=== PATIENT | female | born 1950 | race Caucasian/White ===

== ENCOUNTER → 2022-03-07 | Outpatient (CLI) | payer MEDICARE, BC, SELFPAY ==
--- NOTE | 2022-03-07 12:25 | RAD_ITS ---
STUDY: X-RAY - LUMBAR SPINE REASON FOR EXAM: Female, 71 years old. SCIATICA TECHNIQUE: 2 view(s) of the lumbar spine were obtained. COMPARISON: None FINDINGS: Vertebral bodies are normal height. No definite fracture demonstrated. Mild curvature convex right. Minimal anterior subluxation L3 on L4. Disc space narrowing and osteophytes at most levels. Marked facet sclerosis L2-3 through L5-S1. Sacroiliac joints are symmetric bilaterally. No paravertebral soft tissue mass identified. Surgical clips right upper abdomen previous cholecystectomy. RAD/Lumbar Spine 2 or 3 Views IMPRESSION: Degenerative changes and scoliosis. Anterolisthesis at L3-4 likely secondary to degenerative changes. No evidence of acute fracture or traumatic subluxation. Electronically Signed: Delmis Mclean MD at 5:33 EDT ,
== END | disposition home or self-care (01) ==
PROVIDERS: Referring Provider Anesthesiology Pain Medicine; Visit Provider Anesthesiology Pain Medicine
DX: M54.30 Sciatica, unspecified side (principal)
CPT/HCPCS: 72100

== ENCOUNTER → 2022-04-22 | Outpatient (CLI) | payer MEDICARE, BC, SELFPAY | END | disposition home or self-care (01) | LOC: SL 20:25 | PROVIDERS: Referring Provider Internal Medicine Critical Care Medicine; Visit Provider Internal Medicine Critical Care Medicine | DX: G47.33 Obstructive sleep apnea (adult) (pediatric) (principal) | CPT/HCPCS: 95811 ==

== ENCOUNTER → 2022-05-05 | Outpatient (CLI) | payer MEDICARE, BC, SELFPAY | END | disposition home or self-care (01) | LOC: SL 16:49 | PROVIDERS: Visit Provider Nurse Practitioner Acute Care | DX: Z00.00 Encounter for general adult medical examination without abnormal findings (principal) ==

== ENCOUNTER → 2022-05-31 | Outpatient (CLI) | payer MEDICARE, BC, SELFPAY ==
--- NOTE | 2022-05-31 18:12 | MRI_ITS ---
EXAM: MR LUMBAR SPINE WITHOUT INTRAVENOUS CONTRAST CLINICAL INDICATION: LBP TECHNIQUE: Multiplanar and multisequence MR images of the lumbar spine without intravenous contrast. Magnetic field strength 1.5 T. This report was created using [email or web address] report [employer] technology. COMPARISON: None. FINDINGS: VERTEBRAE: Small hemangioma left side of the T12 vertebral body and left side of the upper sacrum. Vertebral body heights are preserved. Normal alignment. No spondylolisthesis. There is preservation of the normal lumbar lordosis. SPINAL CORD: Unremarkable. Normal position and signal intensity of the conus medullaris. SOFT TISSUES: Unremarkable. DISCS/SPINAL CANAL/NEURAL FORAMINA: L1-L2: Unremarkable. Normal disc height and morphology. Normal spinal canal and lateral recesses. Normal neuroforamina. L2-L3: Unremarkable. Normal disc height and morphology. Normal spinal canal and lateral recesses. Normal neuroforamina. L3-L4: Unremarkable. Normal disc height and morphology. Normal spinal canal and lateral recesses. Normal neuroforamina. Moderate bilateral facet arthropathy. L4-L5: Unremarkable. Normal disc height and morphology. Normal spinal canal and lateral recesses. Normal neuroforamina. Moderate bilateral facet arthropathy. L5-S1: Unremarkable. Normal disc height and morphology. Normal spinal canal and lateral recesses. Normal neuroforamina. Moderate bilateral facet arthropathy. MRI/Spine Lumbar (Routine) IMPRESSION: No acute findings in the lumbar spine. Moderate bilateral facet arthropathy in the lower lumbar spine. Hemangiomas in the T12 vertebral body and the sacrum. Electronically Signed: Ari Zamora MD at 7:58 EDT ,
== END | disposition home or self-care (01) ==
LOC: MRI 17:35
PROVIDERS: Referring Provider Anesthesiology Pain Medicine; Visit Provider Anesthesiology Pain Medicine
DX: M54.16 Radiculopathy, lumbar region (principal)
CPT/HCPCS: 72148

== ENCOUNTER → 2022-06-21 | Outpatient (CLI) | payer MEDICARE, BC, SELFPAY | END | disposition home or self-care (01) | LOC: SL 06-23 07:40 | PROVIDERS: Visit Provider Nurse Practitioner Acute Care | DX: G47.33 Obstructive sleep apnea (adult) (pediatric) (principal) | CPT/HCPCS: 98960; G0463 ==

== ENCOUNTER 2022-07-15 12:00 | Outpatient (RCR) | payer MEDICARE, BC, SELFPAY ==
--- NOTE | 2022-06-06 16:07 | HP.PTEVAL_ITS ---
Patient's Visit Information QUIRINO PECK is a 71 year old F referred to Physical Therapy by Dr. Robb Carmona MD with a diagnosis of BACK PAIN. Date of Evaluation: 06/06/22 Physical Therapist: Megan Spence PT, Cert MDT - Visit Plan Frequency: 2-3x /Week Duration: 4-6 Weeks Plan: AQUATIC THERAPY FOR PAIN RELEIF, POSTURE CORRECTION/STRENGTHENING, INSTRUCTION IN APPROPRIATE BODY MECHANICS AND ACTIVITY MODIFICATIONS. DLS STARTING WITH A NEUTRAL SPINE PROGRESSING ROM TOLERATED. ZANA LE ROM, STRETCHING AND STRENGTHENING. HEP INSTRUCTION - Subjective Work/Leisure: RETIRED. Present symptoms: THE BACK IS GONE REPORTS DR. TONE ARROYO GAVE HER A SHOT A COUPLE WKS AGO AND THE PAIN WENT AWAY RIGHT AWAY. ZANA THIGH, KNEE, LEG AND ANKLE PAIN. CURRENTLY LEFT > RIGHT. INTERMITTENT LLE NUMBNESS AND TINLGING. PAIN GETS THE WORST IN THE LEFT KNEE. Present since: YEARS. Pain Scale: WORST 9/10, LEAST 3/10. Currently: 8/10. Commenced as a result of: NO APPARENT REASON. Symptoms at onset: ZANA LE PAIN - THEN I WALKED FUNNY AND IT MADE MY BACK HURT. Worse: THE MORE I USE MY LEFT LEG AND THE MORE I AM ON THEM THE WORSE IT GETS. Better: SITTING SHORT TIMES AND FREQUENT OF CHANGE OF POSITION. TYLONOL. Disturbed sleep: YES. Previous history/Previous treatment: NO BACK SURGERY. NO HIP SURGERY. FIRST LORI WAS A COUPLE MONTHS AGO AND IT HELPED HER BACK AND EVEN HER LEGS TEMPORARILY. THIS MORE RECENT SHOT HELPED HER BACK BUT NOT HER LEGS. FOLLOW UP PENDING WITH DR. CARMONA AGAIN IN ABOUT 2 WKS. NO PRIOR PHYSICAL THERAPY. NO H/O CHIROPRACTIC. Coughing/sneezing/straining: NEGATIVE. Gait: I HAVE TO GO SLOW. PATIENT REPORTS IT HURTS HER L KNEE IF SHE TRIES TO WALK TOO FAST. Bowel or Bladder Dysfunction: NO. Accidents: NO. Unexplained weight loss: NO. Imaging: Moderate bilateral facet arthropathy in the lower lumbar spine. PMH/Recent major surgery: ON BLOOD THINNER FOR BLOOD CLOT IN RIGHT LE AND IT WENT UP INTO HEART 1998. SLEEP APNEA. HIGH CHOLESTEROL. HTN. - Objective Sitting/Standing Posture: POOR. FH. RS'S. SLOUCHED. NO RELEVENT LATERAL LUMBAR SHIFT. Active Correction of posture: NE. UNABLE TO MAINTAIN. Other Observations: THIS PATIENT AMBULATES INDEP;LY INTO PT TODAY WITHOUT ANY ASSITIVE DEVICES OR LOB BUT WITH DECREASED CADANCE. SHE IS LIMPING ON ZANA LE'S WALKS WITH INCREASED TRUNK FLEXION AND HAS SHORT ZANA STRIDE LENGTH. Sensory deficit: ZANA LE LIGHT TOUCH SENSATION GROSSLY INTACT AND SYMMETRICAL. ROM deficit: FULL ZANA KNEE EXT AND FLEX TO 115 DEG IN SUPINE WITH A HEEL SLIDE. ERP ZANA KNEES WITH FLEXION. Motor deficit: ZANA LE STRENGTH GROSSLY 4/5 EXCEPT ANKLES 5/5. Dural Signs: NEGATIVE ZANA LE'S. Lumbar mvmt loss: flex - MOD. ext - MOD. R SG - MOD. L SG - MOD. PATIENT DENIES INCREASED PAIN WITH LUMBAR ROM TESTING ALL PLANES. Core strength: POOR. Palpation: NO ACUTE LUMBAR OR HIP TENDERNESS. TREATMENT: NEUROMUSCULAR REEDUCATION - RETRAINING OF MVMT AND POSTURE FOR SITTING, LYING AND STANDING ACTIVITIES. - Balance/Special Test Scores Oswestry Low Back Score: 25 TUG Test Time Seconds: 15.13 30 Second Chair Rise Test Seconds: 6 - Goals Goal 1:: DECREASE C/O ZANA LE SX'S. Goal Time Frame: 4-6 Weeks Goal 2:: IMPROVE PERSONAL CARE, LIFTING, WALKING, STANDING, SOCIAL LIFE, TRAVEL AND WORK/HOMEMAKING FUNCTION. Goal Time Frame: 4-6 Weeks Goal 3:: INSTRUCT IN PROPHYLAXIS Goal Time Frame: 4-6 Weeks - Anticipated Interventions Patient/Client Instruction: Educate patient on: Condition, Plan of Care, Risk Factors For the Purpose of:: To improve self management Therapeutic Exercise to Include: Strength training, Body mechanics, Postural training, Flexibilty training, Neuromotor development, In an aquatic setting, Dynamic Lumbar Stabilization For the Purpose of:: To decrease pain, To increase ROM, To improve muscle performance and motor function, To increase tolerance to activity/condition/position, To improve ability of physical actions for home/community/work/leisure Thank you for the opportunity to evaluate your patient. For Medicare and Medicare HMO plans, please review the plan of care and approve it. It will need to be FAXED BACK to us at [phone] for Medicare purposes. For Medicare only, by signing this I certify the plan of care. Please let me know if there are questions or concerns regarding this plan of care. Physician Signature: Date:
--- NOTE | 2022-07-15 12:25 | HP.PTDCSUM ---
It has been my pleasure to treat QUIRINO PECK referred by Dr. Robb Mtz MD, with the diagnosis of BACK PAIN for a total of 10 visit(s). Discharge Date: Please see the following information for a summary of their discharge status. Subjective: I'VE HAD BIG IMPROVEMENT. PATIENT REPORTS SHE FEELS IF SHE CONTINUES HER HEP SHE WILL CONTINUE TO GET BETTER. DID GET SORE ATTER LAST AQUATIC THERAPY SESSION THAT SHE RELATES TO USING MUSCLES THAT SHE HASN'T USED ENOUGH. PATIENT REPORTS SHE IS DOING SO MUCH BETTER AND HER GOALS FOR THERAPY HAVE BEEN MET - I CAN DO MY HOUSE TASKS NOW AND I AM GOING TO FREEZE PEACHES TODAY. WANTS TO CONTINUE EX ON HER OWN AT THIS POINT. LLE Pain Intensity (Out of 10): 0 Lumbar Spine Pain Intensity (Out of 10): 0 % Improvement: 85 Objective/Function: PATIENT WAS SEEN TODAY FOR RE-ASSESSMENT OF PROGRESS TOWARD THE SET PT GOALS AND THE NEED FOR FURTHER PHYSICAL THERAPY VS READINESS FOR DISCHARGE. UPON EXAM TODAY: Motor deficit: ZANA LE STRENGTH GROSSLY 4/5 EXCEPT ANKLES 5/5. Dural Signs: NEGATIVE ZANA LE'S. Lumbar mvmt loss: flex - MOD. ext - MOD. R SG - MOD. L SG - MOD. PATIENT DENIES INCREASED PAIN WITH LUMBAR ROM TESTING ALL PLANES. Core strength: POOR. TUG TIME AND 30STS TESTS HAVE BOTH IMPROVED. Goal 1:: DECREASE C/O ZANA LE SX'S. Goal Progress: Goal Met Goal 2:: IMPROVE PERSONAL CARE, LIFTING, WALKING, STANDING, SOCIAL LIFE, TRAVEL AND WORK/HOMEMAKING FUNCTION. Goal Progress: Goal Met Goal 3:: INSTRUCT IN PROPHYLAXIS Goal Progress: Goal Met Plan: D/C TO INDEP HEP. PATIENT IS AGREEABLE. If there are questions or concerns regarding this patient's physical therapy, please feel free to call me at [phone]. Thank you for the referral of this patient. Sincerely, Megan Spence, PT, Cert MDT Balance/Gait/Functional tests - Balance/Special Test Scores Oswestry Low Back Score: 10 TUG Test Time Seconds: 12.42 Tug Test: <20 sec.=mostly independent 30 Second Chair Rise Test Seconds: 8
== END 2022-07-15 19:00 | disposition home or self-care (01) ==
LOC: PT 12:00
PROVIDERS: Referring Provider Anesthesiology Pain Medicine; Visit Provider Anesthesiology Pain Medicine
DX: M54.9 Dorsalgia, unspecified (principal)
CPT/HCPCS: 97112; 97113; 97162; 97164

== ENCOUNTER 2023-12-27 08:37 | Observation (INO) | payer MEDICARE, BC, SELFPAY ==
[2023-11-30 14:21] LABS: Absolute Neutrophil Count 4.9 X10^3/uL (2.0-7.7); Basophil# 0.02 X10^3/uL; Basophil% 0.2 % (0-1); Eosinophil# 0.27 X10^3/uL; Eosinophils% 2.8 % (0-5); Hematocrit 39.8 % (37-47); Hemoglobin 12.7 g/dL (12.0-15.0); Mean Corp Hgb Conc 31.9 g/dL (32-36); Mean Corpuscular Hgb 30.9 pg (27.0-32.0); Mean Corpuscular Volume 96.8 fL (81-99); Monocyte# 0.86 X10^3/uL; Monocyte% 8.8 % (0-10); NRBC Flagged by Analyzer 0 % (0-5); Neutrophil # 4.87 X10^3/uL (2.7-7.7); Neutrophil % 50.1 % (47-70); Platelet Count 249 K/mm3 (150-450); RBC Distribution Width SD 50.1 fl (35.1-43.9); Red Blood Count 4.11 M/mm3 (4.2-5.4); White Blood Count 9.7 K/mm3 (4.4-11.0)
[2023-11-30 14:46] LABS: Magnesium 2.3 mg/dL (1.6-2.6)
[2023-11-30 14:47] LABS: Albumin, Serum 3.6 g/dL (3.2-5.0); Anion Gap 4 (5-15); BUN 19 mg/dL (7-18); BUN/Creat Ratio 25.8 RATIO (10-20); Calcium,Total 9.5 mg/dL (8.5-10.1); Chloride 106 mmol/L (98-107); Creatinine, Serum 0.74 mg/dL (0.55-1.02); EST Glomerular Filtration Rate 82 mL/min (>60); Est Glom Filt Rate - Afr Amer 99 mL/min (>60); Glucose 101 mg/dL (74-106); Sodium Level 136 mmol/L (136-145)
--- NOTE | 2023-12-21 06:49 | HP.PCM_ITS ---
History and Physical History and Physical? Patient Name: Pietro Abraham : 1950 From:? FERNIE FITZPATRICK PA-C? DATE OF PRE-OPERATIVE EXAM: 12/20/2023 DATE OF SURGERY:? 12/27/2023 SCHEDULED PROCEDURE:? Right total hip arthroplasty HISTORY OF PRESENT ILLNESS: Preoperative history and physical exam was performed on December 20, 2023.? This is a 73-year-old female who has had ongoing pain for over 2 years with her right hip.? Patient's pain can reach 9/10 with activities.? Her pain has been intermittent, aching, sharp, stabbing and sore.? Her pain has been progressively been getting worse.? She has start up pain.? Pain is located in the right buttock with pain radiating into the anterior thigh.? She states occasional instability with the left leg.? Pain occasionally awakens her at night.? She has difficulty with activities of daily living including shopping and housework.? Patient denies past history of surgery on the right hip.? She has been through weight loss program prescribed fit.? She uses a walker.? She has tried rest, physical therapy, home exercises with minimal relief.? She has been on oral Tylenol.? Patient has past history of DVT after gallbladder surgery.? She was initially on Coumadin but has been on Rivaroxaban 20 mg daily by her primary care physician.? She has medical history pertinent for previous DVT/pulmonary embolism, hypertension, hypercholesterolemia, chronic obstructive pulmonary disease, atrial tachycardia, depression, vitamin D deficiency, and history of anemia with iron deficiency.? Patient has been instructed by the primary care physician to stop the Rivaroxaban 48 hours prior to surgery.? She has obtain surgical clearance from the primary care physician Dr. Joyce and cardiology Fiorella Núñez.? Patient does have sleep apnea in which she uses a BiPAP.? Patient does state that she has required oxygen in the past after COVID-19.? She has not required any oxygen recently.? After failing conservative measures and discussing all treatment options was Dr. Luis Lundberg, the patient does wish to proceed with a right total hip arthroplasty.? She denies any recent chest pain, shortness of breath, fevers chills.? Preoperatively she did test positive for staph in which she has been doing the nasal decontamination. REVIEW OF SYSTEMS: Review Of Systems: Constitutional: Denies change in appetite, fever and weight change. Cardiovasular: Reports irregular heartbeat, but denies chest pain and heart murmur. Respiratory: Reports shortness of breath, but denies cough, pneumonia, tuberculosis and wheezing. Gastrointestinal: Reports constipation, but denies diarrhea, heartburn, nausea, rectal itching, bloody stools and vomiting. Genitourinary: Denies female genital problems. Denies urinary symptoms. Musculoskeletal: Reports gait disturbance, leg swelling, pain, trouble walking and weakness. Skin: Reports history of shingles, but denies Raynaud's and tattoo. Neurological: Denies ambulatory dysfunction, dizziness, numbness/tingling and tremor. Psychiatric: Reports stress, but denies anxiety and insomnia. Hematologic/Lymphatic: Denies anemia, bleeding/bruising tendency and past transfusion. Reviewed and updated. PAST MEDICAL HISTORY: Advance Care Plan: No Advance Directives Effective Date: 07/10/2023 Past Medical History: Medical Problems: Arthritis, High Blood Pressure, Hypercholesterolemia, History Of Blood Clots/ DVT, Sleep Apnea, Covid- 19, Pulmonary Embolism, atrial tachycardia, Chronic Obstructive Pulmonary Disease (COPD), Depression, Sinus Tachycardia, Mixed Hyperlipidemia, anemia, vitamin d deficiency Accidents: Fracture - RT [employer] RT ANKLE 1970 Surgical Hx: Appendectomy Cataracts - (2018) [facility] [place]? Gallbladder - (2018) [facility] Tonsillectomy - [facility] Anesthesia Complications: Anesthesia Complications - NAUSEA? Assistive Devices: Glasses, Dentures, Walker, Bipap Reviewed and updated. SOCIAL HISTORY: Social History: Marital: .Occupation: Retired.Work Status: Retired.Hand Dominance: Right- handed. Personal Habits:? Cigarette Use: Never Smoked Cigarettes.Smokeless Tobacco: Never Used Smokeless Tobacco.E-Cigarette Use: Never used.Alcohol: Denies use.Drug Use: Denies Use.Enjoy Exercising: Exercises 1-3 X/Week. Reviewed, no changes. VITALS: Ht: 60.9 Wt: 219lb 6oz Wt k.508 BMI: 41.6 BP: 128/80 Pulse: 114 Resp: 18 T: 97.7 T: 36.5C Pain Level: 6 O2SatR: 95 ALLERGIES: No Known Drug Allergy? MEDICATIONS: Mupirocin 2 % use qtip and apply inside each nostril twice a day until the day of surgery, Verapamil HCL ER 240 mg take 1 tablet by mouth every 12 hours, Venlafaxine HCL ER 37.5 mg take 1 capsule by mouth every day, Simvastatin 10 mg take 1 tablet by mouth at bedtime, Benazepril HCL 10 mg take 1 tablet by mouth every day, Valacyclovir HCL 1 gm take 1 tablet by mouth every 8 hours for 10 days, CVS D3 50 mcg (2000 Ut) daily, Instaflex Joint Supplement? 1 po qdaily, Miralax 17 gm as needed, Xarelto 20 mg once daily PRE-OP EXAM:? General appearance:NORMAL? ? ? Other: Eyes: Conjunctivae and lids: NORMAL? Pupils: ERR Ears, Nose, Mouth, and Throat: NORMAL? Other: Inspection of lips, teeth and gums: NORMAL? ?Other: Neck: Examination of neck: no masses noted. Respiratory: Assessment of respiratory effort: NORMAL? ?Other: ?Auscultation of lungs: clear to auscultation no wheezes, rhonchi or rales. Cardiovascular:? Auscultation of heart: regular rate and rhythm, no murmurs, gallops or rubs. PHYSICAL EXAMINATION: Patient does walk with a waddling and antalgic gait with use of walker.? Right hip range of motion 65 flexion, internal rotation 10, external rotation no redness and skin fold.? The right lower extremity is 3 mm shorter than the left.? Sensation intact to light touch. IMAGING STUDIES: Previous x-rays of the right hip reveal joint space narrowing, subchondral sclerosis, osteophyte formation consistent with severe stage IV bone on bone erosive osteoarthritis IMPRESSION: 1.? Severe right hip osteoarthritis 2.? Hypertension 3.? History of DVT and pulmonary embolism: Currently on Rivaroxaban 20 mg 4.? Hypercholesterolemia 5.? Sleep apnea with use of BiPAP 6.? Sinus tachycardia 7.? History of anemia iron deficiency 8.? Vitamin D deficiency 9.? Chronic obstructive pulmonary disease 10.? Depression 11.? Morbid obesity with BMI 41.6 PLAN: Dr. Luis Lundberg did discuss and review with the patient all treatment options including surgical versus nonsurgical options.? Patient does wish to proceed with the above-stated procedure.? Potential risks, benefits, and complications of the procedure were discussed in detail including but not limited to , infection, nerve and blood vessel damage, persistent pain, numbness, tingling, paresthesias, blood clot, pulmonary embolism, and requirement for possible further surgery.? The patient expressed full understanding and has no further questions for the doctor.? Patient does agree to proceed with the above-stated procedure and has signed the surgery consent form. POST-OP MEDICATION PLAN: Pain Medications:? Postoperative pain regimen will be initiated by Dr. Luis Lundberg at the hospital.? Due to patient testing positive for staph and her morbid obesity she will be placed on doxycycline postoperatively for 2 weeks.? We discussed side effects including hypersensitivity to sunlight in which she should take appropriate precautions.? Also recommended probiotic while on the antibiotic.? She was instructed to bring her BiPAP and walker to the hospital DVT Prophylaxis: Patient has been instructed to stop the Rivaroxaban 48 hours prior to surgery.? This will be resumed postoperatively This dictation was created using voice recognition software. Phonetic and/or grammatical errors may exist. ___? I have re-examined the patient.? There are no clinical changes since date of exam. ___? See progress notes for changes. ___? Dictated on admission Date: ? ? ?Time: Signature:
[2023-12-27] VITALS (13 sets, daily range): BP systolic 89–128; BP diastolic 42–65; PULSE 55–115; RESP 16–18; TEMP 36.3–37.1; O2SAT 93–100; BMI 42.2
--- NOTE | 2023-12-27 | HIP_PTH ---
PATHOLOGY RESULTS PATIENT: QUIRINO PECK LOC: MS3 U#:[id number] AGE/SX: 73/F ROOM: [facility] [place] RE12/27/[address]: Dr. Lius Lundberg MD : 1950 BED: 1 DIS: 12/28/2023 SPEC #: [id number] RECD: 12/27/23 09:04 STATUS: ELIUD GARCIAChrist #: [id number] KOKO: 12/27/23 00:[address]: Luis Lundberg DEPT: SURGICAL PATHOLOGY RECD BY: Eric Broderick ENTERED: 12/28/23 09:05 SP TYPE: TOTAL HIP OTHR DR: DO Dr. Roselia Shipley MD Tissues: Hip, NOS Procedures: Decalcification bone/plaque Surgery Specimen Level IV HEADER OPERATION: ERAS, anterior right total hip arthroplasty PRE-OP DIAGNOSIS: Severe right hip osteoarthritis TISSUE SUBMITTED: Right femoral head MICROSCOPIC DIAGNOSIS Right femoral head, total hip replacement/resection: Femoral head with degenerative osteoarthritic changes. LIZ:tatyana 01/03/2024 MICROSCOPIC DESCRIPTION Slides are reviewed. GROSS DESCRIPTION Received is one container labeled with the patient's name and designated right femoral head. The specimen consists of a slightly distorted degroot femoral head measuring 5.0 x 5.0 x 4.0 cm. The articular surface displays prominent osteophyte formation, eburnation and bone erosion. Also present in the specimen container are multiple irregular fragments of bone reamings, blood clot and bone measuring in aggregate 8.5 x 5.0 x 1.5 cm. Epidemiologist sections are submitted in two cassettes after decalcification as follows: 1 - bone reamings, 2 - bone. / AM:tatyana 12/28/2023 TC:5 CPT: 03605, 79201
[2023-12-27] MEDS: Magnesium 1 GM over 15 mins IV (09:15)
[2023-12-27] MEDS: Lactated Ringers 1,000 ML 999 ML IV ×2 (09:15→13:38)
[2023-12-27] MEDS: Celecoxib 200 MG Capsule 400 MG PO (09:34)
[2023-12-27] MEDS: Acetaminophen 500 MG Tablet 1000 MG PO ×2 (09:34→21:16)
[2023-12-27] MEDS: Gabapentin 600 MG Tablet PO (09:35)
[2023-12-27] MEDS: Vancomycin HCl 1,500 MG in 0.9% Normal Saline (500mL Bag) 500 ML 250 MG IV (09:47)
[2023-12-27] MEDS: Cefazolin 2 GM in 0.9% Normal Saline (100mL Bag) 100 ML IV (11:23)
[2023-12-27] MEDS: dexAMETHasone 10 MG/ML Vial IV (11:40)
--- NOTE | 2023-12-27 12:25 | RAD_ITS ---
STUDY: X-RAY - PELVIS AND RIGHT HIP REASON FOR EXAM: Female, 73 years old. Intraoperative digital documentation views of hip replacement. TECHNIQUE: 4 intraoperative digital documentation views of the pelvis and hip. COMPARISON: None. FINDINGS: 4 intraoperative digital documentation views show a right total hip arthroplasty in anatomic alignment. RAD/Hip 1 view with Pelvis IMPRESSION: Intraoperative digital documentation views. Electronically Signed: Ariel Leonardo MD at 13:38 EST ,
[2023-12-27] MEDS: JPS (Morphine 10mg/ml) OPERA.SITE (12:45)
[2023-12-27] MEDS: TRANEXAMIC ACID 2,000 MG, 0.9% Normal Saline (100mL Bag) 100 ML OPERA.SITE (12:47)
--- NOTE | 2023-12-27 12:57 | OP.PCM_ITS ---
Report of Operation Date of Procedure: 12/27/23 Pre-Operative Diagnosis: Right hip primary osteoarthritis Post-Operative Diagnosis: Right hip primary osteoarthritis Surgery/Procedure Performed:: Right minimally invasive direct anterior total hip replacement Description of Surgical Findings:: Stable hip with equal leg length Surgeon: Luis Lundberg turfgrass technician: Alejandro Montanez Type of Anesthesia: General Anesthesiologist: Teo Churchill Special Medications: 2 g Ancef, 1 g TXA at incision, 1 g TXA closure, 10 mg Decadron, joint cocktail (5 mg Duramorph, 30 mL of 0.5% Ropivicaine, 1000 units of epinephrine, 30 mg of Toradol) Specimen's removed: Bony cuts Estimated Blood Loss (mL): 500 Fluids Replaced: 1500 ML Description of Procedure: Components used: 1. Insignia [place] femoral stem size 4 high offset 2. L[place] trident 2 acetabular shell size 52 mm 3. [place] X3 polyethylene E 4. [place] Biolox delta 36mm, -5mm femoral head Brief history operative indications: 73 yo F who failed conservative measures for their hip osteoarthritis. X-rays were consistent with osteoarthritis including joint space narrowing, osteophyte formation and subchondral cysts. Total hip replacement was discussed with the patient with risks and benefits including but not limited to blood loss, DVTs, PEs, neurovascular damage, dislocation, general risks of anesthesia including loss of life. Patient demonstrated an understanding medical clearance is obtained the patient was consented for surgery. Procedure: On the date of procedure the patient's right hip was marked in the preoperative area. Patient was then taken back to the operating room where anesthesia assumed control of the C-spine and airway and administered anesthetic. Patient was transferred to the operating table and placed in the supine position. The hips were placed at the break of the bed and a sacral bump was placed. The right lower extremity was then prepped out in a sterile fashion using chlorhexidine while the surgeon scrubbed. The PA was vital in the positioning of the patient. Upon reentering the room the right lower extremity was draped in the standard orthopedic fashion and the incision was marked. A timeout was called and everyone agreed upon the side, the site, the procedure be performed, antibody given, and patient's identity. At this time incision was made through skin, subcutaneous tissue, and fat down to fascia. The fascia was then incised and the TFL was retracted laterally. A retractor was placed on the lateral border of the femoral neck. Attention was directed to the inferior portion of the serene ulrich and all crossing vessels were identified and appropriately coagulated. A retractor was then placed on the medial portion of the femoral neck. The anterior capsule was then cleared of all soft tissue and then H shaped capsulotomy was made. The retractors were then placed inside the capsule. The femoral neck was identified and a cleanup cut was made. At this time a power corkscrew was used to remove the femoral head. Attention was then turned toward the acetabulum where the soft tissues were appropriately retracted and the acetabulum was sequentially reamed to 52 mm. A 52 mm cup was then selected and impacted into place. Acetabular liner was impacted into place and locking mechanism was verified. The position of the acetabular cup was then verified under live fluoroscopy. Attention was then turned to the femur. Soft tissue releases on the medial and lateral femoral neck were appropriately done, the leg was externally rotated and lateralized. A Lester retractor was placed medially and proximally to the greater trochanter this allowed appropriate visualization and exposure of the femoral canal. Rongeour was then used to remove excess lateral bone. A canal finder and entry broach were used to open the proximal canal. Once we verified we were down the femoral canal we subsequently broached up to a size 4 femur. The appropriate neck was placed in the previously selected head was trialed with a -5 mm neck. Traction was pulled and the hip was reduced with internal rotation. Once it was appropriately reduced and stability was checked. There was minimal shuck, equal leg lengths and appropriate stability with hyperextension and external rotation as well as with 90? flexion and internal rotation. Fluoroscopy was then also used to verify the position of the components and leg lengths using the contralateral side for comparison. The trial components were then dislocated the proximal femur was again exposed and the components were removed from the wound. The final components were verified and opened. The wound was copiously irrigated out with normal saline. The acetabulum was checked for any residual debris. The final components were placed and impacted. Traction and internal rotation were again used to reduce the hip. After adequate reduction the hip remained stable with appropriate leg lengths. The final components were once again checked with live fluoroscopy and were found to be satisfactory. The wound was then copiously irrigated with normal saline once more, and hemostasis was obtained. Closure was then done using #1 Vicryl runner to close the fascia. A 2-0 vicryl interuppted sutures were used to close the subcutaneous skin. A 3-0 Monocryl and Steri-Strips were used for final skin closure. A Silverlon dressing was placed. Patient was awakened by anesthesia and transferred to the [facility]. Patient was then transferred to the PACU for recovery. During the course of the procedure the physician radiology transcriptionist (PE) played a vital role. Their intimate knowledge of my steps in the procedure aided in safe and expedient completion of the procedure. The PE played a vital rolls in positioning particularly in obtaining the appropriate positioning of the sacral bump. The PE was also vital in the retraction of soft tissues during the exposure and especially the femoral work as this is a vital part of the procedure to prevent complications and fractures. The PE was also vital and protecting soft tissues during times of bony cuts and reaming. He also played a vital role in closure with my direct supervision. The PE was also important during reduction and dislocation of the joint and trials intraoperatively. Postoperative plan: Patient will get 24 hours postop antibiotics. Patient will get in-house physical therapy and will be weight-bear as tolerated. Patient will follow up in office in 2 weeks for a wound check and x-rays. Patient will resume her Xarelto tomorrow. This will be sufficient for DVT prophylaxis. Finally, patient replaced on doxycycline 100 mg p.o. twice daily for positive preoperative staph screening and BMI greater than 40. Complications No intraoperative complications Admit VTE Documentation VTE Present on Admission: No VTE Mechan Device Prophylaxis: SCD's and Thigh High GINETTE Hose VTE Pharm Prophylaxis ordered?: Yes
--- NOTE | 2023-12-27 13:35 | RAD_ITS ---
STUDY: X-RAY - PELVIS AND RIGHT HIP REASON FOR EXAM: Female, 73 years old. Post Op -- AP both hips on single arnel/lateral of op hip PACU TECHNIQUE: 2 views of the pelvis and hip. COMPARISON: Comparison is made with prior study done earlier today. FINDINGS: The patient status post right total hip replacement. There is good alignment. Postoperative soft tissue changes. RAD/Hip Min 2 Views (Portable) IMPRESSION: Status post right total hip replacement. There is good alignment. Postoperative soft tissue changes. Electronically Signed: Alejo Marie MD at 14:16 EST ,
[2023-12-27] MEDS: Ondansetron 4 MG/2 ML Vial IV (17:57)
[2023-12-27] MEDS: 0.9% Saline Lock 10 ML Syringe IV (17:57)
--- NOTE | 2023-12-27 18:29 | PCM.PN.HOSP ---
Reason for Visit Reason for Visit: Diagnoses Encounter for other preprocedural examination (12/27/23) Subjective Subjective Patient was seen and examined today at the request of orthopedic surgery, she underwent a minimally invasive direct anterior total hip replacement, at the time my examination she is on low-flow nasal cannula oxygen. She does not relate to any complaints of shortness of breath or chest discomfort at the time of my exam. Medical history includes morbid obesity, obstructive sleep apnea, previous pulmonary embolism, chronic depression, essential hypertension, and hyperlipidemia. Objective Data Objective Data Vital Signs: Vital Signs Temp Pulse Resp BP Pulse Ox O2 Del Method O2 Flow Rate 98.7 F 115 H 18 127/65 H 99 Room Air 2 12/27/23 17:56 12/27/23 17:56 12/27/23 17:56 12/27/23 17:56 12/27/23 17:56 12/27/23 17:56 12/27/23 16:43 Oxygen Flow Rate (L/min) 2 Oxygen Delivery Method Room Air Weight: 98 kg Body Mass Index (BMI) 42.2 Intake & Output: Intake and Output for Last 24 Hours 12/25/23 12/26/23 12/27/23 23:59 23:59 23:59 Intake Total 2742 / 2742 Output Total 275 / 275 Balance 2467 / 2467 Lab / Micro Data 11/30/23 13:27 11/30/23 13:27 Micro: Microbiology 11/30/23 13:27 Interface Orders Nasal Screen MRSA/MSSA - Final Radiography Diagnostic Testing: Radiology Impression Hip/Pelvis X-Ray 12/27/23 12:25 IMPRESSION: Intraoperative digital documentation views. Electronically Signed: Ariel Leonardo MD at 13:38 EST , Hip X-Ray 12/27/23 13:35 IMPRESSION: Status post right total hip replacement. There is good alignment. Postoperative soft tissue changes. Electronically Signed: Alejo Marie MD at 14:16 EST , Physical Exam Const alert, oriented x3, no apparent distress and healthy appearing Constitutional Narrative: Patient is morbidly obese General Appearance: cooperative, well kempt and well developed Orientation / Consciousness: awake, oriented to person, oriented to place and oriented to time HEENT normocephalic, head/scalp atraumatic and moist oral mucous membranes Eyes PERRL, EOMs intact bilaterally and conjunctivae normal Neck supple, no JVD, thyroid normal and no carotid bruits General: trachea midline Resp normal respiratory effort, no retractions, no use of accessory muscles and clear to auscultation bilaterally Auscultation: Negative for rales, rhonchi or wheezes Cardio regular rate, regular rhythm, S1 normal heart sound, S2 normal heart sound, no murmurs, no rub and no gallops GI normal to inspection, nondistended, normoactive bowel sounds, soft to palpation, non-tender and non-distended Extremity no clubbing, cyanosis or edema Skin no rashes or lesions noted General Skin Exam: no breakdown Neuro oriented x3, CN's II-XII intact bilaterally, moves all extremities, no focal motor deficits and no sensory deficits noted Sensorium / Orientation: awake, alert, oriented to person, oriented to place and oriented to time Speech: speech normal Psych affect normal Assessment & Plan Assessment/Plan (1) LEELA (obstructive sleep apnea): PLAN: Plan 1. Obstructive sleep apnea-patient has her own CPAP machine here, she will use it while she is in the hospital #2 osteoarthritis-postop day 0 right total knee replacement, patient is seeing PT and OT, orthopedic surgery is managing her orthopedic issues #3 chronic anticoagulation-patient is on Xarelto as an outpatient due to past history of PE, orthopedic surgery is holding the Xarelto at the present time due to her surgery, it appears that the Xarelto will be resumed tomorrow night at dinner. #4 essential hypertension-patient is on verapamil, blood pressure will be monitored #5 chronic depression-patient is on Effexor #6 hyperlipidemia-patient is on Lipitor at this time #7 morbid obesity-complicates care, medical course, recovery, and prognosis Total clinical time spent by myself addressing the patient's medical issues, reviewing all of her data, and collaborating with patient's care team: 30 minutes Charges/Coding Visit Charges Office Visits / Consults: 79942 OV L4 Est 30min
--- NOTE | 2023-12-27 18:44 | NURSING ---
CPS aware pt has brought in her own CPAP machine for hs use.
[2023-12-27] MEDS: Cefazolin 1 GM/50 ML BAG IV (18:50)
[2023-12-27] MEDS: Atorvastatin Calcium 10 MG Tablet 5 MG PO (21:15)
[2023-12-27] MEDS: Verapamil SR 240 MG Tablet PO (21:15)
[2023-12-27] MEDS: Senna/Docusate Sodium 1 Tablet 2 TABLET PO (21:16)
[2023-12-28] MEDS: Cefazolin 1 GM/50 ML BAG IV (04:08)
[2023-12-28 04:10] VITALS: BP 108/48; PULSE 70; RESP 16; TEMP 36.4; O2SAT 97
[2023-12-28] MEDS: Acetaminophen 500 MG Tablet 1000 MG PO ×2 (06:59→12:12)
[2023-12-28 07:51] LABS: Hematocrit 33.7 % (37-47); Hemoglobin 10.6 g/dL (12.0-15.0); Mean Corp Hgb Conc 31.5 g/dL (32-36); Mean Corpuscular Hgb 30.5 pg (27.0-32.0); Mean Corpuscular Volume 97.1 fL (81-99); Mean Platelet Vol. 9.9 fl (6.2-12.0); Platelet Count 195 K/mm3 (150-450); RBC Distribution Width CV 13.4 % (11.6-14.6); RBC Distribution Width SD 47.8 fl (35.1-43.9); Red Blood Count 3.47 M/mm3 (4.2-5.4); White Blood Count 15.2 K/mm3 (4.4-11.0)
[2023-12-28 08:14] LABS: Anion Gap 4 (5-15); BUN 14 mg/dL (7-18); BUN/Creat Ratio 20.5 RATIO (10-20); Calcium,Total 8.3 mg/dL (8.5-10.1); Chloride 108 mmol/L (98-107); Creatinine, Serum 0.68 mg/dL (0.55-1.02); EST Glomerular Filtration Rate 90 mL/min (>60); Est Glom Filt Rate - Afr Amer 108 mL/min (>60); Estimated Creatinine Clearance 64.77 ml/min; Glucose 132 mg/dL (74-106); Potassium 4.5 mmol/L (3.5-5.1); Sodium Level 138 mmol/L (136-145)
[2023-12-28] MEDS: Cholecalciferol (VIT D3) 25 MCG TABLET (1,000 UNITS) 50 MCG PO (09:32)
[2023-12-28] MEDS: Ascorbic Acid 500 MG Tablet 1000 MG PO (09:32)
[2023-12-28] MEDS: Lisinopril 10 MG Tablet PO (09:33)
[2023-12-28] MEDS: Senna/Docusate Sodium 1 Tablet 2 TABLET PO (09:33)
[2023-12-28] MEDS: Zinc Sulfate 50 mg zinc (220 mg) ORAL capsule PO (09:33)
[2023-12-28] MEDS: Venlafaxine XR 37.5 MG Capsule PO (09:33)
[2023-12-28] MEDS: Famotidine 20 MG Tablet PO (09:33)
[2023-12-28] MEDS: Verapamil SR 240 MG Tablet PO (09:33)
--- NOTE | 2023-12-28 09:44 | CASEMGMT ---
Met with patient and her son to complete KNUTSON form. KNUTSON form explained to both who voiced understanding and signed form. Original form placed in pt?s chart and copy provided to?patient. Shanelle Romo, Discharge Planning Asst
[2023-12-28 10:00] VITALS: BP 116/50; PULSE 75; RESP 16; TEMP 36.7; O2SAT 95
--- NOTE | 2023-12-28 10:01 | PN_ITS ---
Subjective Subjective Patient seen and examined. She was sitting comfortably in bed with her son by bedside. She had no active complaints. She was comfortably eating breakfast. Review of systems otherwise negative. She is postop day 1 for right anterior hip replacement. Pain is well-controlled especially when she is not moving. R eview of systems otherwise negative. Objective Data Objective Data Vital Signs: Vital Signs Temp Pulse Resp BP Pulse Ox O2 Del Method O2 Flow Rate 97.6 F L 70 16 108/48 L 97 CPAP 2 12/28/23 04:10 12/28/23 04:10 12/28/23 04:10 12/28/23 04:10 12/28/23 04:10 12/28/23 04:10 12/27/23 21:28 Oxygen Flow Rate (L/min) 2 Oxygen Delivery Method CPAP Weight: 216 lb 0.848 oz Body Mass Index (BMI) 42.2 Intake & Output: Intake and Output for Last 24 Hours 12/26/23 12/27/23 12/28/23 23:59 23:59 23:59 Intake Total 2992 / 2992 50 / 50 Output Total 525 / 525 350 / 350 Balance 2467 / 2467 -300 / -300 Lab / Micro Data 12/28/23 07:14 12/28/23 07:14 Labs: Laboratory Results - last 24 hr 12/28/23 07:14: WBC 15.2 H, RBC 3.47 L, Hgb 10.6 L, Hct 33.7 L, MCV 97.1, MCH 30.5, MCHC 31.5 L, RDW Std Deviation 47.8 H, RDW Coeff of [place] 13.4, Plt Count 195, MPV 9.9, Sodium 138, Potassium 4.5, Chloride 108 H, Carbon Dioxide 26.0, Anion Gap 4 L, BUN 14, Creatinine 0.68, Estim Creat Clear Calc 64.77, Est GFR (MDRD) Af Amer 108, Est GFR (MDRD) Non-Af 90, BUN/Creatinine Ratio 20.5 H, Glucose 132 H, Calcium 8.3 L Micro: Microbiology 11/30/23 13:27 Interface Orders Nasal Screen MRSA/MSSA - Final Radiography Diagnostic Testing: Radiology Impression Hip/Pelvis X-Ray 12/27/23 12:25 IMPRESSION: Intraoperative digital documentation views. Electronically Signed: Ariel Leonardo MD at 13:38 EST , Hip X-Ray 12/27/23 13:35 IMPRESSION: Status post right total hip replacement. There is good alignment. Postoperative soft tissue changes. Electronically Signed: Alejo Marie MD at 14:16 EST , Physical Exam Const alert, oriented x3, no apparent distress and well nourished General Appearance: cooperative and well developed HEENT normocephalic, head/scalp atraumatic, moist oral mucous membranes and oropharynx normal Eyes PERRL and EOMs intact bilaterally Neck no lymphadenopathy, supple and no JVD Lymph Lymphatic: no lymphadenopathy noted and no lymphedema noted Resp normal respiratory effort, normal air movement and clear to auscultation bilat erally Cardio regular rate, regular rhythm, S1 normal heart sound, S2 normal heart sound and no murmurs GI normal to inspection, nondistended, normoactive bowel sounds, soft to palpation, non-tender and non-distended Extremity normal capillary refill, no clubbing, cyanosis or edema and no calf tenderness General Extremity: no tenderness to palpation of joints or extremities Skin Skin Narrative: intact dressing over right hip General Skin Exam: no breakdown Neuro CN's II-XII intact bilaterally, no focal motor deficits and no sensory deficits noted Psych thought process normal and cooperative Appearance: appropriate Assessment & Plan Assessment/Plan (1) S/P total right hip arthroplasty: PLAN: Plan #osteoarthritis s/p right anterior hip replacement * today is POD 1 * pain is well controlled * on PO oxyodone, PO tylenol and IV morphine prn for pain * PT/OT on board. * fall precautions #Benign essential hypertension: On verapamil #Depression: On Effexor #Hyperlipidemia: On statin #History of PE: On Xarelto on outpatient basis. Xarelto held at time of surgery. To be resumed when orthopedic surgery thinks is appropriate DVT prophylaxis: Xarelto to be resumed when deemed appropriate by primary team. Charges/Coding Visit Charges Inpatient E&M: 76612 Subs Hosp L2
--- NOTE | 2023-12-28 10:11 | PCM.PN.ORT ---
Subjective Subjective The patient was sitting in bed upon examination with family member present. Patient denies any chest pain, shortness of breath, dizziness, lightheadedness, nausea or vomiting, or calf pain. Patient did have some nausea yesterday but this has resolved. Pain is controlled on medications. No adverse overnight events. Patient did tolerate physical therapy well yesterday. She has not had therapy this morning yet. Objective Data Objective Data Vital Signs: Vital Signs Temp Pulse Resp BP Pulse Ox O2 Del Method O2 Flow Rate 97.6 F L 70 16 108/48 L 97 CPAP 2 12/28/23 04:10 12/28/23 04:10 12/28/23 04:10 12/28/23 04:10 12/28/23 04:10 12/28/23 04:10 12/27/23 21:28 Oxygen Flow Rate (L/min) 2 Oxygen Delivery Method CPAP Weight: 98 kg Body Mass Index (BMI) 42.2 Intake & Output: Intake and Output for Last 24 Hours 12/26/23 12/27/23 12/28/23 23:59 23:59 23:59 Intake Total 2992 / 2992 50 / 50 Output Total 525 / 525 350 / 350 Balance 2467 / 2467 -300 / -300 Lab / Micro Data 12/28/23 07:14 12/28/23 07:14 Labs: Laboratory Results - last 24 hr 12/28/23 07:14: WBC 15.2 H, RBC 3.47 L, Hgb 10.6 L, Hct 33.7 L, MCV 97.1, MCH 30.5, MCHC 31.5 L, RDW Std Deviation 47.8 H, RDW Coeff of [place] 13.4, Plt Count 195, MPV 9.9, Sodium 138, Potassium 4.5, Chloride 108 H, Carbon Dioxide 26.0, Anion Gap 4 L, BUN 14, Creatinine 0.68, Estim Creat Clear Calc 64.77, Est GFR (MDRD) Af Amer 108, Est GFR (MDRD) Non-Af 90, BUN/Creatinine Ratio 20.5 H, Glucose 132 H, Calcium 8.3 L Micro: Microbiology 11/30/23 13:27 Interface Orders Nasal Screen MRSA/MSSA - Final Radiography Diagnostic Testing: Radiology Impression Hip/Pelvis X-Ray 12/27/23 12:25 IMPRESSION: Intraoperative digital documentation views. Electronically Signed: Ariel Leonardo MD at 13:38 EST , Hip X-Ray 12/27/23 13:35 IMPRESSION: Status post right total hip replacement. There is good alignment. Postoperative soft tissue changes. Electronically Signed: Alejo Marie MD at 14:16 EST , Physical Exam Narrative Vital signs stable and afebrile. Right hip is soft and supple SCDs and GINETTE hose are in place bilaterally Patient is able to plantarflex and dorsiflex actively. Sensation is intact to light touch to saphenous, sural, superficial and deep peroneal, and tibial distribution. Incisional wound VAC in place with no drainage/output in tubing or canister Negative Homans bilaterally, negative signs and symptoms of DVT. Const alert, oriented x3 and no apparent distress Assessment & Plan Assessment/Plan (1) S/P total right hip arthroplasty: PLAN: 1. S/P direct anterior right total hip arthroplasty POD #1 2. Continue Pain Medications: Tylenol and oxycodone 3. DVT Prophylaxis: Patient has resumed her Xarelto 20 mg daily due to previous history of DVT/pulmonary embolism. 4. PT/OT: Weightbearing as tolerated with walker 5. H & H: 10.6/33.7, asymptomatic. Labs been reviewed and are stable. 6. Reactive leukocytosis: 15.2, Afebrile. Patient did receive Decadron intraoperatively. No clinical signs of infection. 7. Currently on doxycycline for 2 weeks postoperatively due to positive staph screening and BMI greater than 40.0. Discussed with the patient potential side effects of doxycycline including sensitivity to the sunlight and increased risk of skin burn. Recommend patient take appropriate precautions. Also recommend patient to take probiotic while on the antibiotic. Patient voiced understanding agreement. 8. Continue postoperative medical management per medicine 9. Continue incisional wound VAC: Plan will be for removal of incisional wound VAC on January 02, 2024. I had a lengthy discussion with her and family member about removal. If for some reason the device would fail she is to remove the dressing and dispose of the unit. She is not to get the incision/unit wet until removal of the device. On January 02, 2024 she is allowed to shower get the incision wet and only to use gentle soap and water on the incision. She is not to place any ointments, topicals, salves 6 weeks postoperatively. 10. Encouraged Incentive Spirometry 11. Disposition: Plan will be for discharge home this afternoon as long as patient is medically stable, tolerates therapy, and pain is adequately controlled. She does have outpatient physical therapy established. She will follow-up per postoperative instructions. She would like her prescriptions E scribed to [facility] pharmacy. Upon discharge she will contact her office with any concerns or questions. I have reviewed the [place] Automated Rx Reporting System (OARRS) report for this patient for refill pattern and other prescriber involvement as part of the appropriate surveillance for the provision of acute and chronic controlled medications. The report was requested and reviewed on the date of this entry and was considered in the prescribing process. This dictation was created using voice recognition software. Phonetic and/or grammatical errors may exist.
--- NOTE | 2023-12-28 10:18 | DCINST_ITS ---
Discharge Instructions Diet Discharge Diet: No restrictions Activity Discharge Activity: May Not Drive (No driving for 6 weeks postoperatively. Must also be off all narcotics and able to walk 100 feet without the use of cane or walker.) and May Not Shower (May not get the surgical area wet until incisional wound VAC is removed on January 02, 2024) May shower in (days): 1 (only if incision is dry and without drainage. Do NOT soak/submerge in tub/pool/mendoza/stream/hot tub.)) Ice area for (Minutes): 20 (Every 1-2 [address] barrier between ice and skin.) Weight Bearing Status: Weight bearing as tolerated Keep extremity elevated above heart level: Operative Extremity Additional Activity Instructions:: Follow [facility] Post-op Instructions. Once postoperative dressing has been removed only use gentle soap and water over the incision. Do not use any ointments, Neosporin, salves, alcohol pads over the incision for 6 weeks postoperatively. Do not submerge underwater for 6 weeks postoperatively. Wear elastic stockings for 2 weeks. Do NOT use alcohol with narcotic pain medication. Do NOT make important decisions while taking narcotic medication. If you have problems with taking your medication (rash, itching, nausea, etc.) call the office at once. Dressing / Incision Call your doctor if your incision/area has: Continuous Slow Oozing, Sudden Increased Bleeding, Increased Pain/ Swelling, Increased Redness and Foul Smelling Discharge Call your doctor if you observe: Fever of 101 or Higher, Shortness of breath, Chest pain, Calf discomfort and Uncontrolled pain Remove Dressing in: 5 days (Okay to remove incisional wound VAC on January 02, 2024) Additional Dressing/Incision Instructions:: Follow [facility] Post-op Instructions. Once postoperative dressing has been removed, only use gentle soap and water over the incision. Do not use any ointments, Neosporin, salves, alcohol pads over the incision for 6 weeks postoperatively. Do not submerge underwater for 6 weeks postoperatively. Continue with GINETTE hose/elastic stockings for 2 weeks postoperatively. May remove at nighttime but needs to be placed back on the leg during the day. Do NOT use alcohol with narcotic pain medication. Do NOT make important decisions while taking narcotic medication. If you have problems with taking your medication (rash, itching, nausea, etc.) call the office at once. Follow Up Care Test Results: Test results from this visit will be discussed in further detail at your follow- up appointment, if applicable. Discharge Plan Admission Admit Date/Time: 12/27/23 08:37 Attending Provider: Luis Lundberg Primary Care Provider: Kelley Joyce Consulting Providers: Roselia Dailey Discharge Orders/Prescriptions Prescriptions: New acetaminophen 500 mg Tablet 1,000 mg PO TID 14 Days Qty: 84 0RF Rx Instructions: Do not take more than 3000 mg Tylenol in a 24-hour period. famotidine 20 mg Tablet 20 mg PO DAILY 14 Days Qty: 14 0RF doxycycline monohydrate 100 mg Capsule 100 mg PO BID 14 Days Qty: 28 0RF oxycodone 5 mg Tablet 5 - 10 mg PO Q4H PRN PRN (Reason: Pain Score 4-10) 7 Days Qty: 42 0RF sennosides-docusate sodium [Stool Softener-Stimulant Laxat] 8.6-50 mg Tablet 2 tab PO BID 3 Days Qty: 12 0RF Rx Instructions: Take until first bowel movement, then as needed Continued cholecalciferol (vitamin D3) 50 mcg (2,000 unit) capsule 50 mcg PO DAILY denosumab 60 mg/mL syringe 60 mg subcut [id number] venlafaxine 37.5 mg capsule,extended release 24hr 37.5 mg PO DAILY zinc 50 mg tablet 50 mg PO DAILY ascorbic acid (vitamin C) 1,000 mg tablet 1 g PO DAILY Xarelto 20 mg tablet 20 mg PO QPM Patient Comments: TAKE ONE TABLET BY MOUTH EVERY DAY WITH SUPPER verapamil 240 mg tablet extended release 240 mg PO Q12H Patient Comments: TAKE 1 TABLET BY MOUTH EVERY 12 HOURS simvastatin 10 mg tablet 10 mg PO QHS Patient Comments: TAKE ONE TABLET BY MOUTH AT BEDTIME benazepril 10 mg tablet 10 mg PO DAILY Patient Comments: TAKE ONE TABLET BY MOUTH EVERY DAY magnesium 200 mg tablet 200 mg PO DAILY Referrals / Follow Up: Physical,Therapy [Other] - 01/01/24 3:00 pm Kelley Joyce DO [Primary Care Provider] - Ines Ruiz PA [Med Staff - [facility] Practice Prof] - 01/10/24 3:15 pm Disposition Disposition (needs filled in before D/C Order can be placed): Home, Self Care
--- NOTE | 2023-12-28 11:00 | CASEMGMT ---
RN?CM?CHILD CARE ASSOCIATE TEACHER?CM?to room to meet with patient for initial transition planning/care coordination?assessment.?RN?CM?introduced self and role at [facility].? Pt voices understanding and consents to?assessment?at this time.? Pt sitting up in chair in room in no distress at this time.? Pt is A/O at this time and answers all questions appropriately.?? Care providers, pharmacy, and demographics verified/updated at this time. PCP: Dr Kelley Joyce Specialists: Dr Lundberg-ortho, Dr Hudson/Annia Sainz, CHUCK WAGON DRIVER-pulmonology, Dr Mtz-main gallardo, STEVE Núñez--flea market seller in [facility] Pharmacy: [facility] Retail Insurance: Prescription Benefit:? Living Will/HPOA:? Pt does not currently have LW/HCPOA and declines info at this time.? Pt made aware that he can contact SW as an out-pt and make appt in the future if he decides he would like to talk with someone about this or would like to utilize [facility] social work for advanced directive completion.? Given [employer] card with information and contact number. Pt expresses understanding.? States does not have LW or HCPOA .? Interested in more information but states does not want to talk with at this time to complete paperwork.? Provided information on advanced directives and given [employer] card with number to call if chooses in the future to utilize [facility] social work for advanced directive completion. Educated patient that, if patient so chooses, can come back to [facility] and meet with a SW as an outpatient to complete health care advanced directives. Patient expresses understanding. LNOK: Living Arrangements: lives alone but planning on going to her son and DEBORAH's home after discharge as long as needed until she is able to return to her own home. Her son and DEBORAH's home is a one-story home w/4-5 steps to enter. She was independent w/ADL's and IADL's prior to surgery and her family is able to help as needed while she is recovering. Per therapy, they are planning no working w/pt w/stairs today. Transportation:?family DME: ?States has the following DME:?shower chair, walker, rollator, BIPAP from [employer] ?Pt states no need for further DME at this time.? HHC/SNF: No hx of either. Pt plans to go to [facility] for OP therapy. She has an appt scheduled for 12/31 @ 3 PM. Pt wishes to discharge home to her son and DEBORAH's home and states has no concerns with going there at time of discharge.? Pt voices no further concerns/needs at this time.? Advised pt to ask for?CM?if any further questions/concerns/needs arise.? Voices understanding. Pt discharging home and to continue taking Xarelto. Pt states she has this medication at home already, as she was taking it previously. PLAN:??Home w/OP therapy. Aditya BSN?RN?CM
[2023-12-28 11:02] VITALS: O2SAT 95
--- NOTE | 2023-12-28 11:50 | PHA.DC.MC.R ---
Pharmacy [facility] has performed discharge medication reconciliation and counseling for this patient. 1. ACETAMINOPHEN 1000MG PO TID X 14 DAYS 2. DOXYCYCLINE 100MG PO BID X 14 DAYS 3. FAMOTIDINE 20MG PO DAILY X 14 DAYS 4. OXYCODONE 5-10MG PO Q4H PRN PAIN 5. SENNA/DOCUSATE 2T PO BID UNTIL FIRST BM, THEN PRN CONSTIPATION The patient's discharge medication list was reviewed for discrepancies and discrepancies were resolved. The patient was counseled on the following discharge medications and changes in medications for homegoing were reviewed. The Reason for Use, instructions for use, and potential side effects were reviewed for all new medications. The patient's questions regarding all of their medications were answered. The patient was able to verbally demonstrate an understanding of their discharge medications. Patient counseled by pharmacy technician, Levi. Medications at Discharge Home Medications cholecalciferol (vitamin D3) 50 mcg (2,000 unit) capsule 50 mcg PO DAILY 03/24/22 denosumab 60 mg/mL subcutaneous syringe 60 mg subcut [id number] 03/24/22 venlafaxine 37.5 mg capsule,extended release 24 hr 37.5 mg PO DAILY 03/24/22 zinc 50 mg tablet 50 mg PO DAILY 03/24/22 ascorbic acid (vitamin C) 1,000 mg tablet 1 g PO DAILY 06/08/22 benazepril 10 mg tablet 10 mg PO DAILY 11/27/23 magnesium 200 mg tablet 200 mg PO DAILY 11/27/23 rivaroxaban 20 mg tablet (Xarelto) 20 mg PO QPM 11/27/23 simvastatin 10 mg tablet 10 mg PO QHS 11/27/23 verapamil 240 mg tablet,extended release 240 mg PO Q12H 11/27/23 acetaminophen 500 mg tablet 1,000 mg (2 x 500 mg) PO TID 14 days #84 tabs 12/28/23 doxycycline monohydrate 100 mg capsule 100 mg PO BID 14 days #28 caps 12/28/23 famotidine 20 mg tablet 20 mg PO DAILY 14 days #14 tabs 12/28/23 oxycodone 5 mg tablet 5 - 10 mg (1 - 2 x 5 mg) PO Q4H PRN PRN Pain Score 4-10 7 days #42 tabs 12/28/23 sennosides 8.6 mg-docusate sodium 50 mg tablet (Stool Softener-Stimulant Laxative) 2 tab PO BID 3 days #12 tabs 12/28/23
[2023-12-28] MEDS: Doxycycline 100 MG CAPSULE PO (12:11)
[2023-12-28] MEDS: Rivaroxaban 20 MG Tablet PO (12:11)
[2023-12-28 14:00] VITALS: BP 121/58; PULSE 72; RESP 16; TEMP 36.6; O2SAT 96
== END 2023-12-28 14:44 | disposition home or self-care (01) ==
LOC: SDC 08:38 → MS3 15:11
PROVIDERS: Anesthesiology; Admitting Provider Specialist; Referring Provider Specialist; Visit Provider Specialist
PROC: (CPT 27284; principal; 2023-12-27 10:50)
DX: M16.11 Unilateral primary osteoarthritis, right hip (principal); J44.9 Chronic obstructive pulmonary disease, unspecified; E66.01 Morbid (severe) obesity due to excess calories; Z68.41 Body mass index [BMI] 40.0-44.9, adult; Z86.711 Personal history of pulmonary embolism; Z86.718 Personal history of other venous thrombosis and embolism; E78.00 Pure hypercholesterolemia, unspecified; I47.19 Other supraventricular tachycardia; I10 Essential (primary) hypertension; G47.33 Obstructive sleep apnea (adult) (pediatric); E55.9 Vitamin D deficiency, unspecified; F32.A Depression, unspecified; Z79.899 Other long term (current) drug therapy
CPT/HCPCS: 27130; 01214; 36415; 73501; 73502; 76000; 80048; 82040; 83735; 85025; 85027; 87077; 87081; 88305; 88311; 93005; 94668; 96365; 96366; 96375; 97110; 97116; 97162; 97166; 99221; 99252; C1776; J7040; J7120; A4216; G0378; G0463; J2405; J3475

== ENCOUNTER → 2024-09-06 | Outpatient (CLI) | payer MEDICARE, BC, SELFPAY | END | disposition home or self-care (01) | LOC: SL 09:43 | PROVIDERS: Visit Provider Nurse Practitioner Acute Care | DX: G47.33 Obstructive sleep apnea (adult) (pediatric) (principal) | CPT/HCPCS: 98960; G0463 ==

== ENCOUNTER → 2024-09-30 | Outpatient (CLI) | payer MEDICARE, BC, SELFPAY | END | disposition home or self-care (01) | LOC: SL 13:05 | PROVIDERS: Visit Provider Nurse Practitioner Acute Care | DX: G47.33 Obstructive sleep apnea (adult) (pediatric) (principal) ==

== ENCOUNTER → 2025-09-09 | Outpatient (CLI) | payer MEDICARE, BC, SELFPAY ==
--- OUTSIDE RECORDS SUMMARY | 2025-09-09 20:07 | XMS RPT_ITS | CCD ---
Author Organization [facility] Care Team Providers Care Film Inspector Name Role Phone DR LARRY JOYCE DO Primary Care Physician [phone] Larry Joyce DO Primary Care Provider Dr. Larry Joyce Primary Care Provider [phone] Dr. Larry Joyce Referring Provider Dr. Austin Hudson Attending Provider [phone] Alistair FRANCHISE SPECIALIST, FRANCHISE SPECIALIST-C Annia Attending Provider [phone] Larry Joyce DO Primary Care Provider LARRY JOYCE Primary Care Unavailable KAMAR SHEA Attending Unavailable SUSAN NÚÑEZ Referring Unavailable LARRY JOYCE Primary Care Unavailable KAMAR SHEA Referring Unavailable ADOLFO GONSALES DO Attending Unavailable ADOLFO GONSALES DO Referring Unavailable LARRY JOYCE Primary Care Unavailable LARRY JOYCE Primary Care Unavailable ADOLFO GONSALES DO Referring Unavailable SUSAN NÚÑEZ Attending Unavailable LARRY JOYCE Primary Care Unavailable ADOLFO GONSALES DO Attending Unavailable LARRY JOYCE Referring Unavailable LARRY JOYCE Primary Care Unavailable SUSAN NÚÑEZ Referring Unavailable DR LARRY JOYCE DO Primary Care Physician [phone] Larry Joyce DO Primary Care Provider Dr. Larry Joyce Primary Care Provider [phone] Dr. Larry Joyce Referring Provider Alistair FRANCHISE SPECIALIST, FRANCHISE SPECIALIST-C Annia Attending Provider [phone] Dr. Kamar Morales Attending Provider [phone] Dr. Norah Turner Referring Provider Johnny, Dr. Smith Admit Provider Dr. Norah Turner Other Provider Dr. Zachary Andino Attending Provider Sina, Dr. Sharma Other Provider [phone] MARIA DEL CARMEN DO, DR JUAREZ Attending Unavailable MARIA DEL CARMEN DO, DR JUAREZ Primary Care Unavailable MARIA DEL CARMEN DO, DR JUAREZ Attending Unavailable MARIA DEL CARMEN DO, DR JUAREZ Primary Care Unavailable MARIA DEL CARMEN DO, DR JUAREZ Attending Unavailable MARIA DEL CARMEN DO, DR JUAREZ Primary Care Unavailable MARIA DEL CARMEN DO, DR JUAREZ Attending Unavailable MARIA DEL CARMEN DO, DR JUAREZ Primary Care Unavailable MARIA DEL CARMEN DO, DR JUAREZ Attending Unavailable MARIA DEL CARMEN DO, DR JUAREZ Primary Care Unavailable MARIA DEL CARMEN DO, DR JUAREZ Attending Unavailable MARIA DEL CARMEN DO, DR JUAREZ Primary Care Unavailable MARIA DEL CARMEN DO, DR JUAREZ Attending Unavailable MARIA DEL CARMEN DO, DR JUAREZ Primary Care Unavailable JOHNNY ROBLEDO, DR NORAH Haynes Attending Unavailab le MARIA DEL CARMEN DO, DR JUAREZ Primary Care Unavailable Maria Del Carmen DO, Larry Monet Primary Care Provider [phone] SUSAN NÚÑEZ Attending Unavailable MARIA DEL CARMEN, LARRY MONET Primary Care Unavailable MARIA DEL CARMEN DO, DR JUAREZ Attending Unavailable MARIA DEL CARMEN DO, DR JUAREZ Primary Care Unavailable MARIA DEL CARMEN DO, DR JUAREZ Primary Care Unavailable MARIA DEL CARMEN DO, DR JUAREZ Attending Unavailable MARIA DEL CARMEN DO, DR JUAREZ Primary Care Unavailable CAROLYN ROBLEDO, DR WILCOX Attending Unavailabl e MARIA DEL CARMEN DO, DR JUAREZ Attending Unavailable MARIA DEL CARMEN DO, DR JUAREZ Primary Care Unavailable MARIA DEL CARMEN DO, DR JUAREZ Attending Unavailable MARIA DEL CARMEN DO, DR JUAREZ Primary Care Unavailable MARIA DEL CARMEN DO, DR JUAREZ Attending Unavailable MARIA DEL CARMEN DO, DR JUAREZ Primary Care Unavailable Maria Del Carmen DO, Dr. Larry Monet Primary Care Provider Maria Del Carmen DO, Dr. Larry Monet Referring Provider [phone] Alistair FRANCHISE SPECIALIST-C, Annia Attending Provider Alistair FRANCHISE SPECIALIST, Annia Attending Unavailable Maria Del Carmen, Larry Monet Primary Care Unavailable Alistair FRANCHISE SPECIALIST, Annia Attending Unavailable Maria Del Carmen, Larry Monet Primary Care Unavailable Alistair FRANCHISE SPECIALIST, Annia Attending Unavailable Alistair FRANCHISE SPECIALIST, Annia Referring Unavailable Larry Joyce Primary Care Unavailable Larry Joyce Referring Unavailable Alistair FRANCHISE SPECIALIST, Annia Attending Unavailable Larry Joyce Primary Care Unavailable Larry Joyce Referring Unavailable Alistair FRANCHISE SPECIALIST, Annia Attending Unavailable Larry Joyce Primary Care Unavailable Medications Current Medications Medication Drug Class(es) Dates Sig (Normalized) Sig (Original) acetaminophen 500 mg oral tablet (2 sources) Start: 12-28-2023 Acetaminophen 500 mg Tablet Active 1000 mg PO THREE TIMES A DAY 84 14 0 December 28, 2023 1:00am Do not take more than 3000 mg Tylenol in a 24-hour period. Start: 12-28-2023 take 3000 mg by mout h three times daily Acetaminophen Active 1000 MG PO THREE TIMES A DAY 84 14 December 28, 2023 12:00am Do not take more than 3000 mg Tylenol in a 24-hour period. ascorbic acid 1000 mg oral tablet (19 sources) Vitamin C Start: 06-08-2022 take 1 g by mouth once daily Ascorbic Acid (Vitamin C) 1,000 mg tablet Active 1 g PO DAILY June 08, 2022 1:33pm Start: 06-08-2022 take 1 g by mouth once daily A scorbic Acid (Vitamin C) Active 1 GM PO DAILY June 08, 2022 12:33pm Start: 06-08-2022 take 1 g by mouth once daily A scorbic Acid (Vitamin C) Active 1 GM PO DAILY June 08, 2022 1:33pm Start: 03-24-2022 End: 06-08-2022 take 1 g by mouth every six hours Ascorbic Acid (Vitamin C) 1,000 mg tablet Discontinued 1 g PO EVERY 6 HOURS March 24, 2022 12:00am June 08, 2022 1:34pm Start: 03-24-2022 End: 06-08-2022 take 1 g by mouth every six hours Ascorbic Acid (Vitamin C) Discontinued 1 GM PO EVERY 6 HOURS March 23, 2022 11:00pm June 08, 2022 12:34pm Start: 03-24-2022 End: 06-08-2022 take 1 g by mouth every six hours Ascorbic Acid (Vitamin C) Discontinued 1 GM PO EVERY 6 HOURS March 24, 2022 12:00am June 08, 2022 1:34pm Start: 03-24-2022 take 1 g by mouth ev kevin six hours Ascorbic Acid (Vitamin C) Active 1 GM PO EVERY 6 HOURS March 24, 2022 12:00am take 1 tablet by lula th once daily ascorbic acid, vitamin C, (VITAMIN C) 500 mg tablet Take 500 mg by mouth once daily. Active Comment on above: Take 500 mg by mouth once daily. benazepril hydrochloride 10 mg oral tablet (20 sources) Angiotensin Converting Enzyme Inhibitor Start: 04-24-2025 benazepril 10 mg oral tablet Dose : 10 mg = 1 tab(s), Oral, Daily, # 90 tab(s), 1 Refill(s), Pharmacy: [facility], 154, cm, 03/11/25 13:53:00 EDT, Height, kg, 03/11/25 13:53:00 EDT, Dosing Weight Start Date: 04/24/25 Status: Ordered Quantity: 90.0 Unit: tab(s) Repeat number: 2 Start: 11-27-2023 benazepril 10 mg oral tablet Dose : 10 mg = 1 tab(s), Oral, Daily, # 90 tab(s), 1 Refill(s), Pharmacy: [facility], 156, cm, 03/07/24 15:00:00 EDT, Height, kg, 03/07/24 15:00:00 EDT, Dosing Weight Start Date: 07/26/24 Status: Ordered Quantity: 90.0 Unit: tab(s) Repeat number: 2 Start: 10-03-2023 benazepril 10 mg oral tablet Dose : 10 mg = 1 tab(s), Oral, Daily, # 90 tab(s), 1 Refill(s), Pharmacy: [facility], 156, cm, 09/07/23 15:00:00 EST, Height, kg, 09/07/23 15:00:00 EST, Dosing Weight Start Date: 10/03/23 Status: Ordered Start: 09-01-2022 benazepril 10 mg oral tablet Dose : 10 mg = 1 tab(s), Oral, Daily, # 90 tab(s), 1 Refill(s), Pharmacy: [facility]/pharmacy #[id number], 156, cm, 09/01/22 14:10:00 EDT, Height, kg, 09/01/22 14:10:00 EDT, Dosing Weight Start Date: 09/01/22 Status: Ordered Start: 07-08-2021 End: 03-31-2022 take 1 tablet by mouth once daily Benazepril 10 mg tablet Discontinued 10 mg PO DAILY March 24, 2022 12:00am March 31, 2022 11:10am Comment on above: Take 10 mg by mouth once daily. cholecalciferol 0.05 mg oral capsule (15 sources) Vitamin D Start: 03-24-20 take 1 capsule by mouth once daily Cholecalciferol (Vitamin D3) 50 mcg (2,000 unit) capsule Active 50 ug PO DAILY March 24, 2022 12:00am take 1 tablet by mouth once jameel y cholecalciferol (VITAMIN D3) 50 mcg (2,000 unit) tablet Take 2,000 Units by mouth once daily. Active Comment on above: Take 2,000 Units by mouth once daily. Collagen (4 sources) Start: 09-01-2022 collagen topic al powder 0 Refill(s), 101.9 Start Date: 09/01/22 Status: Ordered DME (11 sources) Start: 09-01-2022 DME See Marya bergeron, # 1 EA, 0 Refill(s), 101.9 Start Date: 09/01/22 Status: Ordered Quantity: 1.0 Unit: EA Repeat number: 1 Start: 09-01-2022 DME See Marya bergeron, # 1 EA, 0 Refill(s), 101.9 Start Date: 09/01/22 Status: Ordered docusate sodium 50 mg / sennosides, chcf 8.6 mg oral tablet (2 sources) Start: 12-28-2023 Sennosides-Docusate Sodium (Stool Softener-Stimulant Laxat) 8.6-50 mg Tablet Active 2 {tbl} PO TWICE A DAY 12 3 December 28, 2023 1:00am Take until first bowel movement, then as needed famotidine 20 mg oral tablet (2 sources) Histamine-2 Receptor Antagonist Start: 12-28-2023 take 1 tablet by mouth once daily Famotidine 20 mg Tablet Active 20 mg PO DAILY 14 14 0 December 28, 2023 1:00am fluticasone propionate 0.05 mg/actuat metered dose nasal spray (20 sources) Corticosteroid Start: 01-30-2025 Fluticasone Propionate 50 mcg/actuation spray,suspension Active NMA INTRANASAL January 30, 2025 12:00am Start: 11-08-2024 fluticasone pr oprionate NASAL 50 mcg/ spray Dose = 2 spray(s), Nasal, BID, in each nostril, # 48 gram(s), 3 Refill(s), Pharmacy: [facility], 154, cm, 09/10/24 13:29:00 EST, Height, kg, 09/10/24 13:29:00 EST, Dosing Weight Start Date: 11/08/24 Status: Ordered Quantity: 48.0 Unit: g Repeat number: 4 Start: 05-07-2024 fluticasone pr oprionate NASAL 50 mcg/ spray Dose = 2 spray(s), Nasal, BID, in each nostril, # 48 gram(s), 1 Refill(s), Pharmacy: [facility], 156, cm, 03/07/24 15:00:00 EDT, Height, kg, 03/07/24 15:00:00 EDT, Dosing Weight Start Date: 05/07/24 Status: Ordered Quantity: 48.0 Unit: g Repeat number: 2 Start: 10-03-2023 fluticasone pr oprionate NASAL 50 mcg/ spray Dose = 2 spray(s), Nasal, BID, in each nostril, # 48 gram(s), 1 Refill(s), Pharmacy: [facility], 156, cm, 09/07/23 15:00:00 EST, Height, kg, 09/07/23 15:00:00 EST, Dosing Weight Start Date: 10/03/23 Status: Ordered Start: 02-28-2023 fluticasone pr oprionate NASAL 50 mcg/ spray Dose = 2 spray(s), Nasal, BID, in each nostril, # 1 EA, 5 Refill(s), Pharmacy: [facility]/pharmacy #[id number], 156, cm, 09/01/22 14:10:00 EDT, Height, kg, 02/28/23 13:30:00 EDT, Dosing Weight Start Date: 02/28/23 Status: Ordered Start: 03-24-2022 End: 03-31-2022 Fluticasone Propionate 50 mcg/actuation spray,suspension Discontinued 2 NMA INTRANASAL TWICE A DAY March 24, 2022 12:00am March 31, 2022 11:10am administer into each nostril Start: 03-24-2022 End: 03-31-2022 take 1 spray(s) nasal route twice daily Fluticasone Propionate Discontinued 2 SPRAY INTRANASAL TWICE A DAY March 23, 2022 11:00pm March 31, 2022 10:10am administer into each nostril Start: 04-07-2020 fluticasone pr oprionate NASAL 50 mcg/ spray Dose = 2 spray(s), Nasal, BID, in each nostril, # 1 EA, 5 Refill(s), Pharmacy: [facility]/pharmacy #[id number], 160, cm, 12/26/19 13:19:00 EST, Height, kg, 12/26/19 13:19:00 EST, Dosing Weight Start Date: 04/07/20 Status: Ordered fluticasone proprionate NASAL 50 mcg/ spray (6 sources) Start: 04-07-2020 fluticasone pr oprionate NASAL 50 mcg/ spray Dose = 2 spray(s), Nasal, BID, in each nostril, # 1 EA, 5 Refill(s), Pharmacy: [facility]/pharmacy #[id number], 160, cm, 12/26/19 13:19:00 EST, Height, kg, 12/26/19 13:19:00 EST, Dosing Weight Start Date: 04/07/20 Status: Ordered Magnesium (2 sources) Start: 11-27-2023 take 1 tablet by mouth once daily Magnesium 200 mg tablet Active 200 mg PO DAILY November 27, 2023 1:00am Start: 11-27-2023 take 200 mg by mouth once jameel y Magnesium Active 200 MG PO DAILY November 27, 2023 12:00am magnesium oxide 250 mg oral tablet (2 sources) Start: 03-11-2025 Magnesium 250 mg tablet Dose : 250 mg = 1 tab(s), Oral, qDay, 0 Refill(s) Start Date: 03/11/25 Status: Ordered Repeat number: 1 oxyCODONE hydrochloride 5 mg oral tablet (2 sources) Opioid Agonist Start: 12-28-2023 take 5-10 mg by mouth every four hours as needed for pain Oxycodone 5 mg Tablet Active 5 - 10 mg PO EVERY 4 HOURS NEEDED as needed for Pain Score 4-10 42 7 0 December 28, 2023 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 Multivitamins (2 sources) Start: 03-11-2025 take 1 tablet by mouth once daily Multivitamins Dose = 1 tab(s), Oral, qDay, 0 Refill(s) Start Date: 03/11/25 Status: Ordered Repeat number: 1 rivaroxaban 20 mg oral tablet (15 sources) Factor Xa Inhibitor Start: 09-08-2023 Xarelto 20 mg oral tablet Dose : 20 mg = 1 tab(s), Oral, with supper, # 90 tab(s), 1 Refill(s), Pharmacy: [facility], 154, cm, 03/11/25 13:53:00 EDT, Height, 90.7, kg, 03/11/25 13:53:00 EDT, Dosing Weight Start Date: 04/24/25 Status: Ordered Quantity: 90.0 Unit: tab(s) Repeat number: 2 Comment on above: Take 20 mg by mouth daily with dinner. simvastatin 10 mg oral tablet (20 sources) HMG-CoA Reductase Inhibitor Start: 04-13-2025 simvastatin 10 mg oral tablet Dose : 10 mg = 1 tab(s), Oral, qHS, # 30 tab(s), 0 Refill(s), Pharmacy: [facility], 154, cm, 03/11/25 13:53:00 EDT, Height, kg, 03/11/25 13:53:00 EDT, Dosing Weight Start Date: 04/13/25 Status: Ordered Quantity: 30.0 Unit: tab(s) Repeat number: 1 Start: 11-27-2023 simvastatin 10 mg oral tablet Dose : 10 mg = 1 tab(s), Oral, qHS, # 90 tab(s), 1 Refill(s), Pharmacy: [facility], 156, cm, 03/07/24 15:00:00 EDT, Height, kg, 03/07/24 15:00:00 EDT, Dosing Weight Start Date: 07/26/24 Status: Ordered Quantity: 90.0 Unit: tab(s) Repeat number: 2 Start: 10-03-2023 simvastatin 10 mg oral tablet Dose : 10 mg = 1 tab(s), Oral, qHS, # 90 tab(s), 1 Refill(s), Pharmacy: [facility], 156, cm, 09/07/23 15:00:00 EST, Height, kg, 09/07/23 15:00:00 EST, Dosing Weight Start Date: 10/03/23 Status: Ordered Start: 09-01-2022 simvastatin 10 mg oral tablet Dose : 10 mg = 1 tab(s), Oral, qHS, # 90 tab(s), 1 Refill(s), Pharmacy: [facility]/pharmacy #[id number], 156, cm, 09/01/22 14:10:00 EDT, Height, kg, 09/01/22 14:10:00 EDT, Dosing Weight Start Date: 09/01/22 Status: Ordered Start: 07-08-2021 End: 03-31-2022 take 1 tablet by mouth at bedtime Simvastatin 10 mg tablet Discontinued 10 mg PO AT BEDTIME March 24, 2022 12:00am March 31, 2022 11:10am Comment on above: Take 10 mg by mouth daily at bedtime. triamcinolone acetonide 0.001 mg/mg topical ointment (1 source) Corticosteroid Start: 03-11-2025 End: 03-25-2025 triamcinolone 0.1% topical ointment Apply 1 serene, Topical, BID, X 14 day(s), # 15 gram(s), 0 Refill(s), Pharmacy: [facility], Ointment, 154, cm, 03/11/25 13:53:00 EDT, Height, 90.7, kg, 03/11/25 13:53:00 EDT, Dosing Weight Start Date: 03/11/25 Stop Date: 03/25/25 Status: Ordered Quantity: 15.0 Unit: g Repeat number: 1 24 hr venlafaxine 37.5 mg extended release oral capsule (20 sources) Serotonin and Norepinephrine Reuptake Inhibitor Start: 12-30-2024 venlafaxine 37.5 mg oral capsule, extended release Dose : 37.5 mg = 1 cap(s), Oral, qDay, # 90 cap(s), 1 Refill(s), Pharmacy: [facility], 154, cm, 12/02/24 10:33:00 EST, Height, kg, 12/02/24 10:33:00 EST, Dosing Weight Start Date: 12/30/24 Status: Ordered Quantity: 90.0 Unit: cap(s) Repeat number: 2 Start: 03-24-2022 venlafaxine 37 .5 mg oral capsule, extended release Dose : 37.5 mg = 1 cap(s), Oral, qDay, # 90 cap(s), 1 Refill(s), Pharmacy: [facility], 156, cm, 03/07/24 15:00:00 EDT, Height, kg, 03/07/24 15:00:00 EDT, Dosing Weight Start Date: 03/07/24 Status: Ordered Quantity: 90.0 Unit: cap(s) Repeat number: 2 Start: 12-24-2021 take 37.5 mg by mout h every other day Venlafaxine Active 37.5 MG PO .QOD March 24, 2022 12:00am Start: 01-12-2021 take 1 capsule by mo uth every other day venlafaxine 37.5 mg oral capsule, extended release See Instructions, TAKE 1 CAPSULE BY MOUTH EVERY OTHER DAY, # 45 cap(s), 1 Refill(s), Pharmacy: [facility]/pharmacy #[id number], 160, cm, 09/29/20 11:24:00 EST, Height, kg, 09/29/20 11:24:00 EST, Dosing Weight Start Date: 01/12/21 Status: Ordered take 1 tablet by lula th once daily venlafaxine (EFFEXOR) 37.5 mg tablet Take 37.5 mg by mouth once daily. Active take 1 tablet by lula th every other day venlafaxine (EFFEXOR) 37.5 mg tablet Take 37.5 mg by mouth every other day. 0 Active Comment on above: Take 37.5 mg by mout h every other day. Take 37.5 mg by mout h once daily. verapamil hydrochloride 240 mg extended release oral tablet (20 sources) Calcium Channel Jarad Start: 02-06-2025 take 1 tablet by mouth every hour, then take 1 tablet by mouth every twelve hours verapamil 240 mg/12 hours oral tablet, extended release Dose : 240 mg = 1 tab(s), Oral, q12h, # 180 tab(s), 1 Refill(s), Pharmacy: [facility], 154, cm, 12/02/24 10:33:00 EST, Height, kg, 12/02/24 10:33:00 EST, Dosing Weight Start Date: 02/06/25 Status: Ordered Quantity: 180.0 Unit: tab(s) Repeat number: 2 Start: 07-26-2024 take 1 tablet by lula th every hour, then take 1 tablet by mouth every twelve hours verapamil 240 mg/12 hours oral tablet, extended release Dose : 240 mg = 1 tab(s), Oral, q12h, # 180 tab(s), 1 Refill(s), Pharmacy: [facility], 156, cm, 03/07/24 15:00:00 EDT, Height, kg, 03/07/24 15:00:00 EDT, Dosing Weight Start Date: 07/26/24 Status: Ordered Quantity: 180.0 Unit: tab(s) Repeat number: 2 Start: 01-16-2024 take 1 tablet by lula th every hour, then take 1 tablet by mouth every twelve hours verapamil 240 mg/12 hours oral tablet, extended release Dose : 240 mg = 1 tab(s), Oral, q12h, # 180 tab(s), 1 Refill(s), Pharmacy: [facility], 156, cm, 12/05/23 14:48:00 EST, Height, kg, 12/05/23 14:48:00 EST, Dosing Weight Start Date: 01/16/24 Status: Ordered Start: 11-27-2023 take 1 tablet by lula th every twelve hours Verapamil 240 mg tablet extended release Active 240 mg PO Q12H November 27, 2023 1:00am Start: 08-10-2023 take 1 tablet by lula th every hour, then take 1 tablet by mouth every twelve hours verapamil 240 mg/12 hours oral tablet, extended release Dose : 240 mg = 1 tab(s), Oral, q12h, # 180 tab(s), 1 Refill(s), Pharmacy: [facility]/pharmacy #[id number], 156, cm, 11/03/22 14:10:00 EDT, Height, kg, 05/20/23 9:20:00 EDT, Dosing Weight Start Date: 08/10/23 Status: Ordered Start: 02-28-2023 take 1 tablet by lula th every hour, then take 1 tablet by mouth every twelve hours verapamil 240 mg/12 hours oral tablet, extended release Dose : 240 mg = 1 tab(s), Oral, q12h, # 180 tab(s), 1 Refill(s), Pharmacy: [facility]/pharmacy #[id number], 156, cm, 09/01/22 14:10:00 EDT, Height Start Date: 02/28/23 Status: Ordered Start: 12-01-2022 take 1 tablet by lula twice daily verapamil SR (CALAN SR, ISOPTIN SR) 240 mg CR tablet Indications: Essential hypertension , Atrial tachycardia (HCC) TAKE 1 TABLET BY MOUTH TWICE A DAY 180 tablet 2 12/01/2022 Active Start: 02-04-2022 take 1 tablet by lula every hour, then take 1 tablet by mouth every twelve hours verapamil 240 mg/12 hours oral tablet, extended release Dose : 240 mg = 1 tab(s), Oral, q12h, # 180 tab(s), 0 Refill(s) Start Date: 02/04/22 Status: Ordered Start: 12-16-2021 take 1 tablet by lula twice daily verapamil SR (CALAN SR, ISOPTIN SR) 240 mg CR tablet Indications: Essential hypertension , Atrial tachycardia (HCC) Take 1 tablet by mouth twice daily. 180 tablet 3 12/16/2021 Active Comment on above: Take 1 tablet by lula twice daily. TAKE 1 TABLET BY LULA TWICE A DAY Vitamin C 1000 mg oral tablet (19 sources) Start: 09-30-2021 Vitamin C 1000 mg oral tablet Dose : 1,000 mg = 1 tab(s), Oral, qDay, # 30 tab(s), 0 Refill(s) Start Date: 09/30/21 Status: Ordered Quantity: 30.0 Unit: tab(s) Repeat number: 1 Start: 09-30-2021 Vitamin C 1000 mg oral tablet Dose : 1,000 mg = 1 tab(s), Oral, qDay, # 30 tab(s), 0 Refill(s) Start Date: 09/30/21 Status: Ordered Vitamin D3 (20 sources) Start: 04-09-2018 Vitamin D3 200 0, Oral, qDay, 0 Refill(s) Start Date: 04/09/18 Status: Ordered Repeat number: 1 Start: 04-09-2018 Vitamin D3 200 0, Oral, qDay, 0 Refill(s) Start Date: 04/09/18 Status: Ordered warfarin sodium 6 mg oral tablet (20 sources) Vitamin K Antagonist Start: 02-28-2023 warfarin 6 mg oral tablet Dose : 6 mg = 1 tab(s), Oral, qDay, # 90 tab(s), 1 Refill(s), Pharmacy: [facility]/pharmacy #[id number], 156, cm, 09/01/22 14:10:00 EDT, Height, kg, 02/28/23 13:30:00 EDT, Dosing Weight Start Date: 02/28/23 Status: Ordered Start: 02-21-2023 take 1 tablet by lula once daily warfarin 1 mg oral tablet See Instructions, Take one daily as directed., # 90 tab(s), 1 Refill(s), Pharmacy: [facility]/pharmacy #[id number], 156, cm, 09/01/22 14:10:00 EDT, Height, kg, 09/01/22 14:10:00 EDT, Dosing Weight Start Date: 02/21/23 Status: Ordered Start: 07-26-2022 warfarin 6 mg oral tablet Dose : 6 mg = 1 tab(s), Oral, qDay, # 90 tab(s), 1 Refill(s), Pharmacy: [facility]/pharmacy #[id number], 156, cm, 06/01/22 16:19:00 EDT, Height, kg, 06/01/22 16:19:00 EDT, Dosing Weight Start Date: 07/26/22 Status: Ordered Start: 02-04-2022 take 6 mg by mouth o nce daily in the evening Warfarin Active 6 MG PO EVERY EVENING March 31, 2022 12:00am Start: 10-12-2021 warfarin 6 mg oral tablet Dose : 6 mg = 1 tab(s), Oral, qDay, # 90 tab(s), 1 Refill(s), Pharmacy: [facility]/pharmacy #[id number], 157.5, cm, 10/12/21 8:22:00 EST, Height, kg, 10/12/21 8:22:00 EST, Dosing Weight Start Date: 10/12/21 Status: Ordered Start: 08-04-2021 End: 10-09-2023 take 1 tablet by mouth once daily warfarin 1 mg oral tablet See Instructions, Take one daily as directed., # 90 tab(s), 1 Refill(s), Pharmacy: [facility]/pharmacy #[id number], 156, cm, 06/01/22 16:19:00 EDT, Height, kg, 06/01/22 16:19:00 EDT, Dosing Weight Start Date: 07/26/22 Status: Ordered Start: 08-04-2021 warfarin 6 mg oral tablet Dose : 6 mg = 1 tab(s), Oral, qDay, In absence of PCP, # 30 tab(s), 0 Refill(s), Pharmacy: [facility]/pharmacy #[id number], 156, cm, 07/20/21 13:56:00 EDT, Height, kg, 07/20/21 13:56:00 EDT, Dosing Weight Start Date: 08/04/21 Status: Ordered Comment on above: Take 1 mg by mouth d aily as directed. Zinc (7 sources) Start: 03-24-2022 take 1 tablet by mouth once daily Zinc 50 mg tablet Active 50 mg PO DAILY March 24, 2022 12:00am Start: 03-24-2022 take 50 mg by mouth once daily Zinc Active 50 MG PO DAILY March 23, 2022 11:00pm Start: 03-24-2022 take 50 mg by mouth once daily Zinc Active 50 MG PO DAILY March 24, 2022 12:00am Zinc Acetate (1 source) ZINC ACETATE ORA L Take by mouth. Active zinc gluconate 50 mg oral tablet (19 sources) Start: 09-30-2021 zinc (as gluco brian) 50 mg oral tablet Dose : 50 mg = 1 tab(s), Oral, Daily, # 30 tab(s), 0 Refill(s) Start Date: 09/30/21 Status: Ordered Quantity: 30.0 Unit: tab(s) Repeat number: 1 {20 (nirmatrelvir 150 MG Ora l Tablet) / 10 (ritonavir 100 MG Oral Tablet) } Pack [Paxlovid 5-Day] (2 sources) Start: 06-03-2022 End: 06-08-2022 Paxlovid 150 mg-100 mg (300 mg-100 mg Dose) oral tablet Dose = 1 packet(s), Oral, BID, Take 1 Packet = two 150mg nirmatrelvir tabs and one 100mg ritonavir tab. 3 tablets to be taken together by mouth twice a day for 5 days, X 5 day(s), # 5 EA, 0 Refill(s), Pharmacy: [facility]/pharmacy #[id number], COVID, 156, cm, 080... Start Date: 06/03/22 Stop Date: 06/08/22 Status: Ordered Completed/Discontinued Medications Medication Drug Class(es) Dates Sig (Normalized) Sig (Original) amLODIPine 5 mg oral tablet (14 sources) Dihydropyridine Calcium Channel Jarad Start: 03-24-2022 End: 03-31-2022 take 1 tablet by mouth once daily Amlodipine 5 mg tablet Discontinued 5 mg PO DAILY March 24, 2022 12:00am March 31, 2022 11:10am Start: 07-08-2021 amLODIPine 5 m g oral tablet Dose : 5 mg = 1 tab(s), Oral, qDay, # 90 tab(s), 1 Refill(s), Pharmacy: [facility]/pharmacy #[id number], 157.5, cm, 10/12/21 8:22:00 EST, Height, kg, 10/12/21 8:22:00 EST, Dosing Weight Start Date: 10/21/21 Status: Ordered benzonatate 100 mg oral capsule (8 sources) Non-narcotic Antitussive Start: 03-24-2022 End: 03-31-2022 Benzonatate 100 mg capsule Discontinued 100 mg PO 2 to 3 times per day as needed March 24, 2022 12:00am March 31, 2022 11:10am Start: 10-19-2021 End: 10-29-2021 Tessalon Perles 100 mg oral capsule Dose : 100 mg = 1 cap(s), Oral, TID, PRN as needed for cough, X 10 day(s), # 30 cap(s), 0 Refill(s), 10/29/21 14:31:00 EST, Pharmacy: [facility]/pharmacy #[id number], 157.5, cm, 10/12/21 8:22:00 EST, Height, kg, 10/12/21 8:22:00 EST, Dosing Weight Start Date: 10/19/21 Stop Date: 10/29/21 Status: Ordered 1 ml denosumab 60 mg/ml prefilled syringe (20 sources) RANK Ligand Inhibitor Start: 03-24-2022 Denosuma b Active 60 MG SC every 6 months March 23, 2022 11:00pm Start: 05-26-2020 Prolia 60 mg/m L subcutaneous solution Dose : 60 mg = 1 mL, Subcutaneous, q6mo, # 1 mL, 0 Refill(s) Start Date: 04/17/25 Status: Ordered Quantity: 1.0 Unit: mL Repeat number: 1 Comment on above: Inject 60 mg subcuta neously once every 6 months. dexamethasone 6 mg oral tablet (9 sources) Corticosteroid Start: 03-24-20 End: 03-31-20 take 1 tablet by mouth once daily Dexamethasone 6 mg tablet Discontinued 6 mg PO DAILY March 24, 2022 12:00am March 31, 2022 11:10am Start: 10-02-2021 End: 10-09-2021 dexamethasone 6 mg oral tabl et Dose : 6 mg = 1 tab(s), Oral, qDay, # 7 tab(s), 0 Refill(s), [id number], 160, cm, 09/30/21 20:57:00 EST, Height, kg, 09/30/21 20:57:00 EST, Dosing Weight Start Date: 10/02/21 Stop Date: 10/09/21 Status: Ordered doxycycline monohydrate 100 mg oral capsule (2 sources) Tetracycline-class Drug Start: 12-28-2023 End: 07-10-2025 take 1 capsule by mouth twice daily Doxycycline Monohydrate 100 mg Capsule Discontinued 100 mg PO TWICE A DAY 14 0 December 28, 2023 1:00am July 10, 2025 1:30pm [facility] [place] (20 sources) Start: 05-08-2020 [facility] [place] Medication Insta Flex - for joints takes one daily, 0 Refill(s), 107.7 Start Date: 05/08/20 Status: Ordered Repeat number: 1 Start: 05-08-2020 Misc Medicatio n Insta Flex - for joints takes one daily, 0 Refill(s), 107.7 Start Date: 05/08/20 Status: Ordered Start: 05-08-2020 Misc Medicatio n [place] Chaim Bafic - bone supplement takes one TID w/ meals, 0 Refill(s), 107.7 Start Date: 05/08/20 Status: Ordered Prolia 60 mg/mL subcutaneous solution (6 sources) Start: 05-26-2020 Prolia 60 mg/m L subcutaneous solution Dose : 60 mg = 1 mL, Subcutaneous, q6mo, # 1 mL, 0 Refill(s) Start Date: 05/26/20 Status: Ordered Problems Active Problems Problem Classification Problem Date Documented Da te Episodic/Chronic Anxiety disorders (1 source) Anxiety disorder; Translations: [Anxiety disorder, unspecified] Onset: 09-30-2021 Chronic Cardiac dysrhythmias (20 sources) Atrial tachycardia; Translations: [Supraventricular tachycardia] Onset: 11-30-2021 11-30-2021 Chronic Disorders of lipid metabolism (20 sources) Hyperlipidemia; Translations: [Hyperlipidemia, unspecified] Onset: 09-30-2021 04-09-2018 Chronic Essential hypertension (20 sources) Hypertensive disorder; Translations: [Essential hypertension] Onset: 09-30-2021 04-09-2018 Chronic Immunizations and screening for infectious disease (1 source) Encounter for immunization; Translations: [Encounter for immunization] Onset: 07-10-2025 Episodic Mood disorders (20 sources) Recurrent major depressive episodes, moderate ; Translations: [Major depressive disorder, recurrent, moderate] Onset: 11-30-2021 07-20-2021 Chronic Nutritional deficiencies (20 sources) Vitamin D deficiency; Translations: [Vitamin D deficiency, unspecified] Onset: 11-30-2021 06-11-2019 Chronic Nutritional deficiencies (20 sources) Iron deficiency; Translations: [Iron deficiency] Onset: 11-30-2021 11-02-2021 Episodic Osteoarthritis (20 sources) Osteoarthritis of knee; Translations: [Unilateral primary osteoarthritis, unspecified knee] Onset: 11-30-2021 12-26-2019 Chronic Osteoporosis (20 sources) Osteoporosis; Translations: [Age-related osteoporosis without current pathological fracture] Onset: 11-30-2021 06-11-2019 Chronic Other aftercare (8 sources) Long-term current use of anticoagulant; Translations: [half-way (current) use of anticoagulants] Onset: 08-30-2022 Episodic Other aftercare (3 sources) 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; Translations: [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] Onset: 11-25-2021 Episodic Other complications of (20 sources) Antepartum deep vein thrombosis 04-04-2018 Episodic Other connective tissue disease (2 sources) History of total hip arthroplasty; Translations: [Presence of right artificial hip joint] 12-28-2023 Chronic Other connective tissue disease (1 source) Presence of right artificial hip joint; Translations: [Hip joint replacement] 12-28-2023 Chronic Other lower respiratory disease (20 sources) Imaging of lung abnormal ; Translations: [Other nonspecific abnormal finding of lung field] Onset: 11-30-2021 2021 Episodic Other lower respiratory disease (12 sources) Dyspnea on exertion; Translations: [Dyspnea, unspecified] Onset: 11-25-2021 11-25-2021 Episodic Other lower respiratory disease (2 sources) Dyspnea, unspecified; Translations: [Other respiratory abnormalities] Onset: 11-25-2021 09-04-2023 Episodic Other lower respiratory disease (2 sources) Dyspnea; Translations: [Dyspnea, unspecified] 09-04-2023 Episodic Other nutritional; endocrine; and metabolic disorders (20 sources) Body mass index 40+ - severely obese; Translations: [Body mass index (BMI) 40.0-44.9, adult] Onset: 10-07-2024 05-05-2020 Chronic Other nutritional; endocrine; and metabolic disorders (20 sources) Morbid obesity; Translations: [Morbid (severe) obesity due to excess calories] Onset: 09-30-2021 05-05-2020 Chronic Other nutritional; endocrine; and metabolic disorders (8 sources) Obesity; Translations: [Obesity, unspecified] 09-04-2023 Chronic Other nutritional; endocrine; and metabolic disorders (8 sources) Obesity, unspecified; Translations: [Obesity, unspecified] Chronic Other nutritional; endocrine; and metabolic disorders (1 source) Morbid (severe) obesity due to excess calories; Translations: [Morbid obesity (HCC)] Onset: 11-30-2021 Chronic Other nutritional; endocrine; and metabolic disorders (1 source) Body mass index (BMI) 40.0-44.9, adult; Translations: [BMI 40.0-44.9, adult ([facility])] Onset: 10-07-2024 Chronic Phlebitis; thrombophlebitis and thromboembolism (20 sources) Deep venous thrombosis; Translations: [Acute embolism and thrombosis of unspecified deep veins of unspecified lower extremity] Onset: 09-30-2021 Resolved: 10-07-2024 06-11-2019 Episodic Comment on above: both femoral veins Pneumonia (except that caused by tuberculosis or sexually transmitted disease) (6 sources) Pneumonia (except that caused by tuberculosis or sexually transmitted disease) 2021 Pulmonary heart disease (1 source) H/O: pulmonary embolus; Translations: [Personal history of pulmonary embolism] Onset: 09-30-2021 Episodic Residual codes; unclassified (19 sources) Obstructive sleep apnea syndrome; Translations: [Obstructive sleep apnea (adult) (pediatric)] 09-01-2022 Chronic Residual codes; unclassified (11 sources) Obstructive sleep apnea (adult) (pediatric); Translations: [Obstructive sleep apnea (adult)(pediatric)] Onset: 07-10-2025 Chronic Residual codes; unclassified (4 sources) Hypoxia; Translations: [Idiopathic sleep related nonobstructive alveolar hypoventilation] Onset: 10-09-2023 10-09-2023 Chronic Unclassified (13 sources) Anticoagulant effect 08-13-2020 Viral infection (17 sources) Disease caused by 2019-nCoV; Translations: [COVID-19] Onset: 09-30-2021 11-30-2021 Episodic Past or Other Problems Problem Classification Problem Date Documented Date Episodic/Chronic Cardiac dysrhythmias (12 sources) Sinus tachycardia; Translations: [Tachycardia, unspecified] Onset: 11-25-2021 11-30-2021 Episodic Other aftercare (8 sources) Anticoagulant effect; Translations: [Encounter for therapeutic drug level monitoring] Onset: 11-25-2021 Resolved: 10-07-2024 11-25-2021 Episodic Other aftercare (1 source) Encounter for therapeutic drug level monitoring; Translations: [Anticoagulation goal of INR 3.0 to 4.0] Onset: 11-25-2021 Episodic Other lower respiratory disease (13 sources) Hypoxia; Translations: [Hypoxemia] Onset: 11-30-2021 2021 Episodic Other lower respiratory disease (1 source) Other forms of dyspnea; Translations: [OLIVER (dyspnea on exertion)] Onset: 11-25-2021 Episodic Other screening for suspected conditions (not mental disorders or infectious disease) (6 sources) Coag./bleeding tests abnormal; Translations: [Abnormal coagulation profile] Onset: 09-30-2021 Episodic Residual codes; unclassified (9 sources) Non-smoker; Translations: [Other specified health status] Onset: 11-25-2021 11-25-2021 Episodic Residual codes; unclassified (20 sources) Past history of procedure; Translations: [Personal history of other medical treatment] Onset: 11-16-2021 11-30-2021 Episodic Residual codes; unclassified (10 sources) History of cardiac catheterization; Translations: [Other specified postprocedural states] Onset: 12-28-2021 12-29-2021 Episodic Residual codes; unclassified (2 sources) Personal history of other medical treatment; Translations: [H/O echocardiogram] Onset: 12-15-2021 Episodic Residual codes; unclassified (1 source) Other specified health status; Translations: [Non-smoker] Onset: 11-25-2021 Episodic Residual codes; unclassified (1 source) Other specified postprocedural states; Translations: [Hx of cardiac catheterization] Onset: 12-29-2021 Episodic Viral infection (2 sources) Disease caused by 2019-nCoV; Translations: [COVID-19] Onset: 09-30-2021 Results Test Name Value Interpretation Reference Range Facility Pulmonary Visit Reporton Pulmonary Visit Report [facility] Pulmonary Medicine [address] [place] [address] OFFICE VISIT Date of Service: 07/10/25 MR#: [id number] Acct: [id number] Name: QUIRINO PECK Rep #: [id number] 4 : 1950 Provider: GENARO Sainz Age/Sex: 74/F [place] [facility] [place] Status: Signed Assessment and Plan Assessment and Plan (1) LEELA (obstructive sleep apnea): Status: Chronic Plan: Deteriorated. She is using Pap therapy. However, I am not sure how beneficial it is, as she is having 30+ events per hour on therapy. Unfortunately, she is now experiencing significant elevation of AHI. She is now down almost 40 pounds through dietary changes. I would like to evaluate for the ongoing presence of sleep apnea or determine if a lower pressure would actually control her AHI. She is leaving the state mid July. I would like to have the test done and discuss results before she leaves. I will likely need to discuss results by phone and see her back in August when she returns. She has been encouraged to contact the office for any new or worsening symptoms in the meantime. (2) Obesity: Status: Chronic Qualifiers: Obesity type: due to excess calories Obesity classification: adult class 3 (BMI gt;= 40) Serious obesity comorbidity presence: with serious comorbidity Body mass index: BMI 40.0-44.9 Qualified Code(s): E66.01 - Morbid (severe) obesity due to excess calories; Z68.41 - Body mass index [BMI] 40.0-44.9, adult Plan: Improving, continue to encourage weight loss. She is down approximately 40 pounds. She was provided with an annual influenza vaccination today. Orders: Orders Split Night Sleep Study Today G47.33 - Obstructive sleep apnea (adult) (pediatric) Influenza Immunization Today Z23 - Encounter for immunization Medications: New Fluad [id number] (65 yr up)(PF) 45 mcg (15 mcg x 3)/0.5 mL (flu vac 2024 [id number](PF)) 45 mcg IM ONCE 0.5 mL 0RF NS Z23 - Encounter for immunization Discontinued doxycycline monohydrate Discontinued Reason: Order Completed 100 mg PO BID 14 days 28 caps 0RF Plan Details Additional Comments: This note was generated with [employer] dictation software. It may contain incorrect words, spelling, and punctuation that were not noted in checking the note before signing. Follow Up: 8 Weeks HPI 3 M FU Chief Complaint: sleep apnea HPI Comments Details: This patient presents to the office today for follow-up of her obstructive sleep apnea. She is ambulatory and on room air. She is on room air. She has not recently been seen in the ED or urgent care for respiratory illness. She has not required any antibiotics or prednisone for any breathing problems. She has shortness of breath on exertion only. She denies any cough, sputum production or hemoptysis. She denies any wheezing, chest tightness, chest pain or palpitations. She has not had any fever, chills or body aches. She continues with weight loss. She was referred to a dietary clinic by her orthopedic surgeon. She has had excellent success with them. She states I am still working with them now. She utilizes PAP therapy but is not noticing feeling more rested. She is napping 15 to 20 minutes at least once weekly. She is experiencing dry mouth and mask leaks, despite the fact that she does not move when sleeping. She is not having morning headaches. She is not experiencing excessive nocturia. Compliance report for the past 30 days shows 70 % compliance with an average use of 5 hours and 13 minutes per night. Current setting is BiPAP 17/12 cm of water with a residual AHI of 32.9 events per hour. Leaks do appear to be problematic. 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 Required: No DME Vendor: Mary Ellen Accompanied by: Self Is patient in pain?: No Allergies No Known Allergies Allergy (Verified 07/10/25 13:21) Medications ???Medication ???Instructions ???Recorded ???Confirmed ???Type cholecalciferol (vitamin D3) 50 50 mcg PO DAILY 03/24/22 07/10/25 History mcg (2,000 unit) capsule denosumab 60 mg/mL subcutaneous 60 mg subcut [id number] 03/24/2209/23 History syringe venlafaxine 37.5 mg 37.5 mg PO DAILY 03/24/22 07/10/25 History capsule,extended release 24 hr zinc 50 mg tablet 50 mg PO DAILY 03/24/22 07/10/25 H istory ascorbic acid (vitamin C) 1,000 mg 1 g PO DAILY 06/08/22 07/10/25 H istory tablet benazepril 10 mg tablet 10 mg PO DA (more content not included)... Normal [facility] .Auto Diffon 03-18-2025 Basophil, Absolute 0.0 10 3/mcL Normal 0.0-0.3 [facility] Comment on above: Performed By: #### T SH, CBC, FERR, ADIFF, FE, LIPID, GFR, ANEU, CMP, VIDH #### [address] [address] Basophils/100 WBC (Bld) 0.3 % Normal 0.0-2.5 [facility] Comment on above: Performed By: #### T SH, CBC, FERR, ADIFF, FE, LIPID, GFR, ANEU, CMP, VIDH #### [address] [address] Eosinophil, Absolute 0.2 10 3/mcL Normal 0.0-0.7 [facility] Comment on above: Performed By: #### T SH, CBC, FERR, ADIFF, FE, LIPID, GFR, ANEU, CMP, VIDH #### [address] [address] Eosinophils/100 WBC (Bld) 2.9 % Normal 0.0-6.0 [facility] Comment on above: Performed By: #### T SH, CBC, FERR, ADIFF, FE, LIPID, GFR, ANEU, CMP, VIDH #### [address] [address] Lymphocyte, Absolute 3.0 10 3/mcL Normal 0.9-4.3 [facility] Comment on above: Performed By: #### T SH, CBC, FERR, ADIFF, FE, LIPID, GFR, ANEU, CMP, VIDH #### [address] [address] Lymphocytes/100 WBC (Bld) 34.9 % Normal 20.0-40.0 [facility] Comment on above: Performed By: #### T SH, CBC, FERR, ADIFF, FE, LIPID, GFR, ANEU, CMP, VIDH #### [address] [address] Monocyte, Absolute 0.7 10 3/mcL Normal 0.1-1.4 [facility] Comment on above: Performed By: #### T SH, CBC, FERR, ADIFF, FE, LIPID, GFR, ANEU, CMP, VIDH #### [address] [address] Monocytes/100 WBC (Bld) 8.8 % Normal 2.0-13.0 [facility] Comment on above: Performed By: #### T SH, CBC, FERR, ADIFF, FE, LIPID, GFR, ANEU, CMP, VIDH #### [address] [address] Neutrophils/100 WBC (Bld) 53.1 % Normal 50.0-75.0 [facility] Comment on above: Performed By: #### T SH, CBC, FERR, ADIFF, FE, LIPID, GFR, ANEU, CMP, VIDH #### [address] [address] .GFRon 03-18-2025 Estimated Glomerular Filtration Rate 76 ml/min/1.73sqm Normal [facility] Comment on above: Result Comment: Stages of Chronic Kidney Disease (CKD) Stage Description eGFR(ml/min/1.73 sq.m.) CKD 1 Normal kidney function or >=90 normal kindney function with possible kidney damage (ex. Proteinuria) CKD 2 Kidney damage with mild loss 60-89 of kidney function CKD 3a Mild to moderate loss of kidney 45-59 function CKD 3b Moderate to severe loss of 30-44 of kindey function CKD 4 Severe loss of kidney function 15-29 CKD 5 Kidney failure <15 Note: (go live 2024) the eGFR calculation was updated to the 2020 CKD-EPI creatinine equation without a race factor to calculate the eGFR results. Performed By: #### T SH, CBC, FERR, ADIFF, FE, LIPID, GFR, ANEU, CMP, VIDH #### [address] [address] .NEUABSon 03-18-2025 Neutrophil, Absolute 4.5 10 3/mcL Normal 2.3-8.1 [facility] Comment on above: Performed By: #### T SH, CBC, FERR, ADIFF, FE, LIPID, GFR, ANEU, CMP, VIDH #### [address] [address] CBCon 03-18-2025 Erythrocyte distribution width (RBC) [Ratio] 14.3 % Normal 11.5-15.5 [facility] Comment on above: Performed By: #### T SH, CBC, FERR, ADIFF, FE, LIPID, GFR, ANEU, CMP, VIDH #### [place] [address] Hematocrit (Bld) [Volume fraction] 41.7 % Normal 34.0-46.0 [facility] Comment on above: Performed By: #### T SH, CBC, FERR, ADIFF, FE, LIPID, GFR, ANEU, CMP, VIDH #### [address] [address] Hgb 14.1 G/dL Normal 12.0-16.0 [facility] Comment on above: Performed By: #### T SH, CBC, FERR, ADIFF, FE, LIPID, GFR, ANEU, CMP, VIDH #### [address] [address] MCH (RBC) [Entitic mass] 31.0 pg Normal 27.0-33.0 [facility] Comment on above: Performed By: #### T SH, CBC, FERR, ADIFF, FE, LIPID, GFR, ANEU, CMP, VIDH #### [address] [address] MCHC 33.9 G/dL Normal 32.0-36.0 [facility] Comment on above: Performed By: #### T SH, CBC, FERR, ADIFF, FE, LIPID, GFR, ANEU, CMP, VIDH #### [place] [address] MCV (RBC) [Entitic vol] 91.4 fL Normal 80.0-99.0 [facility] Comment on above: Performed By: #### T SH, CBC, FERR, ADIFF, FE, LIPID, GFR, ANEU, CMP, VIDH #### [address] [address] Platelet 226 10 3/mcL Normal 150-450 [facility] Comment on above: Performed By: #### T SH, CBC, FERR, ADIFF, FE, LIPID, GFR, ANEU, CMP, VIDH #### [address] [address] Platelet mean volume (Bld) [Entitic vol] 7.9 fL Normal 6.6-10.5 [facility] Comment on above: Performed By: #### T SH, CBC, FERR, ADIFF, FE, LIPID, GFR, ANEU, CMP, VIDH #### [address] [address] RBC 4.56 10 6/mcL Normal 4.10-5.30 [facility] Comment on above: Performed By: #### T SH, CBC, FERR, ADIFF, FE, LIPID, GFR, ANEU, CMP, VIDH #### [address] [address] WBC 8.5 10 3/mcL Normal 4.5-10.8 [facility] Comment on above: Performed By: #### T SH, CBC, FERR, ADIFF, FE, LIPID, GFR, ANEU, CMP, VIDH #### [address] [address] CMPon 03-18-2025 Albumin Level 3.5 G/dL Normal 3.4-4.8 [facility] Comment on above: Performed By: #### T SH, CBC, FERR, ADIFF, FE, LIPID, GFR, ANEU, CMP, VIDH #### [address] [address] Albumin/Globulin [Mass ratio] 1.0 {ratio} Low 1.1-2.5 [facility] Comment on above: Performed By: #### T SH, CBC, FERR, ADIFF, FE, LIPID, GFR, ANEU, CMP, VIDH #### [address] [address] ALP [Catalytic activity/Vol] 68 U/L Normal 40-135 [facility] Comment on above: Performed By: #### T SH, CBC, FERR, ADIFF, FE, LIPID, GFR, ANEU, CMP, VIDH #### [address] [address] ALT [Catalytic activity/Vol] 22 U/L Normal 14-59 [facility] Comment on above: Performed By: #### T SH, CBC, FERR, ADIFF, FE, LIPID, GFR, ANEU, CMP, VIDH #### [address] [address] AST [Catalytic activity/Vol] 19 U/L Normal 10-40 [facility] Comment on above: Performed By: #### T SH, CBC, FERR, ADIFF, FE, LIPID, GFR, ANEU, CMP, VIDH #### [address] [address] Bili Total 0.6 mg/dL Normal 0.2-1.0 [facility] Comment on above: Result Comment: Use of this assay is not recommended for patients undergoing treatment with eltrombopag due to the potential for falsely elevated results. Performed By: #### T SH, CBC, FERR, ADIFF, FE, LIPID, GFR, ANEU, CMP, VIDH #### [address] [address] BUN/Creatinine Ratio 17 ratio Normal 7-27 [facility] Comment on above: Performed By: #### T SH, CBC, FERR, ADIFF, FE, LIPID, GFR, ANEU, CMP, VIDH #### [address] [address] Calcium [Mass/Vol] 9.6 mg/dL Normal 8.4-10.2 [facility] Comment on above: Performed By: #### T SH, CBC, FERR, ADIFF, FE, LIPID, GFR, ANEU, CMP, VIDH #### [address] [address] Chloride [Moles/Vol] 105 mmol/L Normal 98-107 [facility] Comment on above: Performed By: #### T SH, CBC, FERR, ADIFF, FE, LIPID, GFR, ANEU, CMP, VIDH #### [place] [address] CO2 [Moles/Vol] 26 mmol/L Normal 23-31 [facility] Comment on above: Performed By: #### T SH, CBC, FERR, ADIFF, FE, LIPID, GFR, ANEU, CMP, VIDH #### [place] [address] Creatinine [Mass/Vol] 0.81 mg/dL Normal 0.51-0.95 [facility] Comment on above: Performed By: #### T SH, CBC, FERR, ADIFF, FE, LIPID, GFR, ANEU, CMP, VIDH #### [place] [address] Electrolyte Balance 9.0 mEq/L Normal 4.0-15.0 [facility] Comment on above: Performed By: #### T SH, CBC, FERR, ADIFF, FE, LIPID, GFR, ANEU, CMP, VIDH #### [place] [address] Globulin 3.5 G/dL Normal 2.7-4.4 [facility] Comment on above: Performed By: #### T SH, CBC, FERR, ADIFF, FE, LIPID, GFR, ANEU, CMP, VIDH #### [place] [address] Glucose [Mass/Vol] 110 mg/dL Normal 83-110 [facility] Comment on above: Performed By: #### T SH, CBC, FERR, ADIFF, FE, LIPID, GFR, ANEU, CMP, VIDH #### [place] [address] Potassium [Moles/Vol] 4.8 mmol/L Normal 3.5-5.1 [facility] Comment on above: Performed By: #### T SH, CBC, FERR, ADIFF, FE, LIPID, GFR, ANEU, CMP, VIDH #### [place] [address] Sodium [Moles/Vol] 140 mmol/L Normal 136-145 [facility] Comment on above: Performed By: #### T SH, CBC, FERR, ADIFF, FE, LIPID, GFR, ANEU, CMP, VIDH #### [place] [id number] [place], [place] [address] Total Protein 7.0 G/dL Normal 6.4-8.2 [facility] Comment on above: Performed By: #### T SH, CBC, FERR, ADIFF, FE, LIPID, GFR, ANEU, CMP, VIDH #### [place] [address] [place], [place] [address] Urea nitrogen [Mass/Vol] 14 mg/dL Normal 7-18 [facility] Comment on above: Performed By: #### T SH, CBC, FERR, ADIFF, FE, LIPID, GFR, ANEU, CMP, VIDH #### [place] [id number] [place], [place] [address] LABORATORYOrdered By: SYSTEM SYSTEM on 03-18-2025 25-hydroxyvitamin D3 [Mass/Vol] 48.9 ng/mL Invalid Interpretation Code AO ADM SS Comment on above: Interpretive Data: I nterpretive Values Based on Total 25(OH) Vitamin D: Deficient <20 ng/mL Insufficient 20 - <30 ng/mL Sufficient 30-100 ng/mL Albumin BCP dye [Mass/Vol] 3.5 G/dL Normal 3.4 - 4.8 G/dL AO ADM SS Albumin/Globulin [Mass ratio] 1.0 {ratio} Low 1.1 - 2.5 ratio AO ADM SS ALP [Catalytic activity/Vol] 68 U/L Normal 40 - 135 U/L AO ADM SS ALT With P-5'-P [Catalytic activity/Vol] 22 U/L Normal 14 - 59 U/L AO ADM SS AST With P-5'-P [Catalytic activity/Vol] 19 U/L Normal 10 - 40 U/L AO ADM SS Basophils (Bld) [#/Vol] 0.0 103/mcL Normal 0.0 - 0.3 10^3/mcL AO Workflow SS Basophils/100 WBC (Bld) 0.3 % Normal 0.0 - 2.5 % AO Workflow SS Bilirubin [Mass/Vol] 0.6 mg/dL Normal 0.2 - 1.0 mg/dL AO ADM SS Comment on above: Interpretive Data: U se of this assay is not recommended for patients undergoing treatment with eltrombopag due to the potential for falsely elevated results. Calcium [Mass/Vol] 9.6 mg/dL Normal 8.4 - 10. 2 mg/dL AO ADM SS Chloride [Moles/Vol] 105 mmol/L Normal 98 - 107 mmol/L AO ADM SS CO2 [Moles/Vol] 26 mmol/L Normal 23 - 31 mmol/L AO ADM SS Creatinine [Mass/Vol] 0.81 mg/dL Normal 0.51 - 0.95 mg/dL AO ADM SS Electrolyte Balance 9.0 mEq/L Normal 4.0 - 15 .0 mEq/L AO ADM SS Eosinophil, Absolute 0.2 103/mcL Normal 0.0 - 0.7 10^3/mcL AO Workflow SS Eosinophils/100 WBC (Bld) 2.9 % Normal 0.0 - 6.0 % AO Workflow SS Erythrocyte distribution width (RBC) [Ratio] 14.3 % Normal 11.5 - 15.5 % AO Workflow SS Estimated Glomerular Filtration Rate 76 ml/min/1.73sqm Invalid Interpretation Code AO Chemistry S Comment on above: Interpretive Data: Stages of Chronic Kidney Disease (CKD) Stage Description eGFR(ml/min/1.73 sq.m.) CKD 1 Normal kidney function or >=90 normal kindney function with possible kidney damage (ex. Proteinuria) CKD 2 Kidney damage with mild loss 60-89 of kidney function CKD 3a Mild to moderate loss of kidney 45-59 function CKD 3b Moderate to severe loss of 30-44 of kindey function CKD 4 Severe loss of kidney function 15-29 CKD 5 Kidney failure <15 Note: (go live 2024) the eGFR calculation was updated to the 2020 CKD-EPI creatinine equation without a race factor to calculate the eGFR results. Globulin 3.5 G/dL Normal 2.7 - 4.4 G/dL AO ADM SS Glucose [Mass/Vol] 110 mg/dL Normal 83 - 110 mg/dL AO ADM SS Hematocrit (Bld) [Volume fraction] 41.7 % Normal 34.0 - 46.0 % AO Workflow SS Hemoglobin (Bld) [Mass/Vol] 14.1 G/dL Normal 12.0 - 16.0 G/dL AO Workflow SS Lymphocytes (Bld) [#/Vol] 3.0 103/mcL Normal 0.9 - 4.3 10^3/mcL AO Workflow SS Lymphocytes/100 WBC (Bld) 34.9 % Normal 20.0 - 40.0 % AO Workflow SS MCH (RBC) [Entitic mass] 31.0 pg Normal 27.0 - 33.0 pg AO Workflow SS MCHC 33.9 G/dL Normal 32.0 - 36.0 G/dL AO Workflow SS MCV (RBC) [Entitic vol] 91.4 fL Normal 80.0 - 99.0 fL AO Workflow SS Monocytes (Bld) [#/Vol] 0.7 103/mcL Normal 0.1 - 1.4 10^3/mcL AO Workflow SS Monocytes/100 WBC (Bld) 8.8 % Normal 2.0 - 13.0 % AO Workflow SS Neutrophils (Bld) [#/Vol] 4.5 103/mcL Normal 2.3 - 8.1 10^3/mcL AO Workflow SS Neutrophils/100 WBC (Bld) 53.1 % Normal 50.0 - 75.0 % AO Workflow SS Platelet mean volume (Bld) [Entitic vol] 7.9 fL Normal 6.6 - 10.5 fL AO Workflow SS Platelets (Bld) [#/Vol] 226 103/mcL Normal 150 - 450 10^3/mcL AO Workflow SS Potassium [Moles/Vol] 4.8 mmol/L Normal 3.5 - 5.1 mmol/L AO ADM SS Protein [Mass/Vol] 7.0 G/dL Normal 6.4 - 8.2 G/dL AO ADM SS RBC (Bld) [#/Vol] 4.56 106/mcL Normal 4.10 - 5.30 10^6/mcL AO Workflow SS Sodium [Moles/Vol] 140 mmol/L Normal 136 - 145 mmol/L AO ADM SS TSH Qn 2.76 m[IU]/L Normal 0.36 - 3.74 mcIU/mL AO ADM SS Urea nitrogen [Mass/Vol] 14 mg/dL Normal 7 - 18 mg/dL AO ADM SS Urea nitrogen/Creatinine [Mass ratio] 17 ratio Normal 7 - 27 ratio AO ADM SS WBC (Bld) [#/Vol] 8.5 103/mcL Normal 4.5 - 10.8 10^3/mcL AO Workflow SS LABORATORYOrdered By: Jesus West on 03-18-2025 Cholesterol [Mass/Vol] 177 mg/dL Normal 0 - 200 mg/dL AO ADM SS Comment on above: Interpretive Data: C holesterol Reference Interval: Less than 200 Desirable 200-239 Borderline high risk 240 and above High risk Cholesterol in HDL [Mass/Vol] 93 mg/dL High 40 - 60 mg/dL AO ADM SS Cholesterol in LDL [Mass/Vol] 62 mg/dL Normal 0 - 130 mg/dL AO ADM SS Triglyceride [Mass/Vol] 110 mg/dL Normal 0 - 150 mg/dL AO ADM SS Comment on above: Interpretive Data: T riglyceride Reference Interval: Less than 150 Normal 150-199 Borderline high risk 200-499 High risk 500 or higher Very high risk LIPIDon 03-18-2025 Cholesterol [Mass/Vol] 177 mg/dL Normal 0-200 [facility] Comment on above: Result Comment: Chol esterol Reference Interval: Less than 200 Desirable 200-239 Borderline high risk 240 and above High risk Performed By: #### T SH, CBC, FERR, ADIFF, FE, LIPID, GFR, ANEU, CMP, VIDH #### [address] [address] Cholesterol in HDL [Mass/Vol] 93 mg/dL High 40-60 [facility] Comment on above: Performed By: #### T SH, CBC, FERR, ADIFF, FE, LIPID, GFR, ANEU, CMP, VIDH #### [address] [address] Cholesterol in LDL [Mass/Vol] 62 mg/dL Normal 0-130 [facility] Comment on above: Performed By: #### T SH, CBC, FERR, ADIFF, FE, LIPID, GFR, ANEU, CMP, VIDH #### [address] [address] Triglyceride [Mass/Vol] 110 mg/dL Normal 0-150 [facility] Comment on above: Result Comment: Trig lyceride Reference Interval: Less than 150 Normal 150-199 Borderline high risk 200-499 High risk 500 or higher Very high risk Performed By: #### T SH, CBC, FERR, ADIFF, FE, LIPID, GFR, ANEU, CMP, VIDH #### [id number] [place], [place] [address] TSHon 03-18-2025 TSH Qn 2.76 m[IU]/L Normal 0.36-3.74 [facility] Comment on above: Performed By: #### T SH, CBC, FERR, ADIFF, FE, LIPID, GFR, ANEU, CMP, VIDH #### [address] [place], [place] [address] VIDHon 03-18-2025 Vit. D 25-Hydroxy 48.9 ng/mL Normal [facility] Comment on above: Result Comment: Inte rpretive Values Based on Total 25(OH) Vitamin D: Deficient <20 ng/mL Insufficient 20 - <30 ng/mL Sufficient 30-100 ng/mL Performed By: #### T SH, CBC, FERR, ADIFF, FE, LIPID, GFR, ANEU, CMP, VIDH #### [address] [address] Pulmonary Visit Reporton Pulmonary Visit Report [facility] Pulmonary Medicine of [address] [place] [address] OFFICE VISIT Date of Service: 01/30/25 MR#: [id number] Acct: [id number] Name: QUIRINO PECK Rep #: [id number] : 1950 Provider: GENARO Sainz Age/Sex: 74/F [facility] Status: Signed Assessment and Plan Assessment and Plan (1) LEELA (obstructive sleep apnea): Status: Chronic Plan: Deteriorated. She is using and benefiting from Pap therapy. However, after the last office visit and visit to PAP education, the patient's pressure support was empirically decreased. Unfortunately, she is now experiencing significant elevation of AHI. We are going to return to previous BiPAP settings of 17/12 cm of water. However, if she is not able to tolerate the higher pressure after a couple weeks, she has been instructed to contact our office. At that time, I would proceed with a retitration study given the fact that the patient has lost 28 pounds. Contact the office for any new or worsening symptoms in the meantime. Follow-up in 3 months to evaluate for improvement of AHI. (2) Obesity: Status: Chronic Qualifiers: Obesity type: due to excess calories Obesity classification: adult class 3 (BMI gt;= 40) Serious obesity comorbidity presence: with serious comorbidity Body mass index: BMI 40.0-44.9 Qualified Code(s): E66.01 - Morbid (severe) obesity due to excess calories; Z68.41 - Body mass index [BMI] 40.0-44.9, adult Plan: Improving, continue to encourage weight loss. Plan Details Follow Up: 3 Months HPI 3 M FU Chief Complaint: Mask leak HPI Comments Details: This patient presents to the office today for follow-up of her obstructive sleep apnea. She is ambulatory with the use of a wheeled walker. She is on room air. She has not recently been seen in the ED or urgent care for respiratory illness. She has not required any antibiotics or prednisone for any breathing problems. She has shortness of breath on exertion only. She denies any cough, sputum production or hemoptysis. She denies any wheezing, chest tightness, chest pain or palpitations. She has not had any fever, chills or body aches. She continues with weight loss. She has been participating in dietary counseling and has had success. Her weight is noted to be down 28 pounds since last office visit. Unfortunately, she has recently been struggling with high mask leak. She did participate in Pap education after the last office visit, and was switched from a fullface mask to a nasal mask. Unfortunately, she believes that the poor mask fit is related to her weight loss. She is now experiencing difficulty with dry mouth. She notices a red face in the morning indicating that she has a poor mask fit. She is not having morning headaches. She is not experiencing excessive nocturia. Compliance report for the past 30 days shows 100 % compliance with an average use of 6 hours and 14 minutes per night. Current setting is BiPAP 15/10 cm of water with a residual AHI of 30.3 events per hour. Leaks do appear to be problematic. 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: [employer] Accompanied by: Self Allergies No Known Allergies Allergy (Verified 01/30/25 14:25) Medications ???Medication ???Instructions ???Recorded ???Confirmed ???Type cholecalciferol (vitamin D3) 50 50 mcg PO DAILY 03/24/22 01/30/25 History mcg (2,000 unit) capsule denosumab 60 mg/mL subcutaneous 60 mg subcut [id number] 03/24/2201/21 History syringe venlafaxine 37.5 mg 37.5 mg PO DAILY 03/24/22 01/30/25 History capsule,extended release 24 hr zinc 50 mg tablet 50 mg PO DAILY 03/24/22 01/30/25 H istory ascorbic acid (vitamin C) 1,000 mg 1 g PO DAILY 06/08/22 01/30/25 H istory tablet benazepril 10 mg tablet 10 mg PO DAILY 11/27/23 01/30/25 H istory magnesium 200 mg tablet 200 mg PO DAILY 11/27/23 01/30/25 History rivaroxaban 20 mg tablet (Xarelto) 20 mg PO QPM 11/27/23 01/30/25 H istory simvastatin 10 mg tablet 10 mg PO QHS 11/27/23 01/30/25 His tory verapamil 240 mg tablet,extended 240 mg PO Q12H 11/27/23 01/30/25 H istory release acetaminophen 500 mg tablet 1,000 mg (2 x 500 mg) PO TID 14 01/30/25 Rx days #84 tabs doxycycline monohydrate 100 mg 100 mg PO BID 14 days #28 caps 01/30/25 Rx (more content not included)... [facility] Final Surgical Pathology Rep [facility] 12-04-2024 Final Surgical Pathology Report . Pathology Reports Accession: Collected Date/Time: Received Date/Time: Pathologist: [id number] 12/02/2024 11:07 EST 12/03/2024 10:36 EST MED SUGGS MD Final Surgical Pathology Report DIAGNOSIS: RIGHT COLON, POLYPECTOMY: - HYPERPLASTIC POLYP CLINICAL INFORMATION: Procedure: COLONOSCOPY WITH POLYPECTOMY Preoperative diagnosis: HISTORY OF COLON POLYPS Postoperative diagnosis: HISTORY OF COLON POLYPS SPECIMEN: A RIGHT COLON POLYP GROSS DESCRIPTION: All parts labelled with patient name and [id number] Received in formalin labeled right colon polyp are 4 degroot-brown tissue fragments measuring 0.1 to 0.7 x 0.1 cm. Fecal debris also identified. TS-1 Mari Brian, Grossing Fund Manager/ Dr. Med Suggs, Pathologist Performed by Mari Brian MICROSCOPIC DESCRIPTION: The microscopic examination is performed, except in the case of Gross Only. Verified by Pathology Report verified by [facility] MED SUGGS Sign out Date: 12/04/2024 16:36 Performing Lab: [facility], [address] [place] [address] Pathology Dept Disclaimer If ancillary studies were utilized, the following Laboratory Developed Test (LDT) disclaimer will apply: Under CLIA requirements, [facility] Pathology Laboratory is qualified to perform high complexity testing. For all ancillary stains, positive and negative controls stain appropriately. Performance characteristics of immunohistochemical and chromogenic in-situ hybridization tests have been determined by [facility] Pathology Laboratory. These tests are used for clinical purposes, They should not be regarded as investigational or for research. Normal [facility] CNOVon 10-14-2024 CNOV Office Visit ([facility] ) MI PECK ([id number]) 1950 F Date Time Provider Department 10/14/24 1:00 PM SUSAN NÚÑEZ [facility] During your visit today, we recorded the following information about you: Pulse Blood pressure Weight Height 71/minute 120/72 93 kg 1.524 m NúñezSusan, SUPERVISOR RECLAMATION.RETAIL ANALYTICS MANAGER 10/14/2024 1:06 PM Signed [facility] Larry Joyce DO, SUBJECTIVE: Mi Peck is a 73 year old female who is here today for a follow-up visit. The patient is doing well from the cardiovascular standpoint. The patient has infrequent lower extremity edema, worse in the summer. She does not have any problems with edema today. She has not had any problems with chest pain, shortness of breath, palpitations, PND orthopnea, syncope, or near syncope. PAST MEDICAL HISTORY Diagnosis Date Abnormal CT scan, lung Atrial tachycardia (HCC) By Holter worn 11/16/2021 Benign hypertension COVID-19 09/30/2021 H/O echocardiogram 12/08/2021 EF 55-60%, trivial MR, trivial MA, trivial History of cardiac monitoring 11/16/2021 83 runs of SVT History of DVT (deep vein thrombosis) History of stress test 12/20/2021 EF 61%, reversible defect in the anterior and inferior on distal inferolateral wall extending to the apex suggesting ischemia in this area. Hx of cardiac catheterization 12/28/2021 EF 55% normal left cardiac catheterization done by Dr. Hernandez at [facility]. 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 Mixed hyperlipidemia Moderate recurrent major depression (HCC) Morbid obesity (HCC) Nocturnal hypoxia oxygen study 01/2022 Osteoarthritis, knee Osteoporosis Sinus tachycardia Vitamin D deficiency PAST SURGICAL HISTORY Procedure Laterality Date APPENDECTOMY BARIUM ENEMA 10/30/2004 CATARACT EXTRACTION HX Bilateral 11/30/2017 CATARACT EXTRACTION HX COLONOSCOPY 04/09/2018 LIGATE FALLOPIAN TUBE REMOVAL GALLBLADDER 10/30/1989 FAMILY HISTORY Problem Relation Age of Onset Heart Attack Mother Glaucoma Mother other (osteoarthritis) Mother Hyperlipidemia Father Hyperthyroidism Father other (osteoarthritis) Father Diabetes Sister Hyperlipidemia Brother SOCIAL HISTORY: Social History Tobacco Use Smoking status: Never Passive exposure: Never Smokeless tobacco: Never Substance Use Topics Alcohol use: Never Drug use: Never ALLERGIES: Patient has no known allergies. CURRENT MEDICATIONS: Current Outpatient Medications Medication Sig ZINC ACETATE ORAL Take by mouth. rivaroxaban (XARELTO) 20 mg tablet Take 20 mg by mouth daily with dinner. verapamil SR (CALAN SR, ISOPTIN SR) 240 mg CR tablet TAKE 1 TABLET BY MOUTH TWICE A DAY venlafaxine (EFFEXOR) 37.5 mg tablet Take 37.5 mg by mouth once daily. ascorbic acid, vitamin C, (VITAMIN C) 500 mg tablet Take 500 mg by mouth once daily. benazepril (LOTENSIN) 10 mg tablet Take 10 mg by mouth once daily. cholecalciferol (VITAMIN D3) 50 mcg (2,000 unit) tablet Take 2,000 Units by mouth once daily. denosumab (PROLIA) 60 mg/mL Inject 60 mg subcutaneously once every 6 months. simvastatin (ZOCOR) 10 mg tablet Take 10 mg by mouth daily at bedtime. No current facility-administered medications for this visit. Review of Systems Constitutional: Negative for activity change and fever. Respiratory: Negative for apnea, cough, chest tightness, shortness of breath, wheezing and stridor. Cardiovascular: Negative for chest pain, palpitations and leg swelling. Gastrointestinal: Negative for abdominal distention, diarrhea and vomiting. Musculoskeletal: Negative for joint swelling, neck pain and neck stiffness. Skin: Negative for color change, pallor and rash. Neurological: Negative for dizziness, syncope, weakness, light-headedness and numbness. Hematological: Does not bruise/bleed easily. Psychiatric/Behavioral: Negative for agitation, behavioral problems and confusion. The patient is not nervous/anxious. All other systems reviewed and are negative. PHYSICAL EXAMINATION: 10/14/24 1256 BP: 120/72 BP Position: Sitting Pulse: 71 Weight: 93 kg (205 lb) Height: 152.4 cm (5') Last 3 Encounter BP Readings: Date: BP: 10/09/2023 136/70 09/05/2022 138/70 12/07/2021 120/90 Last 3 Encounter Pulse Readings: Date: Pulse: 10/09/2023 76 09/05/2022 86 12/07/2021 78 Last 3 Encounter Wt Readings: Date: Wt: 10/09/2023 102.1 kg (225 lb) 09/05/2022 104.3 kg (230 lb) 02/22/2022 102.5 kg (226 lb) Potassium (MMOL/L) Date Value 12/28/2021 4.8 Sodium (MMOL/L) Date Value 12/28/2021 142 Creatinine (MG/DL) Date Value 12/28/2021 0.87 BUN (MG/DL) Date Value 12/28/2021 13 Glucose (MG/DL) Date Value 12/28/2021 109 INR (no units) Date Value 12/28/2021 1.19 Physical Exam Vitals and nursing note reviewed. Constitutional: General: She (more content not included)... Normal [facility] ECG COMPLETEon 10-14-2024 ECG COMPLETE Ventricular Rate : 7 1 BPM Atrial Rate : 71 BPM P-R Interval : 164 ms QRS Duration : 82 ms Q-T Interval : 374 ms QTC Calculation(Bazett) : 406 ms Calculated P [place] : 46 degrees Calculated R [place] : -6 degrees Calculated T [place] : 38 degrees Normal sinus rhythm Intra -atrial conduction delay Leftward axis RSR' or QR pattern in V1 suggests right ventricular conduction delay Septal infarct (cited on or before 09-Oct-2023) Abnormal ECG When compared with ECG of 09-Oct-2023 14:37, RSR v-1 is now present Confirmed by KAMAR SHEA MD ([id number]) on 10/17/2024 7:45:35 PM NAME : MI PECK PID : [id number] : 1950 Gender : Female Race : ORD : [id number] Procedure Date : Oct 14 2024 13:51:02 Edit Date : Oct 17 2024 19:45:38 Diagnosis: Normal sinus rhythm Intra -atrial conduction delay Leftward axis RSR' or QR pattern in V1 suggests right ventricular conduction delay Septal infarct (cited on or before 09-Oct-2023) Abnormal ECG When compared with ECG of 09-Oct-2023 14:37, RSR v-1 is now present Confirmed by KAMAR SHEA MD ([id number]) on 10/17/2024 7:45:35 PM Test Reason : Location : 201 : [facility] Overread By : KAMAR SHEA MD Edited By : KAMAR SHEA MD Referred By : , Acquired by : Alysia coats [facility] MA MAMMOGRAM SCREENING BILAT ERAL W/TOMOon 10-11-2024 MA MAMMOGRAM SCREENING BILATERAL W/CASANDRA ORIGINAL FROM: [facility] [address], [place] [address] PROCEDURE FOR: MI ShayneEvy PECK [address] [place] [address] Home: PID#: [id number] Exam#: [id number] : 1950 Age: 73 TO: LARRY JOYCE [address] [place], [place] [address] Fax: NO FAX EXAMINATION: SCREENING DIGITAL BILATERAL MAMMOGRAM WITH TOMOSYNTHESIS, 10/04/2024 2:35 pm TECHNIQUE: Screening mammography of the bilateral breasts was performed with tomosynthesis. 2D standard and 3D tomosynthesis combination imaging performed through both breasts in the MLO and CC projection. Computer aided detection was utilized in the interpretation of this exam. COMPARISON: 10/03/2023, 09/29/2022 HISTORY: Breast cancer screening. FINDINGS: BREAST DENSITY: There are scattered areas of fibroglandular density. There are benign appearing calcifications in both breasts. There are no significant masses or calcifications. IMPRESSION: No mammographic evidence of malignancy. Continued screening with annual mammograms is recommended. [facility] calculations, generated with the history provided, report this patient's 10 year risk and lifetime risk for developing breast cancer at 3.6% and 4.0%, respectively. Based on this assessment tool, if the patient's calculated lifetime risk is below 20%, then the patient is considered at average risk for developing breast cancer. If the patient's calculated lifetime risk is at or above 20%, then the patient is considered high risk for developing breast cancer and may be a candidate for supplemental breast MRI screening in addition to annual mammographic screening per the [employer]. BIRADS: BI-RADS: 2: Benign RECALL: 1 year screening RECALL TYPE: mammo LETTER SENT: Normal BI-RADS 1 and 2 Interpreted by: Brandt Payne MD Preliminary Report By: Brandt Payne MD Electronically signed By Brandt Payne MD Dictated Date: 10/11/2024 6:40:35 PM Prelim Date: 10/11/2024 6:43:04 PM Sign Date: 10/11/2024 6:43:04 PM Ordering Provider: LARRY JOYCE Television Maintenance Man: CHARO SIEGEL RT (R)(M) letter sent: Normal BI-RADS 1 and 2 Mammogram BI-RADS: 2 Benign Normal [facility] .Auto Diffon 10-08-2024 Basophil, Absolute 0.0 10 3/mcL Normal 0.0-0.2 [facility] Comment on above: Performed By: #### T SH, CBC, FERR, ADIFF, FE, LIPID, GFR, ANEU, CMP, VIDH #### [address] [address] Basophils/100 WBC (Bld) 0.4 % Normal 0.0-2.5 [facility] Comment on above: Performed By: #### T SH, CBC, FERR, ADIFF, FE, LIPID, GFR, ANEU, CMP, VIDH #### [address] [address] Eosinophil, Absolute 0.2 10 3/mcL Normal 0.0-0.7 [facility] Comment on above: Performed By: #### T SH, CBC, FERR, ADIFF, FE, LIPID, GFR, ANEU, CMP, VIDH #### [address] [address] Eosinophils/100 WBC (Bld) 2.3 % Normal 0.0-7.0 [facility] Comment on above: Performed By: #### T SH, CBC, FERR, ADIFF, FE, LIPID, GFR, ANEU, CMP, VIDH #### [address] [address] Lymphocyte, Absolute 2.7 10 3/mcL Normal 0.9-4.3 [facility] Comment on above: Performed By: #### T SH, CBC, FERR, ADIFF, FE, LIPID, GFR, ANEU, CMP, VIDH #### [address] [address] Lymphocytes/100 WBC (Bld) 34.2 % Normal 20.0-40.0 [facility] Comment on above: Performed By: #### T SH, CBC, FERR, ADIFF, FE, LIPID, GFR, ANEU, CMP, VIDH #### [address] [address] Monocyte, Absolute 0.7 10 3/mcL Normal 0.1-1.4 [facility] Comment on above: Performed By: #### T SH, CBC, FERR, ADIFF, FE, LIPID, GFR, ANEU, CMP, VIDH #### [address] [address] Monocytes/100 WBC (Bld) 8.6 % Normal 2.0-13.0 [facility] Comment on above: Performed By: #### T SH, CBC, FERR, ADIFF, FE, LIPID, GFR, ANEU, CMP, VIDH #### [address] [address] Neutrophils/100 WBC (Bld) 54.5 % Normal 50.0-75.0 [facility] Comment on above: Performed By: #### T SH, CBC, FERR, ADIFF, FE, LIPID, GFR, ANEU, CMP, VIDH #### [address] [address] .GFRon 10-08-2024 GFR 86 ml/min/1.73sqm [facility] Comment on above: Result Comment: GFR Population mean for , Non- Americans Ages 20-29 = 116 mL/min/1.73 sq.m. Ages 30-39 = 107 mL/min/1.73 sq.m. Ages 40-49 = 99 mL/min/1.73 sq.m. Ages 50-59 = 93 mL/min/1.73 sq.m. Ages 60-69 = 85 mL/min/1.73 sq.m. Ages 70+ = 75 mL/min/1.73 sq.m. Chronic Kidney Disease: Less than 60 mL/min/1.73 square meters End Stage Renal Disease: Less than 15 mL/min/1.73 square meters Performed By: #### T SH, CBC, FERR, ADIFF, FE, LIPID, GFR, ANEU, CMP, VIDH #### [address] [address] GFR Non- 71 ml/min/1.73sqm Normal [facility] Comment on above: Result Comment: GFR Population mean for , Non- Americans Ages 20-29 = 116 mL/min/1.73 sq.m. Ages 30-39 = 107 mL/min/1.73 sq.m. Ages 40-49 = 99 mL/min/1.73 sq.m. Ages 50-59 = 93 mL/min/1.73 sq.m. Ages 60-69 = 85 mL/min/1.73 sq.m. Ages 70+ = 75 mL/min/1.73 sq.m. Chronic Kidney Disease: Less than 60 mL/min/1.73 square meters End Stage Renal Disease: Less than 15 mL/min/1.73 square meters Performed By: #### T SH, CBC, FERR, ADIFF, FE, LIPID, GFR, ANEU, CMP, VIDH #### [place] [id number] .NEUABSon 10-08-2024 Neutrophil, Absolute 4.3 10 3/mcL Normal 2.3-8.1 [facility] Comment on above: Performed By: #### T SH, CBC, FERR, ADIFF, FE, LIPID, GFR, ANEU, CMP, VIDH #### [address] [address] CBCon 10-08-2024 Erythrocyte distribution width (RBC) [Ratio] 14.2 % Normal 11.5-15.5 [facility] Comment on above: Performed By: #### T SH, CBC, FERR, ADIFF, FE, LIPID, GFR, ANEU, CMP, VIDH #### [place] [address] Hematocrit (Bld) [Volume fraction] 37.3 % Normal 34.0-46.0 [facility] Comment on above: Performed By: #### T SH, CBC, FERR, ADIFF, FE, LIPID, GFR, ANEU, CMP, VIDH #### [place] [address] Hgb 12.7 G/dL Normal 12.0-16.0 [facility] Comment on above: Performed By: #### T SH, CBC, FERR, ADIFF, FE, LIPID, GFR, ANEU, CMP, VIDH #### [address] [address] MCH (RBC) [Entitic mass] 31.0 pg Normal 27.0-33.0 [facility] Comment on above: Performed By: #### T SH, CBC, FERR, ADIFF, FE, LIPID, GFR, ANEU, CMP, VIDH #### [address] [address] MCHC 34.0 G/dL Normal 32.0-36.0 [facility] Comment on above: Performed By: #### T SH, CBC, FERR, ADIFF, FE, LIPID, GFR, ANEU, CMP, VIDH #### [address] [address] MCV (RBC) [Entitic vol] 91.0 fL Normal 80.0-99.0 [facility] Comment on above: Performed By: #### T SH, CBC, FERR, ADIFF, FE, LIPID, GFR, ANEU, CMP, VIDH #### [address] [address] Platelet 218 10 3/mcL Normal 150-450 [facility] Comment on above: Performed By: #### T SH, CBC, FERR, ADIFF, FE, LIPID, GFR, ANEU, CMP, VIDH #### [address] [address] Platelet mean volume (Bld) [Entitic vol] 8.0 fL Normal 6.6-10.5 [facility] Comment on above: Performed By: #### T SH, CBC, FERR, ADIFF, FE, LIPID, GFR, ANEU, CMP, VIDH #### [address] [address] RBC 4.09 10 6/mcL Low 4.10-5.30 [facility] Comment on above: Performed By: #### T SH, CBC, FERR, ADIFF, FE, LIPID, GFR, ANEU, CMP, VIDH #### [address] [address] WBC 7.8 10 3/mcL Normal 4.5-10.8 [facility] Comment on above: Performed By: #### T SH, CBC, FERR, ADIFF, FE, LIPID, GFR, ANEU, CMP, VIDH #### [address] [address] CMPon 10-08-2024 Albumin Level 3.3 G/dL Low 3.4-4.8 [facility] Comment on above: Performed By: #### T SH, CBC, FERR, ADIFF, FE, LIPID, GFR, ANEU, CMP, VIDH #### [address] [address] Albumin/Globulin [Mass ratio] 1.2 {ratio} Normal 1.1-2.5 [facility] Comment on above: Performed By: #### T SH, CBC, FERR, ADIFF, FE, LIPID, GFR, ANEU, CMP, VIDH #### [place] [id number] ALP [Catalytic activity/Vol] 65 U/L Normal 40-135 [facility] Comment on above: Performed By: #### T SH, CBC, FERR, ADIFF, FE, LIPID, GFR, ANEU, CMP, VIDH #### [address] [address] ALT [Catalytic activity/Vol] 24 U/L Normal 14-59 [facility] Comment on above: Performed By: #### T SH, CBC, FERR, ADIFF, FE, LIPID, GFR, ANEU, CMP, VIDH #### [address] [address] AST [Catalytic activity/Vol] 21 U/L Normal 10-40 [facility] Comment on above: Performed By: #### T SH, CBC, FERR, ADIFF, FE, LIPID, GFR, ANEU, CMP, VIDH #### [address] [address] Bili Total 0.4 mg/dL Normal 0.2-1.0 [facility] Comment on above: Result Comment: Use of this assay is not recommended for patients undergoing treatment with eltrombopag due to the potential for falsely elevated results. Performed By: #### T SH, CBC, FERR, ADIFF, FE, LIPID, GFR, ANEU, CMP, VIDH #### [place] [address] BUN/Creatinine Ratio 22 ratio Normal 7-27 [facility] Comment on above: Performed By: #### T SH, CBC, FERR, ADIFF, FE, LIPID, GFR, ANEU, CMP, VIDH #### [place] [address] Calcium [Mass/Vol] 9.3 mg/dL Normal 8.4-10.2 [facility] Comment on above: Performed By: #### T SH, CBC, FERR, ADIFF, FE, LIPID, GFR, ANEU, CMP, VIDH #### [place] [address] Chloride [Moles/Vol] 102 mmol/L Normal 98-107 [facility] Comment on above: Performed By: #### T SH, CBC, FERR, ADIFF, FE, LIPID, GFR, ANEU, CMP, VIDH #### [place] [address] CO2 [Moles/Vol] 29 mmol/L Normal 23-31 [facility] Comment on above: Performed By: #### T SH, CBC, FERR, ADIFF, FE, LIPID, GFR, ANEU, CMP, VIDH #### [place] [address] Creatinine [Mass/Vol] 0.79 mg/dL Normal 0.55-1.02 [facility] Comment on above: Result Comment: Test ing performed on Siemens Dimension EXL analyzer using a modified kinetic Rojelio technique. Performed By: #### T SH, CBC, FERR, ADIFF, FE, LIPID, GFR, ANEU, CMP, VIDH #### [place] [address] Electrolyte Balance 9.0 mEq/L Normal 4.0-15.0 [facility] Comment on above: Performed By: #### T SH, CBC, FERR, ADIFF, FE, LIPID, GFR, ANEU, CMP, VIDH #### [address] [address] Globulin 2.8 G/dL Normal [facility] Comment on above: Performed By: #### T SH, CBC, FERR, ADIFF, FE, LIPID, GFR, ANEU, CMP, VIDH #### [address] [address] Glucose [Mass/Vol] 93 mg/dL Normal 83-110 [facility] Comment on above: Performed By: #### T SH, CBC, FERR, ADIFF, FE, LIPID, GFR, ANEU, CMP, VIDH #### [address] [address] Potassium [Moles/Vol] 4.2 mmol/L Normal 3.5-5.1 [facility] Comment on above: Performed By: #### T SH, CBC, FERR, ADIFF, FE, LIPID, GFR, ANEU, CMP, VIDH #### [address] [address] Sodium [Moles/Vol] 140 mmol/L Normal 136-145 [facility] Comment on above: Performed By: #### T SH, CBC, FERR, ADIFF, FE, LIPID, GFR, ANEU, CMP, VIDH #### [address] [address] Total Protein 6.1 G/dL Low 6.4-8.2 [facility] Comment on above: Performed By: #### T SH, CBC, FERR, ADIFF, FE, LIPID, GFR, ANEU, CMP, VIDH #### [address] [address] Urea nitrogen [Mass/Vol] 17 mg/dL Normal 7-18 [facility] Comment on above: Performed By: #### T SH, CBC, FERR, ADIFF, FE, LIPID, GFR, ANEU, CMP, VIDH #### [address] [address] FEon 10-08-2024 Iron [Mass/Vol] 54 ug/dL Normal 50-170 [facility] Comment on above: Performed By: #### T SH, CBC, FERR, ADIFF, FE, LIPID, GFR, ANEU, CMP, VIDH #### [place] [id number] [place], [place] [address] Jennifer 10-08-2024 Ferritin [Mass/Vol] 73.0 ng/mL Normal 8.0-252.0 [facility] Comment on above: Performed By: #### T SH, CBC, FERR, ADIFF, FE, LIPID, GFR, ANEU, CMP, VIDH #### [place] [id number] [place], [place] [address] LABORATORYOrdered By: SYSTEM SYSTEM on 10-08-2024 25-hydroxyvitamin D3 [Mass/Vol] 44.5 ng/mL Invalid Interpretation Code AO ADM SS Comment on above: Interpretive Data: I nterpretive Values Based on Total 25(OH) Vitamin D: Deficient <20 ng/mL Insufficient 20 - <30 ng/mL Sufficient 30-100 ng/mL Albumin BCP dye [Mass/Vol] 3.3 G/dL Low 3.4 - 4.8 G/dL AO ADM SS Albumin/Globulin [Mass ratio] 1.2 {ratio} Normal 1.1 - 2.5 ratio AO ADM SS ALP [Catalytic activity/Vol] 65 U/L Normal 40 - 135 U/L AO ADM SS ALT With P-5'-P [Catalytic activity/Vol] 24 U/L Normal 14 - 59 U/L AO ADM SS AST With P-5'-P [Catalytic activity/Vol] 21 U/L Normal 10 - 40 U/L AO ADM SS Basophils (Bld) [#/Vol] 0.0 103/mcL Normal 0.0 - 0.2 10^3/mcL AO Workflow SS Basophils/100 WBC (Bld) 0.4 % Normal 0.0 - 2.5 % AO Workflow SS Bilirubin [Mass/Vol] 0.4 mg/dL Normal 0.2 - 1.0 mg/dL AO ADM SS Comment on above: Interpretive Data: U se of this assay is not recommended for patients undergoing treatment with eltrombopag due to the potential for falsely elevated results. Calcium [Mass/Vol] 9.3 mg/dL Normal 8.4 - 10. 2 mg/dL AO ADM SS Chloride [Moles/Vol] 102 mmol/L Normal 98 - 107 mmol/L AO ADM SS CO2 [Moles/Vol] 29 mmol/L Normal 23 - 31 mmol/L AO ADM SS Creatinine [Mass/Vol] 0.79 mg/dL Normal 0.55 - 1.02 mg/dL AO ADM SS Comment on above: Interpretive Data: T esting performed on Siemens Dimension EXL analyzer using a modified kinetic Rojelio technique. Electrolyte Balance 9.0 mEq/L Normal 4.0 - 15 .0 mEq/L AO ADM SS Eosinophil, Absolute 0.2 103/mcL Normal 0.0 - 0.7 10^3/mcL AO Workflow SS Eosinophils/100 WBC (Bld) 2.3 % Normal 0.0 - 7.0 % AO Workflow SS Erythrocyte distribution width (RBC) [Ratio] 14.2 % Normal 11.5 - 15.5 % AO Workflow SS Ferritin [Mass/Vol] 73.0 ng/mL Normal 8.0 - 252.0 ng/mL AO ADM SS GFR/1.73 sq M.predicted among blacks MDRD (S/P/Bld) [Vol rate/Area] 86 ml/min/1.73sqm Invalid Interpretation Code AO Chemistry S Comment on above: Interpretive Data: GFR Population mean for , Non- Americans Ages 20-29 = 116 mL/min/1.73 sq.m. Ages 30-39 = 107 mL/min/1.73 sq.m. Ages 40-49 = 99 mL/min/1.73 sq.m. Ages 50-59 = 93 mL/min/1.73 sq.m. Ages 60-69 = 85 mL/min/1.73 sq.m. Ages 70+ = 75 mL/min/1.73 sq.m. Chronic Kidney Disease: Less than 60 mL/min/1.73 square meters End Stage Renal Disease: Less than 15 mL/min/1.73 square meters GFR/1.73 sq M.predicted among non-blacks MDRD (S/P/Bld) [Vol rate/Area] 71 ml/min/1.73sqm Invalid Interpretation Code AO Chemistry S Comment on above: Interpretive Data: GFR Population mean for , Non- Americans Ages 20-29 = 116 mL/min/1.73 sq.m. Ages 30-39 = 107 mL/min/1.73 sq.m. Ages 40-49 = 99 mL/min/1.73 sq.m. Ages 50-59 = 93 mL/min/1.73 sq.m. Ages 60-69 = 85 mL/min/1.73 sq.m. Ages 70+ = 75 mL/min/1.73 sq.m. Chronic Kidney Disease: Less than 60 mL/min/1.73 square meters End Stage Renal Disease: Less than 15 mL/min/1.73 square meters Globulin 2.8 G/dL Invalid Interpretation Code AO ADM SS Glucose [Mass/Vol] 93 mg/dL Normal 83 - 110 mg/dL AO ADM SS Hematocrit (Bld) [Volume fraction] 37.3 % Normal 34.0 - 46.0 % AO Workflow SS Hemoglobin (Bld) [Mass/Vol] 12.7 G/dL Normal 12.0 - 16.0 G/dL AO Workflow SS Iron [Mass/Vol] 54 ug/dL Normal 50 - 170 mcg/dL AO ADM SS Lymphocytes (Bld) [#/Vol] 2.7 103/mcL Normal 0.9 - 4.3 10^3/mcL AO Workflow SS Lymphocytes/100 WBC (Bld) 34.2 % Normal 20.0 - 40.0 % AO Workflow SS MCH (RBC) [Entitic mass] 31.0 pg Normal 27.0 - 33.0 pg AO Workflow SS MCHC 34.0 G/dL Normal 32.0 - 36.0 G/dL AO Workflow SS MCV (RBC) [Entitic vol] 91.0 fL Normal 80.0 - 99.0 fL AO Workflow SS Monocytes (Bld) [#/Vol] 0.7 103/mcL Normal 0.1 - 1.4 10^3/mcL AO Workflow SS Monocytes/100 WBC (Bld) 8.6 % Normal 2.0 - 13.0 % AO Workflow SS Neutrophils (Bld) [#/Vol] 4.3 103/mcL Normal 2.3 - 8.1 10^3/mcL AO Workflow SS Neutrophils/100 WBC (Bld) 54.5 % Normal 50.0 - 75.0 % AO Workflow SS Platelet mean volume (Bld) [Entitic vol] 8.0 fL Normal 6.6 - 10.5 fL AO Workflow SS Platelets (Bld) [#/Vol] 218 103/mcL Normal 150 - 450 10^3/mcL AO Workflow SS Potassium [Moles/Vol] 4.2 mmol/L Normal 3.5 - 5.1 mmol/L AO ADM SS Protein [Mass/Vol] 6.1 G/dL Low 6.4 - 8.2 G/dL AO ADM SS RBC (Bld) [#/Vol] 4.09 106/mcL Low 4.10 - 5.30 10^6/mcL AO Workflow SS Sodium [Moles/Vol] 140 mmol/L Normal 136 - 145 mmol/L AO ADM SS TSH Qn 3.01 m[IU]/L Normal 0.36 - 3.74 mcIU/mL AO ADM SS Urea nitrogen [Mass/Vol] 17 mg/dL Normal 7 - 18 mg/dL AO ADM SS Urea nitrogen/Creatinine [Mass ratio] 22 ratio Normal 7 - 27 ratio AO ADM SS WBC (Bld) [#/Vol] 7.8 103/mcL Normal 4.5 - 10.8 10^3/mcL AO Workflow SS LABORATORYOrdered By: Wanda Dubois on 10-08-2024 Cholesterol [Mass/Vol] 186 mg/dL Normal 0 - 200 mg/dL AO ADM SS Comment on above: Interpretive Data: C holesterol Reference Interval: Less than 200 Desirable 200-239 Borderline high risk 240 and above High risk Cholesterol in HDL [Mass/Vol] 96 mg/dL High 40 - 60 mg/dL AO ADM SS Cholesterol in LDL [Mass/Vol] 73 mg/dL Normal 0 - 130 mg/dL AO ADM SS Triglyceride [Mass/Vol] 83 mg/dL Normal 0 - 150 mg/dL AO ADM SS Comment on above: Interpretive Data: T riglyceride Reference Interval: Less than 150 Normal 150-199 Borderline high risk 200-499 High risk 500 or higher Very high risk LIPIDon 10-08-2024 Cholesterol [Mass/Vol] 186 mg/dL Normal 0-200 [facility] Comment on above: Result Comment: Chol esterol Reference Interval: Less than 200 Desirable 200-239 Borderline high risk 240 and above High risk Performed By: #### T SH, CBC, FERR, ADIFF, FE, LIPID, GFR, ANEU, CMP, VIDH #### [place] [id number] [place], [place] [address] Cholesterol in HDL [Mass/Vol] 96 mg/dL High 40-60 [facility] Comment on above: Performed By: #### T SH, CBC, FERR, ADIFF, FE, LIPID, GFR, ANEU, CMP, VIDH #### [address] [address] Cholesterol in LDL [Mass/Vol] 73 mg/dL Normal 0-130 [facility] Comment on above: Performed By: #### T SH, CBC, FERR, ADIFF, FE, LIPID, GFR, ANEU, CMP, VIDH #### [address] [address] Triglyceride [Mass/Vol] 83 mg/dL Normal 0-150 [facility] Comment on above: Result Comment: Trig lyceride Reference Interval: Less than 150 Normal 150-199 Borderline high risk 200-499 High risk 500 or higher Very high risk Performed By: #### T SH, CBC, FERR, ADIFF, FE, LIPID, GFR, ANEU, CMP, VIDH #### [address] [address] TSHon 10-08-2024 TSH Qn 3.01 m[IU]/L Normal 0.36-3.74 [facility] Comment on above: Performed By: #### T SH, CBC, FERR, ADIFF, FE, LIPID, GFR, ANEU, CMP, VIDH #### [address] [address] VIDHon 10-08-2024 Vit. D 25-Hydroxy 44.5 ng/mL Normal [facility] Comment on above: Result Comment: Inte rpretive Values Based on Total 25(OH) Vitamin D: Deficient <20 ng/mL Insufficient 20 - <30 ng/mL Sufficient 30-100 ng/mL Performed By: #### T SH, CBC, FERR, ADIFF, FE, LIPID, GFR, ANEU, CMP, VIDH #### [address] [address] BD BONE DENSITY DEXA AXIAL S KELETONon 10-04-2024 BD BONE DENSITY DEXA AXIAL SKELETON ORIGINAL EXAMINATION: BONE DENSITOMETRY 10/04/2024 3:53 pm TECHNIQUE: A bone density dual x-ray absorptiometry (DEXA) scan was performed of the axial (e.g. hips, spine) and/or appendicular (e.g. radius) skeleton as appropriate. COMPARISON: 06/07/2022. HISTORY: ORDERING SYSTEM PROVIDED HISTORY: Reason for Exam: screening FINDINGS: T Score Left Femoral Neck: -2.3 Left Femoral Neck: 0.588 (g/cm2) T Score Left Hip: -1.6 Left Hip: 0.749 (g/cm2) T Score Lumbar Spine: -0.9 Lumbar Spine: 0.951 (g/cmd2) BMD Change from previous Hip: No significant change BMD Change from previous Lumbar Spine: 7.9% FRAX score is unable to be documented as the patient has been on medication for prevention/treatment of osteoporosis. IMPRESSION: Osteopenia by WHO criteria. World Health Organization criteria: (Comparing with young normal sex matched population) - Normal: T-score at or above -1 SD (standard deviation) - Osteopenia: T-score between -1 and -2.5 SD - Osteoporosis: T-score at or below -2.5 SD The NOF recommends that FDA-approved medical therapies be considered in post-menopausal women and men age >/= 50 years with a: * Hip or vertebral fracture, or * T-score of /= 20% for major osteoporotic fractures or * >/= 3% for hip fractures All treatment decisions require clinical judgement and consideration of individual patient factors, including patient preferences, comorbidities, previous drug use, risk factors not captured in the FRAX registered model (e.g., frailty, falls, vitamin D deficiency, increased bone turnover, interval significant decline in bone density) and possible under- or over-estimation of fracture risk by FRAX. Interpreted by: Brandt Soto DO Preliminary Report By: Brandt Soto DO Electronically signed By Brandt Soto DO Dictated Date: 10/04/2024 3:54:59 PM Prelim Date: 10/04/2024 3:55:43 PM Sign Date: 10/04/2024 3:55:43 PM Ordering Provider: LARRY Hatfield [facility] .Auto Diffon 03-15-2024 Basophil, Absolute 0.0 10 3/mcL Normal 0.0-0.2 [facility] ([place]) Comment on above: Performed By: #### U ERNESTO, FERR, TSH, CBC, CMP, GFR, LIPID, ADIFF, VIDH, FE, ANEU #### [address] [address] Basophils/100 WBC (Bld) 0.2 % Normal 0.0-2.5 [facility] ([place]) Comment on above: Performed By: #### U ERNESTO, FERR, TSH, CBC, CMP, GFR, LIPID, ADIFF, VIDH, FE, ANEU #### [address] [address] Eosinophil, Absolute 0.2 10 3/mcL Normal 0.0-0.4 [facility] ([place]) Comment on above: Performed By: #### U ERNESTO, FERR, TSH, CBC, CMP, GFR, LIPID, ADIFF, VIDH, FE, ANEU #### [address] [address] Eosinophils/100 WBC (Bld) 2.1 % Normal 0.0-7.0 [facility] ([place]) Comment on above: Performed By: #### U ERNESTO, FERR, TSH, CBC, CMP, GFR, LIPID, ADIFF, VIDH, FE, ANEU #### [address] [address] Lymphocyte, Absolute 2.8 10 3/mcL Normal 0.8-3.9 [facility] ([place]) Comment on above: Performed By: #### U ERNESTO, FERR, TSH, CBC, CMP, GFR, LIPID, ADIFF, VIDH, FE, ANEU #### [address] [address] Lymphocytes/100 WBC (Bld) 34.9 % Normal 10.0-50.0 [facility] ([place]) Comment on above: Performed By: #### U ERNESTO, FERR, TSH, CBC, CMP, GFR, LIPID, ADIFF, VIDH, FE, ANEU #### [address] [address] Monocyte, Absolute 0.7 10 3/mcL Normal 0.2-1.0 [facility] ([place]) Comment on above: Performed By: #### U ERNESTO, FERR, TSH, CBC, CMP, GFR, LIPID, ADIFF, VIDH, FE, ANEU #### [address] [address] Monocytes/100 WBC (Bld) 9.2 % Normal 1.7-13.0 [facility] ([place]) Comment on above: Performed By: #### U ERNESTO, FERR, TSH, CBC, CMP, GFR, LIPID, ADIFF, VIDH, FE, ANEU #### [address] [address] Neutrophils/100 WBC (Bld) 53.6 % Normal 37.0-80.0 [facility] ([place]) Comment on above: Performed By: #### U ERNESTO, FERR, TSH, CBC, CMP, GFR, LIPID, ADIFF, VIDH, FE, ANEU #### [address] [address] .GFRon 03-15-2024 GFR 94 ml/min/1.73sqm Normal [facility] ([place]) Comment on above: Result Comment: GFR Population mean for , Non- Americans Ages 20-29 = 116 mL/min/1.73 sq.m. Ages 30-39 = 107 mL/min/1.73 sq.m. Ages 40-49 = 99 mL/min/1.73 sq.m. Ages 50-59 = 93 mL/min/1.73 sq.m. Ages 60-69 = 85 mL/min/1.73 sq.m. Ages 70+ = 75 mL/min/1.73 sq.m. Chronic Kidney Disease: Less than 60 mL/min/1.73 square meters End Stage Renal Disease: Less than 15 mL/min/1.73 square meters Performed By: #### U ERNESTO, FERR, TSH, CBC, CMP, GFR, LIPID, ADIFF, VIDH, FE, ANEU #### [address] [address] GFR Non- 78 ml/min/1.73sqm Normal [facility] ([place]) Comment on above: Result Comment: GFR Population mean for , Non- Americans Ages 20-29 = 116 mL/min/1.73 sq.m. Ages 30-39 = 107 mL/min/1.73 sq.m. Ages 40-49 = 99 mL/min/1.73 sq.m. Ages 50-59 = 93 mL/min/1.73 sq.m. Ages 60-69 = 85 mL/min/1.73 sq.m. Ages 70+ = 75 mL/min/1.73 sq.m. Chronic Kidney Disease: Less than 60 mL/min/1.73 square meters End Stage Renal Disease: Less than 15 mL/min/1.73 square meters Performed By: #### U ERNESTO, FERR, TSH, CBC, CMP, GFR, LIPID, ADIFF, VIDH, FE, ANEU #### [place] [id number] .NEUABSon 03-15-2024 Neutrophil, Absolute 4.3 10 3/mcL Normal 2.9-6.2 [facility] ([place]) Comment on above: Performed By: #### U ERNESTO, FERR, TSH, CBC, CMP, GFR, LIPID, ADIFF, VIDH, FE, ANEU #### [address] [address] CBCon 03-15-2024 Erythrocyte distribution width (RBC) [Ratio] 13.8 % Normal 11.5-14.5 [facility] ([place]) Comment on above: Performed By: #### U ERNESTO, FERR, TSH, CBC, CMP, GFR, LIPID, ADIFF, VIDH, FE, ANEU #### [place] [id number] Hematocrit (Bld) [Volume fraction] 37.7 % Normal 37.0-47.0 [facility] ([place]) Comment on above: Performed By: #### U ERNESTO, FERR, TSH, CBC, CMP, GFR, LIPID, ADIFF, VIDH, FE, ANEU #### [address] [address] Hgb 12.9 G/dL Normal 12.0-16.0 [facility] ([place]) Comment on above: Performed By: #### U ERNESTO, FERR, TSH, CBC, CMP, GFR, LIPID, ADIFF, VIDH, FE, ANEU #### [place] [address] MCH (RBC) [Entitic mass] 30.6 pg Normal 27.0-31.2 [facility] ([place]) Comment on above: Performed By: #### U ERNESTO, FERR, TSH, CBC, CMP, GFR, LIPID, ADIFF, VIDH, FE, ANEU #### [place] [address] MCHC 34.3 G/dL Normal 33.0-37.0 [facility] ([place]) Comment on above: Performed By: #### U ERNESTO, FERR, TSH, CBC, CMP, GFR, LIPID, ADIFF, VIDH, FE, ANEU #### [place] [address] MCV (RBC) [Entitic vol] 89.5 fL Normal 80.0-94.0 [facility] ([place]) Comment on above: Performed By: #### U ERNESTO, FERR, TSH, CBC, CMP, GFR, LIPID, ADIFF, VIDH, FE, ANEU #### [place] [address] Platelet 247 10 3/mcL Normal 130-400 [facility] ([place]) Comment on above: Performed By: #### U ERNESTO, FERR, TSH, CBC, CMP, GFR, LIPID, ADIFF, VIDH, FE, ANEU #### [place] [address] Platelet mean volume (Bld) [Entitic vol] 8.4 fL Normal 7.4-10.4 [facility] ([place]) Comment on above: Performed By: #### U ERNESTO, FERR, TSH, CBC, CMP, GFR, LIPID, ADIFF, VIDH, FE, ANEU #### [place] [address] RBC 4.21 10 6/mcL Normal 4.20-5.40 [facility] ([place]) Comment on above: Performed By: #### U ERNESTO, FERR, TSH, CBC, CMP, GFR, LIPID, ADIFF, VIDH, FE, ANEU #### [address] [address] WBC 8.0 10 3/mcL Normal 4.6-10.8 [facility] ([place]) Comment on above: Performed By: #### U ERNESTO, FERR, TSH, CBC, CMP, GFR, LIPID, ADIFF, VIDH, FE, ANEU #### [address] [address] CMPon 03-15-2024 Albumin Level 3.6 G/dL Normal 3.4-4.8 [facility] ([place]) Comment on above: Performed By: #### U ERNESTO, FERR, TSH, CBC, CMP, GFR, LIPID, ADIFF, VIDH, FE, ANEU #### [address] [address] Albumin/Globulin [Mass ratio] 1.1 {ratio} Normal 1.1-2.5 [facility] ([place]) Comment on above: Performed By: #### U ERNESTO, FERR, TSH, CBC, CMP, GFR, LIPID, ADIFF, VIDH, FE, ANEU #### [address] [address] ALP [Catalytic activity/Vol] 76 U/L Normal 40-135 [facility] ([place]) Comment on above: Performed By: #### U ERNESTO, FERR, TSH, CBC, CMP, GFR, LIPID, ADIFF, VIDH, FE, ANEU #### [address] [address] ALT [Catalytic activity/Vol] 19 U/L Normal 14-59 [facility] ([place]) Comment on above: Performed By: #### U ERNESTO, FERR, TSH, CBC, CMP, GFR, LIPID, ADIFF, VIDH, FE, ANEU #### [address] [address] AST [Catalytic activity/Vol] 17 U/L Normal 10-40 [facility] ([place]) Comment on above: Performed By: #### U ERNESTO, FERR, TSH, CBC, CMP, GFR, LIPID, ADIFF, VIDH, FE, ANEU #### [address] [address] Bili Total 0.4 mg/dL Normal 0.2-1.0 [facility] ([place]) Comment on above: Result Comment: Use of this assay is not recommended for patients undergoing treatment with eltrombopag due to the potential for falsely elevated results. Performed By: #### U ERNESTO, FERR, TSH, CBC, CMP, GFR, LIPID, ADIFF, VIDH, FE, ANEU #### [address] [address] BUN/Creatinine Ratio 19 ratio Normal 7-27 [facility] ([place]) Comment on above: Performed By: #### U ERNESTO, FERR, TSH, CBC, CMP, GFR, LIPID, ADIFF, VIDH, FE, ANEU #### [address] [address] Calcium [Mass/Vol] 9.2 mg/dL Normal 8.4-10.2 [facility] ([place]) Comment on above: Performed By: #### U ERNESTO, FERR, TSH, CBC, CMP, GFR, LIPID, ADIFF, VIDH, FE, ANEU #### [address] [address] Chloride [Moles/Vol] 102 mmol/L Normal 98-107 [facility] ([place]) Comment on above: Performed By: #### U ERNESTO, FERR, TSH, CBC, CMP, GFR, LIPID, ADIFF, VIDH, FE, ANEU #### [address] [address] CO2 [Moles/Vol] 26 mmol/L Normal 23-31 [facility] ([place]) Comment on above: Performed By: #### U ERNESTO, FERR, TSH, CBC, CMP, GFR, LIPID, ADIFF, VIDH, FE, ANEU #### [address] [address] Creatinine [Mass/Vol] 0.73 mg/dL Normal 0.55-1.02 [facility] ([place]) Comment on above: Performed By: #### U ERNESTO, FERR, TSH, CBC, CMP, GFR, LIPID, ADIFF, VIDH, FE, ANEU #### [address] [address] Electrolyte Balance 10.0 mEq/L Normal 4.0-15.0 [facility] ([place]) Comment on above: Performed By: #### U ERNESTO, FERR, TSH, CBC, CMP, GFR, LIPID, ADIFF, VIDH, FE, ANEU #### [address] [address] Globulin 3.3 G/dL Normal [facility] ([place]) Comment on above: Performed By: #### U ERNESTO, FERR, TSH, CBC, CMP, GFR, LIPID, ADIFF, VIDH, FE, ANEU #### [address] [address] Glucose [Mass/Vol] 101 mg/dL Normal 83-110 [facility] ([place]) Comment on above: Performed By: #### U ERNESTO, FERR, TSH, CBC, CMP, GFR, LIPID, ADIFF, VIDH, FE, ANEU #### [address] [address] Potassium [Moles/Vol] 5.1 mmol/L Normal 3.5-5.1 [facility] ([place]) Comment on above: Performed By: #### U ERNESTO, FERR, TSH, CBC, CMP, GFR, LIPID, ADIFF, VIDH, FE, ANEU #### [address] [address] Sodium [Moles/Vol] 138 mmol/L Normal 136-145 [facility] ([place]) Comment on above: Performed By: #### U ERNESTO, FERR, TSH, CBC, CMP, GFR, LIPID, ADIFF, VIDH, FE, ANEU #### [address] [address] Total Protein 6.9 G/dL Normal 6.4-8.2 [facility] ([place]) Comment on above: Performed By: #### U ERNESTO, FERR, TSH, CBC, CMP, GFR, LIPID, ADIFF, VIDH, FE, ANEU #### [address] [address] Urea nitrogen [Mass/Vol] 14 mg/dL Normal 7-18 [facility] ([place]) Comment on above: Performed By: #### U ERNESTO, FERR, TSH, CBC, CMP, GFR, LIPID, ADIFF, VIDH, FE, ANEU #### [address] [address] FEon 03-15-2024 Iron [Mass/Vol] 54 ug/dL Normal 50-170 [facility] ([place]) Comment on above: Performed By: #### U ERNESTO, FERR, TSH, CBC, CMP, GFR, LIPID, ADIFF, VIDH, FE, ANEU #### [address] [address] Jennifer 03-15-2024 Ferritin [Mass/Vol] 80.0 ng/mL Normal 8.0-252.0 [facility] ([place]) Comment on above: Performed By: #### U ERNESTO, FERR, TSH, CBC, CMP, GFR, LIPID, ADIFF, VIDH, FE, ANEU #### [address] [address] LIPIDon 03-15-2024 Cholesterol [Mass/Vol] 197 mg/dL Normal 0-200 [facility] ([place]) Comment on above: Result Comment: Chol esterol Reference Interval: Less than 200 Desirable 200-239 Borderline high risk 240 and above High risk Performed By: #### U ERNESTO, FERR, TSH, CBC, CMP, GFR, LIPID, ADIFF, VIDH, FE, ANEU #### [address] [address] Cholesterol in HDL [Mass/Vol] 88 mg/dL High 40-60 [facility] ([place]) Comment on above: Performed By: #### U ERNESTO, FERR, TSH, CBC, CMP, GFR, LIPID, ADIFF, VIDH, FE, ANEU #### [address] [address] Cholesterol in LDL [Mass/Vol] 89 mg/dL Normal 0-130 [facility] ([place]) Comment on above: Performed By: #### U ERNESTO, FERR, TSH, CBC, CMP, GFR, LIPID, ADIFF, VIDH, FE, ANEU #### [place] [address] Triglyceride [Mass/Vol] 101 mg/dL Normal 0-150 [facility] ([place]) Comment on above: Result Comment: Trig lyceride Reference Interval: Less than 150 Normal 150-199 Borderline high risk 200-499 High risk 500 or higher Very high risk Performed By: #### U ERNESTO, FERR, TSH, CBC, CMP, GFR, LIPID, ADIFF, VIDH, FE, ANEU #### [place] [address] TSHon 03-15-2024 TSH Qn 2.13 m[IU]/L Normal 0.36-3.74 [facility] ([place]) Comment on above: Performed By: #### U ERNESTO, FERR, TSH, CBC, CMP, GFR, LIPID, ADIFF, VIDH, FE, ANEU #### [place] [address] URICon 03-15-2024 Uric Acid Lvl 3.5 mg/dL Normal 2.6-6.2 [facility] ([place]) Comment on above: Performed By: #### U ERNESTO, FERR, TSH, CBC, CMP, GFR, LIPID, ADIFF, VIDH, FE, ANEU #### [place] [address] VIDHon 03-15-2024 Vit. D 25-Hydroxy 49.2 ng/mL Normal [facility] ([place]) Comment on above: Result Comment: Inte rpretive Values Based on Total 25(OH) Vitamin D: Deficient <20 ng/mL Insufficient 20 - <30 ng/mL Sufficient 30-100 ng/mL Performed By: #### U ERNESTO, FERR, TSH, CBC, CMP, GFR, LIPID, ADIFF, VIDH, FE, ANEU #### [place] [address] Basophil percentageOrdered B y: Norah Turner on 12-28-2023 Chloride [Moles/Vol] 108 mmol/L 98-107 [facility] Glucose [Mass/Vol] 132 mg/dL 74-106 [facility] Comment on above: Fasting Glucose resu lt greater than or equal to 126 mg/dL suggests DIABETES MELLITUS per A.D.A. criteria. Hemoglobin (Bld) [Mass/Vol] 10.6 g/dL 12.0-15.0 [facility] Potassium [Moles/Vol] 4.5 mmol/L 3.5-5.1 [facility] Sodium [Moles/Vol] 138 mmol/L 136-145 [facility] WBC (Bld) [#/Vol] 15.2 10*3/uL 4.4-11.0 [facility] Determination of erythrocyte mean corpuscular volume (MCV)Ordered By: Norah Turner on 12-28-2023 MCV (RBC) [Entitic vol] 97.1 fL 81-99 [facility] Erythrocyte distribution wid th ratioOrdered By: Norah Turner on 12-28-2023 Erythrocyte distribution width (RBC) [Ratio] 13.4 % 11.6-14.6 [facility] Erythrocyte distribution wid th standard deviationOrdered By: Norah Turner on 12-28-2023 Erythrocyte distribution width (RBC) [Entitic vol] 47.8 fL 35.1-43.9 [facility] Hematocrit Auto (Bld) [Volum e fraction]Ordered By: Norah Turner on 12-28-2023 Hematocrit (Bld) [Volume fraction] 33.7 % 37-47 [facility] Laboratory - Chemistry and C hemistry - challengeOrdered By: Norah Turner on 12-28-2023 CO2 [Moles/Vol] 26.0 mmol/L 21.0-32.0 [facility] Urea nitrogen/Creatinine [Mass ratio] 20.5 mg/mg 10-20 [facility] Laboratory - Hematology and Cell countsOrdered By: Norah Turner on 12-28-2023 MCH (RBC) [Entitic mass] 30.5 pg 27.0-32.0 [facility] MCHC (RBC) [Mass/Vol] 31.5 g/dL 32-36 [facility] Platelet mean volume (Bld) [Entitic vol] 9.9 fL 6.2-12.0 [facility] Platelets (Bld) [#/Vol] 195 10*3/uL 150-450 [facility] No Panel InformationOrdered By: Norah Turner on 12-28-2023 Estimated Creatinine Clearance Calc 64.77 ml/min [facility] Estimated GFR (MDRD) Amer 108 mL/min >60 [facility] Comment on above: GFR Calc Estimated GFR (MDRD) Non-Af Amer 90 mL/min >60 [facility] Comment on above: Non- GFR Calc RBC Auto (Bld) [#/Vol]Ordere d By: Norah Turner on 12-28-2023 RBC (Bld) [#/Vol] 3.47 10*6/uL 4.2-5.4 [facility] Serum or plasma calcium abby urement (mass/volume)Ordered By: Norah Turner on 12-28-2023 Calcium [Mass/Vol] 8.3 mg/dL 8.5-10.1 [facility] Serum or plasma creatinine m easurement (mass/volume)Ordered By: Norah Turner on 12-28-2023 Creatinine [Mass/Vol] 0.68 mg/dL 0.55-1.02 [facility] Comment on above: The validity of the calculated GFR & GFRAA in patients over 70 years has not been determined. Clinical correlation is essential. Serum or plasma urea nitroge n measurement (mass/volume)Ordered By: Norah Turner on 12-28-2023 Urea nitrogen [Mass/Vol] 14 mg/dL 7-18 [facility] Thin prep Papanicolaou smear with manual screeningOrdered By: Norah Turner on 12-28-2023 Thin prep Papanicolaou smear with manual screening 4 5-15 [facility] Absolute lymphocyte countOrd ered By: Norah Turner on 11-30-2023 Lymphocytes Auto (Unsp spec) [#/Vol] 3.70 10*3/uL 0.83-4.51 [facility] Automated lymphocyte count a s percentage of total leukocytesOrdered By: Norah Turner on 11-30-2023 Lymphocytes/100 WBC Auto (Unsp spec) 38.0 % 19-41 [facility] Basophil percentageOrdered B y: Norah Turner on 11-30-2023 Basophils/100 WBC (Bld) 0.2 % 0-1 [facility] Eosinophils/100 WBC (Bld) 2.8 % 0-5 [facility] Monocytes/100 WBC (Bld) 8.8 % 0-10 [facility] Neutrophils (Bld) [#/Vol] 4.9 10*3/uL 2.0-7.7 [facility] Neutrophils/100 WBC (Bld) 50.1 % 47-70 [facility] Immature granulocytes/100 WB C Auto (Bld)Ordered By: Norah Turner on 11-30-2023 Immature granulocytes/100 WBC (Bld) 0.100 % 0.0-0.9 [facility] Comment on above: IG% - Immature Granu locytes (promyelocytes, myelocytes and metamyelocytes) > 1% indicates that a LEFT SHIFT is Present. Laboratory - Chemistry and C hemistry - challengeOrdered By: Teo Churchill on 11-30-2023 Magnesium [Mass/Vol] 2.3 mg/dL 1.6-2.6 [facility] Laboratory - Hematology and Cell countsOrdered By: Norah Turner on 11-30-2023 Nucleated RBC/100 WBC (Bld) [Ratio] 0 % 0-5 [facility] No Panel InformationOrdered By: Norah Turner on 11-30-2023 Nasal Screen MRSA/MSSA [facility] Thin prep Papanicolaou smear with manual screeningOrdered By: Norah Turner on 11-30-2023 Thin prep Papanicolaou smear with manual screening 3.6 g/dL 3.2-5.0 [facility] MA MAMMOGRAM SCREENING BILAT ERAL W/TOMOon 10-03-2023 MA MAMMOGRAM SCREENING BILATERAL W/CASANDRA ORIGINAL FROM: [address] [address] PROCEDURE FOR: [place] [facility] [address] [place] [address] Home: PID#: [id number] Exam#: [id number] : 1950 Age: 72 TO: LARRY JOYCE [address] [address] Fax: NO FAX EXAMINATION: SCREENING DIGITAL BILATERAL MAMMOGRAM WITH TOMOSYNTHESIS, 10/03/2023 2:25 pm TECHNIQUE: Screening mammography of the bilateral breasts was performed with tomosynthesis. 2D standard and 3D tomosynthesis combination imaging performed through both breasts in the MLO and CC projection. Computer aided detection was utilized in the interpretation of this exam. COMPARISON: 09/29/2022, 09/14/2021 HISTORY: Breast cancer screening. FINDINGS: BREAST DENSITY: Scattered fibroglandular tissue There are benign appearing calcifications in both breasts. There are no significant masses or calcifications. IMPRESSION: No mammographic evidence of malignancy. Continued screening with annual mammograms is recommended. Vicente zi risk calculations, generated with the history provided, report this patient's 10 year risk and lifetime risk for developing breast cancer at 3.5% and 4.3%, respectively. Based on this assessment tool, if the patient's calculated lifetime risk is below 20%, then the patient is considered at average risk for developing breast cancer. If the patient's calculated lifetime risk is at or above 20%, then the patient is considered high risk for developing breast cancer and may be a candidate for supplemental breast MRI screening in addition to annual mammographic screening per the [employer] [employer]. BIRADS: MAMMOGRAM BI-RADS: 2: Benign finding RECALL: 1 year screening RECALL TYPE: mammo LETTER SENT: Normal BI-RADS 1 and 2 Interpreted by: Brandt Payne MD Preliminary Report By: Brandt Payne MD Electronically signed By Brandt Payne MD Dictated Date: 10/03/2023 7:59:23 PM Prelim Date: 10/03/2023 8:01:27 PM Sign Date: 10/03/2023 8:01:27 PM Ordering Provider: LARRY JOYCE Television Maintenance Man: CHARO SIEGEL RT (R)(M) letter sent: Normal BI-RADS 1 and 2 Mammogram BI-RADS: 2 Benign Normal [facility] ([place]) .Auto Diffon 09-15-2023 Basophil, Absolute 0.0 10 3/mcL Normal 0.0-0.2 [facility] ([place]) Comment on above: Performed By: #### U ERNESTO, FERR, TSH, CBC, CMP, GFR, LIPID, ADIFF, VIDH, FE, ANEU #### [address] [address] Basophils/100 WBC (Bld) 0.2 % Normal 0.0-2.5 [facility] ([place]) Comment on above: Performed By: #### U ERNESTO, FERR, TSH, CBC, CMP, GFR, LIPID, ADIFF, VIDH, FE, ANEU #### [address] [address] Eosinophil, Absolute 0.1 10 3/mcL Normal 0.0-0.4 [facility] ([place]) Comment on above: Performed By: #### U ERNESTO, FERR, TSH, CBC, CMP, GFR, LIPID, ADIFF, VIDH, FE, ANEU #### [address] [address] Eosinophils/100 WBC (Bld) 0.6 % Normal 0.0-7.0 [facility] ([place]) Comment on above: Performed By: #### U ERNESTO, FERR, TSH, CBC, CMP, GFR, LIPID, ADIFF, VIDH, FE, ANEU #### [address] [address] Lymphocyte, Absolute 3.1 10 3/mcL Normal 0.8-3.9 [facility] ([place]) Comment on above: Performed By: #### U ERNESTO, FERR, TSH, CBC, CMP, GFR, LIPID, ADIFF, VIDH, FE, ANEU #### [address] [address] Lymphocytes/100 WBC (Bld) 28.3 % Normal 10.0-50.0 [facility] ([place]) Comment on above: Performed By: #### U ERNESTO, FERR, TSH, CBC, CMP, GFR, LIPID, ADIFF, VIDH, FE, ANEU #### [address] [address] Monocyte, Absolute 0.9 10 3/mcL Normal 0.2-1.0 [facility] ([place]) Comment on above: Performed By: #### U ERNESTO, FERR, TSH, CBC, CMP, GFR, LIPID, ADIFF, VIDH, FE, ANEU #### [address] [address] Monocytes/100 WBC (Bld) 8.0 % Normal 1.7-13.0 [facility] ([place] Comment on above: Performed By: #### U ERNESTO, FERR, TSH, CBC, CMP, GFR, LIPID, ADIFF, VIDH, FE, ANEU #### [address] [address] Neutrophils/100 WBC (Bld) 62.9 % Normal 37.0-80.0 [facility] ([place]) Comment on above: Performed By: #### U ERNESTO, FERR, TSH, CBC, CMP, GFR, LIPID, ADIFF, VIDH, FE, ANEU #### [address] [address] .GFRon 09-15-2023 GFR Non- 64 ml/min/1.73sqm Normal [facility] ([place]) Comment on above: Result Comment: GFR Population mean for , Non- Americans Ages 20-29 = 116 mL/min/1.73 sq.m. Ages 30-39 = 107 mL/min/1.73 sq.m. Ages 40-49 = 99 mL/min/1.73 sq.m. Ages 50-59 = 93 mL/min/1.73 sq.m. Ages 60-69 = 85 mL/min/1.73 sq.m. Ages 70+ = 75 mL/min/1.73 sq.m. Chronic Kidney Disease: Less than 60 mL/min/1.73 square meters End Stage Renal Disease: Less than 15 mL/min/1.73 square meters Performed By: #### U ERNESTO, FERR, TSH, CBC, CMP, GFR, LIPID, ADIFF, VIDH, FE, ANEU #### [address] [address] GFR 77 ml/min/1.73sqm Normal [facility] ([place]) Comment on above: Result Comment: GFR Population mean for , Non- Americans Ages 20-29 = 116 mL/min/1.73 sq.m. Ages 30-39 = 107 mL/min/1.73 sq.m. Ages 40-49 = 99 mL/min/1.73 sq.m. Ages 50-59 = 93 mL/min/1.73 sq.m. Ages 60-69 = 85 mL/min/1.73 sq.m. Ages 70+ = 75 mL/min/1.73 sq.m. Chronic Kidney Disease: Less than 60 mL/min/1.73 square meters End Stage Renal Disease: Less than 15 mL/min/1.73 square meters Performed By: #### U ERNESTO, FERR, TSH, CBC, CMP, GFR, LIPID, ADIFF, VIDH, FE, ANEU #### [address] [address] .NEUABSon 09-15-2023 Neutrophil, Absolute 7.0 10 3/mcL High 2.9-6.2 [facility] ([place] Comment on above: Performed By: #### U ERNESTO, FERR, TSH, CBC, CMP, GFR, LIPID, ADIFF, VIDH, FE, ANEU #### [place] [address] CBCon 09-15-2023 Erythrocyte distribution width (RBC) [Ratio] 13.9 % Normal 11.5-14.5 [facility] ([place]) Comment on above: Performed By: #### U ERNESTO, FERR, TSH, CBC, CMP, GFR, LIPID, ADIFF, VIDH, FE, ANEU #### [place] [address] Hematocrit (Bld) [Volume fraction] 39.4 % Normal 37.0-47.0 [facility] ([place] Comment on above: Performed By: #### U ERNESTO, FERR, TSH, CBC, CMP, GFR, LIPID, ADIFF, VIDH, FE, ANEU #### [place] [address] Hgb 12.8 G/dL Normal 12.0-16.0 [facility] ([place] Comment on above: Performed By: #### U ERNESTO, FERR, TSH, CBC, CMP, GFR, LIPID, ADIFF, VIDH, FE, ANEU #### [address] [address] MCH (RBC) [Entitic mass] 30.6 pg Normal 27.0-31.2 [facility] ([place] Comment on above: Performed By: #### U ERNESTO, FERR, TSH, CBC, CMP, GFR, LIPID, ADIFF, VIDH, FE, ANEU #### [address] [address] MCHC 32.6 G/dL Low 33.0-37.0 [facility] ([place] Comment on above: Performed By: #### U ERNESTO, FERR, TSH, CBC, CMP, GFR, LIPID, ADIFF, VIDH, FE, ANEU #### [address] [address] MCV (RBC) [Entitic vol] 93.8 fL Normal 80.0-94.0 [facility] ([place] Comment on above: Performed By: #### U ERNESTO, FERR, TSH, CBC, CMP, GFR, LIPID, ADIFF, VIDH, FE, ANEU #### [address] [address] Platelet 253 10 3/mcL Normal 130-400 [facility] ([place]) Comment on above: Performed By: #### U ERNESTO, FERR, TSH, CBC, CMP, GFR, LIPID, ADIFF, VIDH, FE, ANEU #### [address] [address] Platelet mean volume (Bld) [Entitic vol] 7.8 fL Normal 7.4-10.4 [facility] ([place] Comment on above: Performed By: #### U ERNESTO, FERR, TSH, CBC, CMP, GFR, LIPID, ADIFF, VIDH, FE, ANEU #### [address] [address] RBC 4.20 10 6/mcL Normal 4.20-5.40 [facility] ([place] Comment on above: Performed By: #### U ERNESTO, FERR, TSH, CBC, CMP, GFR, LIPID, ADIFF, VIDH, FE, ANEU #### [address] [address] WBC 11.1 10 3/mcL High 4.6-10.8 [facility] ([place] Comment on above: Performed By: #### U ERNESTO, FERR, TSH, CBC, CMP, GFR, LIPID, ADIFF, VIDH, FE, ANEU #### [address] [address] CMPon 09-15-2023 Albumin Level 2.0 G/dL Low 3.4-4.8 [facility] ([place] Comment on above: Performed By: #### U ERNESTO, FERR, TSH, CBC, CMP, GFR, LIPID, ADIFF, VIDH, FE, ANEU #### [address] [address] Albumin/Globulin [Mass ratio] 0.4 {ratio} Low 1.1-2.5 [facility] ([place]) Comment on above: Performed By: #### U ERNESTO, FERR, TSH, CBC, CMP, GFR, LIPID, ADIFF, VIDH, FE, ANEU #### [address] [address] ALP [Catalytic activity/Vol] 65 U/L Normal 40-135 [facility] ([place]) Comment on above: Performed By: #### U ERNESTO, FERR, TSH, CBC, CMP, GFR, LIPID, ADIFF, VIDH, FE, ANEU #### [address] [address] ALT [Catalytic activity/Vol] 23 U/L Normal 14-59 [facility] ([place] Comment on above: Performed By: #### U ERNESTO, FERR, TSH, CBC, CMP, GFR, LIPID, ADIFF, VIDH, FE, ANEU #### [address] [address] AST [Catalytic activity/Vol] 16 U/L Normal 10-40 [facility] ([place] Comment on above: Performed By: #### U ERNESTO, FERR, TSH, CBC, CMP, GFR, LIPID, ADIFF, VIDH, FE, ANEU #### [address] [address] Bili Total 0.6 mg/dL Normal 0.2-1.0 [facility] ([place]) Comment on above: Result Comment: Use of this assay is not recommended for patients undergoing treatment with eltrombopag due to the potential for falsely elevated results. Performed By: #### U ERNESTO, FERR, TSH, CBC, CMP, GFR, LIPID, ADIFF, VIDH, FE, ANEU #### [address] [address] BUN/Creatinine Ratio 23 ratio Normal 7-27 [facility] ([place]) Comment on above: Performed By: #### U ERNESTO, FERR, TSH, CBC, CMP, GFR, LIPID, ADIFF, VIDH, FE, ANEU #### [place] [address] Calcium [Mass/Vol] 8.8 mg/dL Normal 8.4-10.2 [facility] ([place]) Comment on above: Performed By: #### U ERNESTO, FERR, TSH, CBC, CMP, GFR, LIPID, ADIFF, VIDH, FE, ANEU #### [address] [address] Chloride [Moles/Vol] 104 mmol/L Normal 98-107 [facility]) Comment on above: Performed By: #### U ERNESTO, FERR, TSH, CBC, CMP, GFR, LIPID, ADIFF, VIDH, FE, ANEU #### [address] [address] CO2 [Moles/Vol] 25 mmol/L Normal 23-31 [facility] ([place] Comment on above: Performed By: #### U ERNESTO, FERR, TSH, CBC, CMP, GFR, LIPID, ADIFF, VIDH, FE, ANEU #### [address] [address] Creatinine [Mass/Vol] 0.87 mg/dL Normal 0.55-1.02 [facility] ([place]) Comment on above: Performed By: #### U ERNESTO, FERR, TSH, CBC, CMP, GFR, LIPID, ADIFF, VIDH, FE, ANEU #### [address] [address] Electrolyte Balance 7.0 mEq/L Normal 4.0-15.0 [facility] ([place]) Comment on above: Performed By: #### U ERNESTO, FERR, TSH, CBC, CMP, GFR, LIPID, ADIFF, VIDH, FE, ANEU #### [address] [address] Globulin 4.7 G/dL Normal [facility] ([place] Comment on above: Performed By: #### U ERNESTO, FERR, TSH, CBC, CMP, GFR, LIPID, ADIFF, VIDH, FE, ANEU #### [address] [address] Glucose [Mass/Vol] 98 mg/dL Normal 83-110 [facility] ([place] Comment on above: Performed By: #### U ERNESTO, FERR, TSH, CBC, CMP, GFR, LIPID, ADIFF, VIDH, FE, ANEU #### [address] [address] Potassium [Moles/Vol] 4.2 mmol/L Normal 3.5-5.1 [facility] ([place]) Comment on above: Performed By: #### U ERNESTO, FERR, TSH, CBC, CMP, GFR, LIPID, ADIFF, VIDH, FE, ANEU #### [address] [address] Sodium [Moles/Vol] 136 mmol/L Normal 136-145 [facility] ([place] Comment on above: Performed By: #### U ERNESTO, FERR, TSH, CBC, CMP, GFR, LIPID, ADIFF, VIDH, FE, ANEU #### [address] [address] Total Protein 6.7 G/dL Normal 6.4-8.2 [facility] ([place]) Comment on above: Performed By: #### U ERNESTO, FERR, TSH, CBC, CMP, GFR, LIPID, ADIFF, VIDH, FE, ANEU #### [address] [address] Urea nitrogen [Mass/Vol] 20 mg/dL High 7-18 [facility] ([place] Comment on above: Performed By: #### U ERNESTO, FERR, TSH, CBC, CMP, GFR, LIPID, ADIFF, VIDH, FE, ANEU #### [address] [address] LIPIDon 09-15-2023 Cholesterol [Mass/Vol] 207 mg/dL High 0-200 [facility] ([place]) Comment on above: Result Comment: Chol esterol Reference Interval: Less than 200 Desirable 200-239 Borderline high risk 240 and above High risk Performed By: #### U ERNESTO, FERR, TSH, CBC, CMP, GFR, LIPID, ADIFF, VIDH, FE, ANEU #### [address] [address] Cholesterol in HDL [Mass/Vol] 97 mg/dL High 40-60 [facility] ([place] Comment on above: Performed By: #### U ERNESTO, FERR, TSH, CBC, CMP, GFR, LIPID, ADIFF, VIDH, FE, ANEU #### [address] [address] Cholesterol in LDL [Mass/Vol] 96 mg/dL Normal 0-130 [facility] ([place]) Comment on above: Performed By: #### U ERNESTO, FERR, TSH, CBC, CMP, GFR, LIPID, ADIFF, VIDH, FE, ANEU #### [address] [address] Triglyceride [Mass/Vol] 72 mg/dL Normal 0-150 [facility] ([place]) Comment on above: Result Comment: Trig lyceride Reference Interval: Less than 150 Normal 150-199 Borderline high risk 200-499 High risk 500 or higher Very high risk Performed By: #### U ERNESTO, FERR, TSH, CBC, CMP, GFR, LIPID, ADIFF, VIDH, FE, ANEU #### [address] [address] TSHon 09-15-2023 TSH Qn 2.34 m[IU]/L Normal 0.36-3.74 [facility] ([place]) Comment on above: Performed By: #### U ERNESTO, FERR, TSH, CBC, CMP, GFR, LIPID, ADIFF, VIDH, FE, ANEU #### [facility] [address] [place], [place] [address] VIDHon 09-15-2023 Vit. D 25-Hydroxy 47.7 ng/mL Normal [facility] ([place]) Comment on above: Result Comment: Inte rpretive Values Based on Total 25(OH) Vitamin D: Deficient <20 ng/mL Insufficient 20 - <30 ng/mL Sufficient 30-100 ng/mL Performed By: #### U ERNESTO, FERR, TSH, CBC, CMP, GFR, LIPID, ADIFF, VIDH, FE, ANEU #### [place] [address] [place], [place] [address] LABORATORYOrdered By: SYSTEM SYSTEM on 03-03-2023 25-hydroxyvitamin D3 [Mass/Vol] 41.9 ng/mL Invalid Interpretation Code AO ADM SS Albumin BCP dye [Mass/Vol] 3.5 G/dL Invalid Interpretation Code 3.4 - 4.8 G/dL AO ADM SS Albumin/Globulin [Mass ratio] 1.2 {ratio} Invalid Interpretation Code 1.1 - 2.5 ratio AO ADM SS ALP [Catalytic activity/Vol] 75 U/L Invalid Interpretation Code 40 - 135 U/L AO ADM SS ALT With P-5'-P [Catalytic activity/Vol] 25 U/L Invalid Interpretation Code 14 - 59 U/L AO ADM SS AST With P-5'-P [Catalytic activity/Vol] 24 U/L Invalid Interpretation Code 10 - 40 U/L AO ADM SS Bilirubin [Mass/Vol] 0.3 mg/dL Invalid Interpretation Code 0.2 - 1.0 mg/dL AO ADM SS Calcium [Mass/Vol] 8.9 mg/dL Invalid Interpretation Code 8.4 - 10.2 mg/dL AO ADM SS Chloride [Moles/Vol] 103 mmol/L Invalid Interpretation Code 98 - 107 mmol/L AO ADM SS CO2 [Moles/Vol] 26 mmol/L Invalid Interpretation Code 23 - 31 mmol/L AO ADM SS Creatinine [Mass/Vol] 0.73 mg/dL Invalid Interpretation Code 0.55 - 1.02 mg/dL AO ADM SS Electrolyte Balance 10.0 mEq/L Invalid Interpretation Code 4.0 - 15.0 mEq/L AO ADM SS GFR/1.73 sq M.predicted among blacks MDRD (S/P/Bld) [Vol rate/Area] 95 ml/min/1.73sqm Invalid Interpretation Code AO Chemistry S GFR/1.73 sq M.predicted among non-blacks MDRD (S/P/Bld) [Vol rate/Area] 78 ml/min/1.73sqm Invalid Interpretation Code AO Chemistry S Globulin 2.8 G/dL Invalid Interpretation Code AO ADM SS Glucose [Mass/Vol] 95 mg/dL Invalid Interpretation Code 83 - 110 mg/dL AO ADM SS Potassium [Moles/Vol] 5.2 mmol/L Invalid Interpretation Code 3.5 - 5.1 mmol/L AO ADM SS Protein [Mass/Vol] 6.3 G/dL Invalid Interpretation Code 6.4 - 8.2 G/dL AO ADM SS Sodium [Moles/Vol] 139 mmol/L Invalid Interpretation Code 136 - 145 mmol/L AO ADM SS TSH Qn 1.85 m[IU]/L Invalid Interpretation Code 0.36 - 3.74 mcIU/mL AO ADM SS Urea nitrogen [Mass/Vol] 14 mg/dL Invalid Interpretation Code 7 - 18 mg/dL AO ADM SS Urea nitrogen/Creatinine [Mass ratio] 19 ratio Invalid Interpretation Code 7 - 27 ratio AO ADM SS LABORATORYOrdered By: Mahi Vega on 03-03-2023 Basophil, Absolute 0.0 103/mcL Invalid Interpretation Code 0.0 - 0.2 10^3/mcL AO Workflow SS Basophils/100 WBC (Bld) 0.2 % Invalid Interpretation Code 0.0 - 2.5 % AO Workflow SS Eosinophil, Absolute 0.1 103/mcL Invalid Interpretation Code 0.0 - 0.4 10^3/mcL AO Workflow SS Eosinophils/100 WBC (Bld) 1.5 % Invalid Interpretation Code 0.0 - 7.0 % AO Workflow SS Erythrocyte distribution width (RBC) [Ratio] 14.3 % Invalid Interpretation Code 11.5 - 14.5 % AO Workflow SS Hematocrit (Bld) [Volume fraction] 40.8 % Invalid Interpretation Code 37.0 - 47.0 % AO Workflow SS Hemoglobin (Bld) [Mass/Vol] 13.3 G/dL Invalid Interpretation Code 12.0 - 16.0 G/dL AO Workflow SS Lymphocyte, Absolute 3.0 103/mcL Invalid Interpretation Code 0.8 - 3.9 10^3/mcL AO Workflow SS Lymphocytes/100 WBC (Bld) 35.9 % Invalid Interpretation Code 10.0 - 50.0 % AO Workflow SS MCH (RBC) [Entitic mass] 29.9 pg Invalid Interpretation Code 27.0 - 31.2 pg AO Workflow SS MCHC 32.7 G/dL Invalid Interpretation Code 33.0 - 37.0 G/dL AO Workflow SS MCV (RBC) [Entitic vol] 91.4 fL Invalid Interpretation Code 80.0 - 94.0 fL AO Workflow SS Monocyte, Absolute 0.7 103/mcL Invalid Interpretation Code 0.2 - 1.0 10^3/mcL AO Workflow SS Monocytes/100 WBC (Bld) 7.9 % Invalid Interpretation Code 1.7 - 13.0 % AO Workflow SS Neutrophil, Absolute 4.5 103/mcL Invalid Interpretation Code 2.9 - 6.2 10^3/mcL AO Workflow SS Neutrophils/100 WBC (Bld) 54.5 % Invalid Interpretation Code 37.0 - 80.0 % AO Workflow SS Platelet mean volume (Bld) [Entitic vol] 8.2 fL Invalid Interpretation Code 7.4 - 10.4 fL AO Workflow SS Platelets (Bld) [#/Vol] 211 103/mcL Invalid Interpretation Code 130 - 400 10^3/mcL AO Workflow SS RBC (Bld) [#/Vol] 4.46 106/mcL Invalid Interpretation Code 4.20 - 5.40 10^6/mcL AO Workflow SS WBC (Bld) [#/Vol] 8.3 103/mcL Invalid Interpretation Code 4.6 - 10.8 10^3/mcL AO Workflow SS LABORATORYOrdered By: Jade Padron on 03-03-2023 Cholesterol [Mass/Vol] 188 mg/dL Invalid Interpretation Code 0 - 200 mg/dL AO ADM SS Cholesterol in HDL [Mass/Vol] 91 mg/dL Invalid Interpretation Code 40 - 60 mg/dL AO ADM SS Cholesterol in LDL [Mass/Vol] 76 mg/dL Invalid Interpretation Code 0 - 130 mg/dL AO ADM SS Triglyceride [Mass/Vol] 107 mg/dL Invalid Interpretation Code 0 - 150 mg/dL AO ADM SS CNOVon 09-05-2022 CNOV Office Visit (CARDUM ) MI PECK ([id number]) 1950 F Date Time Provider Department 09/05/22 2:00 PM ADOLFO GONSALES During your visit today, we recorded the following information about you: Pulse Blood pressure Weight Height 86/minute 138/70 104.3 kg 1.575 m Adolfo Gonsales DO 09/06/2022 4:48 AM Signed Referring Provider: Kamar Shea MD Date: September 05, 2022 Chief Complaint: Established Patient Follow-Up (6 month follow up for HTN) HISTORY OF PRESENT ILLNESS: Mi Peck is a 71 year old female who presents for Established Patient Follow-Up (6 month follow up for HTN). ALLERGIES No Known Allergies PAST MEDICAL HISTORY: PAST MEDICAL HISTORY Diagnosis Date Abnormal CT scan, lung Anticoagulation goal of INR 3.0 to 4.0 Atrial tachycardia (HCC) By Holter worn 11/16/2021 Benign hypertension COVID-19 09/30/2021 OLIVER (dyspnea on exertion) Dvt femoral (deep venous thrombosis) (HCC) H/O echocardiogram 12/08/2021 EF 55-60%, trivial MR, trivial MA, trivial History of cardiac monitoring 11/16/2021 83 runs of SVT History of stress test 12/20/2021 EF 61%, reversible defect in the anterior and inferior on distal inferolateral wall extending to the apex suggesting ischemia in this area. Hx of cardiac catheterization 12/28/2021 EF 55% normal left cardiac catheterization done by Dr. Hernandez at [facility]. Hypoxia Iron deficiency Mixed hyperlipidemia Moderate recurrent major depression (HCC) Morbid obesity (HCC) Osteoarthritis, knee Osteoporosis Sinus tachycardia Vitamin D deficiency PAST SURGICAL HISTORY Procedure Laterality Date APPENDECTOMY BARIUM ENEMA 10/30/2004 CATARACT EXTRACTION HX Bilateral 11/30/2017 CATARACT EXTRACTION HX COLONOSCOPY 04/09/2018 LIGATE FALLOPIAN TUBE REMOVAL GALLBLADDER 10/30/1989 FAMILY HISTORY Problem Relation Age of Onset Heart Attack Mother Glaucoma Mother other (osteoarthritis) Mother Hyperlipidemia Father Hyperthyroidism Father other (osteoarthritis) Father Diabetes Sister Hyperlipidemia Brother SOCIAL HISTORY: Tobacco Use: Never Alcohol Use: Never Drug Use: Never Employer And Job Title: None on file Years Of Education Completed: Not specified Marital Status: MEDICATIONS: Current Outpatient Medications Medication Sig verapamil SR (CALAN SR, ISOPTIN SR) 240 mg CR tablet Take 1 tablet by mouth twice daily. venlafaxine (EFFEXOR) 37.5 mg tablet Take 37.5 mg by mouth once daily. ascorbic acid, vitamin C, (VITAMIN C) 500 mg tablet Take 500 mg by mouth once daily. benazepril (LOTENSIN) 10 mg tablet Take 10 mg by mouth once daily. cholecalciferol (VITAMIN D3) 50 mcg (2,000 unit) tablet Take 2,000 Units by mouth once daily. denosumab (PROLIA) 60 mg/mL Inject 60 mg subcutaneously once every 6 months. simvastatin (ZOCOR) 10 mg tablet Take 10 mg by mouth daily at bedtime. warfarin (COUMADIN) 1 mg tablet Take 1 mg by mouth daily as directed. No current facility-administered medications for this visit. I have personally reviewed the patients past medical history including social, family, surgical, diagnostics, and medications. REVIEW OF SYSTEMS: Review of Systems Constitutional: Negative for chills and fatigue. Respiratory: Negative for chest tightness and shortness of breath. Cardiovascular: Negative for chest pain, palpitations and leg swelling. Neurological: Negative for dizziness, syncope, weakness and light-headedness. Hematological: Does not bruise/bleed easily. Psychiatric/Behavioral: Negative for confusion and hallucinations. Vitals: BP 138/70 Pulse 86 Ht 157.5 cm (5' 2) Wt 104.3 kg (230 lb) BMI 42.07 kg/m? PHYSICAL EXAMINATION: BP 138/70 Pulse 86 Ht 157.5 cm (5' 2) Wt 104.3 kg (230 lb) BMI 42.07 kg/m? Last 3 Encounter BP Readings: Date: BP: 12/07/2021 120/90 11/29/2021 128/88 Last 3 Encounter Pulse Readings: Date: Pulse: 12/07/2021 78 11/29/2021 122 Last 3 Encounter Wt Readings: Date: Wt: 02/22/2022 102.5 kg (226 lb) 12/07/2021 101.6 kg (224 lb) 11/29/2021 100.7 kg (222 lb) Physical Exam Vitals reviewed. Constitutional: General: She is not in acute distress. Appearance: Normal appearance. HENT: Head: Normocephalic. Right Ear: External ear normal. Left Ear: External ear normal. Nose: Nose normal. Mouth/Throat: Mouth: Mucous membranes are moist. Eyes: Extraocular Movements: Extraocular movements intact. Cardiovascular: Rate and Rhythm: Normal rate and regular rhythm. Pulses: Normal pulses. Carotid pulses are 2+ on the right side and 2+ on the left side. Radial pulses are 2+ on the right side and 2+ on the left side. Posterior tibial pulses are 2+ on the right side and 2+ on the left side. Heart sounds: Normal heart sounds. No murmur heard. Pulmonary: Effort: Pulmonary effort is normal. (more content not included)... Normal [facility] ECG COMPLETEon 09-05-2022 ECG COMPLETE Ventricular Rate : 8 6 BPM Atrial Rate : 86 BPM P-R Interval : 150 ms QRS Duration : 80 ms Q-T Interval : 368 ms QTC Calculation(Bazett) : 440 ms Calculated P [place] : 57 degrees Calculated R [place] : 5 degrees Calculated T [place] : 42 degrees SINUS RHYTHM WITH PREMATURE SUPRAVENTRICULAR COMPLEXES Confirmed by ADOLFO GONSALES DO ([id number]) on 09/11/2022 6:25:33 AM NAME : MI PECK PID : [id number] : 1950 Gender : Female Race : ORD : [id number] Procedure Date : Sep 05 2022 15:15:05 Edit Date : Sep 11 2022 06:25:35 Diagnosis: SINUS RHYTHM WITH PREMATURE SUPRAVENTRICULAR COMPLEXES Confirmed by ADOLFO GONSALES DO ([id number]) on 09/11/2022 6:25:33 AM Test Reason : Location : [facility] : [facility] [place] Overread By : ADOLFO GONSALES DO Edited By : ADOLFO GONSALES DO Referred By : ADOLFO GONSALES Acquired by : , Normal [facility] LABORATORYOrdered By: Yani Schuler on 06-02-2022 Adenovirus DNA RENAY+non-probe Ql (Nph) Not Detected *NA* (06/02/22 10:14 AM) Invalid Interpretation Code Not Detected AH Auto Viro/Sero SS ADMITTED TO INTENSIVE CARE UNIT FOR CONDITION OF INTEREST:FIND:PT:^P ATIENT:ORD: No (06/02/22 10:14 AM) Invalid Interpretation Code AH Auto Viro/Sero SS B. pertussis toxin promoter region RENAY+non-probe Ql (Nph) Not Detected *NA* (06/02/22 10:14 AM) Invalid Interpretation Code Not Detected AH Auto Viro/Sero SS Bordetella Parapertussis Not Detected *NA* (06/02/22 10:14 AM) Invalid Interpretation Code Not Detected AH Auto Viro/Sero SS C. pneumoniae DNA RENAY+non-probe Ql (Nph) Not Detected *NA* (06/02/22 10:14 AM) Invalid Interpretation Code Not Detected AH Auto Viro/Sero SS EMPLOYED IN A HEALTHCARE SETTING:FIND:PT:^PA TIENT:ORD: No (06/02/22 10:14 AM) Invalid Interpretation Code AH Auto Viro/Sero SS FIRST TEST FOR CONDITION OF INTEREST:FIND:PT:^P ATIENT:ORD: Yes (06/02/22 10:14 AM) Invalid Interpretation Code AH Auto Viro/Sero SS FLUAV RNA RENAY+non-probe Ql (Nph) Not Detected *NA* (06/02/22 10:14 AM) Invalid Interpretation Code Not Detected AH Auto Viro/Sero SS FLUBV RNA RENAY+non-probe Ql (Nph) Not Detected *NA* (06/02/22 10:14 AM) Invalid Interpretation Code Not Detected AH Auto Viro/Sero SS HAS SYMPTOMS RELATED TO CONDITION OF INTEREST:FIND:PT:^P ATIENT:ORD: Yes (06/02/22 10:14 AM) Invalid Interpretation Code AH Auto Viro/Sero SS hMPV RNA RENAY+non-probe Ql (Nph) Not Detected *NA* (06/02/22 10:14 AM) Invalid Interpretation Code Not Detected AH Auto Viro/Sero SS Illness or injury onset date and time [id number] Invalid Interpretation Code AH Auto Viro/Sero SS M. pneumoniae DNA RENAY+non-probe Ql (Nph) Not Detected *NA* (06/02/22 10:14 AM) Invalid Interpretation Code Not Detected AH Auto Viro/Sero SS Parainfluenza virus 1 RNA RENAY+non-probe Ql (Nph) Not Detected *NA* (06/02/22 10:14 AM) Invalid Interpretation Code Not Detected AH Auto Viro/Sero SS Parainfluenza virus 2 RNA RENAY+non-probe Ql (Nph) Not Detected *NA* (06/02/22 10:14 AM) Invalid Interpretation Code Not Detected AH Auto Viro/Sero SS Parainfluenza virus 3 RNA RENAY+non-probe Ql (Nph) Not Detected *NA* (06/02/22 10:14 AM) Invalid Interpretation Code Not Detected AH Auto Viro/Sero SS Parainfluenza virus 4 RNA RENAY+non-probe Ql (Nph) Not Detected *NA* (06/02/22 10:14 AM) Invalid Interpretation Code Not Detected AH Auto Viro/Sero SS Patient was hospitalized because of this condition No (06/02/22 10:14 AM) Invalid Interpretation Code AH Auto Viro/Sero SS status Not (06/02/22 10:14 AM) Invalid Interpretation Code AH Auto Viro/Sero SS RESIDES IN A CONGREGATE CARE SETTING:FIND:PT:^JAGDISH TIENT:ORD: No (06/02/22 10:14 AM) Invalid Interpretation Code AH Auto Viro/Sero SS Rhinovirus+Enterovi tomi RNA RENAY+non-probe Ql (Nph) Not Detected *NA* (06/02/22 10:14 AM) Invalid Interpretation Code Not Detected AH Auto Viro/Sero SS RSV RNA RENAY+non-probe Ql (Nph) Not Detected *NA* (06/02/22 10:14 AM) Invalid Interpretation Code Not Detected AH Auto Viro/Sero SS SARS-CoV-2 (COVID-19) RNA RENAY+probe Ql (Unsp spec) Detected 1 *ABN* (06/02/22 10:14 AM) Invalid Interpretation Code Not Detected AH Auto Viro/Sero SS Comment on above: Result Comment: This organism causes a reportable disease. Infection Control has been notified. Results have been reported to the [facility]. Rohit 03-01-2022 CNPN Telephone (CARDUM) MI PECK ([id number]) 1950 F Date Time Provider Department 03/01/22 SUSAN NÚÑEZ During your visit today, we recorded the following information about you: Susan Núñez APRN.RETAIL ANALYTICS MANAGER 03/01/2022 8:36 AM Signed Let the patient know, a chest pulse ox was abnormal. She desaturated 461 times wearing a chest pulse ox. She desaturated 62 times an hour. If agreeable, order oxygen at 2 L nasal cannula through [facility]. Refer patient Dr. Vo for further evaluation and treatment abnormal a chest pulse ox. Nigel Peña MA 03/01/2022 12:48 PM Signed Left message for pt to return the call Nigel Peña MA 03/02/2022 1:36 PM Signed Left message on machine for pt to return the call Kimberley Rodriguez 03/02/2022 3:04 PM Signed Patient called you back. Can you please call her back tomorrow Nigel Peña MA 03/03/2022 8:53 AM Addendum Pt called and notified per susan pulse ox was abnormal. She desaturated 461 times wearing overnight pulse ox. She desaturated 62 times an hour. If agreeable, order oxygen at 2 L nasal cannula through [facility]. Refer patient Dr. Vo for further evaluation and treatment abnormal pulse ox. Pt agreeable order faxed to [facility] pt states ct is too far for her she needs a doctor in [place] or telephone. Pt lives in [facility] 03/04/2022 3:20 PM Signed Patient called stating that she see Dr Bj Morgan a manager cardiac cath at [place] next month. He is rechecking her x-rays due to Covid. She is asking if she needs to stay with this doctor or can she go to the doctor in [place], who is closer. She wanted Susan's opinion. Please advise Chiquis Herbert March 04, 2022 3:19 PM Susan Núñez APRN.RETAIL ANALYTICS MANAGER 03/07/2022 8:03 AM Signed I think it is fine to go closer to home Nigel Peña MA 03/07/2022 11:45 AM Signed Left message for pt to return the call Chiquis Herbert 03/08/2022 1:34 PM Signed Spoke with patient and relayed Susan's message: I think it is fine to go closer to home. Patient voiced understanding. Chiquis Herbert March 08, 2022 1:34 PM Allergies As of Date: 03/01/2022 (No Known Allergies) Date Reviewed: 02/22/2022 Reviewed by: Nigel Peña MA - Fully Assessed Reason for Visit: Results [95] Primary Visit Diagnosis:Abnormal pulse oximetry [R79.81] Order(s):CONSULT TO PULM/CRITICAL CARE [[id number]] Order #: [id number]: 1 FUTURE Prescriptions as of 03/08/2022 - verapamil SR (CALAN SR, ISOPTIN SR) 240 mg CR tablet Take 1 tablet by mouth twice daily. - venlafaxine (EFFEXOR) 37.5 mg tablet Take 37.5 mg by mouth every other day. - ascorbic acid, vitamin C, (VITAMIN C) 500 mg tablet Take 500 mg by mouth once daily. - benazepril (LOTENSIN) 10 mg tablet Take 10 mg by mouth once daily. - cholecalciferol (VITAMIN D-3) 50 mcg (2,000 unit) tablet Take 2,000 Units by mouth once daily. - denosumab (PROLIA) 60 mg/mL Inject 60 mg subcutaneously once every 6 months. - simvastatin (ZOCOR) 10 mg tablet Take 10 mg by mouth daily at bedtime. - warfarin (COUMADIN) 1 mg tablet Take 1 mg by mouth daily as directed. Problem List As Of Date 03/01/2022 Noted Resolved Mixed hyperlipidemia [E78.2] 11/25/2021 OLIVER (dyspnea on exertion) [R06.00] 11/25/2021 Anticoagulation goal of INR 3.0 to 4.0 [Z51.81,*11/25/2021 Non-smoker [Z78.9] 11/25/[address] scan, lung [R91.8] 11/30/2021 COVID-19 [U07.1] 09/30/2021 Benign hypertension [I10] 11/30/2021 History of cardiac monitoring [Z92.89] 11/16/2021 Hypoxia [R09.02] 11/30/2021 Iron deficiency [E61.1] 11/30/2021 Moderate recurrent major depression (HCC) [F33.*11/30/2021 Morbid obesity (HCC) [E66.01] 11/30/2021 Osteoarthritis, knee [M17.10] 11/30/2021 Osteoporosis [M81.0] 11/30/2021 Vitamin D deficiency [E55.9] 11/30/2021 Dvt femoral (deep venous thrombosis) (HCC) [I82*11/30/2021 Atrial tachycardia (HCC) [I47.1] 11/30/2021 Sinus tachycardia [R00.0] 11/30/2021 H/O echocardiogram [Z92.89] 12/08/2021 History of stress test [Z92.89] 12/20/2021 Hx of cardiac catheterization [Z98.890] 12/28/2021 Encounter Status:Closed by SUSAN NÚÑEZ on 03/03/22 [facility] CNOVon 02-22-2022 CNOV Office Visit (CARDUM ) MI PECK ([id number]) 1950 F Date Time Provider Department 02/22/22 8:00 AM KAMAR SHEA During your visit today, we recorded the following information about you: Weight Height 102.5 kg 1.575 m Kamar Shea MD 02/22/2022 8:37 AM Signed [facility] PCP: Larry Joyce DO, DO HPI: Mi Peck is a 71 year old female who is here today for a follow-up visit. Presently with the patient denies any problems with chest pain, pressure, or discomfort. The patient denies any orthopnea PND, or lower extremity edema. The patient does get some dyspnea on exertion. However she is more limited by leg weakness than she is by shortness of breath. She does not have any sensation of palpitations. She denies any lightheadedness, presyncope, or syncope. Prior history: Overview Notes of Problems Addressed This Visit Cardiovascular Mixed hyperlipidemia Benign hypertension - Primary Atrial tachycardia (HCC) By Holter worn 11/16/2021 Sinus tachycardia Relevant Orders ECG B/O W INTERP (MED OFFICE) (Completed) Other Morbid obesity (HCC) Hx of cardiac catheterization EF 55% normal left cardiac catheterization done by Dr. Hernandez at [facility]. CURRENT MEDICATIONS: Current Outpatient Medications Medication Sig - verapamil SR (CALAN SR, ISOPTIN SR) 240 mg CR tablet Take 1 tablet by mouth twice daily. - venlafaxine (EFFEXOR) 37.5 mg tablet Take 37.5 mg by mouth every other day. - ascorbic acid, vitamin C, (VITAMIN C) 500 mg tablet Take 500 mg by mouth once daily. - benazepril (LOTENSIN) 10 mg tablet Take 10 mg by mouth once daily. - cholecalciferol (VITAMIN D-3) 50 mcg (2,000 unit) tablet Take 2,000 Units by mouth once daily. - denosumab (PROLIA) 60 mg/mL Inject 60 mg subcutaneously once every 6 months. - simvastatin (ZOCOR) 10 mg tablet Take 10 mg by mouth daily at bedtime. - warfarin (COUMADIN) 1 mg tablet Take 1 mg by mouth daily as directed. No current facility-administered medications for this visit. PAST MEDICAL HISTORY Diagnosis Date - Abnormal CT scan, lung - Anticoagulation goal of INR 3.0 to 4.0 - Atrial tachycardia (HCC) By Holter worn 11/16/2021 - Benign hypertension - COVID-19 09/30/2021 - OLIVER (dyspnea on exertion) - Dvt femoral (deep venous thrombosis) ([facility]) - H/O echocardiogram 12/08/2021 EF 55-60%, trivial MR, trivial MA, trivial - History of cardiac monitoring 11/16/2021 83 runs of SVT - History of stress test 12/20/2021 EF 61%, reversible defect in the anterior and inferior on distal inferolateral wall extending to the apex suggesting ischemia in this area. - Hx of cardiac catheterization 12/28/2021 EF 55% normal left cardiac catheterization done by Dr. Hernandez at [facility]. - Hypoxia - Iron deficiency - Mixed hyperlipidemia - Moderate recurrent major depression (HCC) - Morbid obesity (HCC) - Osteoarthritis, knee - Osteoporosis - Sinus tachycardia - Vitamin D deficiency PAST SURGICAL HISTORY Procedure Laterality Date - APPENDECTOMY - BARIUM ENEMA 10/30/2004 - CATARACT EXTRACTION HX Bilateral 11/30/2017 - CATARACT EXTRACTION HX - COLONOSCOPY 04/09/2018 - LIGATE FALLOPIAN TUBE - REMOVAL GALLBLADDER 10/30/1989 FAMILY HISTORY Problem Relation Age of Onset - Heart Attack Mother - Glaucoma Mother - other (osteoarthritis) Mother - Hyperlipidemia Father - Hyperthyroidism Father - other (osteoarthritis) Father - Diabetes Sister - Hyperlipidemia Brother SOCIAL HISTORY: Social History Tobacco Use - Smoking status: Never Smoker - Smokeless tobacco: Never Used Substance Use Topics - Alcohol use: Never - Drug use: Never ALLERGIES: Patient has no known allergies. Review of Systems Constitutional: Negative for fatigue and fever. Respiratory: Negative for cough, chest tightness, shortness of breath and wheezing. Cardiovascular: Negative for chest pain, palpitations and leg swelling. Gastrointestinal: Negative for abdominal pain, constipation, diarrhea, nausea and vomiting. Endocrine: Negative for cold intolerance and heat intolerance. Musculoskeletal: Negative for arthralgias and myalgias. Skin: Negative for rash. Neurological: Negative for dizziness, seizures, syncope and light-headedness. Hematological: Does not bruise/bleed easily. PHYSICAL EXAMINATION: 02/22/22 0800 02/22/22 0806 02/22/22 0807 Orthostatic BP: 110/80 108/72 102/70 BP Position: Supine Sitting Standing Orthostatic Pulse: 64 82 88 Weight: 102.5 kg (226 lb) Height: 157.5 cm (5' 2) Last 3 Encounter BP Readings: Date: BP: 12/07/2021 120/90 11/29/2021 128/88 Last 3 Encounter Pulse Readings: Date: Pulse: 12/07/2021 78 11/29/2021 122 Last 3 Encounter Wt Readings: Date: Wt: 02/22/2022 102.5 kg (226 lb) 12/07/2021 101.6 kg (224 lb) 11/29/2021 10 (more content not included)... Normal [facility] LABORATORYOrdered By: Catarino Apple on 02-22-2022 Albumin BCP dye [Mass/Vol] 3.5 G/dL Invalid Interpretation Code 3.4 - 4.8 G/dL AO ADM SS Albumin/Globulin [Mass ratio] 1.1 {ratio} Invalid Interpretation Code 1.1 - 2.5 ratio AO ADM SS ALP [Catalytic activity/Vol] 70 U/L Invalid Interpretation Code 40 - 135 U/L AO ADM SS ALT With P-5'-P [Catalytic activity/Vol] 21 U/L Invalid Interpretation Code 14 - 59 U/L AO ADM SS AST With P-5'-P [Catalytic activity/Vol] 20 U/L Invalid Interpretation Code 10 - 40 U/L AO ADM SS Basophil, Absolute 0.00 103/mcL Invalid Interpretation Code 0.00 - 0.19 10^3/mcL AO Auto Heme SS Basophils/100 WBC (Bld) 0.3 % Invalid Interpretation Code 0.0 - 2.5 % AO Auto Heme SS Bilirubin [Mass/Vol] 0.3 mg/dL Invalid Interpretation Code 0.2 - 1.0 mg/dL AO ADM SS Calcium [Mass/Vol] 9.4 mg/dL Invalid Interpretation Code 8.4 - 10.2 mg/dL AO ADM SS Chloride [Moles/Vol] 103 mmol/L Invalid Interpretation Code 98 - 107 mmol/L AO ADM SS Cholesterol [Mass/Vol] 197 mg/dL Invalid Interpretation Code 0 - 200 mg/dL AO ADM SS Cholesterol in HDL [Mass/Vol] 75 mg/dL Invalid Interpretation Code 40 - 60 mg/dL AO ADM SS Cholesterol in LDL [Mass/Vol] 91 mg/dL Invalid Interpretation Code 0 - 130 mg/dL AO ADM SS CO2 [Moles/Vol] 30 mmol/L Invalid Interpretation Code 23 - 31 mmol/L AO ADM SS Creatinine [Mass/Vol] 0.84 mg/dL Invalid Interpretation Code 0.55 - 1.02 mg/dL AO ADM SS Electrolyte Balance 9.0 mEq/L Invalid Interpretation Code 4.0 - 15.0 mEq/L AO ADM SS Eosinophil, Absolute 0.00 103/mcL Invalid Interpretation Code 0.00 - 0.40 10^3/mcL AO Auto Heme SS Eosinophils/100 WBC (Bld) 0.4 % Invalid Interpretation Code 0.0 - 7.0 % AO Auto Heme SS Erythrocyte distribution width (RBC) [Ratio] 14.8 % Invalid Interpretation Code 11.5 - 14.5 % AO Auto Heme SS Globulin 3.2 G/dL Invalid Interpretation Code AO ADM SS Glucose [Mass/Vol] 93 mg/dL Invalid Interpretation Code 83 - 110 mg/dL AO ADM SS Hematocrit (Bld) [Volume fraction] 38.9 % Invalid Interpretation Code 37.0 - 47.0 % AO Auto Heme SS Hemoglobin (Bld) [Mass/Vol] 13.2 G/dL Invalid Interpretation Code 12.0 - 16.0 G/dL AO Auto Heme SS Iron [Mass/Vol] 66 ug/dL Invalid Interpretation Code 50 - 170 mcg/dL AO ADM SS Lymphocyte, Absolute 2.40 103/mcL Invalid Interpretation Code 0.77 - 3.85 10^3/mcL AO Auto Heme SS Lymphocytes/100 WBC (Bld) 33.0 % Invalid Interpretation Code 10.0 - 50.0 % AO Auto Heme SS MCH (RBC) [Entitic mass] 30.6 pg Invalid Interpretation Code 27.0 - 31.2 pg AO Auto Heme SS MCHC (RBC) [Mass/Vol] 33.8 G/dL Invalid Interpretation Code 33.0 - 37.0 G/dL AO Auto Heme SS MCV (RBC) [Entitic vol] 90.5 fL Invalid Interpretation Code 80.0 - 94.0 fL AO Auto Heme SS Monocyte, Absolute 0.60 103/mcL Invalid Interpretation Code 0.15 - 1.00 10^3/mcL AO Auto Heme SS Monocytes/100 WBC (Bld) 8.3 % Invalid Interpretation Code 1.7 - 13.0 % AO Auto Heme SS Neutrophil, Absolute 4.30 103/mcL Invalid Interpretation Code 2.85 - 6.16 10^3/mcL AO Auto Heme SS Neutrophils/100 WBC (Bld) 58.0 % Invalid Interpretation Code 37.0 - 80.0 % AO Auto Heme SS Platelet mean volume (Bld) [Entitic vol] 8.7 fL Invalid Interpretation Code 7.4 - 10.4 fL AO Auto Heme SS Platelets (Bld) [#/Vol] 272 103/mcL Invalid Interpretation Code 130 - 400 10^3/mcL AO Auto Heme SS Potassium [Moles/Vol] 4.3 mmol/L Invalid Interpretation Code 3.5 - 5.1 mmol/L AO ADM SS Protein [Mass/Vol] 6.7 G/dL Invalid Interpretation Code 6.4 - 8.2 G/dL AO ADM SS RBC (Bld) [#/Vol] 4.30 106/mcL Invalid Interpretation Code 4.20 - 5.40 10^6/mcL AO Auto Heme SS Sodium [Moles/Vol] 142 mmol/L Invalid Interpretation Code 136 - 145 mmol/L AO ADM SS Triglyceride [Mass/Vol] 155 mg/dL Invalid Interpretation Code 0 - 150 mg/dL AO ADM SS TSH Qn 1.92 m[IU]/L Invalid Interpretation Code 0.36 - 3.74 mcIU/mL AO ADM SS Urea nitrogen [Mass/Vol] 15 mg/dL Invalid Interpretation Code 7 - 18 mg/dL AO ADM SS Urea nitrogen/Creatinine [Mass ratio] 18 ratio Invalid Interpretation Code 7 - 27 ratio AO ADM SS Vit. D 25-Hydroxy 45.5 ng/mL Invalid Interpretation Code AO ADM SS WBC (Bld) [#/Vol] 7.40 103/mcL Invalid Interpretation Code 4.60 - 10.80 10^3/mcL AO Auto Heme SS LABORATORYOrdered By: SYSTEM SYSTEM on 02-22-2022 Ferritin [Mass/Vol] 278.6 ng/mL Invalid Interpretation Code 8.0 - 252.0 ng/mL AH ADM SS GFR 81 ml/min/1.73sqm Invalid Interpretation Code AO Chemistry S GFR Non- 67 ml/min/1.73sqm Invalid Interpretation Code AO Chemistry S CNPNneka 01-24-2022 VELVET Telephone (CARDUM) MI PECK ([id number]) 1950 F Date Time Provider Department 01/24/22 SUSAN NÚÑEZ During your visit today, we recorded the following information about you: Susan Núñez APRN.CNP 01/24/2022 8:10 AM Signed Let the patient know, event monitor looks okay. She had insignificant atrial ectopy. No ventricular ectopy. Nigel Peña MA 01/24/2022 10:31 AM Signed Pt called and notified per susan event monitor looks okay. She had insignificant atrial ectopy. No ventricular ectopy. Pt agreeable Allergies As of Date: 01/24/2022 (No Known Allergies) Date Reviewed: 12/16/2021 Reviewed by: Susan Núñez APRN.RETAIL ANALYTICS MANAGER - Fully Assessed Reason for Visit: Results [95] Prescriptions as of 01/24/2022 - verapamil SR (CALAN SR, ISOPTIN SR) 240 mg CR tablet Take 1 tablet by mouth twice daily. - venlafaxine (EFFEXOR) 37.5 mg tablet Take 37.5 mg by mouth every other day. - ascorbic acid, vitamin C, (VITAMIN C) 500 mg tablet Take 500 mg by mouth once daily. - benazepril (LOTENSIN) 10 mg tablet Take 10 mg by mouth once daily. - cholecalciferol (VITAMIN D-3) 50 mcg (2,000 unit) tablet Take 2,000 Units by mouth once daily. - denosumab (PROLIA) 60 mg/mL Inject 60 mg subcutaneously once every 6 months. - simvastatin (ZOCOR) 10 mg tablet Take 10 mg by mouth daily at bedtime. - warfarin (COUMADIN) 1 mg tablet Take 1 mg by mouth daily as directed. Problem List As Of Date 01/24/2022 Noted Resolved Mixed hyperlipidemia [E78.2] 11/25/2021 OLIVER (dyspnea on exertion) [R06.00] 11/25/2021 Anticoagulation goal of INR 3.0 to 4.0 [Z51.81,*11/25/2021 Non-smoker [Z78.9] 11/25/[address] scan, lung [R91.8] 11/30/2021 COVID-19 [U07.1] 09/30/2021 Benign hypertension [I10] 11/30/2021 History of cardiac monitoring [Z92.89] 11/16/2021 Hypoxia [R09.02] 11/30/2021 Iron deficiency [E61.1] 11/30/2021 Moderate recurrent major depression (HCC) [F33.*11/30/2021 Morbid obesity (HCC) [E66.01] 11/30/2021 Osteoarthritis, knee [M17.10] 11/30/2021 Osteoporosis [M81.0] 11/30/2021 Vitamin D deficiency [E55.9] 11/30/2021 Dvt femoral (deep venous thrombosis) (HCC) [I82*11/30/2021 Atrial tachycardia (HCC) [I47.1] 11/30/2021 Sinus tachycardia [R00.0] 11/30/2021 H/O echocardiogram [Z92.89] 12/08/2021 History of stress test [Z92.89] 12/20/2021 Hx of cardiac catheterization [Z98.890] 12/28/2021 Encounter Status:Closed by NIGEL PE[facility]22 [facility] VELVET [facility] (CARDUM) MI PECK ([id number]) 1950 F Date Time Provider Department 12/30/21 SUSAN NÚÑEZ During your visit today, we recorded the following information about you: Kimberley Rodriguez 12/30/2021 8:14 AM Signed Patient calls today. Reason for Call: Patient was tpold by Dr Hernandez to call us and see if she needs a follow up after her heart cath. Can you please let her know [phone] (home) [phone] (cell) Patient last appointment: 12/07/2021 Kimberley Núñez APRN.THEODORE 12/30/2021 8:17 AM Signed Because the cath was normal, she can keep her January appointment with Dr. Shea unless she has problems. Kimberley Rodriguez 12/30/2021 8:28 AM Signed Called patient and notified her per Susan Because the cath was normal, she can keep her January appointment with Dr. Shea unless she has problems. Patient understood Allergies As of Date: 12/30/2021 (No Known Allergies) Date Reviewed: 12/16/2021 Reviewed by: Susan Núñez APRN.RETAIL ANALYTICS MANAGER - Fully Assessed Reason for Visit: Question [3772] Prescriptions as of 12/30/2021 - verapamil SR (CALAN SR, ISOPTIN SR) 240 mg CR tablet Take 1 tablet by mouth twice daily. - venlafaxine (EFFEXOR) 37.5 mg tablet Take 37.5 mg by mouth every other day. - ascorbic acid, vitamin C, (VITAMIN C) 500 mg tablet Take 500 mg by mouth once daily. - benazepril (LOTENSIN) 10 mg tablet Take 10 mg by mouth once daily. - cholecalciferol (VITAMIN D-3) 50 mcg (2,000 unit) tablet Take 2,000 Units by mouth once daily. - denosumab (PROLIA) 60 mg/mL Inject 60 mg subcutaneously once every 6 months. - simvastatin (ZOCOR) 10 mg tablet Take 10 mg by mouth daily at bedtime. - warfarin (COUMADIN) 1 mg tablet Take 1 mg by mouth daily as directed. Problem List As Of Date 12/30/2021 Noted Resolved Mixed hyperlipidemia [E78.2] 11/25/2021 OLIVER (dyspnea on exertion) [R06.00] 11/25/2021 Anticoagulation goal of INR 3.0 to 4.0 [Z51.81,*11/25/2021 Non-smoker [Z78.9] 11/25/[address] scan, lung [R91.8] 11/30/2021 COVID-19 [U07.1] 09/30/2021 Benign hypertension [I10] 11/30/2021 History of cardiac monitoring [Z92.89] 11/16/2021 Hypoxia [R09.02] 11/30/2021 Iron deficiency [E61.1] 11/30/2021 Moderate recurrent major depression (HCC) [F33.*11/30/2021 Morbid obesity (HCC) [E66.01] 11/30/2021 Osteoarthritis, knee [M17.10] 11/30/2021 Osteoporosis [M81.0] 11/30/2021 Vitamin D deficiency [E55.9] 11/30/2021 Dvt femoral (deep venous thrombosis) (HCC) [I82*11/30/2021 Atrial tachycardia (HCC) [I47.1] 11/30/2021 Sinus tachycardia [R00.0] 11/30/2021 H/O echocardiogram [Z92.89] 12/08/2021 History of stress test [Z92.89] 12/20/2021 Hx of cardiac catheterization [Z98.890] 12/28/2021 Encounter Status:Closed by KIMBERLEY RODRIGUEZ on 12/30/21 [facility] Anion gap [Moles/Vol] 13 mmol/L Normal 5-16 [facility] Comment on above: Order Comment: Campu s: M Performed By: #### L 500.94570, L500.23691 #### [facility] [place] [address] Calcium [Mass/Vol] 9.2 mg/dL Normal 8.5-10.5 [facility] Comment on above: Order Comment: Campu s: M Result Comment: NOTE NEW NORMAL RANGE DUE TO REAGENT CHANGE Performed By: #### L 500.00355, L500.05237 #### [facility] [address] [place] [address] Chloride [Moles/Vol] 106 mmol/L Normal 98-107 [facility] Comment on above: Order Comment: Campu s: M Performed By: #### L 500.76476, L500.96032 #### [facility] [address] [place] [address] CO2 [Moles/Vol] 23.0 mmol/L Normal 21-32 [facility] Comment on above: Order Comment: Campu s: M Performed By: #### L 500.15636, L500.89832 #### [facility] [address] [place] [address] Creatinine [Mass/Vol] 0.87 mg/dL Normal 0.510-0.95 0 [facility] Comment on above: Order Comment: Campu s: M Result Comment: Clarice ents receiving either N-Acetylcysteine (NAC) or Metamizole prior to venipuncture, may have falsely depressed results. Performed By: #### L 500.42270, L500.38333 #### [facility] [address] [place], [place] [id number] Glucose [Mass/Vol] 109 mg/dL High 70-100 [facility] Comment on above: Order Comment: Campu s: M Result Comment: 70-1 00- Normal Fasting; 100-125 Impaired Fasting; greater than 126 on more than one result- Diabetes. ADA guidelines. Results may be falsely elevated after the administration of Sulfapyridine. Results may be falsely depressed after the administration of Sulfasalazine. Performed By: #### L 500.75956, L500.72718 #### [facility] [address] [place] [address] Potassium [Moles/Vol] 4.8 mmol/L Normal 3.5-5.1 [facility] Comment on above: Order Comment: Campu s: M Result Comment: Slig ht Hemolysis, Result may be affected. Performed By: #### L 500.70216, L500.08483 #### [facility] [address] [place] [address] Sodium [Moles/Vol] 142 mmol/L Normal 136-145 [facility] Comment on above: Order Comment: Campu s: M Performed By: #### L 500.68512, L500.08448 #### [facility] [address] [place] [address] Urea nitrogen [Mass/Vol] 13 mg/dL Normal 7-26 [facility] Comment on above: Order Comment: Campu s: M Result Comment: Slig ht Hemolysis, Result may be affected. Performed By: #### L 500.72751, L500.28908 #### [facility] [address] [place] [address] Urea nitrogen/Creatinine [Mass ratio] 15 mg/mg Normal 15-24 [facility] Comment on above: Order Comment: Campu s: M Performed By: #### L 500.68683, L500.98340 #### [facility] [address] [place] [address] CBCon 12-28-2021 Erythrocyte distribution width (RBC) [Ratio] 17.4 % High 11-14.5 [facility] Comment on above: Order Comment: Campu s: M Performed By: #### L 200.20846 #### [facility] [address] [place] [address] Hematocrit (Bld) [Volume fraction] 37.7 % Normal 35.0-47.0 [facility] Comment on above: Order Comment: Campu s: M Performed By: #### L 200.63870 #### [facility] [address] [place] [address] Hemoglobin (Bld) [Mass/Vol] 12.4 g/dL Normal 11.5-15.5 [facility] Comment on above: Order Comment: Campu s: M Performed By: #### L 200.56146 #### [facility] [address] [place] [address] MCHC (RBC) [Mass/Vol] 32.9 g/dL Normal 32.0-36.0 [facility] Comment on above: Order Comment: Campu s: M Performed By: #### L 200.11601 #### [facility] [address] [place] [address] MCV (RBC) [Entitic vol] 89.8 fL Normal 80.0-99.0 [facility] Comment on above: Order Comment: Campu s: M Performed By: #### L 200.71260 #### [facility] [address] [place] [address] Nucleated RBC/100 WBC (Bld) [Ratio] 0.0 % Normal Less than 1 [facility] Comment on above: Order Comment: Campu s: M Performed By: #### L 200.29273 #### [facility] [address] [place] [address] Platelet mean volume (Bld) [Entitic vol] 9.8 fL Normal 9.4-12.4 [facility] Comment on above: Order Comment: Campu s: M Performed By: #### L 200.38040 #### [facility] [address] [place] [address] PLT 291 K/CU MM Normal 150-450 [facility] Comment on above: Order Comment: Campu s: M Performed By: #### L 200.02583 #### [facility] [address] [place] [address] RBC 4.20 M/CU MM Normal 3.90-5.30 [facility] Comment on above: Order Comment: Campu s: M Performed By: #### L 200.41731 #### [facility] [place] [address] WBC 8.3 K/CUMM Normal 4.5-11.0 [facility] Comment on above: Order Comment: Campu s: M Performed By: #### L 200.33142 #### [facility] [place] [address] CCon 12-28-2021 CARDIAC CATH Normal [facility] CC DATE OF SERVICE: 10/2021 PRIMARY CARE: Larry Joyce DO TEXTILE BAG SEWER: Kamar Shea MD PROCEDURE: Left heart catheterization. BRIEF HISTORY: A 71-year-old white female who had COVID 19 in September of last year. She has been treated for hypertension, dyslipidemia, DVT. She has been on Coumadin, last dose was . She is morbidly obese. She never was a smoker. smokes, but not in house. She denies any family history for coronary artery disease recently. Had echo evidence of normal ejection fraction and stress test abnormal for anterior-inferior ischemia with ejection fraction of 61%. Patient was referred for left heart catheterization. Risks and benefits were discussed with the patient and she was consented. PROCEDURE IN DETAIL: The patient was brought to the cardiac catheterization lab, draped, and positioned in the usual fashion, right radial artery approach. Under complete aseptic and sterile condition, 2% xylocaine without epinephrine was used for [facility] PATIENT NAME: MI PECK Dr. Layne MEDICAL REC #: [id number] [place] [id number] ADMIT DATE: DISCHARGE DATE: CARDIAC CATH ATTENDING PHY: Sarai Hernandez MD local anesthesia. Using modified Seldinger technique, a 4-Chinese arterial sheath was placed. Right radial artery angiography was performed utilizing a 4-Chinese multipurpose and 4-Chinese JL4 catheter. At the conclusion of the procedure, arterial sheath was removed. Hemostasis secured by QuikClot. Patient transferred back to the same-day unit in stable condition. COMPLICATIONS: None. RESULTS: 1. Hemodynamics: There was no gradient across the aortic valve, LVEDP 18. 2. Angiographic: A. Left ventriculography performed with an ARRIOLA projection revealing a normal left ventricular ejection fraction estimated 55% without mall motion abnormality. B. Coronary angiography: C. Left main large caliber vessel with no angiographic evidence of disease. Normally bifurcates into LAD and nondominant circumflex. D. Left anterior descending coronary artery is a large caliber vessel, reaches the apex, type 3 LAD with only minor plaque disease noted. Large diagonal emerging from the proximal LAD with only minor plaque disease. [facility] PATIENT NAME: MI PECK Staci Layne MEDICAL REC #: [id number] [place] [id number] ADMIT DATE: DISCHARGE DATE: CARDIAC CATH ATTENDING PHY: Sarai Hernandez MD E. Circumflex coronary artery: Nondominant large caliber vessel gave origin to few obtuse marginal branches. The largest is the third, it has only minor plaque disease. F. Right coronary artery: Large caliber dominant vessel with moderate tortuosity and minor plaque disease. CONCLUSION: A normal left heart catheterization as above. Sarai Hernandez MD /[id number] [facility] File#: [id number] CC: Kamar Shea MD, FACP, FACC, FASALIMA CC: Sarai Hernandez MD END OF DOCUMENT / CHANGE LOG FOLLOWS Last Edited By Elec. Signed By Sarai Hernandez MD #GUME Sarai Hernandez MD #ALFREDO on 12/29/2021 14:19 ET on 12/29/2021 14:19 ET Revision Number - 2 [facility] PATIENT NAME: IM PECK [address] [facility] [address] Layne MEDICAL REC #: [id number] [place] [address] ADMIT DATE: DISCHARGE DATE: CARDIAC CATH ATTENDING PHY: Sarai Hernandez MD Verified/Reviewed by 12/29/21 1419 ALFREDO [facility] PATIENT NAME: MI PECK [address] [facility] [address] Layne MEDICAL REC #: [id number] [place] [address] ADMIT DATE: DISCHARGE DATE: CARDIAC CATH ATTENDING PHY: Sarai Hernandez MD Normal [facility] GFR ESTon 12-28-2021 IF AMER Greater than 60 Normal [facility] Comment on above: Order Comment: Campu s: M Performed By: #### L 500.50652, L500.78468 #### [facility] [address] [place] [address] IF non-AFR AMER Greater than 60 [facility] Comment on above: Order Comment: Jamilu s: M Performed By: #### L 500.32424, L500.61062 #### [facility] [address] [place] [address] PTon 12-28-2021 INR Coag (PPP) [Relative time] 1.19 {INR} High 0.9-1.1 [facility] Comment on above: Order Comment: Jamilu s: M Result Comment: Phi mmended PT INR therapeutic range for fpc and prophylactic therapy is 2.0 - 3.0. For heart valve and shunt patients the range is 2.5 - 3.5. Performed By: #### L 300.16281 #### [facility] [address] [place] [address] PTS 12.9 SECONDS High 9.5-12.0 [facility] Comment on above: Order Comment: Rani s: M Performed By: #### L 300.81950 #### [facility] [address] [place] [address] CNPNon 12-21-2021 CNPN Telephone (CARDUM) LIVKAYLYNJoanna Bella ([id number]) 1950 F Date Time Provider Department 12/21/21 SUSAN NÚÑEZ During your visit today, we recorded the following information about you: Susan Núñez APRN.RETAIL ANALYTICS MANAGER 12/21/2021 12:43 PM Signed Let the patient know, stress test is abnormal. She has reversible defects in the anterior, inferior, and distal inferolateral dos santos suggesting she could have some blocked arteries. She would benefit from left cardiac catheterization. Let me know if she is agreeable for me to go ahead and schedule her at [facility]. Ngiel Peña MA 12/21/2021 2:04 PM Signed Pt called and notified per susan stress test is abnormal. She has reversible defects in the anterior, inferior, and distal inferolateral dos santos suggesting she could have some blocked arteries. She would benefit from left cardiac catheterization. Let me know if she is agreeable for me to go ahead and schedule her at [facility]. Pt agreeable to proceeding with heart cath Susan Núñez APRN.RETAIL ANALYTICS MANAGER 12/21/2021 2:15 PM Signed Let the patient know, I have her scheduled for left cardiac catheterization at [facility] 12/28/2021 at 10 AM. She will need to be at same-day surgery at 8 AM. N.p.o. after midnight the night before. Hold Coumadin 4 days prior to procedure. She should be able to restart Coumadin the day of the procedure. She can take any other medications with a small sip of water the morning of the procedure. Nigel Peña MA 12/21/2021 3:52 PM Signed Pt called and notified per susan , I have her scheduled for left cardiac catheterization at [facility] 12/28/2021 at 10 AM. She will need to be at same-day surgery at 8 AM. N.p.o. after midnight the night before. Hold Coumadin 4 days prior to procedure. She should be able to restart Coumadin the day of the procedure. She can take any other medications with a small sip of water the morning of the procedure. Pt agreeable Allergies As of Date: 12/21/2021 (No Known Allergies) Date Reviewed: 12/16/2021 Reviewed by: Susan Núñez APRN.RETAIL ANALYTICS MANAGER - Fully Assessed Reason for Visit: Results [95] Prescriptions as of 12/21/2021 - verapamil SR (CALAN SR, ISOPTIN SR) 240 mg CR tablet Take 1 tablet by mouth twice daily. - venlafaxine (EFFEXOR) 37.5 mg tablet Take 37.5 mg by mouth every other day. - ascorbic acid, vitamin C, (VITAMIN C) 500 mg tablet Take 500 mg by mouth once daily. - benazepril (LOTENSIN) 10 mg tablet Take 10 mg by mouth once daily. - cholecalciferol (VITAMIN D-3) 50 mcg (2,000 unit) tablet Take 2,000 Units by mouth once daily. - denosumab (PROLIA) 60 mg/mL Inject 60 mg subcutaneously once every 6 months. - simvastatin (ZOCOR) 10 mg tablet Take 10 mg by mouth daily at bedtime. - warfarin (COUMADIN) 1 mg tablet Take 1 mg by mouth daily as directed. Problem List As Of Date 12/21/2021 Noted Resolved Mixed hyperlipidemia [E78.2] 11/25/2021 OLIVER (dyspnea on exertion) [R06.00] 11/25/2021 Anticoagulation goal of INR 3.0 to 4.0 [Z51.81,*11/25/2021 Non-smoker [Z78.9] 11/25/[address] scan, lung [R91.8] 11/30/2021 COVID-19 [U07.1] 09/30/2021 Benign hypertension [I10] 11/30/2021 History of cardiac monitoring [Z92.89] 11/16/2021 Hypoxia [R09.02] 11/30/2021 Iron deficiency [E61.1] 11/30/2021 Moderate recurrent major depression (HCC) [F33.*11/30/2021 Morbid obesity (HCC) [E66.01] 11/30/2021 Osteoarthritis, knee [M17.10] 11/30/2021 Osteoporosis [M81.0] 11/30/2021 Vitamin D deficiency [E55.9] 11/30/2021 Dvt femoral (deep venous thrombosis) (HCC) [I82*11/30/2021 Atrial tachycardia (HCC) [I47.1] 11/30/2021 Sinus tachycardia [R00.0] 11/30/2021 H/O echocardiogram [Z92.89] 12/08/2021 History of stress test [Z92.89] 12/20/2021 Encounter Status:Closed by NIGEL PEÑA on 12/21/21 [facility] CNOVon 12-16-2021 CNOV Office Visit (CARDUM ) MI PECK ([id number]) 1950 F Date Time Provider Department 12/16/21 11:00 AM NURSE CARD UP PATRICK DRAPER During your visit today, we recorded the following information about you: Swapna Kraus MA 12/16/2021 12:05 PM Addendum EKG Check EKG performed per protocol on Mi Peck Patient came in for a 30 day Event Monitor, Ortho's and EKG for Atrial Tachycardia per Susan Núñez. Monitor was placed on patient while in office and understood instructions. Patients Verapamil was increased to 240 mg BID Name and reviewed and verified with patient. Allergies reviewed and verified with patient. Current Outpatient Medications Medication Sig - verapamil (CALAN, ISOPTIN) 120 mg tablet Take 2 tablets by mouth twice daily. - venlafaxine (EFFEXOR) 37.5 mg tablet Take 37.5 mg by mouth every other day. - ascorbic acid, vitamin C, (VITAMIN C) 500 mg tablet Take 500 mg by mouth once daily. - benazepril (LOTENSIN) 10 mg tablet Take 10 mg by mouth once daily. - cholecalciferol (VITAMIN D-3) 50 mcg (2,000 unit) tablet Take 2,000 Units by mouth once daily. - denosumab (PROLIA) 60 mg/mL Inject 60 mg subcutaneously once every 6 months. - simvastatin (ZOCOR) 10 mg tablet Take 10 mg by mouth daily at bedtime. - warfarin (COUMADIN) 1 mg tablet Take 1 mg by mouth daily as directed. No current facility-administered medications for this visit. Patient is taking medication as prescribed Yes Took medication today Yes Experiencing side effects No Physician notified of EKG readings Yes EKG: Normal sinus rhythm. Left cheung axis. Nonspecific T wave changes anterior leads. Abnormal EKG. Heart rate 83 BPM Swapna Kraus MA Referring Provider: SUSAN NÚÑEZ [[id number]] Allergies As of Date: 12/16/2021 (No Known Allergies) Date Reviewed: 12/16/2021 Reviewed by: Susan Núñez APRN.RETAIL ANALYTICS MANAGER - Fully Assessed Reason for Visit: EKG [793] Cmt: EKG, Ortho's and 30 day event monitor Primary Visit Diagnosis:Atrial tachycardia (HCC) [I47.1] Other Visit Diagnoses:Essential hypertension [I10] Benign hypertension [I10] Order(s):OUTSIDE VENDOR CARDIAC OUTPATIENT EVENT RECORDER [[id number]] Order #: [id number]: 1 ECG B/O W INTERP (MED OFFICE) [ECG06] Order #: [id number] Prescriptions as of 12/20/2021 - verapamil SR (CALAN SR, ISOPTIN SR) 240 mg CR tablet Take 1 tablet by mouth twice daily. - venlafaxine (EFFEXOR) 37.5 mg tablet Take 37.5 mg by mouth every other day. - ascorbic acid, vitamin C, (VITAMIN C) 500 mg tablet Take 500 mg by mouth once daily. - benazepril (LOTENSIN) 10 mg tablet Take 10 mg by mouth once daily. - cholecalciferol (VITAMIN D-3) 50 mcg (2,000 unit) tablet Take 2,000 Units by mouth once daily. - denosumab (PROLIA) 60 mg/mL Inject 60 mg subcutaneously once every 6 months. - simvastatin (ZOCOR) 10 mg tablet Take 10 mg by mouth daily at bedtime. - warfarin (COUMADIN) 1 mg tablet Take 1 mg by mouth daily as directed. Problem List As Of Date 12/16/2021 Noted Resolved Mixed hyperlipidemia [E78.2] 11/25/2021 OLIVER (dyspnea on exertion) [R06.00] 11/25/2021 Anticoagulation goal of INR 3.0 to 4.0 [Z51.81,*11/25/2021 Non-smoker [Z78.9] 11/25/[address] scan, lung [R91.8] 11/30/2021 COVID-19 [U07.1] 09/30/2021 Benign hypertension [I10] 11/30/2021 History of cardiac monitoring [Z92.89] 11/16/2021 Hypoxia [R09.02] 11/30/2021 Iron deficiency [E61.1] 11/30/2021 Moderate recurrent major depression (HCC) [F33.*11/30/2021 Morbid obesity (HCC) [E66.01] 11/30/2021 Osteoarthritis, knee [M17.10] 11/30/2021 Osteoporosis [M81.0] 11/30/2021 Vitamin D deficiency [E55.9] 11/30/2021 Dvt femoral (deep venous thrombosis) (HCC) [I82*11/30/2021 Atrial tachycardia (HCC) [I47.1] 11/30/2021 Sinus tachycardia [R00.0] 11/30/2021 H/O echocardiogram [Z92.89] 12/08/2021 Medications Discontinued During This Encounter Prescriptions - verapamil (CALAN, ISOPTIN) 120 mg tablet (Discontinued) Reported on 12/16/2021 Encounter Status:Closed by SUSAN NÚÑEZ on 12/16/[address] [facility] 12-15-2021 THEODOREN Telephone (CARDUM) MI PECK ([id number]) 1950 F Date Time Provider Department 12/15/21 SUSAN NÚÑEZ During your visit today, we recorded the following information about you: Kimberley Michael 12/15/2021 9:34 AM Signed Echo results on your desk for review. Please let the patient know the results Susan Núñez APRN.RETAIL ANALYTICS MANAGER 12/15/2021 11:06 AM Signed Let the patient know, echo looks okay. Ejection fraction normal at 55-60%, trivial MR, TR, MA Nigel Peña MA 12/15/2021 11:21 AM Signed Pt called and notified and notified per susan echo looks okay. Ejection fraction normal at 55-60%, trivial MR, TR, MA. Pt agreeable Allergies As of Date: 12/15/2021 (No Known Allergies) Date Reviewed: 12/07/2021 Reviewed by: Nigel Peña MA - Fully Assessed Reason for Visit: Results [95] Prescriptions as of 12/15/2021 - verapamil (CALAN, ISOPTIN) 120 mg tablet Take 2 tablets by mouth twice daily. - venlafaxine (EFFEXOR) 37.5 mg tablet Take 37.5 mg by mouth every other day. - ascorbic acid, vitamin C, (VITAMIN C) 500 mg tablet Take 500 mg by mouth once daily. - benazepril (LOTENSIN) 10 mg tablet Take 10 mg by mouth once daily. - cholecalciferol (VITAMIN D-3) 50 mcg (2,000 unit) tablet Take 2,000 Units by mouth once daily. - denosumab (PROLIA) 60 mg/mL Inject 60 mg subcutaneously once every 6 months. - simvastatin (ZOCOR) 10 mg tablet Take 10 mg by mouth daily at bedtime. - warfarin (COUMADIN) 1 mg tablet Take 1 mg by mouth daily as directed. Problem List As Of Date 12/15/2021 Noted Resolved Mixed hyperlipidemia [E78.2] 11/25/2021 OLIVER (dyspnea on exertion) [R06.00] 11/25/2021 Anticoagulation goal of INR 3.0 to 4.0 [Z51.81,*11/25/2021 Non-smoker [Z78.9] 11/25/[address] scan, lung [R91.8] 11/30/2021 COVID-19 [U07.1] 09/30/2021 Benign hypertension [I10] 11/30/2021 History of cardiac monitoring [Z92.89] 11/16/2021 Hypoxia [R09.02] 11/30/2021 Iron deficiency [E61.1] 11/30/2021 Moderate recurrent major depression (HCC) [F33.*11/30/2021 Morbid obesity (HCC) [E66.01] 11/30/2021 Osteoarthritis, knee [M17.10] 11/30/2021 Osteoporosis [M81.0] 11/30/2021 Vitamin D deficiency [E55.9] 11/30/2021 Dvt femoral (deep venous thrombosis) (HCC) [I82*11/30/2021 Atrial tachycardia (HCC) [I47.1] 11/30/2021 Sinus tachycardia [R00.0] 11/30/2021 H/O echocardiogram [Z92.89] 12/08/2021 Encounter Status:Closed by NIGEL PEÑA on 12/15/21 [facility] CNOVon 12-07-2021 CNOV Office Visit (CARDUM ) LIVMI ONOFRE ([id number]) 1950 F Date Time Provider Department 12/07/21 1:00 PM SUSAN NÚÑEZ During your visit today, we recorded the following information about you: Pulse Blood pressure Weight Height 78/minute 120/90 101.6 kg 1.575 m Susan Núñez APRN.RETAIL ANALYTICS MANAGER 12/07/2021 1:38 PM Addendum [facility] Larry Joyce DO, DO SUBJECTIVE: Mi Peck is a 71 year old female who is here today for follow-up visit. The patient saw Dr. Gonsales last week. She was complaining of fast heart rates. We had documentation of sinus tachycardia as well as atrial tachycardia by 48-hour Holter monitor. Patient was started on verapamil 120 mg twice daily. She states her tachycardia seems to be better but she still still continues to have fast heart rates. The fast heart rates seem to be related to physical activity. She has had problems with shortness of breath with minimal activity. She denies chest pain, PND, orthopnea, syncope, near-syncope, or edema. PAST MEDICAL HISTORY Diagnosis Date - Abnormal CT scan, lung - Anticoagulation goal of INR 3.0 to 4.0 - Atrial tachycardia (HCC) By Holter worn 11/16/2021 - Benign hypertension - COVID-19 09/30/2021 - OLIVER (dyspnea on exertion) - Dvt femoral (deep venous thrombosis) (HCC) - History of cardiac monitoring 11/16/2021 83 runs of SVT - Hypoxia - Iron deficiency - Mixed hyperlipidemia - Moderate recurrent major depression (HCC) - Morbid obesity (HCC) - Osteoarthritis, knee - Osteoporosis - Sinus tachycardia - Vitamin D deficiency PAST SURGICAL HISTORY Procedure Laterality Date - APPENDECTOMY - BARIUM ENEMA 10/30/2004 - CATARACT EXTRACTION HX Bilateral 11/30/2017 - CATARACT EXTRACTION HX - COLONOSCOPY 04/09/2018 - LIGATE FALLOPIAN TUBE - REMOVAL GALLBLADDER 10/30/1989 FAMILY HISTORY Problem Relation Age of Onset - Heart Attack Mother - Glaucoma Mother - other (osteoarthritis) Mother - Hyperlipidemia Father - Hyperthyroidism Father - other (osteoarthritis) Father - Diabetes Sister - Hyperlipidemia Brother SOCIAL HISTORY: Social History Tobacco Use - Smoking status: Never Smoker - Smokeless tobacco: Never Used Substance Use Topics - Alcohol use: Never - Drug use: Never ALLERGIES: Patient has no known allergies. CURRENT MEDICATIONS: Current Outpatient Medications Medication Sig - verapamil (CALAN, ISOPTIN) 120 mg tablet Take 2 tablets by mouth twice daily. - venlafaxine (EFFEXOR) 37.5 mg tablet Take 37.5 mg by mouth every other day. - ascorbic acid, vitamin C, (VITAMIN C) 500 mg tablet Take 500 mg by mouth once daily. - benazepril (LOTENSIN) 10 mg tablet Take 10 mg by mouth once daily. - cholecalciferol (VITAMIN D-3) 50 mcg (2,000 unit) tablet Take 2,000 Units by mouth once daily. - denosumab (PROLIA) 60 mg/mL Inject 60 mg subcutaneously once every 6 months. - simvastatin (ZOCOR) 10 mg tablet Take 10 mg by mouth daily at bedtime. - warfarin (COUMADIN) 1 mg tablet Take 1 mg by mouth daily as directed. No current facility-administered medications for this visit. Review of Systems Constitutional: Negative for activity change and fever. Respiratory: Positive for shortness of breath. Negative for apnea, cough, chest tightness, wheezing and stridor. Cardiovascular: Positive for palpitations. Negative for chest pain and leg swelling. Gastrointestinal: Negative for abdominal distention, diarrhea and vomiting. Musculoskeletal: Negative for joint swelling, neck pain and neck stiffness. Skin: Negative for color change, pallor and rash. Neurological: Negative for dizziness, syncope, weakness, light-headedness and numbness. Hematological: Does not bruise/bleed easily. Psychiatric/Behavioral: Negative for agitation, behavioral problems and confusion. The patient is not nervous/anxious. All other systems reviewed and are negative. PHYSICAL EXAMINATION: 12/07/21 1253 BP: 120/90 BP Position: Sitting Pulse: 78 Weight: 101.6 kg (224 lb) Height: 157.5 cm (5' 2) Last 3 Encounter BP Readings: Date: BP: 11/29/2021 128/88 Last 3 Encounter Pulse Readings: Date: Pulse: 11/29/2021 122 Last 3 Encounter Wt Readings: Date: Wt: 11/29/2021 100.7 kg (222 lb) Physical Exam Vitals and nursing note reviewed. Constitutional: General: She is not in acute distress. Appearance: Normal appearance. She is not toxic-appearing. HENT: Head: Normocephalic and atraumatic. Nose: Nose normal. Mouth/Throat: Mouth: Mucous membranes are moist. Neck: Vascular: No carotid bruit. Cardiovascular: Rate and Rhythm: Normal rate and regular rhythm. Pulses: Normal pulses. Heart sounds: Normal heart sounds. No murmur heard. No friction rub. No gallop. Pulmonary: Effort: Pulmonary effort is normal. No respiratory distress. Breath sounds: Normal breath sounds. (more content not included)... Normal [facility] 12-07-2021 VELVET Telephone (CARDPAUL) MI PECK ([id number]) 1950 F Date Time Provider Department 12/07/21 SUSAN NÚÑEZ During your visit today, we recorded the following information about you: Nigel Peña MA 12/07/2021 1:28 PM Signed Pt needs an auth for a stress test to be done at [facility] [place] Theodore Goffette 12/07/2021 1:43 PM Signed No auth required for Medicare and Medicare supplement Theodore Leonlin 12/08/2021 9:14 AM Signed Stress test scheduled at [facility] on 12/20 @ 6:30 am. Order faxed and patient notified Allergies As of Date: 12/07/2021 (No Known Allergies) Date Reviewed: 12/07/2021 Reviewed by: Nigel Peña MA - Fully Assessed Reason for Visit: Stress test prior auth [Other] Prescriptions as of 12/08/2021 - verapamil (CALAN, ISOPTIN) 120 mg tablet Take 2 tablets by mouth twice daily. - venlafaxine (EFFEXOR) 37.5 mg tablet Take 37.5 mg by mouth every other day. - ascorbic acid, vitamin C, (VITAMIN C) 500 mg tablet Take 500 mg by mouth once daily. - benazepril (LOTENSIN) 10 mg tablet Take 10 mg by mouth once daily. - cholecalciferol (VITAMIN D-3) 50 mcg (2,000 unit) tablet Take 2,000 Units by mouth once daily. - denosumab (PROLIA) 60 mg/mL Inject 60 mg subcutaneously once every 6 months. - simvastatin (ZOCOR) 10 mg tablet Take 10 mg by mouth daily at bedtime. - warfarin (COUMADIN) 1 mg tablet Take 1 mg by mouth daily as directed. Problem List As Of Date 12/07/2021 Noted Resolved Mixed hyperlipidemia [E78.2] 11/25/2021 OLIVER (dyspnea on exertion) [R06.00] 11/25/2021 Anticoagulation goal of INR 3.0 to 4.0 [Z51.81,*11/25/2021 Non-smoker [Z78.9] 11/25/[address] scan, lung [R91.8] 11/30/2021 COVID-19 [U07.1] 09/30/2021 Benign hypertension [I10] 11/30/2021 History of cardiac monitoring [Z92.89] 11/16/2021 Hypoxia [R09.02] 11/30/2021 Iron deficiency [E61.1] 11/30/2021 Moderate recurrent major depression (HCC) [F33.*11/30/2021 Morbid obesity (HCC) [E66.01] 11/30/2021 Osteoarthritis, knee [M17.10] 11/30/2021 Osteoporosis [M81.0] 11/30/2021 Vitamin D deficiency [E55.9] 11/30/2021 Dvt femoral (deep venous thrombosis) (HCC) [I82*11/30/2021 Atrial tachycardia (HCC) [I47.1] 11/30/2021 Sinus tachycardia [R00.0] 11/30/2021 Encounter Status:Closed by KIMBERLEY RODRIGUEZ on 12/08/21 [facility] CNOVon 11-29-2021 CNOV Office Visit (CARDUM ) MI PECK ([id number]) 1950 F Date Time Provider Department 11/29/21 2:15 PM ADOLFO GONSALES During your visit today, we recorded the following information about you: Pulse Blood pressure Weight Height 122/minute 128/88 100.7 kg 1.575 m Adolfo Gonsales DO 12/01/2021 5:19 AM Signed Referring Provider: Larry Joyce DO Date: November 29, 2021 Chief Complaint: CARD New Patient Consult (Tachycardia, HTN) HISTORY OF PRESENT ILLNESS: Mi Peck is a 71 year old female who presents for CARD New Patient Consult (Tachycardia, HTN). Recently had Covid infection in September. Complaining of palpitations since having Covid. ALLERGIES No Known Allergies PAST MEDICAL HISTORY: PAST MEDICAL HISTORY Diagnosis Date - Abnormal CT scan, lung - Anticoagulation goal of INR 3.0 to 4.0 - COVID-19 09/30/2021 - OLIVER (dyspnea on exertion) - Dvt femoral (deep venous thrombosis) (HCC) - Essential hypertension - Hypoxia - Iron deficiency - Mixed hyperlipidemia - Moderate recurrent major depression (HCC) - Morbid obesity (HCC) - Osteoarthritis, knee - Osteoporosis - Tachycardia - Vitamin D deficiency PAST SURGICAL HISTORY Procedure Laterality Date - APPENDECTOMY - BARIUM ENEMA 10/30/2004 - CATARACT EXTRACTION HX Bilateral 11/30/2017 - CATARACT EXTRACTION HX - COLONOSCOPY 04/09/2018 - LIGATE FALLOPIAN TUBE - REMOVAL GALLBLADDER 10/30/1989 FAMILY HISTORY Problem Relation Age of Onset - Heart Attack Mother - Glaucoma Mother - other (osteoarthritis) Mother - Hyperlipidemia Father - Hyperthyroidism Father - other (osteoarthritis) Father - Diabetes Sister - Hyperlipidemia Brother SOCIAL HISTORY: Tobacco Use: Never Alcohol Use: Never Drug Use: Never Employer And Job Title: None on file Years Of Education Completed: Not specified Marital Status: MEDICATIONS: Current Outpatient Medications Medication Sig - venlafaxine (EFFEXOR) 37.5 mg tablet Take 37.5 mg by mouth every other day. - amLODIPine (NORVASC) 5 mg tablet Take by mouth once daily. - ascorbic acid, vitamin C, (VITAMIN C) 500 mg tablet Take 500 mg by mouth once daily. - benazepril (LOTENSIN) 10 mg tablet Take 10 mg by mouth once daily. - cholecalciferol (VITAMIN D-3) 50 mcg (2,000 unit) tablet Take 2,000 Units by mouth once daily. - denosumab (PROLIA) 60 mg/mL Inject 60 mg subcutaneously once every 6 months. - simvastatin (ZOCOR) 10 mg tablet Take 10 mg by mouth daily at bedtime. - warfarin (COUMADIN) 1 mg tablet Take 1 mg by mouth daily as directed. - benzonatate (TESSALON PERLE) 100 mg capsule Take 100 mg by mouth as needed. (Patient not taking: Reported on 11/29/2021 ) No current facility-administered medications for this visit. I have personally reviewed the patients past medical history including social, family, surgical, diagnostics, and medications./AB REVIEW OF SYSTEMS: Review of Systems Constitutional: Positive for fatigue. Negative for chills. Respiratory: Positive for shortness of breath. Negative for chest tightness. Cardiovascular: Negative for chest pain, palpitations and leg swelling. Neurological: Positive for weakness. Negative for dizziness, syncope and light-headedness. Hematological: Does not bruise/bleed easily. Psychiatric/Behavioral: Negative for confusion and hallucinations. Vitals: BP 128/88 (BP Site: Left Arm, BP Position: Sitting) Pulse (!) 122 Ht 157.5 cm (5' 2) Wt 100.7 kg (222 lb) BMI 40.60 kg/m? PHYSICAL EXAMINATION: BP 128/88 (BP Site: Left Arm, BP Position: Sitting) Pulse (!) 122 Ht 157.5 cm (5' 2) Wt 100.7 kg (222 lb) BMI 40.60 kg/m? No data found for this vital: BP No data found for this vital: Pulse No data found for this vital: Wt Physical Exam Vitals reviewed. Constitutional: General: She is not in acute distress. Cardiovascular: Rate and Rhythm: Normal rate and regular rhythm. Pulses: Carotid pulses are 2+ on the right side and 2+ on the left side. Radial pulses are 2+ on the right side and 2+ on the left side. Femoral pulses are 2+ on the right side and 2+ on the left side. Popliteal pulses are 2+ on the right side and 2+ on the left side. Dorsalis pedis pulses are 2+ on the right side and 2+ on the left side. Posterior tibial pulses are 2+ on the right side and 2+ on the left side. Heart sounds: Murmur heard. Systolic murmur is present with a grade of 2/6. Comments: PMI not displaced. 2nd heart sound loud. Pulmonary: Effort: Pulmonary effort is normal. Breath sounds: Normal breath sounds. Abdominal: General: Abdomen is flat. Bowel sounds are normal. Palpations: Abdomen is soft. Tenderness: There is no abdominal tenderness. Musculoskeletal: Right lower leg: No edema. Left lower leg: No edema. Skin: General: Skin is warm. Findings: No rash or wound (more content not included)... Normal [facility] Rohit 11-29-2021 CNPN Telephone (CARDUM) MI PECK ([id number]) 1950 F Date Time Provider Department 11/29/21 ADOLFO GONSALES During your visit today, we recorded the following information about you: June Elias 11/29/2021 3:10 PM Signed Prior authorization request for echo to be done at [facility] [place] is being submitted for review. Please notify clerical staff when ready. June Elias Theodore Gabriella 11/30/2021 6:06 AM Signed No auth required for Medicare and Medicare supplement Theodore Gabriellamarti Son Michael 12/01/2021 9:15 AM Addendum Echo scheduled at [facility] on 12/08 @ 8:45 am. Order faxed and patient notified Allergies As of Date: 11/29/2021 (No Known Allergies) Date Reviewed: 11/29/2021 Reviewed by: June Elias - Fully Assessed Reason for Visit: echo prior auth [Other] Prescriptions as of 12/01/2021 - venlafaxine (EFFEXOR) 37.5 mg tablet Take 37.5 mg by mouth every other day. - verapamil (CALAN, ISOPTIN) 120 mg tablet Take 1 tablet by mouth twice daily. - ascorbic acid, vitamin C, (VITAMIN C) 500 mg tablet Take 500 mg by mouth once daily. - benazepril (LOTENSIN) 10 mg tablet Take 10 mg by mouth once daily. - benzonatate (TESSALON PERLE) 100 mg capsule Take 100 mg by mouth as needed. - cholecalciferol (VITAMIN D-3) 50 mcg (2,000 unit) tablet Take 2,000 Units by mouth once daily. - denosumab (PROLIA) 60 mg/mL Inject 60 mg subcutaneously once every 6 months. - simvastatin (ZOCOR) 10 mg tablet Take 10 mg by mouth daily at bedtime. - warfarin (COUMADIN) 1 mg tablet Take 1 mg by mouth daily as directed. Problem List As Of Date 11/29/2021 Noted Resolved Tachycardia [R00.0] 11/25/2021 Mixed hyperlipidemia [E78.2] 11/25/2021 Essential hypertension [I10] 11/25/2021 OLIVER (dyspnea on exertion) [R06.00] 11/25/2021 Anticoagulation goal of INR 3.0 to 4.0 [Z51.81,*11/25/2021 Non-smoker [Z78.9] 11/25/2021 Encounter Status:Closed by KIMBERLEY RODRIGUEZ on 12/01/21 [facility] LABORATORYOrdered By: Heaven Martin on 10-02-2021 Albumin BCP dye [Mass/Vol] 2.9 G/dL Invalid Interpretation Code 3.4 - 4.8 G/dL AO ADM SS Albumin/Globulin [Mass ratio] 0.9 {ratio} Invalid Interpretation Code 1.1 - 2.5 ratio AO ADM SS ALP [Catalytic activity/Vol] 56 U/L Invalid Interpretation Code 40 - 135 U/L AO ADM SS ALT With P-5'-P [Catalytic activity/Vol] 42 U/L Invalid Interpretation Code 14 - 59 U/L AO ADM SS aPTT Coag (Bld) [Time] 46.5 s Invalid Interpretation Code 24.8 - 33.3 seconds AO Coag SS AST With P-5'-P [Catalytic activity/Vol] 27 U/L Invalid Interpretation Code 10 - 40 U/L AO ADM SS Basophil, Absolute 0.00 103/mcL Invalid Interpretation Code 0.00 - 0.19 10^3/mcL AO Auto Heme SS Basophils/100 WBC (Bld) 0.1 % Invalid Interpretation Code 0.0 - 2.5 % AO Auto Heme SS Bilirubin [Mass/Vol] 0.3 mg/dL Invalid Interpretation Code 0.2 - 1.0 mg/dL AO ADM SS Calcium [Mass/Vol] 8.3 mg/dL Invalid Interpretation Code 8.4 - 10.2 mg/dL AO ADM SS Chloride [Moles/Vol] 105 mmol/L Invalid Interpretation Code 98 - 107 mmol/L AO ADM SS CO2 [Moles/Vol] 30 mmol/L Invalid Interpretation Code 23 - 31 mmol/L AO ADM SS Creatinine [Mass/Vol] 0.65 mg/dL Invalid Interpretation Code 0.55 - 1.02 mg/dL AO ADM SS CRP [Mass/Vol] 2.7 mg/dL Invalid Interpretation Code 0.0 - 0.9 mg/dL AO ADM SS Electrolyte Balance 8.0 mEq/L Invalid Interpretation Code AO ADM SS Eosinophil, Absolute 0.00 103/mcL Invalid Interpretation Code 0.00 - 0.40 10^3/mcL AO Auto Heme SS Eosinophils/100 WBC (Bld) 0.0 % Invalid Interpretation Code 0.0 - 7.0 % AO Auto Heme SS Erythrocyte distribution width (RBC) [Ratio] 13.5 % Invalid Interpretation Code 11.5 - 14.5 % AO Auto Heme SS Fibrin D-dimer DDU (PPP) [Mass/Vol] ng/mL D-DU Invalid Interpretation Code 0 - 230 ng/mL D-DU AO Coag SS Fibrinogen Coag (PPP) [Mass/Vol] 1153 mg/dL Invalid Interpretation Code 334 - 713 mg/dL AO Coag SS Globulin 3.2 G/dL Invalid Interpretation Code AO ADM SS Glucose [Mass/Vol] 150 mg/dL Invalid Interpretation Code 83 - 110 mg/dL AO ADM SS Hematocrit (Bld) [Volume fraction] 41.1 % Invalid Interpretation Code 37.0 - 47.0 % AO Auto Heme SS Hemoglobin (Bld) [Mass/Vol] 13.8 G/dL Invalid Interpretation Code 12.0 - 16.0 G/dL AO Auto Heme SS Heparin dose (APTT) Unknown (10/02/21 4:26 AM) Invalid Interpretation Code AO Coag SS INR Coag (PPP) [Relative time] 4.9 {INR} Invalid Interpretation Code 0.9 - 1.2 ratio AO Coag SS Lymphocyte, Absolute 1.10 103/mcL Invalid Interpretation Code 0.77 - 3.85 10^3/mcL AO Auto Heme SS Lymphocytes/100 WBC (Bld) 18.1 % Invalid Interpretation Code 10.0 - 50.0 % AO Auto Heme SS Magnesium [Mass/Vol] 2.3 mg/dL Invalid Interpretation Code 1.8 - 2.4 mg/dL AO ADM SS MCH (RBC) [Entitic mass] 29.7 pg Invalid Interpretation Code 27.0 - 31.2 pg AO Auto Heme SS MCHC (RBC) [Mass/Vol] 33.6 G/dL Invalid Interpretation Code 33.0 - 37.0 G/dL AO Auto Heme SS MCV (RBC) [Entitic vol] 88.3 fL Invalid Interpretation Code 80.0 - 94.0 fL AO Auto Heme SS Monocyte, Absolute 0.50 103/mcL Invalid Interpretation Code 0.15 - 1.00 10^3/mcL AO Auto Heme SS Monocytes/100 WBC (Bld) 8.6 % Invalid Interpretation Code 1.7 - 13.0 % AO Auto Heme SS Neutrophil, Absolute 4.20 103/mcL Invalid Interpretation Code 2.85 - 6.16 10^3/mcL AO Auto Heme SS Neutrophils/100 WBC (Bld) 73.2 % Invalid Interpretation Code 37.0 - 80.0 % AO Auto Heme SS Platelet mean volume (Bld) [Entitic vol] 8.4 fL Invalid Interpretation Code 7.4 - 10.4 fL AO Auto Heme SS Platelets (Bld) [#/Vol] 279 103/mcL Invalid Interpretation Code 130 - 400 10^3/mcL AO Auto Heme SS Potassium [Moles/Vol] 5.3 mmol/L Invalid Interpretation Code 3.5 - 5.1 mmol/L AO ADM SS Protein [Mass/Vol] 6.1 G/dL Invalid Interpretation Code 6.4 - 8.2 G/dL AO ADM SS PT Coag (PPP) [Time] 55.8 s Invalid Interpretation Code 9.7 - 14.3 seconds AO Coag SS RBC (Bld) [#/Vol] 4.65 106/mcL Invalid Interpretation Code 4.20 - 5.40 10^6/mcL AO Auto Heme SS Sodium [Moles/Vol] 143 mmol/L Invalid Interpretation Code 136 - 145 mmol/L AO ADM SS Urea nitrogen [Mass/Vol] 12 mg/dL Invalid Interpretation Code 7 - 18 mg/dL AO ADM SS Urea nitrogen/Creatinine [Mass ratio] 18 ratio Invalid Interpretation Code 7 - 27 ratio AO ADM SS WBC (Bld) [#/Vol] 5.80 103/mcL Invalid Interpretation Code 4.60 - 10.80 10^3/mcL AO Auto Heme SS LABORATORYOrdered By: SYSTEM SYSTEM on 10-02-2021 Ferritin [Mass/Vol] 610.1 ng/mL Invalid Interpretation Code 8.0 - 252.0 ng/mL AH ADM SS GFR 109 ml/min/1.73sqm Invalid Interpretation Code AO Chemistry S GFR Non- 90 ml/min/1.73sqm Invalid Interpretation Code AO Chemistry S LABORATORYOrdered By: Arianne Velásquez on 10-01-2021 Albumin BCP dye [Mass/Vol] 2.8 G/dL Invalid Interpretation Code 3.4 - 4.8 G/dL AO ADM SS Albumin/Globulin [Mass ratio] 0.8 {ratio} Invalid Interpretation Code 1.1 - 2.5 ratio AO ADM SS ALP [Catalytic activity/Vol] 60 U/L Invalid Interpretation Code 40 - 135 U/L AO ADM SS ALT With P-5'-P [Catalytic activity/Vol] 42 U/L Invalid Interpretation Code 14 - 59 U/L AO ADM SS aPTT Coag (Bld) [Time] 53.2 s Invalid Interpretation Code 24.8 - 33.3 seconds AO Coag SS AST With P-5'-P [Catalytic activity/Vol] 42 U/L Invalid Interpretation Code 10 - 40 U/L AO ADM SS Atypical Lymphs 21.0 1 Invalid Interpretation Code 0.0 - 5.0 % AO Auto Heme SS Basophil %, Manual 0.0 1 Invalid Interpretation Code 0.0 - 2.5 % AO Auto Heme SS Basophil, Abs Manual 0.00 103/mcL Invalid Interpretation Code 0.00 - 0.19 10^3/mcL AO Auto Heme SS Bilirubin [Mass/Vol] 0.4 mg/dL Invalid Interpretation Code 0.2 - 1.0 mg/dL AO ADM SS Calcium [Mass/Vol] 7.8 mg/dL Invalid Interpretation Code 8.4 - 10.2 mg/dL AO ADM SS Chloride [Moles/Vol] 104 mmol/L Invalid Interpretation Code 98 - 107 mmol/L AO ADM SS CO2 [Moles/Vol] 31 mmol/L Invalid Interpretation Code 23 - 31 mmol/L AO ADM SS Creatinine [Mass/Vol] 0.45 mg/dL Invalid Interpretation Code 0.55 - 1.02 mg/dL AO ADM SS CRP [Mass/Vol] 4.6 mg/dL Invalid Interpretation Code 0.0 - 0.9 mg/dL AO ADM SS Electrolyte Balance 6.0 mEq/L Invalid Interpretation Code AO ADM SS Eosinophil %, Manual 0.0 1 Invalid Interpretation Code 0.0 - 7.0 % AO Auto Heme SS Eosinophil, Abs Manual 0.00 103/mcL Invalid Interpretation Code 0.00 - 0.40 10^3/mcL AO Auto Heme SS Erythrocyte distribution width (RBC) [Ratio] 13.6 % Invalid Interpretation Code 11.5 - 14.5 % AO Auto Heme SS Fibrin D-dimer DDU (PPP) [Mass/Vol] 241 ng/mL D-DU Invalid Interpretation Code 0 - 230 ng/mL D-DU AO Coag SS Fibrinogen Coag (PPP) [Mass/Vol] 1410 mg/dL Invalid Interpretation Code 334 - 713 mg/dL AO Coag SS Globulin 3.7 G/dL Invalid Interpretation Code AO ADM SS Glucose [Mass/Vol] 140 mg/dL Invalid Interpretation Code 83 - 110 mg/dL AO ADM SS HbA1c (Bld) [Mass fraction] 5.9 % Invalid Interpretation Code 4.3 - 6.4 % AO ADM SS Hematocrit (Bld) [Volume fraction] 42.2 % Invalid Interpretation Code 37.0 - 47.0 % AO Auto Heme SS Hemoglobin (Bld) [Mass/Vol] 14.4 G/dL Invalid Interpretation Code 12.0 - 16.0 G/dL AO Auto Heme SS Heparin dose (APTT) Unknown (10/01/21 5:01 AM) Invalid Interpretation Code AO Coag SS INR Coag (PPP) [Relative time] 6.3 {INR} Invalid Interpretation Code 0.9 - 1.2 ratio AO Coag SS Lymphocyte %, Manual 11.0 1 Invalid Interpretation Code 10.0 - 50.0 % AO Auto Heme SS Lymphocyte, Abs Manual 0.64 103/mcL Invalid Interpretation Code 0.77 - 3.85 10^3/mcL AO Auto Heme SS Magnesium [Mass/Vol] 2.1 mg/dL Invalid Interpretation Code 1.8 - 2.4 mg/dL AO ADM SS MCH (RBC) [Entitic mass] 30.0 pg Invalid Interpretation Code 27.0 - 31.2 pg AO Auto Heme SS MCHC (RBC) [Mass/Vol] 34.0 G/dL Invalid Interpretation Code 33.0 - 37.0 G/dL AO Auto Heme SS MCV (RBC) [Entitic vol] 88.1 fL Invalid Interpretation Code 80.0 - 94.0 fL AO Auto Heme SS Monocyte %, Manual 6.0 1 Invalid Interpretation Code 1.7 - 13.0 % AO Auto Heme SS Monocyte, Abs Manual 0.12 103/mcL Invalid Interpretation Code 0.15 - 1.00 10^3/mcL AO Auto Heme SS Neutrophil %, Manual 62.0 1 Invalid Interpretation Code 37.0 - 80.0 % AO Auto Heme SS Neutrophil, Abs Manual 1.24 103/mcL Invalid Interpretation Code 2.85 - 6.16 10^3/mcL AO Auto Heme SS Platelet Estimate Normal (10/01/21 5:01 AM) Invalid Interpretation Code AO Auto Heme SS Platelet mean volume (Bld) [Entitic vol] 8.5 fL Invalid Interpretation Code 7.4 - 10.4 fL AO Auto Heme SS Platelets (Bld) [#/Vol] 232 103/mcL Invalid Interpretation Code 130 - 400 10^3/mcL AO Auto Heme SS Potassium [Moles/Vol] 4.8 mmol/L Invalid Interpretation Code 3.5 - 5.1 mmol/L AO ADM SS Protein [Mass/Vol] 6.5 G/dL Invalid Interpretation Code 6.4 - 8.2 G/dL AO ADM SS PT Coag (PPP) [Time] 72.2 s Invalid Interpretation Code 9.7 - 14.3 seconds AO Coag SS RBC (Bld) [#/Vol] 4.79 106/mcL Invalid Interpretation Code 4.20 - 5.40 10^6/mcL AO Auto Heme SS Sodium [Moles/Vol] 141 mmol/L Invalid Interpretation Code 136 - 145 mmol/L AO ADM SS Urea nitrogen [Mass/Vol] 8 mg/dL Invalid Interpretation Code 7 - 18 mg/dL AO ADM SS Urea nitrogen/Creatinine [Mass ratio] 18 ratio Invalid Interpretation Code 7 - 27 ratio AO ADM SS WBC (Bld) [#/Vol] 2.00 103/mcL Invalid Interpretation Code 4.60 - 10.80 10^3/mcL AO Auto Heme SS LABORATORYOrdered By: [email or web address] on 10-01-2021 Ferritin [Mass/Vol] 790.6 ng/mL Invalid Interpretation Code 8.0 - 252.0 ng/mL AH ADM SS GFR 166 ml/min/1.73sqm Invalid Interpretation Code AO Chemistry S GFR Non- 137 ml/min/1.73sqm Invalid Interpretation Code AO Chemistry S LABORATORYOrdered By: Heaven Martin on 09-30-2021 CPK 105 1 Invalid Interpretation Code 26 - 192 U/L AO ADM SS CRP [Mass/Vol] 4.6 mg/dL Invalid Interpretation Code 0.0 - 0.9 mg/dL AO ADM SS Fibrin D-dimer DDU (PPP) [Mass/Vol] ng/mL D-DU Invalid Interpretation Code 0 - 230 ng/mL D-DU AO Coag SS LDH [Catalytic activity/Vol] 302 U/L Invalid Interpretation Code 81 - 234 U/L AO ADM SS LABORATORYOrdered By: Yaa Hope on 09-30-2021 ADMITTED TO INTENSIVE CARE UNIT FOR CONDITION OF INTEREST:FIND:PT:^P ATIENT:ORD: No (09/30/21 2:26 PM) Invalid Interpretation Code AO Auto Urine SS Basophil, Absolute 0.00 103/mcL Invalid Interpretation Code 0.00 - 0.19 10^3/mcL AO Auto Heme SS Basophils/100 WBC (Bld) 0.2 % Invalid Interpretation Code 0.0 - 2.5 % AO Auto Heme SS EMPLOYED IN A HEALTHCARE SETTING:FIND:PT:^PA TIENT:ORD: No (09/30/21 2:26 PM) Invalid Interpretation Code AO Auto Urine SS Eosinophil, Absolute 0.00 103/mcL Invalid Interpretation Code 0.00 - 0.40 10^3/mcL AO Auto Heme SS Eosinophils/100 WBC (Bld) 0.1 % Invalid Interpretation Code 0.0 - 7.0 % AO Auto Heme SS Erythrocyte distribution width (RBC) [Ratio] 13.7 % Invalid Interpretation Code 11.5 - 14.5 % AO Auto Heme SS FIRST TEST FOR CONDITION OF INTEREST:FIND:PT:^P ATIENT:ORD: No (09/30/21 2:26 PM) Invalid Interpretation Code AO Auto Urine SS HAS SYMPTOMS RELATED TO CONDITION OF INTEREST:FIND:PT:^P ATIENT:ORD: Yes (09/30/21 2:26 PM) Invalid Interpretation Code AO Auto Urine SS Hematocrit (Bld) [Volume fraction] 44.3 % Invalid Interpretation Code 37.0 - 47.0 % AO Auto Heme SS Hemoglobin (Bld) [Mass/Vol] 14.9 G/dL Invalid Interpretation Code 12.0 - 16.0 G/dL AO Auto Heme SS Illness or injury onset date and time [id number] Invalid Interpretation Code AO Auto Urine SS Lymphocyte, Absolute 1.30 103/mcL Invalid Interpretation Code 0.77 - 3.85 10^3/mcL AO Auto Heme SS Lymphocytes/100 WBC (Bld) 20.7 % Invalid Interpretation Code 10.0 - 50.0 % AO Auto Heme SS MCH (RBC) [Entitic mass] 29.6 pg Invalid Interpretation Code 27.0 - 31.2 pg AO Auto Heme SS MCHC (RBC) [Mass/Vol] 33.6 G/dL Invalid Interpretation Code 33.0 - 37.0 G/dL AO Auto Heme SS MCV (RBC) [Entitic vol] 88.2 fL Invalid Interpretation Code 80.0 - 94.0 fL AO Auto Heme SS Monocyte, Absolute 0.60 103/mcL Invalid Interpretation Code 0.15 - 1.00 10^3/mcL AO Auto Heme SS Monocytes/100 WBC (Bld) 9.6 % Invalid Interpretation Code 1.7 - 13.0 % AO Auto Heme SS Neutrophil, Absolute 4.40 103/mcL Invalid Interpretation Code 2.85 - 6.16 10^3/mcL AO Auto Heme SS Neutrophils/100 WBC (Bld) 69.4 % Invalid Interpretation Code 37.0 - 80.0 % AO Auto Heme SS Patient was hospitalized because of this condition No (09/30/21 2:26 PM) Invalid Interpretation Code AO Auto Urine SS Platelet mean volume (Bld) [Entitic vol] 8.4 fL Invalid Interpretation Code 7.4 - 10.4 fL AO Auto Heme SS Platelets (Bld) [#/Vol] 216 103/mcL Invalid Interpretation Code 130 - 400 10^3/mcL AO Auto Heme SS status Not (09/30/21 2:26 PM) Invalid Interpretation Code AO Auto Urine SS RBC (Bld) [#/Vol] 5.02 106/mcL Invalid Interpretation Code 4.20 - 5.40 10^6/mcL AO Auto Heme SS RESIDES IN A CONGREGATE CARE SETTING:FIND:PT:^PA TIENT:ORD: No (09/30/21 2:26 PM) Invalid Interpretation Code AO Auto Urine SS SARS-CoV-2 (COVID-19) RNA RENAY+probe Ql (Resp) Positive *ABN* (09/30/21 2:26 PM) Invalid Interpretation Code Negative AO Auto Urine SS SARS-CoV-2 (COVID-19) RNA RENAY+probe Ql (Unsp spec) Positive results are indicative of the presence of SARS-CoV-2 RNA; clinical correlation with patient history and other diagnostic information is necessary to determine patient infection status. Positive results do not rule out bacterial infection or co-infection with other viruses. The agent detected may not be the definite cause of disease. Laboratories within the [place] and its territories are required to report all positive results to the appropriate public health authorities.Detection of analyte target(s) does not imply that the corresponding virus(es) are infectious or are the causative agents for clinical symptoms.There is a risk of false positive values resulting from cross-contamination by target organisms, their nucleic acids or amplified product, or from non-specific signals in the assay.EMILIA SARS-CoV-2 Assay is a Real-Time reverse-transcriptase polymerase chain reaction (RT-PCR) based qualitative in vitro diagnostic test intended for the qualitative detection of nucleic acid from the SARS-CoV-2 in nasopharyngeal swab specimens collected from individuals suspected of COVID-19 by their healthcare provider. Testing is limited to laboratories certified under the Clinical Laboratory Improvement Amendments of 1988 (CLIA), 42 U.S.C. 263a, to perform moderate and high complexity tests. Invalid Interpretation Code AO Auto Urine SS WBC (Bld) [#/Vol] 6.40 103/mcL Invalid Interpretation Code 4.60 - 10.80 10^3/mcL AO Auto Heme SS LABORATORYOrdered By: Jade Padron on 09-30-2021 Albumin BCP dye [Mass/Vol] 3.2 G/dL Invalid Interpretation Code 3.4 - 4.8 G/dL AO ADM SS Albumin/Globulin [Mass ratio] 0.9 {ratio} Invalid Interpretation Code 1.1 - 2.5 ratio AO ADM SS ALP [Catalytic activity/Vol] 68 U/L Invalid Interpretation Code 40 - 135 U/L AO ADM SS ALT With P-5'-P [Catalytic activity/Vol] 43 U/L Invalid Interpretation Code 14 - 59 U/L AO ADM SS AST With P-5'-P [Catalytic activity/Vol] 41 U/L Invalid Interpretation Code 10 - 40 U/L AO ADM SS Bilirubin [Mass/Vol] 0.4 mg/dL Invalid Interpretation Code 0.2 - 1.0 mg/dL AO ADM SS Calcium [Mass/Vol] 8.5 mg/dL Invalid Interpretation Code 8.4 - 10.2 mg/dL AO ADM SS Chloride [Moles/Vol] 101 mmol/L Invalid Interpretation Code 98 - 107 mmol/L AO ADM SS CO2 [Moles/Vol] 33 mmol/L Invalid Interpretation Code 23 - 31 mmol/L AO ADM SS Creatinine [Mass/Vol] 0.73 mg/dL Invalid Interpretation Code 0.55 - 1.02 mg/dL AO ADM SS Electrolyte Balance 7.0 mEq/L Invalid Interpretation Code AO ADM SS Globulin 3.5 G/dL Invalid Interpretation Code AO ADM SS Glucose [Mass/Vol] 122 mg/dL Invalid Interpretation Code 83 - 110 mg/dL AO ADM SS Potassium [Moles/Vol] 4.0 mmol/L Invalid Interpretation Code 3.5 - 5.1 mmol/L AO ADM SS Protein [Mass/Vol] 6.7 G/dL Invalid Interpretation Code 6.4 - 8.2 G/dL AO ADM SS Sodium [Moles/Vol] 141 mmol/L Invalid Interpretation Code 136 - 145 mmol/L AO ADM SS Troponin I.cardiac DL <= 0.01 ng/mL [Mass/Vol] 8.0 ng/L Invalid Interpretation Code 0.0 - 51.4 ng/L AO ADM SS Urea nitrogen [Mass/Vol] 9 mg/dL Invalid Interpretation Code 7 - 18 mg/dL AO ADM SS Urea nitrogen/Creatinine [Mass ratio] 12 ratio Invalid Interpretation Code 7 - 27 ratio AO ADM SS LABORATORYOrdered By: SYSTEM SYSTEM on 09-30-2021 GFR 95 ml/min/1.73sqm Invalid Interpretation Code AO Chemistry S GFR Non- 79 ml/min/1.73sqm Invalid Interpretation Code AO Chemistry S LABORATORYOrdered By: Meeta Godinez on 09-30-2021 INR Coag (PPP) [Relative time] 6.6 {INR} Invalid Interpretation Code 0.9 - 1.2 ratio AO Coag SS PT Coag (PPP) [Time] 76.0 s Invalid Interpretation Code 9.7 - 14.3 seconds AO Coag SS ECG B/O W INTERP (MED OFFICE ) [facility] Vital Signs Date Time Vital Sign Value Performing Clinician Facility 07-10-2025 07:57-0400 Body height 152.[address] Larry Joyce DO Work Phone: [facility] 07-10-2025 07:57-0400 Body mass index (BMI) [Ratio] 37.5 kg/m2 Dr. Larry Joyce DO Work Phone: [facility] 07-10-2025 07:57-0400 Body temperature 97.3 [degF] Dr. Larry Joyce DO Work Phone: [facility] 07-10-2025 07:57-0400 Body weight 87.[address] Larry Joyce DO Work Phone: [facility] 07-10-2025 07:57-0400 Diastolic blood pressure 66 mm[Hg] Dr. Larry Joyce DO Work Phone: [facility] 07-10-2025 07:57-0400 Heart rate 85 /min Dr. Larry Joyce DO Work Phone: [facility] 07-10-2025 07:57-0400 Respiratory rate 18 /min Dr. Larry Joyce DO Work Phone: [facility] 07-10-2025 07:57-0400 SaO2% (BldA) [Mass fraction] 96 % Dr. Larry Joyce DO Work Phone: [facility] 07-10-2025 07:57-0400 Systolic blood pressure 116 mm[Hg] Dr. Larry Joyce DO Work Phone: [facility] 12-02-2024 11:28-0500 Diastolic Blood Pressure Non-Invasive 61 mm[Hg] DR BRENDEN LEON MD [facility] 12-02-2024 11:28-0500 Heart rate 69 /min DR BRENDEN LEON MD [facility] 12-02-2024 11:28-0500 Respiratory rate 16 /min DR BRENDEN LEON MD [facility] 12-02-2024 11:28-0500 Systolic Blood Pressure Non-Invasive 119 mm[Hg] DR BRENDEN LEON MD [facility] 12-02-2024 11:21-0500 Diastolic Blood Pressure Non-Invasive 58 mm[Hg] DR BRENDEN LEON MD [facility] 12-02-2024 11:21-0500 Heart rate 70 /min DR BRENDEN LEON MD [facility] 12-02-2024 11:21-0500 Respiratory rate 19 /min DR BRENDEN LEON MD [facility] 12-02-2024 11:21-0500 Systolic Blood Pressure Non-Invasive 112 mm[Hg] DR BRENDEN LEON MD [facility] 12-02-2024 11:15-0500 Body temperature 97.52 [degF] DR BRENDEN LEON MD [facility] 12-02-2024 11:15-0500 Diastolic Blood Pressure Non-Invasive 57 mm[Hg] DR BRENDEN LEON MD [facility] 12-02-2024 11:15-0500 Heart rate 66 /min DR BRENDEN LEON MD [facility] 12-02-2024 11:15-0500 Respiratory rate 19 /min DR BRENDEN LEON MD [facility] 12-02-2024 11:15-0500 Systolic Blood Pressure Non-Invasive 105 mm[Hg] DR BRENDEN LEON MD [facility] 12-02-2024 11:10-0500 Respiratory Rate - Anes 17 br/min DR BRENDEN LEON MD [facility] 12-02-2024 11:05-0500 Respiratory Rate - Anes 17 br/min DR BRENDEN LEON MD [facility] 12-02-2024 10:33-0500 Body height [address] BRENDEN LEON MD [facility] 12-02-2024 10:33-0500 Body temperature 96.8 [degF] DR BRENDEN LEON MD [facility] 12-02-2024 10:33-0500 Body weight 89.[address] BRENDEN LEON MD [facility] 12-02-2024 10:33-0500 Body weight 37.78 kg/m2 DR BRENDEN LEON MD [facility] 12-02-2024 10:33-0500 Heart rate 86 /min DR BRENDEN LEON MD [facility] 11-01-2024 09:59-0500 Body temperature 97.52 [degF] DR LARRY JOYCE DO [facility] 11-01-2024 09:59-0500 Diastolic Blood Pressure Non-Invasive 57 mm[Hg] DR LARRY JOYCE DO [facility] 11-01-2024 09:59-0500 Heart rate 77 /min DR LARRY JOYCE DO [facility] 11-01-2024 09:59-0500 Reason For Taking VItal Signs DR LARRY JOYCE DO [facility] 11-01-2024 09:59-0500 Respiratory rate 16 /min DR LARRY JOYCE DO [facility] 11-01-2024 09:59-0500 Systolic Blood Pressure Non-Invasive 116 mm[Hg] DR LARRY JOYCE DO [facility] 10-14-2024 12:56-0500 Body height 152.4 cm Susan Núñez APRN.RETAIL ANALYTICS MANAGER Work Phone: [facility] 10-14-2024 12:56-0500 Body mass index (BMI) [Ratio] 40.04 kg/m2 Susan Núñez APRN.RETAIL ANALYTICS MANAGER Work Phone: [facility] 10-14-2024 12:56-0500 Body weight 92.99 kg Susan Núñez APRN.RETAIL ANALYTICS MANAGER Work Phone: [facility] 10-14-2024 12:56-0500 Diastolic blood pressure 72 mm[Hg] Susan Núñez APRN.RETAIL ANALYTICS MANAGER Work Phone: [facility] 10-14-2024 12:56-0500 Heart rate 71 /min Susan Núñez SUPERVISOR RECLAMATION.RETAIL ANALYTICS MANAGER Work Phone: [facility] 10-14-2024 12:56-0500 Systolic blood pressure 120 mm[Hg] Susan Núñez SUPERVISOR RECLAMATION.RETAIL ANALYTICS MANAGER Work Phone: [facility] 04-15-2024 12:00-0400 Body temperature 97.88 [degF] DR LARRY JOYCE DO [facility] 04-15-2024 12:00-0400 Diastolic Blood Pressure Non-Invasive 59 mm[Hg] DR LARRY JOYCE DO [facility] 04-15-2024 12:00-0400 Heart rate 89 /min DR LARRY JOYCE DO [facility] 04-15-2024 12:00-0400 Reason For Taking VItal Signs DR LARRY JOYCE DO [facility] 04-15-2024 12:00-0400 Respiratory rate 16 /min DR LARRY JOYCE DO [facility] 04-15-2024 12:00-0400 Systolic Blood Pressure Non-Invasive 108 mm[Hg] DR LARRY JOYCE DO [facility] 12-28-2023 11:02-0500 SaO2% (BldA) [Mass fraction] 95 % Dr. Larry Joyce Work Phone: [facility] 12-28-2023 10:00-0500 Body temperature 98 [degF] Dr. Larry Joyce Work Phone: [facility] 12-28-2023 10:00-0500 Diastolic blood pressure 50 mm[Hg] Dr. Larry Joyce Work Phone: [facility] 12-28-2023 10:00-0500 Heart rate 75 /min Dr. Larry Joyce Work Phone: [facility] 12-28-2023 10:00-0500 Respiratory rate 16 /min Dr. Larry Joyce Work Phone: [facility] 12-28-2023 10:00-0500 Systolic blood pressure 116 mm[Hg] Dr. Larry Joyce Work Phone: [facility] 12-27-2023 21:28-0500 Inhaled oxygen flow rate 2 L/min Dr. Larry Joyce Work Phone: [facility] 12-27-2023 15:44-0500 Body height 152.[address] Larry Joyce Work Phone: [facility] 12-27-2023 15:44-0500 Body mass index (BMI) [Ratio] 42.2 kg/m2 Dr. Larry Joyce Work Phone: [facility] 12-27-2023 15:44-0500 Body weight [address] Larry Joyce Work Phone: [facility] 10-12-2023 11:50-0500 Body temperature 97.7 [degF] DR LARRY JOYCE DO [facility] 10-12-2023 11:50-0500 Diastolic Blood Pressure Non-Invasive 71 mm[Hg] DR LARRY JOYCE DO [facility] 10-12-2023 11:50-0500 Heart rate 66 /min DR LARRY JOYCE DO [facility] 10-12-2023 11:50-0500 Respiratory rate 16 /min DR LARRY JOYCE DO [facility] 10-12-2023 11:50-0500 Systolic Blood Pressure Non-Invasive 137 mm[Hg] DR LARRY JOYCE DO [facility] 10-09-2023 13:38-0500 Body height 152.4 cm Mary Cooper SUPERVISOR RECLAMATION.RETAIL ANALYTICS MANAGER Work Phone: [facility] 10-09-2023 13:38-0500 Body weight 102.06 kg Mary Cooper SUPERVISOR RECLAMATION.RETAIL ANALYTICS MANAGER Work Phone: [facility] 10-09-2023 13:38-0500 Diastolic blood pressure 70 mm[Hg] Mary Cooper SUPERVISOR RECLAMATION.RETAIL ANALYTICS MANAGER Work Phone: [facility] 10-09-2023 13:38-0500 Heart rate 76 /min Mary Cooper SUPERVISOR RECLAMATION.RETAIL ANALYTICS MANAGER Work Phone: [facility] 10-09-2023 13:38-0500 Systolic blood pressure 136 mm[Hg] Mary Cooper SUPERVISOR RECLAMATION.RETAIL ANALYTICS MANAGER Work Phone: [facility] 09-04-2023 14:00-0500 Heart rate 108 /min Dr. Larry Joyce Work Phone: [facility] 09-04-2023 14:00-0500 SaO2% (BldA) [Mass fraction] 91 % Dr. Larry Joyce Work Phone: [facility] 09-04-2023 07:54-0500 Body mass index (BMI) [Ratio] 40.9 kg/m2 Dr. Larry Joyce Work Phone: [facility] 09-04-2023 07:54-0500 Body temperature 96.9 [degF] Dr. Larry Joyce Work Phone: [facility] 09-04-2023 07:54-0500 Body weight 101.[address] Larry Joyce Work Phone: [facility] 09-04-2023 07:54-0500 Diastolic blood pressure 74 mm[Hg] Dr. Larry Joyce Work Phone: [facility] 09-04-2023 07:54-0500 Respiratory rate 20 /min Dr. Larry Joyce Work Phone: [facility] 09-04-2023 07:54-0500 Systolic blood pressure 117 mm[Hg] Dr. Larry Joyce Work Phone: [facility] 09-05-2022 14:11-0500 Body height 157.5 cm [employer] Work Phone: [facility] 09-05-2022 14:11-0500 Body weight 104.33 kg [employer] Work Phone: [facility] 09-05-2022 14:11-0500 Diastolic blood pressure 70 mm[Hg] [employer] Work Phone: [facility] 09-05-2022 14:11-0500 Heart rate 86 /min [employer] Work Phone: [facility] 09-05-2022 14:11-0500 Systolic blood pressure 138 mm[Hg] [employer] Work Phone: [facility] 06-08-2022 07:58-0400 Body height 157.[address] Larry Joyce Work Phone: [facility] Work Phone: 06-08-2022 07:58-0400 Body mass index (BMI) [Ratio] 41.1 kg/m2 Dr. Larry Joyce Work Phone: [facility] Work Phone: 06-08-2022 07:58-0400 Body temperature 96.4 [degF] Dr. Larry Joyce Work Phone: [facility] Work Phone: 06-08-2022 07:58-0400 Body weight 102.[address] Larry Joyce Work Phone: [facility] Work Phone: 06-08-2022 07:58-0400 Diastolic blood pressure 73 mm[Hg] Dr. Larry Joyce Work Phone: [facility] Work Phone: 06-08-2022 07:58-0400 Heart rate 83 /min Dr. Larry Joyce Work Phone: [facility] Work Phone: 06-08-2022 07:58-0400 Respiratory rate 16 /min Dr. Larry Joyce Work Phone: [facility] Work Phone: 06-08-2022 07:58-0400 SaO2% (BldA) [Mass fraction] 98 % Dr. Larry Joyce Work Phone: [facility] Work Phone: 06-08-2022 07:58-0400 Systolic blood pressure 116 mm[Hg] Dr. Larry Joyce Work Phone: [facility] Work Phone: 03-31-2022 11:16-0400 Body height 157.[address] Larry Joyce Work Phone: [facility] Work Phone: 03-31-2022 11:16-0400 Body mass index (BMI) [Ratio] 41.1 kg/m2 Dr. Larry Joyce Work Phone: [facility] Work Phone: 03-31-2022 11:16-0400 Body temperature 98 [degF] Dr. Larry Joyce Work Phone: [facility] Work Phone: 03-31-2022 11:16-0400 Body weight 102.[address] Larry Joyce Work Phone: [facility] Work Phone: 03-31-2022 11:16-0400 Diastolic blood pressure 65 mm[Hg] Dr. Larry Joyce Work Phone: [facility] Work Phone: 03-31-2022 11:16-0400 Heart rate 68 /min Dr. Larry Joyce Work Phone: [facility] Work Phone: 03-31-2022 11:16-0400 Respiratory rate 16 /min Dr. Larry Joyce Work Phone: [facility] Work Phone: 03-31-2022 11:16-0400 SaO2% (BldA) [Mass fraction] 97 % Dr. Larry Joyce Work Phone: [facility] Work Phone: 03-31-2022 11:16-0400 Systolic blood pressure 123 mm[Hg] Dr. Larry Joyce Work Phone: [facility] Work Phone: 02-22-2022 08:00-0400 Body height 157.5 cm Kamar Shea MD Work Phone: [facility] 02-22-2022 08:00-0400 Body weight 102.51 kg Kamar Shea MD Work Phone: [facility] 10-02-2021 13:08-0500 Heart rate 77 /min KENYA RIHARSHALARDI SUPERVISOR RECLAMATION-RETAIL ANALYTICS MANAGER [facility] 10-02-2021 13:08-0500 Respiratory rate 20 /min KENYA RIZZARDI SUPERVISOR RECLAMATION-RETAIL ANALYTICS MANAGER [facility] 10-02-2021 13:01-0500 Body temperature 97.88 [degF] KENYA RIZZARDI SUPERVISOR RECLAMATION-RETAIL ANALYTICS MANAGER [facility] 10-02-2021 13:01-0500 Diastolic blood pressure 67 mm[Hg] KENYA RIZZARDI SUPERVISOR RECLAMATION-RETAIL ANALYTICS MANAGER [facility] 10-02-2021 13:01-0500 Reason For Taking VItal Signs KENYA RIZZARDI SUPERVISOR RECLAMATION-RETAIL ANALYTICS MANAGER [facility] 10-02-2021 13:01-0500 Systolic blood pressure 131 mm[Hg] KENYA RIZZARDI SUPERVISOR RECLAMATION-RETAIL ANALYTICS MANAGER [facility] 10-02-2021 08:59-0500 Diastolic blood pressure 63 mm[Hg] KENYA RIZZARDI SUPERVISOR RECLAMATION-RETAIL ANALYTICS MANAGER [facility] 10-02-2021 08:59-0500 Heart rate 63 /min KENYA RIZZARDI SUPERVISOR RECLAMATION-RETAIL ANALYTICS MANAGER [facility] 10-02-2021 08:59-0500 Reason For Taking VItal Signs KENYA RIZZARDI SUPERVISOR RECLAMATION-RETAIL ANALYTICS MANAGER [facility] 10-02-2021 08:59-0500 Respiratory rate 18 /min KENYA RIZZARDI SUPERVISOR RECLAMATION-RETAIL ANALYTICS MANAGER [facility] 10-02-2021 08:59-0500 Systolic blood pressure 132 mm[Hg] KENYA RIZZARDI SUPERVISOR RECLAMATION-RETAIL ANALYTICS MANAGER [facility] 10-02-2021 04:25-0500 Body temperature 97.88 [degF] KENYA RIZZARDI SUPERVISOR RECLAMATION-RETAIL ANALYTICS MANAGER [facility] 10-02-2021 04:25-0500 Diastolic blood pressure 52 mm[Hg] KENYA RIZZARDI SUPERVISOR RECLAMATION-RETAIL ANALYTICS MANAGER [facility] 10-02-2021 04:25-0500 Heart rate 78 /min KENYA RIZZARDI SUPERVISOR RECLAMATION-RETAIL ANALYTICS MANAGER [facility] 10-02-2021 04:25-0500 Respiratory rate 20 /min KENYA RIZZARDI SUPERVISOR RECLAMATION-RETAIL ANALYTICS MANAGER [facility] 10-02-2021 04:25-0500 Systolic blood pressure 151 mm[Hg] KENYA RIZZARDI SUPERVISOR RECLAMATION-RETAIL ANALYTICS MANAGER [facility] 10-01-2021 23:35-0500 Body temperature 97.52 [degF] KENYA RIZZARDI SUPERVISOR RECLAMATION-RETAIL ANALYTICS MANAGER [facility] 10-01-2021 23:35-0500 Heart rate 68 /min KENYA RIZZARDI SUPERVISOR RECLAMATION-RETAIL ANALYTICS MANAGER [facility] 10-01-2021 21:04-0500 Heart rate 76 /min KENYA RIZZARDI SUPERVISOR RECLAMATION-RETAIL ANALYTICS MANAGER [facility] 10-01-2021 19:59-0500 Heart rate 84 /min KENYA RIZZARDI SUPERVISOR RECLAMATION-RETAIL ANALYTICS MANAGER [facility] 10-01-2021 16:41-0500 Heart rate 84 /min KENYA RIZZARDI SUPERVISOR RECLAMATION-RETAIL ANALYTICS MANAGER [facility] 10-01-2021 16:41-0500 Mean blood pressure 91 mm[Hg] KENYA RIZZARDI SUPERVISOR RECLAMATION-RETAIL ANALYTICS MANAGER [facility] 10-01-2021 16:41-0500 Reason For Taking VItal Signs KENYAPARISH SIMONARDI SUPERVISOR RECLAMATION-RETAIL ANALYTICS MANAGER [facility] 10-01-2021 11:18-0500 Heart rate 76 /min KENYAPARISH SIMONARDI SUPERVISOR RECLAMATION-RETAIL ANALYTICS MANAGER [facility] 10-01-2021 03:10-0500 Mean blood pressure 88 mm[Hg] KENYA RIHARSHALARDI SUPERVISOR RECLAMATION-RETAIL ANALYTICS MANAGER [facility] 10-01-2021 00:10-0500 Mean blood pressure 93 mm[Hg] KENYAPARISH SIMONARDI SUPERVISOR RECLAMATION-RETAIL ANALYTICS MANAGER [facility] 09-30-2021 20:57-0500 Body height 160 cm KENYAPARISH SIMONARDI SUPERVISOR RECLAMATION-RETAIL ANALYTICS MANAGER [facility] 09-30-2021 20:57-0500 Body weight 106.2 kg KENYAPARISH SIMONARDI SUPERVISOR RECLAMATION-RETAIL ANALYTICS MANAGER [facility] 09-30-2021 20:57-0500 Body weight 41.48 kg/m2 KENYA RIZZARDI SUPERVISOR RECLAMATION-RETAIL ANALYTICS MANAGER [facility] 09-30-2021 20:50-0500 Body weight 106.2 kg KENYA RIZZARDI SUPERVISOR RECLAMATION-RETAIL ANALYTICS MANAGER [facility] 09-30-2021 20:29-0500 Heart rate 84 /min KENYA SIMONTITA SUPERVISOR RECLAMATION-RETAIL ANALYTICS MANAGER [facility] 09-30-2021 14:13-0500 Body weight 105.1 kg KENYA THOMAS SUPERVISOR RECLAMATION-RETAIL ANALYTICS MANAGER [facility] Encounters Encounter Date Encounter Type Care Provider Facility Start: 09-09-2025 ambulatory Annia Sainz NP Fac ility:[facility] Start: 07-10-2025 End: 07-10-2025 Patient encounter procedure Annia Sainz NP-C -[facility] Work Phone: Start: 07-10-2025 End: 07-10-[address] Larry Joyce DO Work Phone: -[facility] Start: 05-05-2025 End: 05-05-[address] LARRY JOYCE DO Facility:[facility] Start: 05-05-2025 End: 05-05-[address] LARRY JOYCE DO [facility] Start: 03-18-2025 End: 03-18-[address] LARRY JOYCE DO Facility:[facility] Start: 03-18-2025 End: 03-18-[address] LARRY JOYCE DO [facility] Start: 01-30-2025 End: 01-30-2025 ambulatory Larry Joyce Facility:[facility] Start: 12-02-2024 End: 12-02-[address] LARRY JOYCE DO Facility:[facility] Start: 12-02-2024 End: 12-02-[address] BRENDEN LEON MD [facility] Start: 11-01-2024 End: 11-01-[address] LARRY JOYCE DO Facility:[facility] Start: 11-01-2024 End: 11-01-[address] LARRY JOYCE DO [facility] Start: 10-14-2024 End: 10-14-2024 Patient encounter procedure Susan Núñez SUPERVISOR RECLAMATION.RETAIL ANALYTICS MANAGER Work Phone: [facility] Comment on above: Benign hypertension (Primary Dx); Mixed hyperlipidemia; Atrial tachycardia (HCC); 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; BMI 40.0-44.9, adult (HCC); OLIVER (dyspnea on exertion) Start: 10-14-2024 End: 10-14-2024 ambulatory SUSAN NÚÑEZ Facility:[id number] Start: 10-08-2024 End: 10-08-[address] LARRY JOYCE DO Facility:[facility] Start: 10-08-2024 End: 10-08-[address] LARRY JOYCE DO [facility] Start: 10-04-2024 End: 10-04-[address] LARRY JOYCE DO Facility:[facility] Start: 10-04-2024 End: 10-04-[address] LARRY JOYCE DO [facility] Start: 09-30-2024 End: 09-30-2024 ambulatory Annia Sainz NP Facility:[facility] Start: 09-06-2024 End: 09-06-2024 ambulatory Annia Sainz NP Facility:[facility] Start: 04-15-2024 End: 04-15-[address] LARRY JOYCE DO Facility:[facility] Start: 04-15-2024 End: 04-15-[address] LARRY JOYCE DO [facility] Start: 03-15-2024 End: 03-15-[address] LARRY JOYCE DO Facility:[facility] Start: 12-27-2023 Non-patient / Non-visit Dr. Janel Joyce Work Phone: [facility] Work Phone: Start: 12-27-2023 End: 12-28-2023 Evaluation and management of inpatient Dr. Larry Joyce Work Phone: [facility] Work Phone: Start: 12-27-2023 End: 12-28-[address] Larry Joyce Work Phone: [facility] Work Phone: Start: 12-12-2023 Patient encounter procedure [facility] Provider [facility] Start: 12-08-2023 Patient encounter procedure [facility] Provider [facility] Start: 11-30-2023 End: 11-30-2023 Non-patient / Non-visit Dr. Larry Joyce Work Phone: [facility] Work Phone: Start: 10-12-2023 End: 10-12-[address] LARRY JOYCE DO Facility:[facility] Start: 10-12-2023 End: 10-12-[address] LARRY JOYCE DO [facility] Start: 10-09-2023 End: 10-09-2023 Patient encounter procedure Mary Cooper APRN.RETAIL ANALYTICS MANAGER Work Phone: [facility] Comment on above: Atrial tachycardia ( Primary Dx); Benign hypertension; Mixed hyperlipidemia; half-way (current) use of anticoagulants; Personal history of DVT (deep vein thrombosis) Start: 10-03-2023 End: 10-03-[address] LARRY JOYCE DO Facility:B Start: 10-03-2023 End: 10-03-[address] LARRY JOYCE DO [facility] Start: 09-15-2023 End: 09-19-[address] LARRY JOYCE DO Facility:B Start: 09-14-[address] LARRY JOYCE DO Fac ility:B Start: 09-11-[address] LARRY JOYCE DO Fac ility:B Start: 09-04-2023 End: 09-04-[address] Larry Joyce Work Phone: [facility]-Pulmonary Medicine [facility] Work Phone: Start: 07-19-2023 End: 10-30-[address] NORAH TURNER MD Facility:B Start: 03-03-2023 End: 03-03-[address] LARRY JOYCE DO [facility] Start: 09-29-2022 End: 09-29-[address] LARRY JOYCE DO [facility] Start: 09-05-2022 End: 09-05-2022 ambulatory ADOLFO GONSALES DO Facility:[facility] Start: 09-05-2022 End: 09-05-2022 Patient encounter procedure Adolfo Gonsales DO Work Phone: [facility] Comment on above: Benign hypertension (Primary Dx); Mixed hyperlipidemia; half-way (current) use of anticoagulants; Sinus tachycardia; H/O echocardiogram; History of stress test; Hx of cardiac catheterization; Non-smoker Start: 07-15-2022 End: 07-15-[address] Larry Joyce Work Phone: [facility] Work Phone: Start: 07-15-2022 End: 07-15-[address] Larry Joyce Work Phone: [facility]-Physical Therapy Start: 06-27-[address] Larry Joyce Work Phone: [facility]-Physical Therapy Start: 06-21-2022 End: 06-21-[address] Larry Joyce Work Phone: [facility] Work Phone: Start: 06-21-2022 End: 06-21-[address] Larry Joyce Work Phone: [facility]-Sleep Lab Start: 06-08-2022 End: 06-08-[address] [facility] Start: 06-07-2022 End: 06-07-[address] LARRY JOYCE DO [facility] Start: 06-02-2022 End: 06-06-2022 Outreach Lab TA [place] SUPERVISOR RECLAMATION-RETAIL ANALYTICS MANAGER [facility] Start: 05-31-2022 End: 05-31-[address] Larry Joyce Work Phone: [facility]-MRI - [facility] Start: 05-05-2022 End: 05-05-[address] Larry Joyce Work Phone: [facility]-Sleep Lab Start: 04-22-2022 End: 04-22-[address] Larry Joyce Work Phone: [facility]-Sleep Lab Start: 03-31-2022 End: 03-31-[address] Larry [facility] Start: 03-07-2022 End: 03-07-2022 Patient encounter procedure [facility]-Radiology, [facility] Start: 03-01-2022 Telephone encounter Susan guan SUPERVISOR RECLAMATION.RETAIL ANALYTICS MANAGER Work Phone: [facility] Comment on above: Results Start: 02-22-2022 End: 02-22-2022 ambulatory LARRY JOYCE Facility:[facility] Start: 02-22-2022 End: 02-22-2022 Patient encounter procedure Kamar Shea MD Work Phone: [facility] Comment on above: Benign hypertension (Primary Dx); Mixed hyperlipidemia; Sinus tachycardia; Atrial tachycardia (HCC); Morbid obesity (HCC); Hx of cardiac catheterization Start: 01-24-2022 Telephone encounter Susan guan SUPERVISOR RECLAMATION.RETAIL ANALYTICS MANAGER Work Phone: [facility] Comment on above: Results Start: 12-20-2021 End: 12-20-2021 Patient encounter procedure SUSAN NÚÑEZ SUPERVISOR RECLAMATION-RETAIL ANALYTICS MANAGER [facility] Start: 12-16-2021 End: 12-16-2021 ambulatory LARRY JOYCE Facility:[facility] Start: 12-08-2021 End: 12-08-2021 Patient encounter procedure ADOLFO GONSALES DO [facility] Start: 12-07-2021 End: 12-07-2021 ambulatory LARRY JOYCE Facility:[facility] Start: 11-29-2021 End: 11-29-2021 ambulatory LRARY JOYCE Facility:[facility] Start: 11-16-2021 End: 11-16-[address] LARRY JOYCE DO [facility] Start: 10-20-2021 End: 10-20-[address] LARRY JOYCE DO [facility] Start: 09-30-2021 End: 10-02-2021 Evaluation and management of inpatient KENYA THOMAS SUPERVISOR RECLAMATION-RETAIL ANALYTICS MANAGER [facility] Start: 09-14-2021 End: 09-14-[address] LARRY JOYCE DO [facility] Procedures Date Procedure Procedure Detail Performing Clinician Start: 10-14-2024 Ecg routine ecg w/le ast 12 lds i&r only Susan Núñez SUPERVISOR RECLAMATION.RETAIL ANALYTICS MANAGER Work Phone: Start: 12-27-2023 Plain X-ray of hip Dr. Larry Joyce Work Phone: Start: 12-27-2023 Fluoroscopic guidance Sg Joyce Work Phone: Start: 12-27-2023 Plain x-ray of pelvi s and lower extremity Dr. Larry Joyce Work Phone: Start: 12-27-2023 Total replacement of hip Dr. Larry Joyce Work Phone: Start: 12-27-2023 Right hip region str ucture (body structure) DR LARRY JOYCE DO Comment on above: Total replacement Start: 11-30-2023 Nasal Screen MRSA/MSSA Dr. Larry Joyce Work Phone: Start: 10-09-2023 Ecg routine ecg w/le ast 12 lds i&r only Susan Núñez SUPERVISOR RECLAMATION.RETAIL ANALYTICS MANAGER Work Phone: Start: 05-31-2022 MRI of lumbar spine Dr. Larry Joyce Work Phone: Start: 03-07-2022 X-ray of lumbar spin e, two or three views Start: 02-22-2022 Ecg routine ecg w/le ast 12 lds w/i&r Kamar Shea MD Work Phone: Start: 04-09-[address] LARRY RANDOLPH DO Start: 11-30-2017 Bilateral cataracts (disorder) DR LARRY JOYCE DO Comment on above: SECOND SURGERY JANUARY 2018 Start: 10-30-[address] LARRY RANDOLPH DO Start: 10-30-[address] WILL JOYCE DO Appendectomy DR LARRY Nixon DO Cataract (morphologi c abnormality) DR LARRY JOYCE DO Comment on above: bilateral Ligation of fallopian tube D Tiffani JOYCE DO Plan of Treatment Date Care Activity Detail Author Start: 06-22-2028 Urine microalbumin profile DTaP,Tdap,Td Vaccine (3 - Td or Tdap) [facility] Start: 10-15-2025 End: 10-15-2025 Patient encounter procedure 10/15/2025 1:00 PM EST Office Visit [facility] [address] [place] [address] Susan Núñez, SUPERVISOR RECLAMATION.RETAIL ANALYTICS MANAGER [address] [facility] [address] [place] [address] 1 year follow up [facility] Comment on above: 1 year follow up Start: 10-14-2025 BP Controlled (<130/80) BP Controlle d (<130/80) [facility] Start: 12-28-2024 DIABETES SCREEN DIABETES SCREEN [facility] Start: 12-28-2024 Diabetes Screening Diabetes Screenin g [facility] Start: 06-30-2024 Covid-19 Vaccine ( season) Covid-19 Vaccine () [facility] Start: 12-28-2023 Patient discharge [facility] Start: 12-27-2023 Application of intermittent pneumatic compression device [facility] Start: 12-27-2023 Following clinical pathway protocol [facility] Start: 12-27-2023 Provision of overbed trapeze [facility] Start: 12-27-2023 Admission procedure [facility] Start: 12-27-2023 Ambulation therapy management [facility] Start: 12-27-2023 Application of device W [facility] Start: 12-27-2023 Assessment of risk o f venous thromboembolism [facility] Start: 12-27-2023 Catheterization of vein [facility] Start: 12-27-2023 Exercises [facility] Start: 12-27-2023 Following clinical pathway protocol [facility] Start: 12-27-2023 Incentive spirometry [facility] Start: 12-27-2023 Introduction of urin piedad catheter [facility] Start: 12-27-2023 Measuring intake and output [facility] Start: 12-27-2023 Neurovascular assessment [facility] Start: 12-27-2023 Patient education [facility] Start: 12-27-2023 Procedure discontinued [facility] Start: 12-27-2023 Provision of activit y privileges [facility] Start: 12-27-2023 Recommendation to continue with treatment [facility] Start: 12-27-2023 Referral to occupati onal therapist [facility] Start: 12-27-2023 Referral to service [facility] Start: 12-27-2023 Vital signs measurements [facility] Start: 12-27-2023 Wound care [facility] Start: 12-27-2023 [facility] Start: 12-27-2023 Consultation [facility] Start: 10-30-2023 Advance Directive Discussion Advance Directive Discussion [facility] Start: 10-30-2022 Advance Directive Discussion Advance Directive Discussion [facility] Start: 06-30-2022 Influenza vaccination INFLUENZ A (Season Ended) [facility] Start: 10-30-2021 ADVANCE DIRECTIVE DISCUSSION ADVANCE DIRECTIVE DISCUSSION [facility] Start: 06-30-2021 Influenza vaccination INFLUENZA (#1) [facility] Start: 03-01-2021 Screening for malign ant neoplasm of colon [facility] Start: 2014 BONE DENSITY BONE DENSITY [facility] Start: 2014 Bone Density Screening Bone Density Screening [facility] Start: 2014 PNEUMOCOCCAL: 65+ (1 - PCV) PNEUMOCOCCAL: 65+ (1 - PCV) [facility] Start: 2014 PNEUMOVAX AGE 65 AND OVER WITH 5YR LOOKBACK (#1) PNEUMOVAX AGE 65 AND OVER WITH 5YR LOOKBACK (#1) [facility] Start: 2014 Screening for osteoporosis Bone Density Screening [facility] Start: 2009 RSV Vaccine (1 - 1-d ose 60+ series) RSV Vaccine (1 - 1-dose 60+ series) [facility] Start: 2009 RSV Vaccine (1 - Ris k 60-74 years 1-dose series) RSV Vaccine (1 - Risk 60-74 years 1-dose series) [facility] Start: 1999 SHINGRIX VACCINE (1 of 2) JIMÉNEZ GRIX VACCINE (1 of 2) [facility] Start: 1994 COLOGUARD (FIT-DNA) COLOGUARD (FIT-D NA) [facility] Start: 1994 Colonoscopy COLONOSCOPY [facility] Start: 1994 COLORECTAL CANCER SCREENING COLORECTAL CANCER SCREENING [facility] Start: [address] COLONOGRAPHY [facility] Start: 1994 DIABETES SCREEN DIABETES SCREEN [facility] Start: 1994 FECAL OCCULT BLOOD FECAL OCCULT BLOO D [facility] Start: 1994 Lipid 1996 panel - S helio or Plasma Lipid Screening [facility] Start: 1994 Lipid panel Lipid Screening [facility] Start: 1994 LIPID SCREEN LIPID SCREEN [facility] Start: 1994 Screening for malign ant neoplasm of colon [facility] Start: 1994 SIGMOIDOSCOPY SIGMOIDOSCOPY [facility] Start: 1989 Mammography [facility] Start: 1989 Screening for malign ant neoplasm of breast Mammogram Screening [facility] Start: 1968 Urine microalbumin profile DTAP,TDAP,TD (1 - Tdap) [facility] Start: 1967 ANNUAL PCP TEAM 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 ENGINEER SAGAR DISEASE VISIT ANNUAL PCP TEAM CHRONIC DISEASE VISIT [facility] Start: 1967 Anxiety Screening Anxiety Screening [facility] Start: 1967 BP CONTROLLED (<130/80) BP CONTROLLE D (<130/80) [facility] Start: 1967 HEPATITIS C SCREENING HEPATITIS C SC ASAD [facility] Start: 1967 Hepatitis C screening Hepatitis [facility] Start: 1954 COVID-19 VACCINE (1) COVID-19 VACCIN E (1) [facility] Start: 04-28-1950 COVID-19 VACCINE (#1) COVID-19 VACCI NE (#1) [facility] ECG COMPLETE ECG COMPLETE ECG Routine Benign hypertension 09/05/2022 3:15 PM EST [facility] Work Phone: ECG COMPLETE ECG COMPLETE ECG Routine Atrial tachycardia 10/09/2023 2:37 PM EST [facility] Work Phone: ECG COMPLETE ECG COMPLETE ECG Routine Atrial tachycardia (HCC) 10/14/2024 1:51 PM EST [facility] Work Phone: Exercise tolerance test [facility] Patient referral [facility] Work Phone: Polysomnography [facility] Immunizations Immunization Date Immunization Notes Care Provider [facility] 09-10-2024 influenza, high dose seasonal, preservative-free; Translations: [Fluad PF Prefilled Syringe ] DR LARRY JOYCE DO [facility] 09-07-2023 Pneumococcal conjuga te PCV20, polysaccharide [id number] conjugate, adjuvant, PF; Translations: [Prevnar 20] DR LARRY JOYCE DO [facility] 09-07-2023 influenza, high dose seasonal, preservative-free; Translations: [Fluad Quadrivalent PF ] DR LARRY JOYCE DO [facility] 09-01-2022 influenza, high dose seasonal, preservative-free DR LARRY JOYCE DO [facility] 09-07-2020 influenza virus vacc ine, unspecified formulation DR LARRY JOYCE DO [facility] Comment on above: Location History: [facility] [place] 06-22-2018 tetanus toxoid, redu jono diphtheria toxoid, and acellular pertussis vaccine, adsorbed DR LARRY JOYCE DO [facility] 01-26-2015 pneumococcal conjuga te vaccine, [address] LARRY JOYCE DO [facility] 03-19-2007 tetanus toxoid, redu jono diphtheria toxoid, and acellular pertussis vaccine, adsorbed DR LARRY JOYCE DO [facility] 03-04-2002 pneumococcal polysaccharide vaccine, [address] LARRY JOYCE DO [facility] Payers Date Payer Category Payer Self-pay [id number] 2023 Medicare [id number] 2016 Unknown [place] [id number] 2016-Present [phone] [address] [place] [address] Indemnity [id number] 2016 Private Health Insurance [facility] [id number] 2016 Unknown [id number] 2016 Unknown [id number]. [id number]. [id number] 2014 Medicare MEDICARE MEDICAR E A AND B [id number] 2014-Present [phone] [address] [address] [place] [address] Medicare [id number]. [id number] 2014 Medicare [id number]. 1.13.159. 2.7.3.996049.315 2014 Medicare [id number] 1949 Unknown [id number] 2.16.840.1.262201.3.579. 2. 1949 Unknown [id number] 2.16.840.1.313154.3.579. 2.62 1949 Unknown [id number] 2.16840.1.885758.3.579. 2.62 1949 Unknown [id number] 2.16840.1.402414.3.579. 2.62 1949 Unknown [id number] 2.16.840.1.814581.3.579. 2.62 1949 Unknown [id number] 2.16.840.1.683872.3.579. 2.62 1949 Unknown [id number] 2.16.840.1.884180.3.579. 2.62 1949 Unknown [id number] 2.16.840.1.538327.3.579. 2.62 1949 Unknown [id number] 2.16.840.1.207191.3.579. 2.62 1949 Unknown [id number] 2.16.840.1.824834.3.579. 2.62 1949 Unknown [id number] 2.16.840.1.012177.3.579. 2.627 1949 Unknown [id number] 2.16.840.1.806815.3.579. 2.627 1949 Unknown [id number] 2.16.840.1.239286.3.579. 2.627 1949 Unknown [id number] 2.16.840.1.878818.3.579. 2.627 Unknown [id number] Unknown [id number] 2.16.840.1.431956.3.579. 2.462 Unknown [id number] 2.16.840.1.834628.3.579. 2.462 Unknown [id number] 2.16.840.1.019815.3.579. 2.462 Unknown [id number] 2.16.840.1.074326.3.579. 2.462 Unknown [id number] 2.16.840.1.742760.3.579. 2.462 Social History Date Type Detail Facility Start: 06-21-2019 End: 11-27-2023 Never smoked tobacco (finding) [facility] Comment on above: no smoke exposure Start: 1950 Sex Assigned At Female A [facility] Start: 11-23-2021 End: 10-09-2023 Tobacco use and exposure Smokeless tobacco non-user [facility] Start: 12-29-2021 End: 10-14-2024 Alcohol intake Lifetime non-drinker (finding) [facility] Start: 11-23-2021 History SDOH Alcohol Frequency 1 [facility] Start: 1950 Sex Assigned At Not on file C [facility] Start: 02-12-2022 End: 09-05-2022 Exposure to SARS-CoV-2 (event) Not sure [facility] Start: 03-31-2022 End: 11-27-2023 Tobacco smoking status NHIS Unknown if ever smoked [facility] Start: 10-09-2023 End: 10-14-2024 History of Social function [facility] Start: 10-09-2023 End: 10-14-2024 Tobacco use panel [facility] National Score (1-100), lower number is lower risk 67 [facility] Sexual Orientation [place] [facility] Start: 04-24-2019 Sex Female (finding) [facility] NEGATED: Highlighted rowStart: NINF History of tobacco use Passive smoker [facility] Medical Equipment Procedure Code Equipment Code Equipment Origin al Text Equipment Identifier Dates 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 approach ([id number]) Ceramic femoral head prosthesis ()[id number] FDA Start: 12-27-2023 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 approach ([id number]) Non-constrained polyethylene acetabular liner ()[id number] FDA Start: 12-27-2023 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 approach ([id number]) Acetabular shell ()[id number] FDA Start: 12-27-2023 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 approach ([id number]) Coated hip femur prosthesis, modular ()[id number] FDA Start: 12-27-2023 Goals Date Patient Goal Desired Activity /State Personal health goal Functional Status Date Assessment Result Facility 12-02-2024 [facility]28[facility] Functional status Chair [facility] Work Phone: 12-27-2023 Functional status With Assist of 1 [facility] Work Phone: Mental Status Date Assessment Result Facility 12-02-2024 Mental Status Oriented x 4 [place] [facility] 12-28-2023 Cognitive function Level Of Cons ciousness Awake;Alert;Appropriate;Follow s Commands [facility] Work Phone: 12-27-2023 Cognitive function Voice/Name [facility] Work Phone: Clinical Notes 09-30-2021 to 05-05-2025 Note Date & Type Note Facility 05-05-2025 Nurse Progress note patient tolerated prolia injection without signs or symptoms of a reaction Digitally Signed by Annia Hudson RN on 05/05/2025 02:20 PM [facility] 12-02-2024 Evaluation + Plan note Extrac noman from: Title:Clinical Document Author:BRENDEN LEON Date:12/02/24 [place] ADMISSION HISTORY AN D PHYSICIAL CHIEF COMPLAINT: HISTORY OF PRESENT ILLNESS: REVIEW OF SYSTEMS: ACTIVE PROBLEMS: (16) Abnormal CT scan, lung (0920029199) Atrial tachycardia (631007456) BMI 40.0-44.9, adult (9259388526) DVT (deep vein thrombosis) in (28692971) DVT - Deep vein thrombosis (7240155796) History of DVT in adulthood (8184458917) Hyperlipidemia (42319766) Hypertension (0370811077) Iron deficiency (87087239) Moderate recurrent major depression (789388070) Morbid obesity (329495877) LEELA (obstructive sleep apnea) (070856268) Osteoarthritis, knee (486260839) Osteoporosis (328914770) Shingles (0857126) Vitamin D deficiency (02013590) MEDICATIONS: Active Inpt Meds: None Active PRN Meds: None One Time Meds: None Active IV Meds: Lactated Ringers Infusion 1,000 mL (LR 1,000 mL) Start: 12/02/24 10:25:00 EST, Rate: 50 mL/hr, 12/02/24 10:25:00 EST ALLERGIES: (1) NKA FAMILY HISTORY: SOCIAL HISTORY: PHYSICAL EXAM: VITALS: DixcmjCikzYSNrepjLWIcG6GRS9HjapCm(kg) 12/02 10:3336--151006SW59/03 89.6 24 Hr Tmax: 36 at 12/02 10:33 36 Hr Tmax: 36 at 12/02 10:33 Vital Signs are the last 5 in the past 48 hours. Weights display the last 5 within 7 days. Initial Wt: 12/02 89.6 kg 197 lb Current Wt: 12/02 89.6 kg 197 lb GENERAL: HEENT: CARDIOVASCULAR: RESPIRATORY: ABDOMEN: EXREMETIES: NEUROLOGICAL: PSYCHIATRIC: LABS: No 36hr Lab Data DIAGNOSTICS: IMPRESSION: PLAN: History and Physical Update I have examined the patient; reviewed the H&P and there are no changes to the H&P unless noted below. Future Appointments Appointment Date:03/11/2025 02:00:00 PM Scheduled Provider:LARRY JOYCE DO Location:[facility] Appointment Type:[facility] 02-03-2025 Hospital Discharge instructions Patient Education 12/02/2024 11:17:45 Colon Polyps Colon Polyps Polyps are tissue growths inside the body. Polyps can grow in many places, including the large intestine (colon). A polyp may be a round bump or a mushroom-shaped growth. You could have one polyp or several. Most colon polyps are noncancerous (benign). However, some colon polyps can become cancerous over time. Finding and removing the polyps early can help prevent this. What are the causes? The exact cause of colon polyps is not known. What increases the risk? You are more likely to develop this condition if you: Have a family history of colon cancer or colon polyps. Are older than 50 or older than 45 if you are . Have inflammatory bowel disease, such as ulcerative colitis or Crohn's disease. Have certain hereditary conditions, such as: ?Familial adenomatous polyposis. ?Shafer syndrome. ?Turcot syndrome. ?Peutz Jeghers syndrome. Are overweight. Smoke cigarettes. Do not get enough exercise. Drink too much alcohol. Eat a diet that is high in fat and red meat and low in fiber. Had childhood cancer that was treated with abdominal radiation. What are the signs or symptoms? Most polyps do not cause symptoms. If you have symptoms, they may include: Blood coming from your rectum when having a bowel movement. Blood in your stool. The stool may look dark red or black. Abdominal pain. A change in bowel habits, such as constipation or diarrhea. How is this diagnosed? This condition is diagnosed with a colonoscopy. This is a procedure in which a lighted, flexible scope is inserted into the anus and then passed into the colon to examine the area. Polyps are sometimes found when a colonoscopy is done as part of routine cancer screening tests. How is this treated? Treatment for this condition involves removing any polyps that are found. Most polyps can be removed during a colonoscopy. Those polyps will then be tested for cancer. Additional treatment may be needed depending on the results of testing. Follow these instructions at home: Lifestyle Maintain a healthy weight, or lose weight if recommended by your health care provider. Exercise every day or as told by your health care provider. Do not use any products that contain nicotine or tobacco, such as cigarettes and e-cigarettes. If you need help quitting, ask your health care provider. If you drink alcohol, limit how much you have: ?0 1 drink a day for women. ? 0 2 drinks a day for men. Be aware of how much alcohol is in your drink. In the [place] one drink equals one 12 oz bottle of beer (355 mL), one 5 oz glass of wine (148 mL), or one 1 oz shot of hard liquor (44 mL). Eating and drinking Eat foods that are high in fiber, such as fruits, vegetables, and whole grains. Eat foods that are high in calcium and vitamin D, such as milk, cheese, yogurt, eggs, liver, fish, and broccoli. Limit foods that are high in fat, such as fried foods and desserts. Limit the amount of red meat and processed meat you eat, such as hot dogs, sausage, molina, and lunch meats. General instructions Keep all follow-up visits as told by your health care provider. This is important. ?This includes having regularly scheduled colonoscopies. ?Talk to your health care provider about when you need a colonoscopy. Contact a health care provider if: You have new or worsening bleeding during a bowel movement. You have new or increased blood in your stool. You have a change in bowel habits. You lose weight for no known reason. Summary Polyps are tissue growths inside the body. Polyps can grow in many places, including the colon. Most colon polyps are noncancerous (benign), but some can become cancerous over time. This condition is diagnosed with a colonoscopy. Treatment for this condition involves removing any polyps that are found. Most polyps can be removed during a colonoscopy. This information is not intended to replace advice given to you by your health care provider. Make sure you discuss any questions you have with your health care provider. Document Released: 07/12/2005 Document Revised: 01/31/2019 Document Reviewed: 01/31/2019 [employer] Patient Education [employer] 12/02/2024 11:17:39 Moderate Conscious Sedation, Adult, Care After Moderate Conscious Sedation, Adult, Care After These instructions provide you with information about caring for yourself after your procedure. Your health care provider may also give you more specific instructions. Your treatment has been plannedaccording to current medical practices, but problems sometimes occur. Call your health care provider if you have any problems or questions after your procedure. What can I expect after the procedure? After your procedure, it is common: To feel sleepy for several hours. To feel clumsy and have poor balance for several hours. To have poor judgment for several hours. To vomit if you eat too soon. Follow these instructions at home: For at least 24 hours after the procedure: Do not: ?Participate in activities where you could fall or become injured. ?Drive. ?Use heavy machinery. ?Drink alcohol. ?Take sleeping pills or medicines that cause drowsiness. ?Make important decisions or sign legal documents. ?Take care of children on your own. Rest. Eating and drinking Follow the diet recommended by your health care provider. If you vomit: ?Drink water, juice, or soup when you can drink without vomiting. ?Make sure you have little or no nausea before eating solid foods. General instructions Have a responsible adult stay with you until you are awake and alert. Take kcfv-nky-ohganny and prescription medicines only as told by your health care provider. If you smoke, do not smoke without supervision. Keep all follow-up visits as told by your health care provider. This is important. Contact a health care provider if: You keep feeling nauseous or you keep vomiting. You feel light-headed. You develop a rash. You have a fever. Get help right away if: You have trouble breathing. This information is not intended to replace advice given to you by your health care provider. Make sure you discuss any questions you have with your health care provider. Document Released: 08/06/2014 Document Revised: 09/28/2018 Document Reviewed: 02/04/2017 [employer] Patient Education 2020 [employer] 12/02/2024 11:17:34 Colonoscopy, Adult, Care After, Fsoo-qa-Qphx Colonoscopy, Adult, Care After This sheet gives you information about how to care for yourself after your procedure. Your doctor may also give you more specific instructions. If you have problems or questions, call your doctor. What can I expect after the procedure? After the procedure, it is common to have: A small amount of blood in your poop for 24 hours. Some gas. Mild cramping or bloating in your belly. Follow these instructions at home: General instructions For the first 24 hours after the procedure: ?Do not drive or use machinery. ?Do not sign important documents. ?Do not drink alcohol. ?Do your daily activities more slowly than normal. ?Eat foods that are soft and easy to digest. Take kvgt-qby-yskeicw or prescription medicines only as told by your doctor. To help cramping and bloating: Try walking around. Put heat on your belly (abdomen) as told by your doctor. Use a heat source that your doctor recommends, such as a moist heat pack or a heating pad. ?Put a towel between your skin and the heat source. ?Leave the heat on for 20 30 minutes. ?Remove the heat if your skin turns bright red. This is especially important if you cannot feel pain, heat, or cold. You can get burned. Eating and drinking Drink enough fluid to keep your pee (urine) clear or pale yellow. Return to your normal diet as told by your doctor. Avoid heavy or fried foods that are hard to digest. Avoid drinking alcohol for as long as told by your doctor. Contact a doctor if: You have blood in your poop (stool) 2 3 days after the procedure. Get help right away if: You have more than a small amount of blood in your poop. You see large clumps of tissue (blood clots) in your poop. Your belly is swollen. You feel sick to your stomach (nauseous). You throw up (vomit). You have a fever. You have belly pain that gets worse, and medicine does not help your pain. Summary After the procedure, it is common to have a small amount of blood in your poop. You may also have mild cramping and bloating in your belly. For the first 24 hours after the procedure, do not drive or use machinery, do not sign important documents, and do not drink alcohol. Get help right away if you have a lot of blood in your poop, feel sick to your stomach, have a fever, or have more belly pain. This information is not intended to replace advice given to you by your health care provider. Make sure you discuss any questions you have with your health care provider. Document Released: 11/18/2011 Document Revised: 08/16/2018 Document Reviewed: 07/10/2017 [employer] Patient Education 2020 [employer]. Follow Up Care 11/22/2024 10:08:25 With:BRENDEN LEON MD Address: [address] [facility] [address] [place] [address] [phone] When: Unknown [facility] 02-03-2025 Note Discharge Instructions Thank you for allowing [facility] to assist you with your healthcare needs. The following is importantdischarge information regarding your hospital visit. Your Care Team LARRY JOYCE DO DR. LEON What to do next Scheduled Follow-Up Appointments Appointment Type When With Where Contact Information StatusPC OV 03/11/2025 02:00 PM EDT LARRY JOYCE DO [address] [id number] Confirmed Follow Up Appointments Follow Up with BRENDEN LEON MD Where:[address] [facility] [address] [place] [address] [phone] The Following Activity and Diet Have Been Ordered for You Discharge Activity - Ordered -- NO activity restrictions, 12/02/24 11:13:00 EST Discharge Diet - Ordered -- Follow the post-operative/post-procedure diet instructions provided by your physician's office.,12/02/24 11:13:00 EST Allergies NKA Medications Please ask your primary doctor or pharmacist before taking any other medication not listed, including over the counter drugs, herbal medications, vitamins and or supplements as they may interact withyour home medications. What How Much When Instructions Last Dose Unchanged ascorbic acid (Vitamin C 1000 mg oral tablet) 1 tab(s) by mouth Once a day Unchanged benazepril (benazepril 10 mg oral tablet) 1 tab(s) by mouth Every day Unchanged cholecalciferol (Vitamin D3) 2000 by mouth Once a day Unchanged denosumab (Prolia 60 mg/ mL subcutaneous solution) 1 Milliliter Subcutaneous Every 6 months Unchanged DME See Instructions Unchanged fluticasone nasal (fluticasone proprionate NASAL 50 mcg/ spray) 2 spray(s) in the nose Two (2) times a day in each nostril Unchanged Misc Medication Insta Flex - for joints takes one daily Unchanged rivaroxaban (Xarelto 20 mg oral tablet) 1 tab(s) by mouth With supper Unchanged simvastatin (simvastatin 10 mg oral tablet) 1 tab(s) by mouth Daily at bedtime Unchanged venlafaxine (venlafaxine 37.5 mg oral capsule, extended release) 1 cap by mouth Once a day Unchanged verapamil (verapamil 240 mg/ 12 hours oral tablet, extended release) 1 tab(s) by mouth Every 12 hours Unchanged zinc gluconate (zinc (as gluconate) 50 mg oral tablet) 1 tab(s) by mouth Every day Please take this list to your next doctor s visit. Bring all medications you take, including over the counter medications, herbals and other supplements with you to your doctor s visit. Patients and families are reminded to discard old lists and to update any records with all medication providers or retail pharmacies. Education Materials Colon Polyps Polyps are tissue growths inside the body. Polyps can grow in many places, including the large intestine (colon). A polyp may be a round bump or a mushroom-shaped growth. You could have one polyp or several. Most colon polyps are noncancerous (benign). However, some colon polyps can become cancerous over time. Finding and removing the polyps early can help prevent this. What are the causes? The exact cause of colon polyps is not known. What increases the risk? You are more likely to develop this condition if you: Have a family history of colon cancer or colon polyps. Are older than 50 or older than 45 if you are . Have inflammatory bowel disease, such as ulcerative colitis or Crohn's disease. Have certain hereditary conditions, such as: ? Familial adenomatous polyposis. ? Shafer syndrome. ? Turcot syndrome. ? Peutz Jeghers syndrome. Are overweight. Smoke cigarettes. Do not get enough exercise. Drink too much alcohol. Eat a diet that is high in fat and red meat and low in fiber. Had childhood cancer that was treated with abdominal radiation. What are the signs or symptoms? Most polyps do not cause symptoms. If you have symptoms, they may include: Blood coming from your rectum when having a bowel movement. Blood in your stool. The stool may look dark red or black. Abdominal pain. A change in bowel habits, such as constipation or diarrhea. How is this diagnosed? This condition is diagnosed with a colonoscopy. This is a procedure in which a lighted, flexible scope is inserted into the anus and then passed into the colon to examine the area. Polyps are sometimes found when a colonoscopy is done as part of routine cancer screening tests. How is this treated? Treatment for this condition involves removing any polyps that are found. Most polyps can be removed during a colonoscopy. Those polyps will then be tested for cancer. Additional treatment may be needed depending on the results of testing. Follow these instructions at home: Lifestyle Maintain a healthy weight, or lose weight if recommended by your health care provider. Exercise every day or as told by your health care provider. Do not use any products that contain nicotine or tobacco, such as cigarettes and e-cigarettes. If you need help quitting, ask your health care provider. If you drink alcohol, limit how much you have: ? 0 1 drink a day for women. ? 0 2 drinks a day for men. Be aware of how much alcohol is in your drink. In the [place] one drink equals one 12 oz bottle of beer (355 mL), one 5 oz glass of wine (148 mL), or one 1 oz shot of hard liquor (44 mL). Eating and drinking Eat foods that are high in fiber, such as fruits, vegetables, and whole grains. Eat foods that are high in calcium and vitamin D, such as milk, cheese, yogurt, eggs, liver, fish, and broccoli. Limit foods that are high in fat, such as fried foods and desserts. Limit the amount of red meat and processed meat you eat, such as hot dogs, sausage, molina, and lunch meats. General instructions Keep all follow-up visits as told by your health care provider. This is important. ? This includes having regularly scheduled colonoscopies. ? Talk to your health care provider about when you need a colonoscopy. Contact a health care provider if: You have new or worsening bleeding during a bowel movement. You have new or increased blood in your stool. You have a change in bowel habits. You lose weight for no known reason. Summary Polyps are tissue growths inside the body. Polyps can grow in many places, including the colon. Most colon polyps are noncancerous (benign), but some can become cancerous over time. This condition is diagnosed with a colonoscopy. Treatment for this condition involves removing any polyps that are found. Most polyps can be removed during a colonoscopy. This information is not intended to replace advice given to you by your health care provider. Make sure you discuss any questions you have with your health care provider. Document Released: 07/12/2005 Document Revised: 01/31/2019 Document Reviewed: 01/31/2019 [employer] Patient Education 2020 [employer]. Moderate Conscious Sedation, Adult, Care After These instructions provide you with information about caring for yourself after your procedure. Your health care provider may also give you more specific instructions. Your treatment has been plannedaccording to current medical practices, but problems sometimes occur. Call your health care provider if you have any problems or questions after your procedure. What can I expect after the procedure? After your procedure, it is common: To feel sleepy for several hours. To feel clumsy and have poor balance for several hours. To have poor judgment for several hours. To vomit if you eat too soon. Follow these instructions at home: For at least 24 hours after the procedure: Do not: ? Participate in activities where you could fall or become injured. ? Drive. ? Use heavy machinery. ? Drink alcohol. ? Take sleeping pills or medicines that cause drowsiness. ? Make important decisions or sign legal documents. ? Take care of children on your own. Rest. Eating and drinking Follow the diet recommended by your health care provider. If you vomit: ? Drink water, juice, or soup when you can drink without vomiting. ? Make sure you have little or no nausea before eating solid foods. General instructions Have a responsible adult stay with you until you are awake and alert. Take vkow-zoc-mhehlif and prescription medicines only as told by your health care provider. If you smoke, do not smoke without supervision. Keep all follow-up visits as told by your health care provider. This is important. Contact a health care provider if: You keep feeling nauseous or you keep vomiting. You feel light-headed. You develop a rash. You have a fever. Get help right away if: You have trouble breathing. This information is not intended to replace advice given to you by your health care provider. Make sure you discuss any questions you have with your health care provider. Document Released: 08/06/2014 Document Revised: 09/28/2018 Document Reviewed: 02/04/2017 [employer] Patient Education 2020 [employer] Colonoscopy, Adult, Care After This sheet gives you information about how to care for yourself after your procedure. Your doctor may also give you more specific instructions. If you have problems or questions, call your doctor. What can I expect after the procedure? After the procedure, it is common to have: A small amount of blood in your poop for 24 hours. Some gas. Mild cramping or bloating in your belly. Follow these instructions at home: General instructions For the first 24 hours after the procedure: ? Do not drive or use machinery. ? Do not sign important documents. ? Do not drink alcohol. ? Do your daily activities more slowly than normal. ? Eat foods that are soft and easy to digest. Take djgk-bpe-zbcwbuo or prescription medicines only as told by your doctor. To help cramping and bloating: Try walking around. Put heat on your belly (abdomen) as told by your doctor. Use a heat source that your doctor recommends, such as a moist heat pack or a heating pad. ? Put a towel between your skin and the heat source. ? Leave the heat on for 20 30 minutes. ? Remove the heat if your skin turns bright red. This is especially important if you cannot feel pain, heat, or cold. You can get burned. Eating and drinking Drink enough fluid to keep your pee (urine) clear or pale yellow. Return to your normal diet as told by your doctor. Avoid heavy or fried foods that are hard to digest. Avoid drinking alcohol for as long as told by your doctor. Contact a doctor if: You have blood in your poop (stool) 2 3 days after the procedure. Get help right away if: You have more than a small amount of blood in your poop. You see large clumps of tissue (blood clots) in your poop. Your belly is swollen. You feel sick to your stomach (nauseous). You throw up (vomit). You have a fever. You have belly pain that gets worse, and medicine does not help your pain. Summary After the procedure, it is common to have a small amount of blood in your poop. You may also have mild cramping and bloating in your belly. For the first 24 hours after the procedure, do not drive or use machinery, do not sign important documents, and do not drink alcohol. Get help right away if you have a lot of blood in your poop, feel sick to your stomach, have a fever, or have more belly pain. This information is not intended to replace advice given to you by your health care provider. Make sure you discuss any questions you have with your health care provider. Document Released: 11/18/2011 Document Revised: 08/16/2018 Document Reviewed: 07/10/2017 [employer] Patient Education 2020 [employer]. Additional Information VACCINATE! IT SAVES LIVES! Members of the community who have not yet received the COVID-19 vaccine and would like to receive it can visit one of [facility] vaccine clinics. There are many vaccine clinic locations within the [facility]. For locations and available times, please visit [email or web address].[place].gov/. It is important to note that some COVID mobile vaccine clinics are held outdoors and may be canceled in rainy or stormy conditions. To learn more about pediatric vaccinations (ages 5-11), we invite you to visit the [facility] webpage. [email or web address].[email or web address].org/pages/[email or web address]-Ioglg-Bivgjxtajga-[email or web address]-Thahn-[email or web address] stions.htmlTo learn more about the COVID-19 vaccine, we invite you to visit the CDC website for a list of frequently asked questions.https://www.cdc.gov/coronavirus/2019-ncov/vaccines/faq.html [email or web address] Patient Portal Access Instructions: Stay connected with your healthcare team and access your personal medical information anytime with the [facility] Patient Portal. Please follow the directions below to create your [facility] account: 1.Access the email account you provided upon registration to the hospital/physician office.2.Look for an invitation email from [facility].3.Open the email and access the invitation link: AcceptInvitation to [email or web address].4.Fill in the required ocampo to create your account. To access your account, visit [employer]. Click the blue button labeled Access Patient Portal and then log in with the username and password that you created in the steps above. You will be able to view your test results, lab results, a summary of your visits, upcoming appointments and more. There is also a convenient messaging option where you can send secure messages to your p rovider. In addition, you will have the ability to download any documents or summaries to your computer and/or send the information securely to a physician. Remember that your healthcare information is confidential, so carefully consider who you will allowto register on the [facility] Patient Portal for access to your information. You can also access the [facility] Patient Portal on the [facility] serene. Simply click on Patient Portal and then log into your account. If you would like to receive a full copy of your medical records, please contact the [facility] Medical Records Department by calling [phone], Monday through Monday between 8 a.m. and 4:30 p.m. HOW TO SAFELY DISPOSE OF PRESCRIPTION MEDICATIONS Please use one of the following methods to safely dispose of your unused medications. 1.Use a drug disposal kit: the drug disposal pouch allows you to safely discard your old and unuseddrugs. Ask your nurse to give you one when you are discharged.2.Visit a local take-back location: Many local pharmacies and police departments have programs that collect old and unwanted prescriptiondrugs. Call your local pharmacy or go to http://[employer]/1Z4Fr1o to find one close to you.3.Make use of household items: Use cat litter or old coffee grounds to dispose medications if other options arenot available. Mix your drugs with these household products, seal them in an airtight container andthrow it into the garbage. Call [facility]: [phone] to be sure your drugs can be disposed of in this way. Some medicines may require a different approach.4.Never flush your medications down the toilet. IF YOU HAVE BEEN PRESCRIBED AN OPIOID FOR PAIN If you have been prescribed an opioid (such as hydrocodone, oxycodone or morphine), it is critical to understand the possible side effects and risks of opioid pain medications. Even when taken as directed, opioids can have several side effects including: Tolerance, meaning you might need to take more of a medication for the same pain relief. Nausea, vomiting and/or constipation. Sleepiness, dizziness, dry mouth, confusion, depression or itching. Physical dependence, meaning you have withdrawal symptoms when a medication is stopped, can develop within a few days. KNOW YOUR RESPONSIBILITIES It is important to know exactly how much and how often to take the opioid pain medications you are prescribed. Never take opioids in higher amounts or more often than prescribed. Do not combine opioids with alcohol or other drugs that cause drowsiness, such as benzodiazepines, also known as benzos, including diazepam and alprazolam, muscle relaxants or sleep aids. Never sell or share prescription opioids. This is illegal. Store opioids in a secure place and out of reach of others (including children, family, friends and visitors). The last page of this document has been signed and retained as a CHART COPY. Signatures Patient Education Materials Colon Polyps Moderate Conscious Sedation, Adult, Care After Colonoscopy, Adult, Care After, Hcax-ed-Zhoh Medication Leaflets My discharge plan and instructions have been reviewed and explained to me and I,MI PECKd my current condition and have read and understand these discharge instructions. I have received a written copy of the plan/instructions. If I have questions, I am aware that I should contact my doctor. 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 Family's history: negative. Review of Systems Ear/Nose/Mouth/Throat: Negative. Respiratory: Sleep apnea. Cardiovascular: htn. Gastrointestinal: obese. Genitourinary: Negative. Endocrine: Negative. Musculoskeletal: Negative. Integumentary: Negative. Neurologic: Negative. Health Status Allergies: Allergic Reactions (Selected) NKA, Allergies (1) ActiveSeverityReaction NKANone Documented Current medications: (Selected) Inpatient Medications Ordered LR 1,000 mL: 50 mL/hr, Intravenous Prescriptions Prescribed Prolia 60 mg/mL subcutaneous solution: 60 mg, 1 mL, Subcutaneous, q6mo, 1 mL, 0 Refill(s) Xarelto 20 mg oral tablet: 20 mg, 1 tab(s), Oral, with supper, 90 tab(s), 1 Refill(s) benazepril 10 mg oral tablet: 10 mg, 1 tab(s), Oral, Daily, 90 tab(s), 1 Refill(s) fluticasone proprionate NASAL 50 mcg/ spray: 2 spray(s), Nasal, BID, in each nostril, 48 gram(s), 3Refill(s) simvastatin 10 mg oral tablet: 10 mg, 1 tab(s), Oral, qHS, 90 tab(s), 1 Refill(s) venlafaxine 37.5 mg oral capsule, extended release: 37.5 mg, 1 cap(s), Oral, qDay, 90 cap(s), 1 Refill(s) verapamil 240 mg/12 hours oral tablet, extended release: 240 mg, 1 tab(s), Oral, q12h, 180 tab(s), 1 Refill(s) Documented Medications Documented DME: See Instructions, 1 EA, 0 Refill(s) Misc Medication: Insta Flex - for joints takes one daily, 0 Refill(s) Vitamin C 1000 mg oral tablet: 1,000 mg, 1 tab(s), Oral, qDay, 30 tab(s), 0 Refill(s) Vitamin D3: 2000, Oral, qDay, 0 Refill(s) zinc (as gluconate) 50 mg oral tablet: 50 mg, 1 tab(s), Oral, Daily, 30 tab(s), 0 Refill(s), Medications (1) Active Scheduled: (0) Continuous: (1) Lactated Ringers 1,000 mL 1,000 mL, Intravenous, 50 mL/hr PRN: (0) Problem list: Medical DVT (deep vein thrombosis) in / SNOMED CT 07648432 / Confirmed Atrial tachycardia / SNOMED CT 716438680 / Confirmed BMI 40.0-44.9, adult / SNOMED CT 4718779654 / Confirmed DVT - Deep vein thrombosis / SNOMED CT 5702829916 / Confirmed Shingles / SNOMED CT 4008556 / Confirmed History of DVT in adulthood / SNOMED CT 8612739253 / Confirmed Hyperlipidemia / SNOMED CT 37219945 / Confirmed Hypertension / SNOMED CT 6922449945 / Confirmed Abnormal CT scan, lung / SNOMED CT 6055375860 / Confirmed Iron deficiency / SNOMED CT 27766627 / Confirmed Morbid obesity / SNOMED CT 947330939 / Confirmed LEELA (obstructive sleep apnea) / SNOMED CT 677728387 / Confirmed Osteoarthritis, knee / SNOMED CT 009141636 / Confirmed Osteoporosis / SNOMED CT 405414908 / Confirmed Moderate recurrent major depression / SNOMED CT 730195241 / Confirmed Vitamin D deficiency / SNOMED CT 16816374 / Confirmed, Active Problems (16) Abnormal CT scan, lung Atrial tachycardia BMI 40.0-44.9, adult DVT (deep vein thrombosis) in DVT - Deep vein thrombosis History of DVT in adulthood Hyperlipidemia Hypertension Iron deficiency Moderate recurrent major depression Morbid obesity LEELA (obstructive sleep apnea) Osteoarthritis, knee Osteoporosis Shingles Vitamin D deficiency Histories Past Medical History: Resolved Hypoxia (6100617671): Resolved. Pneumonia due to COVID-19 virus (9494368996): Resolved. OLIVER (dyspnea on exertion) (811246707): Resolved. Family History: Diabetes mellitus Sister Stroke Grandparent (maternal grandmother) Heart attack Mother Hyperthyroidism Father Glaucoma Mother Hyperlipidemia Father Brother Osteoarthritis Mother Father Diabetes Sister Procedure history: Right hip (359065559) on 12/27/2023 at 73 Years. Comments: 09/10/2024 13:33 Jasmina Lewis LPN Total replacement Colonoscopy (339302319) on 04/09/2018 at 67 Years. Bilateral cataracts (511354709) on 11/30/2017 at 67 Years. Comments: 04/09/2018 7:34 Megan Araujo RN SECOND SURGERY JANUARY 2018 Barium enema (037420658) on 10/30/2004 at 54 Years. Cholecystectomy (91504436) on 10/30/1989 at 39 Years. Appendectomy (645959908). Tubal ligation (232785603). Cataract (647436179). Comments: 06/11/2019 11:43 EDT - Chasity Gillissin SELFN bilateral Social History: Social & Psychosocial Habits Alcohol 12/02/2024Risk Assessment: Denies Alcohol Use 12/02/2024 Use: Never Substance Abuse 12/02/2024Risk Assessment: Denies Substance Abuse 12/02/2024 Use: Never Tobacco 12/02/2024 Tobacco Use: Never (less than 100 in l Comment: no smoke exposure - 06/21/2019 13:19 - Valentina Valdovinos RN Home/Environment 12/02/2024 Primary Hammer Repairer: self Nutrition/Health 12/02/2024 Caffeine intake amount: coffee/ tea, 3 servings daily Physical Examination Vital Signs 12/02/2024 11:15 EST Temperature Temporal Artery 36.4 DegC Heart Rate Monitored 66 bpm Respiratory Rate 19 br/min Systolic Blood Pressure Non-Invasive 105 mmHg Diastolic Blood Pressure Non-Invasive 57 mmHg LOW 12/02/2024 11:10 EST Heart Rate Monitored 54 bpm bpm Respiratory Rate - Anes 17 br/min br/min Systolic Blood Pressure Non-Invasive 119 mmHg mmHg Diastolic Blood Pressure Non-Invasive 52 mmHg mmHg 12/02/2024 11:05 EST Heart Rate Monitored 64 bpm bpm Respiratory Rate - Anes 17 br/min br/min Systolic Blood Pressure Non-Invasive 104 mmHg mmHg Diastolic Blood Pressure Non-Invasive 49 mmHg mmHg 12/02/2024 11:00 EST Heart Rate Monitored 66 bpm bpm Respiratory Rate - Anes 17 br/min br/min Systolic Blood Pressure Non-Invasive 93 mmHg mmHg Diastolic Blood Pressure Non-Invasive 51 mmHg mmHg 12/02/2024 10:55 EST Heart Rate Monitored 82 bpm bpm Respiratory Rate - Anes 22 br/min br/min Systolic Blood Pressure Non-Invasive 118 mmHg mmHg Diastolic Blood Pressure Non-Invasive 76 mmHg mmHg 12/02/2024 10:33 EST Temperature Temporal Artery 36 DegC Peripheral Pulse Rate 86 bpm Respiratory Rate 19 br/min Systolic Blood Pressure Non-Invasive 111 mmHg Diastolic Blood Pressure Non-Invasive 58 mmHg LOW Vital Signs (last 24 hrs) Last Charted Temp Dcfrykmy95.4 DegC (DEC 02 11:15) Heart Rate Mprokeoeg12 bpm (DEC 02 11:15) QAR306 mmHg (DEC 02 11:15) DBPL 57 mmHg (DEC 02 11:15) BMI37.78 (DEC 02 10:33) Measurements from flowsheet : Measurements 12/02/2024 10:33 EST Height 154 cm Admission Weight 89.6 kg Weight Method Stated [place] Body Weight 46.95 kg BSA Admission 1.87 Body Mass Index 37.78 kg/m2 Pain assessment: Pain Assessment 12/02/2024 11:15 EST Primary Pain Intensity 0 Pain Scale Type 0-10 Pain scale 12/02/2024 10:33 EST Primary Pain Intensity 0 Pain Scale Type 0-10 Pain scale . General: Alert and oriented. Airway: Normal temporomandibular joint mobility. Mallampati classification: II (soft palate, fauces, uvula visible). Head: Normocephalic. Dentition Evaluation: Dentures, lower, Dentures, upper, Dentures, partial plate. Neck: Supple. Respiratory: Lungs are clear to auscultation. Cardiovascular: Normal rate. Heart Sounds: Normal. Gastrointestinal: Soft. Musculoskeletal Normal range of motion. Integumentary: Intact. Neurologic: Alert, Oriented. Review / Management Results review: No qualifying data available , Lab results 12/02/2024 11:15 EST SN - GCD - ASA Class 3 12/02/2024 11:15 EST Temperature Temporal Artery 36.4 DegC Heart Rate Monitored 66 bpm Respiratory Rate 19 br/min Systolic Blood Pressure Non-Invasive 105 mmHg Diastolic Blood Pressure Non-Invasive 57 mmHg LOW Primary Pain Intensity 0 Pain Scale Type 0-10 Pain scale Nail Bed Color [place] Capillary Refill < 2 seconds Respirations Unlabored Respiratory Pattern Regular Oxygen Therapy Room air Oxygen Saturation 99 % Abdomen Description Non-distended, Symmetric Facial Movement Makes facial grimaces All Extremity Description Normal for ethnicity Temperature All Extremities Warm Neurological Language Able to speak clearly Neurological Symptoms Patient denies Characteristics of Communication Appropriate Characteristics of Speech Clear Facial Symmetry Symmetric Level of Consciousness Arousable with minimal stimulation YARED Yes Affect/Behavior Appropriate, Calm, Cooperative Orientation Oriented x 4 Patient Identified Identification band, Verbal Arrival Mode Stretcher Position Lateral, left side down Provider Name VENESSA VINES SUPERVISOR RECLAMATION-OPERATIONS AGENT Transported From Operating Room Anesthesia Summary Review Yes - verbal Surgical Summary Review Yes - verbal Pertinent PMHx Review Yes - verbal Andrea Motor (2) Moves 4 extremities voluntarily or on command Andrea Respirations (2) Spontaneous respiration without support, RR > 10 Andrea Blood Pressure (2) BP 20% above or below preanesthetic level Andrea Pulse (2) Pulse 20% above or below preanesthetic level Andrea Oxygen Saturation (2) 94% or more Andrea Level of Consciousness (1) Arouses on calling Andrea III Score 11 Standard Safety Precautions maintained 12/02/2024 11:14 EST Lactated Ringers Injection 200 mL mL 12/02/2024 11:12 EST SN - CTm - Anesthesia Stop Time Anesthesia Stop Anesthesia Final Record OP Colonoscopy 12/02/2024 11:12 EST SN - CTm - Surgery Stop 12/02/2024 11:12 12/02/2024 11:12 EST SN - CTm - Surgery Stop Surgery Stop AOH MAIN OR Intraop Record AOH MAIN OR Intraop Record 12/02/2024 11:10 EST Heart Rate Monitored 54 bpm bpm Respiratory Rate - Anes 17 br/min br/min Systolic Blood Pressure Non-Invasive 119 mmHg mmHg Diastolic Blood Pressure Non-Invasive 52 mmHg mmHg Oxygen Saturation 99 % % 12/02/2024 11:07 EST SN - Proc - Actual Procedure COLONOSCOPY WITH POLYPECTOMY (Modified) 12/02/2024 11:07 EST SN - Cul - Culture Type Tissue in Formalin SN - Cul - Kind Specimen 12/02/2024 11:05 EST Heart Rate Monitored 64 bpm bpm Respiratory Rate - Anes 17 br/min br/min Systolic Blood Pressure Non-Invasive 104 mmHg mmHg Diastolic Blood Pressure Non-Invasive 49 mmHg mmHg Oxygen Saturation 100 % % propofol 30 mg mg 12/02/2024 11:01 EST propofol 30 mg mg 12/02/2024 11:00 EST Heart Rate Monitored 66 bpm bpm Respiratory Rate - Anes 17 br/min br/min Systolic Blood Pressure Non-Invasive 93 mmHg mmHg Diastolic Blood Pressure Non-Invasive 51 mmHg mmHg Oxygen Saturation 97 % % 12/02/2024 10:59 EST propofol 30 mg mg 12/02/2024 10:58 EST SN - CTm - Surgery Start 12/02/2024 10:58 12/02/2024 10:58 EST SN - CTm - Surgery Start Surgery Start 12/02/2024 10:55 EST Heart Rate Monitored 82 bpm bpm Respiratory Rate - Anes 22 br/min br/min Systolic Blood Pressure Non-Invasive 118 mmHg mmHg Diastolic Blood Pressure Non-Invasive 76 mmHg mmHg Oxygen Saturation 95 % % propofol 110 mg mg 12/02/2024 10:54 EST lidocaine 100 mg mg 12/02/2024 10:53 EST SN - CTm - Anesthesia Start Time Anesthesia Start 12/02/2024 10:53 EST Lactated Ringers Injection Begin Bag 1,000 mL [facility] History and Physical 12/02/2024 10:50 EST SN - Proc - Anesthesia Type MAC SN - Proc - EBL 0 mL 12/02/2024 10:50 EST SN - PP - Body Position Lateral Right Side-up Standard Intra-op 12/02/2024 10:50 EST SN - Assess - LOC Alert, Awake SN - Assess - Orientation Oriented X 3 SN - Assess - Post-op Skin Integrity Intact/Dry 12/02/2024 10:49 EST SN - GCD - Post-operative Diagnosis HISTORY OF POLYPS SN - GCD - Case Level OPD Level 3 12/02/2024 10:49 EST SN - CAt - Case Attendee SN - CAt - Case Attendee SN - CAt - Case Attendee SN - CAt - Case Attendee SN - CAt - Case Attendee SN - CAt - Case Attendee SN - CAt - Case Attendee SN - CAt - Case Attendee SN - CAt - Role Performed Primary Surgeon SN - CAt - Role Performed OPERATIONS AGENT SN - CAt - Role Performed Wrapper Sheeter 1 SN - CAt - Role Performed Vermin Exterminator 1 12/02/2024 10:33 EST Designated Person #1 We May Share PHI ELMER () [phone] Designated Person #1 Relationship Spouse Designated Person #2 We May Share PHI Swapna Varela (DIL) [phone] Additional Designated Person Share PHI Additional Designated Person Share PHI Privacy Restrictions Requested None Height 154 cm Admission Weight 89.6 kg Weight Method Stated [place] Body Weight 46.95 kg BSA Admission 1.87 Body Mass Index 37.78 kg/m2 Temperature Temporal Artery 36 DegC Peripheral Pulse Rate 86 bpm Respiratory Rate 19 br/min Systolic Blood Pressure Non-Invasive 111 mmHg Diastolic Blood Pressure Non-Invasive 58 mmHg LOW Primary Pain Intensity 0 Pain Scale Type 0-10 Pain scale Respirations Unlabored Respiratory Pattern Regular Oxygen Therapy Room air Oxygen Saturation 98 % Urinary Elimination Voiding, no difficulties Status N/A IV Present Present Wrist Right 12/02/2024 22 gauge Peripheral IV Activity: Insert new site Peripheral IV Dressing Condition: Clean, Dry, Intact Peripheral IV Dressing Activity: Applied, Transparent dressing Peripheral IV Line Status/Patency: Flushes easily Peripheral IV Site Condition: No complications Peripheral IV Number of Attempts: 1 Level of Consciousness Alert Affect/Behavior Appropriate, Calm, Cooperative Orientation Oriented x 4 Sensory Deficits None Infectious Disease Symptoms Patient states no symptoms Infectious Disease Recent Exposure No Alcohol and Drug Use No Employee of Institutional Living No Health Care Employee No History of Exposure to TB No History of Positive Chest X-Ray for TB No History of Positive TB Skin Test No Homeless No Known Immunosuppression No Recent Immigrant No Resident of Institutional Living No Bloody Sputum No Fatigue No Fever No Loss of Appetite No Night Sweats No Persistent Cough > 3 Weeks No Weight Loss No Allergies Yes Anesthesia Extension Set Applied Yes Crimper Operator On Yes Colon Prep Results Good Consent Form Signed Yes Patient Dressed In Hospital gown, No undergarments Pre-op Preparation Glasses removed, Jewelry removed History & Physical On Chart Yes GI Prep Suprep GI Prep Completed Yes GI Prep Results Watery, Yellow Andrea Motor (2) Moves 4 extremities voluntarily or on command Andrea Respirations (2) Spontaneous respiration without support, RR > 10 Andrea Blood Pressure (2) BP 20% above or below preanesthetic level Andrea Pulse (2) Pulse 20% above or below preanesthetic level Andrea Oxygen Saturation (2) 94% or more Andrea Level of Consciousness (2) Fully awake Andrea III Score 12 Barriers to Learning None evident Teaching Method Explanation, Printed materials Preferred Spoken Language Swedish Preferred Written Language Swedish Patient's Current Physicians DR. STEVENS Discharge To, Anticipated Home independently Activity Status ADL Awake NPO Status Maintained Standard Safety ID band on, Call device within reach, Bed in low position, Wheels locked, Upper/Half-Length side-rails up, Visitor at bedside, Safety level maintained Prev Test Positive/Diagnosis w/COVID-19 No Current Quarantine/Isolated any Illness No Any Contact with Sick Animals/Birds No Traveled Anywhere in Last 30 Days No Patient ID Band on and Verified Yes Implants Verified Yes Pacemaker/AICD Verified Yes Site Verified by Patient/Family Yes Last Fluid Intake 12/02/2024 7:30 Last Food Intake 12/01/2024 7:00 N/A Personal Devices, Patient Valuables Dentures, lower, Dentures, upper, Glasses Admission Note-Nursing Procedure/Therapy Intake . Assessment and Plan [place] [employer]esthesi[employer] (ASA) physical status classification: Class III. Anesthetic Preoperative Plan Anesthetic technique: MAC. Postoperative pain management: Per surgeon. Informed consent: signed by patient. Digitally Signed by VENESSA VINES on 12/02/2024 11:18 AM [facility]02-03-2025 Note Date of Service 12/02/2024 Procedure Name Screening colonoscopy history of colon polyp Consent Taken before procedure Indication Screening history of colon polyp Location [facility] Pre-Procedure Exam High risk screening history of colon polyp Procedural Sedation Anesthesia provided a MAC Technique The patient was brought to endoscopy and placed left shoulder down. Colonoscope was passed into therectum and advanced into the left colon where there were numerous diverticuli. The transverse colonthere was some retained liquid. Colon the base the cecum was identified there was a large amount ofliquid this was sucked up the colonoscope obvious large polyps seen. The mid ascending colon was a flat sessile polyp about 4 mm diameter cold snare the polyp was transected up with the colonoscope. In the transverse colon there was another small polyp 2 mm or less this was removed with cold biopsyforcep. Below the splenic flexure there were no obvious large polyps. Diverticulosis throughout thesigmoid area retroflexion performed in the rectum revealed internal hemorrhoids. Colon was decompressed the patient tolerated the procedure well Post-Procedure Exam Anoscopy with snare polypectomy and biopsy of polyps Findings 2 polyps removed Complications None apparent Total Time Approximately 25-minute Assessment/Plan Orders: Lactated Ringers Infusion 1,000 mL(LR 1,000 mL), 1000 mL, Intravenous Bedrest, 12/02/24 11:13:00 EST, Strict, continuous, Constant order, Lying on side until alert or asordered Bedrest, 12/02/24 11:13:00 EST, Strict, continuous, Constant order, Lying on side until alert or asordered Call Parameters, 12/02/24 11:13:00 EST, Notify for vomiting, severe pain, signs of bleeding, severeabdominal pain, distention or rigidity, Constant order Communication Order (scheduled), 12/02/24 10:25:00 EST, Once, 12/02/24 10:25:00 EST, Pathology Tissue Request Communication Order (scheduled), 12/02/24 10:25:00 EST, Once, 12/02/24 10:25:00 EST, Urine Test or waiver for women of child bearing age Communication Order (scheduled), 12/02/24 10:25:00 EST, Once, 12/02/24 10:25:00 EST, Fasting Blood Sugar priot to procedure of patient is diabetic Diet Order, 12/02/24 11:13:00 EST, Start Meal: Next meal, Clear Liquid Diet, Post exam or after gagreflex returns if EGD, Constant Order, : N/A, : N/A Discharge, 12/02/24 10:25:00 EST, Discharged to: Home, when able to ambulate and after being seen by physician Discharge Activity, NO activity restrictions, 12/02/24 11:13:00 EST Discharge Diet, Follow the post-operative/post-procedure diet instructions provided by your physician's office., 12/02/24 11:13:00 EST Discharge Wound Care, Follow the post-operative/post-procedure wound care instructions provided by your physician's office., 12/02/24 11:13:00 EST Pathology Tissue Request, 12/02/24 11:07:00 EST, Collected, Routine, Nurse Collect, AP Specimen, RIGHT COLON POLYP, SEE CHART, COLONOSCOPY WITH POLYPECTOMY, HISTORY OF COLON POLYPS, HISTORY OF COLON POLYPS, Preferred Lab: [facility], [id number] Post Procedure Assessment, 12/02/24 11:13:00 EST, Stop Date 12/02/24 11:13:00 EST, [place] in OPD Recovery Room until Andrea Score of 12 or Preprocedure Sign Consent, 12/02/24 10:25:00 EST, Once, For EGD Vital Signs, 12/02/24 11:13:00 EST, q15min, 1 hour(s), 12/02/24 12:00:00 EST Vital Signs, 12/02/24 11:13:00 EST, q30min, 1 hour(s), 12/02/24 12:00:00 EST Vital Signs PRN, 12/02/24 11:13:00 EST, PRN order Follow Up/Recommendation Follow-up the pathology of the polyps consider repeat colonoscopy in 5 years Digitally Signed by BRENDEN LEON MD on 12/02/2024 11:17 AM [facility]02-03-2025 Note [place] ADMISSION HISTORY AND PHYSICIAL CHIEF COMPLAINT: HISTORY OF PRESENT ILLNESS: REVIEW OF SYSTEMS: ACTIVE PROBLEMS: (16) Abnormal CT scan, lung (3513737592) Atrial tachycardia (626139956) BMI 40.0-44.9, adult (6379770678) DVT (deep vein thrombosis) in (88515758) DVT - Deep vein thrombosis (6796611568) History of DVT in adulthood (1715259489) Hyperlipidemia (67575486) Hypertension (3273458240) Iron deficiency (12929293) Moderate recurrent major depression (487413107) Morbid obesity (516495174) LEELA (obstructive sleep apnea) (606331096) Osteoarthritis, knee (602006447) Osteoporosis (222696157) Shingles (1145616) Vitamin D deficiency (12460148) MEDICATIONS: Active Inpt Meds: None Active PRN Meds: None One Time Meds: None Active IV Meds: Lactated Ringers Infusion 1,000 mL (LR 1,000 mL) Start: 12/02/24 10:25:00 EST, Rate: 50 mL/hr, 12/02/24 10:25:00 EST ALLERGIES: (1) NKA FAMILY HISTORY: SOCIAL HISTORY: PHYSICAL EXAM: VITALS: HbidxvAtlkWOFpbgdJRLwS7FCY4DtixUh(kg) 12/02 10:3336--044526DU99/03 89.6 24 Hr Tmax: 36 at 12/02 10:33 36 Hr Tmax: 36 at 12/02 10:33 Vital Signs are the last 5 in the past 48 hours. Weights display the last 5 within 7 days. Initial Wt: 12/02 89.6 kg 197 lb Current Wt: 12/02 89.6 kg 197 lb GENERAL: HEENT: CARDIOVASCULAR: RESPIRATORY: ABDOMEN: EXREMETIES: NEUROLOGICAL: PSYCHIATRIC: LABS: No 36hr Lab Data DIAGNOSTICS: IMPRESSION: PLAN: History and Physical Update I have examined the patient; reviewed the H&P and there are no changes to the H&P unless noted below. Digitally Signed by BRENDEN LEON MD on 12/02/2024 10:57 AM [facility]01-03-2025 Nurse Progress note Patient tolerated injection without signs or symptoms of reaction. Patient left the unit without incident. Digitally Signed by Loni Yeboah RN on 11/01/2024 10:21 AM [facility]12-16-2024 History of Present illness Narrative * Susan Núñez, SUPERVISOR RECLAMATION.RETAIL ANALYTICS MANAGER - 10/14/2024 1:00 PM EST [facility] Larry Joyce DO, DO SUBJECTIVE: Mi Peck is a 73 year old female who is here today for a follow-up visit. The patient is doing well from the cardiovascular standpoint. The patient has infrequent lower extremity edema, worse in the summer. She does not have any problems with edema today. She has not had any problems withchest pain, shortness of breath, palpitations, PND orthopnea, syncope, or near syncope. PAST MEDICAL HISTORY Diagnosis Date Abnormal CT scan, lung Atrial tachycardia (HCC) By Holter worn 11/16/2021 Benign hypertension COVID-19 09/30/2021 H/O echocardiogram 12/08/2021 EF 55-60%, trivial MR, trivial MA, trivial History of cardiac monitoring 11/16/2021 83 runs of SVT History of DVT (deep vein thrombosis) History of stress test 12/20/2021 EF 61%, reversible defect in the anterior and inferior on distal inferolateral wall extending to the apex suggesting ischemia in this area. Hx of cardiac catheterization 12/28/2021 EF 55% normal left cardiac catheterization done by Dr. Hernandez at [facility]. 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 Mixed hyperlipidemia Moderate recurrent major depression (HCC) Morbid obesity (HCC) Nocturnal hypoxia oxygen study 01/2022 Osteoarthritis, knee Osteoporosis Sinus tachycardia Vitamin D deficiency PAST SURGICAL HISTORY Procedure Laterality Date APPENDECTOMY BARIUM ENEMA 10/30/2004 CATARACT EXTRACTION HX Bilateral 11/30/2017 CATARACT EXTRACTION HX COLONOSCOPY 04/09/2018 LIGATE FALLOPIAN TUBE REMOVAL GALLBLADDER 10/30/1989 FAMILY HISTORY Problem Relation Age of Onset Heart Attack Mother Glaucoma Mother other (osteoarthritis) Mother Hyperlipidemia Father Hyperthyroidism Father other (osteoarthritis) Father Diabetes Sister Hyperlipidemia Brother SOCIAL HISTORY: Social History Tobacco Use Smoking status: Never Passive exposure: Never Smokeless tobacco: Never Substance Use Topics Alcohol use: Never Drug use: Never ALLERGIES: Patient has no known allergies. CURRENT MEDICATIONS: Current Outpatient Medications Medication Sig ZINC ACETATE ORAL Take by mouth. rivaroxaban (XARELTO) 20 mg tablet Take 20 mg by mouth daily with dinner. verapamil SR (CALAN SR, ISOPTIN SR) 240 mg CR tablet TAKE 1 TABLET BY MOUTH TWICE A DAY venlafaxine (EFFEXOR) 37.5 mg tablet Take 37.5 mg by mouth once daily. ascorbic acid, vitamin C, (VITAMIN C) 500 mg tablet Take 500 mg by mouth once daily. benazepril (LOTENSIN) 10 mg tablet Take 10 mg by mouth once daily. cholecalciferol (VITAMIN D3) 50 mcg (2,000 unit) tablet Take 2,000 Units by mouth once daily. denosumab (PROLIA) 60 mg/mL Inject 60 mg subcutaneously once every 6 months. simvastatin (ZOCOR) 10 mg tablet Take 10 mg by mouth daily at bedtime. No current facility-administered medications for this visit. Review of Systems Constitutional: Negative for activity change and fever. Respiratory: Negative for apnea, cough, chest tightness, shortness of breath, wheezing and stridor. Cardiovascular: Negative for chest pain, palpitations and leg swelling. Gastrointestinal: Negative for abdominal distention, diarrhea and vomiting. Musculoskeletal: Negative for joint swelling, neck pain and neck stiffness. Skin: Negative for color change, pallor and rash. Neurological: Negative for dizziness, syncope, weakness, light-headedness and numbness. Hematological: Does not bruise/bleed easily. Psychiatric/Behavioral: Negative for agitation, behavioral problems and confusion. The patient is not nervous/anxious. All other systems reviewed and are negative. PHYSICAL EXAMINATION: 10/14/24 1256 BP: 120/72 BP Position: Sitting Pulse: 71 Weight: 93 kg (205 lb) Height: 152.4 cm (5') Last 3 Encounter BP Readings: Date: BP: 10/09/2023 136/70 09/05/2022 138/70 12/07/2021 120/90 Last 3 Encounter Pulse Readings: Date: Pulse: 10/09/2023 76 09/05/2022 86 12/07/2021 78 Last 3 Encounter Wt Readings: Date: Wt: 10/09/2023 102.1 kg (225 lb) 09/05/2022 104.3 kg (230 lb) 02/22/2022 102.5 kg (226 lb) Potassium (MMOL/L) Date Value 12/28/2021 4.8 Sodium (MMOL/L) Date Value 12/28/2021 142 Creatinine (MG/DL) Date Value 12/28/2021 0.87 BUN (MG/DL) Date Value 12/28/2021 13 Glucose (MG/DL) Date Value 12/28/2021 109 INR (no units) Date Value 12/28/2021 1.19 Physical Exam Vitals and nursing note reviewed. Constitutional: General: She is not in acute distress. Appearance: Normal appearance. She is obese. She is not toxic-appearing. HENT: Head: Normocephalic and atraumatic. Nose: Nose normal. Mouth/Throat: Mouth: Mucous membranes are moist. Neck: Vascular: No carotid bruit. Cardiovascular: Rate and Rhythm: Normal rate and regular rhythm. Pulses: Normal pulses. Heart sounds: Normal heart sounds. No murmur heard. No friction rub. No gallop. Pulmonary: Effort: Pulmonary effort is normal. No respiratory distress. Breath sounds: Normal breath sounds. No stridor. No wheezing, rhonchi or rales. Chest: Chest wall: No tenderness. Abdominal: General: Abdomen is flat. There is no distension. Palpations: Abdomen is soft. There is no mass. Tenderness: There is no abdominal tenderness. Musculoskeletal: General: No swelling. Cervical back: Normal range of motion. No muscular tenderness. Right lower leg: No edema. Left lower leg: No edema. Skin: General: Skin is warm and dry. Capillary Refill: Capillary refill takes less than 2 seconds. Coloration: Skin is not jaundiced or pale. Findings: No bruising or rash. Neurological: General: No focal deficit present. Mental Status: She is alert and oriented to person, place, and time. Mental status is at baseline. Motor: No weakness. Gait: Gait normal. Psychiatric: Mood and Affect: Mood normal. Behavior: Behavior normal. Thought Content: Thought content normal. Judgment: Judgment normal. Diagnostic results: EKG: Normal sinus rhythm, 71 bpm, septal infarct, age undetermined ASSESSMENT/PLAN: 1. Benign hypertension - ICD9: 401.1, ICD10: I10 (primary diagnosis) Target BP 130/80 or less. The pt is on chronic medications. Blood pressure well- controlled on current medications. 2. Mixed hyperlipidemia - ICD9: 272.2, ICD10: E78.2 Patient is on simvastatin 10 mg every day. Managed by primary care physician. 3. Atrial tachycardia (HCC) - ICD9: 427.89, ICD10: I47.19 Patient has a history of atrial tachycardia by monitor worn in 2021. Patient is maintaining sinus rhythm on verapamil 240 mg twice daily. Will plan to continue same medications and monitor for recurrent atrial arrhythmias. 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 The pt is not complaining of any signs and symptoms of bleeding. The patient was instructed to call with any problems. 5. BMI 40.0-44.9, adult (HCC) - ICD9: V85.41, ICD10: Z68.41 Stable - Behavioral intervention 6. OLIVER (dyspnea on exertion) - ICD9: 786.09, ICD10: R06.09 Patient has a history of dyspnea and exertion. She has normal LV systolic function by echocardiogram and stress test performed in 2021. She has normal coronary arteries by cardiac catheterization performed in 2021. It is not felt that her dyspnea exertion is related to a cardiac cause. The patient is not complaining of shortness of breath at this time. She will call with change in symptoms. [facility] NoteHNO ID: [id number] Author: SUSAN NÚÑEZ APRN.RETAIL ANALYTICS MANAGER Service: ? Author Type: Nurse Practitioner Type: Progress Notes Filed: 10/14/2024 13:06 Note Text: [facility] Larry Joyce DO, DO SUBJECTIVE: Mi Peck is a 73 year old female who is here today for a follow-up visit. The patient is doing well from the cardiovascular standpoint. The patient has infrequent lower extremity edema, worse in the summer. She does not have any problems with edema today. She has not had any problems with chest pain, shortness of breath, palpitations, PND orthopnea, syncope, or near syncope. PAST MEDICAL HISTORY Diagnosis Date Abnormal CT scan, lung Atrial tachycardia (HCC) By Holter worn 11/16/2021 Benign hypertension COVID-19 09/30/2021 H/O echocardiogram 12/08/2021 EF 55-60%, trivial MR, trivial MA, trivial History of cardiac monitoring 11/16/2021 83 runs of SVT History of DVT (deep vein thrombosis) History of stress test 12/20/2021 EF 61%, reversible defect in the anterior and inferior on distal inferolateral wall extending to the apex suggesting ischemia in this area. Hx of cardiac catheterization 12/28/2021 EF 55% normal left cardiac catheterization done by Dr. Hernandez at [facility]. 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 Mixed hyperlipidemia Moderate recurrent major depression (HCC) Morbid obesity (HCC) Nocturnal hypoxia oxygen study 01/2022 Osteoarthritis, knee Osteoporosis Sinus tachycardia Vitamin D deficiency PAST SURGICAL HISTORY Procedure Laterality Date APPENDECTOMY BARIUM ENEMA 10/30/2004 CATARACT EXTRACTION HX Bilateral 11/30/2017 CATARACT EXTRACTION HX COLONOSCOPY 04/09/2018 LIGATE FALLOPIAN TUBE REMOVAL GALLBLADDER 10/30/1989 FAMILY HISTORY Problem Relation Age of Onset Heart Attack Mother Glaucoma Mother other (osteoarthritis) Mother Hyperlipidemia Father Hyperthyroidism Father other (osteoarthritis) Father Diabetes Sister Hyperlipidemia Brother SOCIAL HISTORY: Social History Tobacco Use Smoking status: Never Passive exposure: Never Smokeless tobacco: Never Substance Use Topics Alcohol use: Never Drug use: Never ALLERGIES: Patient has no known allergies. CURRENT MEDICATIONS: Current Outpatient Medications Medication Sig ZINC ACETATE ORAL Take by mouth. rivaroxaban (XARELTO) 20 mg tablet Take 20 mg by mouth daily with dinner. verapamil SR (CALAN SR, ISOPTIN SR) 240 mg CR tablet TAKE 1 TABLET BY MOUTH TWICE A DAY venlafaxine (EFFEXOR) 37.5 mg tablet Take 37.5 mg by mouth once daily. ascorbic acid, vitamin C, (VITAMIN C) 500 mg tablet Take 500 mg by mouth once daily. benazepril (LOTENSIN) 10 mg tablet Take 10 mg by mouth once daily. cholecalciferol (VITAMIN D3) 50 mcg (2,000 unit) tablet Take 2,000 Units by mouth once daily. denosumab (PROLIA) 60 mg/mL Inject 60 mg subcutaneously once every 6 months. simvastatin (ZOCOR) 10 mg tablet Take 10 mg by mouth daily at bedtime. No current facility-administered medications for this visit. Review of Systems Constitutional: Negative for activity change and fever. Respiratory: Negative for apnea, cough, chest tightness, shortness of breath, wheezing and stridor. Cardiovascular: Negative for chest pain, palpitations and leg swelling. Gastrointestinal: Negative for abdominal distention, diarrhea and vomiting. Musculoskeletal: Negative for joint swelling, neck pain and neck stiffness. Skin: Negative for color change, pallor and rash. Neurological: Negative for dizziness, syncope, weakness, light-headedness and numbness. Hematological: Does not bruise/bleed easily. Psychiatric/Behavioral: Negative for agitation, behavioral problems and confusion. The patient is not nervous/anxious. All other systems reviewed and are negative. PHYSICAL EXAMINATION: 10/14/24 1256 BP: 120/72 BP Position: Sitting Pulse: 71 Weight: 93 kg (205 lb) Height: 152.4 cm (5') Last 3 Encounter BP Readings: Date: BP: 10/09/2023 136/70 09/05/2022 138/70 12/07/2021 120/90 Last 3 Encounter Pulse Readings: Date: Pulse: 10/09/2023 76 09/05/2022 86 12/07/2021 78 Last 3 Encounter Wt Readings: Date: Wt: 10/09/2023 102.1 kg (225 lb) 09/05/2022 104.3 kg (230 lb) 02/22/2022 102.5 kg (226 lb) Potassium (MMOL/L) Date Value 12/28/2021 4.8 Sodium (MMOL/L) Date Value 12/28/2021 142 Creatinine (MG/DL) Date Value 12/28/2021 0.87 BUN (MG/DL) Date Value 12/28/2021 13 Glucose (MG/DL) Date Value 12/28/2021 109 INR (no units) Date Value 12/28/2021 1.19 Physical Exam Vitals and nursing note reviewed. Constitutional: General: She is not in acute distress. Appearance: Normal appearance. She is obese. She is not toxic-appearing. HENT: Head: Normocephalic and atraumatic. Nose: Nose normal. Mouth/Throat: Mouth: Mucous membranes are moist. Neck: Vascular: No carotid bruit. (more content not included)...[facility]12-06-2024 Note ORIGINAL EXAMINATION: BONE DENSITOMETRY 10/04/2024 3:53 pm TECHNIQUE: A bone density dual x-ray absorptiometry (DEXA) scan was performed of the axial (e.g. hips, spine) and/or appendicular (e.g. radius) skeleton as appropriate. COMPARISON: 06/07/2022. HISTORY: ORDERING SYSTEM PROVIDED HISTORY: Reason for Exam: screening FINDINGS: T Score Left Femoral Neck: -2.3 Left Femoral Neck: 0.588 (g/cm2) T Score Left Hip: -1.6 Left Hip: 0.749 (g/cm2) T Score Lumbar Spine: -0.9 Lumbar Spine: 0.951 (g/cmd2) BMD Change from previous Hip: No significant change BMD Change from previous Lumbar Spine: 7.9% FRAX score is unable to be documented as the patient has been on medication for prevention/treatment of osteoporosis. IMPRESSION: Osteopenia by WHO criteria. World Health Organization criteria: (Comparing with young normal sex matched population) - Normal: T-score at or above -1 SD (standard deviation) - Osteopenia: T-score between -1 and -2.5 SD - Osteoporosis: T-score at or below -2.5 SD The NOF recommends that FDA-approved medical therapies be considered in post-menopausal women and men age >/= 50 years with a: * Hip or vertebral fracture, or * T-score of /= 20% for major osteoporotic fractures or * >/= 3% for hip fractures All treatment decisions require clinical judgement and consideration of individual patient factors, including patient preferences, comorbidities, previous drug use, risk factors not captured in the FRAX registered model (e.g., frailty, falls, vitamin D deficiency, increased bone turnover, interval significant decline in bone density) and possible under- or over-estimation of fracture risk by FRAX. Interpreted by: Brandt Soto DO Preliminary Report By: Brandt Soto DO Electronically signed By Brandt Soto DO Dictated Date: 10/04/2024 3:54:59 PM Prelim Date: 10/04/2024 3:55:43 PM Sign Date: 10/04/2024 3:55:43 PM [facility]ing [facility] Nurse Progress note patient tolerated prolia injection without signs or symptoms of a reaction Digitally Signed by Annia Hudson RN on 04/15/2024 12:21 PM [facility]02-29-2024 Consult note Author Christi Vivar [facility] December 28, 2023 11:52am Note Date/Time December 28, 2023 11:52am [facility] Medical Records Department [address] [place] [address] Counseling Note - Pharmacy 12/28/23 1150 MR#: [id number] Acct: [id number] Name: LIVQUIRINO M Rep #:[id number] : 1950 73 From: Christi Vivar PCP: Dr. Larry Joyce, DO Status: ADM TAMMY Y Location: [place] [address] Pharmacy [facility] Service has performed discharge medication reconciliation and counseling for this patient. 1. ACETAMINOPHEN 1000MG PO TID X 14 DAYS 2. DOXYCYCLINE 100MG PO BID X 14 DAYS 3. FAMOTIDINE 20MG PO DAILY X 14 DAYS 4. OXYCODONE 5-10MG PO Q4H PRN PAIN 5. SENNA/DOCUSATE 2T PO BID UNTIL FIRST BM, THEN PRN CONSTIPATION The patient's discharge medication list was reviewed for discrepancies and discrepancies were resolved. The patient was counseled on the following discharge medications and changes in medications for homegoing were reviewed. The Reason for Use, instructions for use, and potential side effects were reviewed for all new medications. The patient's questions regarding all of their medications were answered. The patient was able to verbally demonstrate an understanding of their dischargemedications. Patient counseled by manager student services, Levi. Medications at Discharge Home Medications cholecalciferol (vitamin D3) 50 mcg (2,000 unit) capsule 50 mcg PO DAILY 03/24/22 denosumab 60 mg/mL subcutaneous syringe 60 mg subcut [id number] 03/24/22 venlafaxine 37.5 mg capsule,extended release 24 hr 37.5 mg PO DAILY 03/24/22 zinc 50 mg tablet 50 mg PO DAILY 03/24/22 ascorbic acid (vitamin C) 1,000 mg tablet 1 g PO DAILY 08/10/22 benazepril 10 mg tablet 10 mg PO DAILY 11/27/23 magnesium 200 mg tablet 200 mg PO DAILY 11/27/23 rivaroxaban 20 mg tablet (Xarelto) 20 mg PO QPM 11/27/23 simvastatin 10 mg tablet 10 mg PO QHS 11/27/23 verapamil 240 mg tablet,extended release 240 mg PO Q12H 11/27/23 acetaminophen 500 mg tablet 1,000 mg (2 x 500 mg) PO TID 14 days #84 tabs 12/28/23 doxycycline monohydrate 100 mg capsule 100 mg PO BID 14 days #28 caps 12/28/23 famotidine 20 mg tablet 20 mg PO DAILY 14 days #14 tabs 12/28/23 oxycodone 5 mg tablet 5 - 10 mg (1 - 2 x 5 mg) PO Q4H PRN PRN Pain Score 4-10 7 days #42 tabs 12/28/23 sennosides 8.6 mg-docusate sodium 50 mg tablet (Stool Softener-Stimulant Laxative) 2 tab PO BID 3 days #12 tabs 12/28/23 12/28/23 1152 <Electronically signed by Christi Vivar> Date _ Christi Vivar Cosigner Signature (if applicable): Date CC: ~ Signed [facility] Work Phone: 1(482) 261-234202-29-2024 Progress note Author Alejandro Fitzpatrick [facility] December 28, 2023 11:23am Note Date/Time December 28, 2023 10:18am [facility] Medical Records Department [address] [place] [address] Progress Note - Orthopedic 12/28/23 1011 MR#: [id number] Acct: [id number] Name: QUIRINO PECK Rep #:[id number] : 1950 73 From: Alejandro DUBON PA-C PCP: Dr. Larry Joyce, DO Status: ADM TAMMY Location: [facility] [id number] Subjective Subjective The patient was sitting in bed upon examination with family member present. Patient denies any chest pain, shortness of breath, dizziness, lightheadedness, nausea or vomiting, or calf pain. Patient did have some nausea yesterday but this has resolved. Pain is controlled on medications. No adverse overnight events. Patient did tolerate physical therapy well yesterday. She has not had therapy this morning yet. Objective Data Objective Data Vital Signs: Vital Signs Temp Pulse Resp BP Pulse Ox O2 Del Method O2 Flow Rate 97.6 F L 70 16 108/48 L 97 CPAP 2 12/28/23 04:10 12/28/23 04:10 12/28/23 04:10 12/28/23 04:10 12/28/23 04:10 12/28/23 04:10 12/27/23 21:28 Oxygen Flow Rate (L/min) 2 Oxygen Delivery Method CPAP Weight: 98 kg Body Mass Index (BMI) 42.2 Intake & Output: Intake and Output for Last 24 Hours 12/26/23 12/27/23 12/28/23 23:59 23:59 23:59 Intake Total 2992 / 2992 50 / 50 Output Total 525 / 525 350 / 350 Balance 2467 / 2467 -300 / -300 Lab / Micro Data 12/28/23 07:14 12/28/23 07:14 Labs: Laboratory Results - last 24 hr 12/28/23 07:14: WBC 15.2 H, RBC 3.47 L, Hgb 10.6 L, Hct 33.7 L, MCV 97.1, MCH 30.5, MCHC 31.5 L, RDW Std Deviation 47.8 H, RDW Coeff of [place] 13.4, Plt Count 195, MPV 9.9, Sodium 138, Potassium 4.5, Chloride 108 H, Carbon Dioxide 26.0, Anion Gap 4 L, BUN 14, Creatinine 0.68, Estim Creat Clear Calc 64.77, Est GFR (MDRD) Af Amer 108, Est GFR (MDRD) Non-Af 90, BUN/Creatinine Ratio 20.5 H, Glucose 132 H, Calcium 8.3 L Micro: Microbiology 11/30/23 13:27 Interface Orders Nasal Screen MRSA/MSSA - Final Radiography Diagnostic Testing: Radiology Impression Hip/Pelvis X-Ray 12/27/23 12:25 IMPRESSION: Intraoperative digital documentation views. Electronically Signed: Ariel Leonardo MD at 13:38 EST , Hip X-Ray 12/27/23 13:35 IMPRESSION: Status post right total hip replacement. There is good alignment. Postoperative soft tissue changes. Electronically Signed: Alejo Marie MD at 14:16 EST , Physical Exam Narrative Vital signs stable and afebrile. Right hip is soft and supple SCDs and NOMAN hose are in place bilaterally Patient is able to plantarflex and dorsiflex actively. Sensation is intact to light touch to saphenous, sural, superficial and deep peroneal, and tibial distribution. Incisional wound VAC in place with no drainage/output in tubing or canister Negative Homans bilaterally, negative signs and symptoms of DVT. Const alert, oriented x3 and no apparent distress Assessment & Plan Assessment/Plan (1) S/P total right hip arthroplasty: PLAN: 1. S/P direct anterior right total hip arthroplasty POD #1 2. Continue Pain Medications: Tylenol and oxycodone 3. DVT Prophylaxis: Patient has resumed her Xarelto 20 mg daily due to previoushistory of DVT/pulmonary embolism. 4. PT/OT: Weightbearing as tolerated with walker 5. H & H: 10.6/33.7, asymptomatic. Labs been reviewed and are stable. 6. Reactive leukocytosis: 15.2, Afebrile. Patient did receive Decadron intraoperatively. No clinical signs of infection. 7. Currently on doxycycline for 2 weeks postoperatively due to positive staph screening and BMI greater than 40.0. Discussed with the patient potential side effects of doxycycline including sensitivity to the sunlight and increased risk of skin burn. Recommend patient take appropriate precautions. Also recommend patient to take probiotic while on the antibiotic. Patient voiced understandingagreement. 8. Continue postoperative medical management per medicine 9. Continue incisional wound VAC: Plan will be for removal of incisional wound VAC on January 02, 2024. I had a lengthy discussion with her and family member about removal. If for some reason the device would fail she is to remove the dressing and dispose of the unit. She is not to get the incision/unit wet untilremoval of the device. On January 02, 2024 she is allowed to shower get the incision wet and only to use gentle soap and water on the incision. She is not to place any ointments, topicals, salves 6 weeks postoperatively. 10. Encouraged Incentive Spirometry 11. Disposition: Plan will be for discharge home this afternoon as long as patient is medically stable, tolerates therapy, and pain is adequately controlled. She does have outpatient physical therapy established. She will follow-up per postoperative instructions. She would like her prescriptions E scribed to [facility] pharmacy. Upon discharge she will contact her officewith any concerns or questions. I have reviewed the [place] Automated Rx Reporting System (OARRS) report for this patient for refill pattern and other prescriber involvement as part of the appropriate surveillance for the provision of acute and chronic controlled medications. The report was requested and reviewed on the date of this entry and was considered in the prescribing process. This dictation was created using voice recognition software. Phonetic and/or grammatical errors may exist. 12/28/23 1017 <Electronically signed by Alejandro DUBON PA-C> Cosigner Signature (if applicable): CC: ~ Signed ADDENDUM by MOHIT Fitzpatrick on 12/28/23 at 1123 Addendum I did give verbal order to nurse to remove the Lopes 12/28/23 1123<Electronically signed by Alejandro DUBON PA-C> Cosigner Signature (if applicable): cc: ~* Signed [facility] Work Phone: 1(375) 592-627002-29-2024 Discharge summary Author Alejandro Fitzpatrick [facility] December 28, 2023 10:24am Note Date/Time December 28, 2023 10:19am [facility] Medical Records Department [facility] [place] [address] Instructions for Home/Discharge Instructions 12/28/23 1018 MR#: [id number] Acct: [id number] Name: QUIRINO PECK Rep #:[id number] : 1950 73 From: Alejandro DUBON PA-C PCP: Dr. Larry Joyce, DO Status: ADM TAMMY Discharge Instructions Diet Discharge Diet: No restrictions Activity Discharge Activity: May Not Drive (No driving for 6 weeks postoperatively. Mustalso be off all narcotics and able to walk 100 feet without the use of cane or walker.) and May Not Shower (May not get the surgical area wet until incisional wound VAC is removed on January 02, 2024) May shower in (days): 1 (only if incision is dry and without drainage. Do NOT soak/submerge in tub/pool/mendoza/stream/hot tub.)) Ice area for (Minutes): 20 (Every 1-2 hours while awake[address] place barrier between ice and skin.) Weight Bearing Status: Weight bearing as tolerated Keep extremity elevated above heart level: Operative Extremity Additional Activity Instructions:: Follow [facility] Post-op Instructions. Once postoperative dressing has been removed only use gentle soap and water overthe incision. Do not use any ointments, Neosporin, salves, alcohol pads over the incision for 6 weeks postoperatively. Do not submerge underwater for 6 weeks postoperatively. Wear elastic stockings for 2 weeks. Do NOT use alcohol with narcotic pain medication. Do NOT make important decisions while taking narcotic medication. If you have problems with taking your medication (rash, itching, nausea, etc.) call the office at once. Dressing / Incision Call your doctor if your incision/area has: Continuous Slow Oozing, Sudden Increased Bleeding, Increased Pain/ Swelling, Increased Redness and Foul Smelling Discharge Call your doctor if you observe: Fever of 101 or Higher, Shortness of breath, Chest pain, Calf discomfort and Uncontrolled pain Remove Dressing in: 5 days (Okay to remove incisional wound VAC on January 02, 2024) Additional Dressing/Incision Instructions:: Follow [facility] Post-op Instructions. Once postoperative dressing has been removed, only use gentle soap and water over the incision. Do not use any ointments, Neosporin, salves, alcohol pads over the incision for 6 weeks postoperatively. Do not submerge underwater for 6weeks postoperatively. Continue with NOMAN hose/elastic stockings for 2 weeks postoperatively. May remove at nighttime but needs to be placed back on the leg during the day. Do NOT use alcohol with narcotic pain medication. Do NOT make important decisions while taking narcotic medication. If you have problems with taking your medication (rash, itching, nausea, etc.) call the office at once. Follow Up Care Test Results: Test results from this visit will be discussed in further detail at your follow- up appointment, if applicable. Discharge Plan Admission Admit Date/Time: 12/27/23 08:37 Attending Provider: Norah Turner Primary Care Provider: Larry Joyce Consulting Providers: Roselia Dailey Discharge Orders/Prescriptions Prescriptions: New acetaminophen 500 mg Tablet 1,000 mg PO TID 14 Days Qty: 84 0RF Rx Instructions: Do not take more than 3000 mg Tylenol in a 24-hour period. famotidine 20 mg Tablet 20 mg PO DAILY 14 Days Qty: 14 0RF doxycycline monohydrate 100 mg Capsule 100 mg PO BID 14 Days Qty: 28 0RF oxycodone 5 mg Tablet 5 - 10 mg PO Q4H PRN PRN (Reason: Pain Score 4-10) 7 Days Qty: 42 0RF sennosides-docusate sodium [Stool Softener-Stimulant Laxat] 8.6-50 mg Tablet 2 tab PO BID 3 Days Qty: 12 0RF Rx Instructions: Take until first bowel movement, then as needed Continued cholecalciferol (vitamin D3) 50 mcg (2,000 unit) capsule 50 mcg PO DAILY denosumab 60 mg/mL syringe 60 mg subcut [id number] venlafaxine 37.5 mg capsule,extended release 24hr 37.5 mg PO DAILY zinc 50 mg tablet 50 mg PO DAILY ascorbic acid (vitamin C) 1,000 mg tablet 1 g PO DAILY Xarelto 20 mg tablet 20 mg PO QPM Patient Comments: TAKE ONE TABLET BY MOUTH EVERY DAY WITH SUPPER verapamil 240 mg tablet extended release 240 mg PO Q12H Patient Comments: TAKE 1 TABLET BY MOUTH EVERY 12 HOURS simvastatin 10 mg tablet 10 mg PO QHS Patient Comments: TAKE ONE TABLET BY MOUTH AT BEDTIME benazepril 10 mg tablet 10 mg PO DAILY Patient Comments: TAKE ONE TABLET BY MOUTH EVERY DAY magnesium 200 mg tablet 200 mg PO DAILY Referrals / Follow Up: Physical,Therapy [Other] - 01/01/24 3:00 pm Larry Joyce DO [Primary Care Provider] - Ines Ruiz PA [Med Staff - [facility]] - 01/10/24 3:15 pm Disposition Disposition (needs filled in before D/C Order can be placed): Home, Self Care 12/28/23 1024<Electronically signed by Alejandro DUBON PA-C>Alejandro DUBON PA-C CC: Dr. Larry Joyce DO; Dr. Roselia Dailey MD ~ Signed [facility] Work Phone: 1(383) 665-102802-28-2024 Progress note Author [facility] December 27, 2023 6:40pm Note Date/Time December 27, 2023 6:40pm [facility] Medical Records Department [address] [place] [address] Progress Note - Hospitalist 12/27/23 1829 MR#: [id number] Acct: [id number] Name: QUIRINO PECK Rep #:[id number] : 1950 73 From: Zachary Andino DO PCP: Dr. Larry Joyce DO Status: ADM TAMMY Location: [place] [address] Reason for Visit Reason for Visit: Diagnoses Encounter for other preprocedural examination (12/27/23) Subjective Subjective Patient was seen and examined today at the request of orthopedic surgery, she underwent a minimally invasive direct anterior total hip replacement, at the time my examination she is on low-flow nasal cannula oxygen. She does not relate to any complaints of shortness of breath or chest discomfort at the time of my exam. Medical history includes morbid obesity, obstructive sleep apnea, previous pulmonary embolism, chronic depression, essential hypertension, and hyperlipidemia. Objective Data Objective Data Vital Signs: Vital Signs Temp Pulse Resp BP Pulse Ox O2 Del Method O2 Flow Rate 98.7 F 115 H 18 127/65 H 99 Room Air 2 12/27/23 17:56 12/27/23 17:56 12/27/23 17:56 12/27/23 17:56 12/27/23 17:56 12/27/23 17:56 12/27/23 16:43 Oxygen Flow Rate (L/min) 2 Oxygen Delivery Method Room Air Weight: 98 kg Body Mass Index (BMI) 42.2 Intake & Output: Intake and Output for Last 24 Hours 12/25/23 12/26/23 12/27/23 23:59 23:59 23:59 Intake Total 2742 / 2742 Output Total 275 / 275 Balance 2467 / 2467 Lab / Micro Data 11/30/23 13:27 11/30/23 13:27 Micro: Microbiology 11/30/23 13:27 Interface Orders Nasal Screen MRSA/MSSA - Final Radiography Diagnostic Testing: Radiology Impression Hip/Pelvis X-Ray 12/27/23 12:25 IMPRESSION: Intraoperative digital documentation views. Electronically Signed: Ariel Leonardo MD at 13:38 EST , Hip X-Ray 12/27/23 13:35 IMPRESSION: Status post right total hip replacement. There is good alignment. Postoperative soft tissue changes. Electronically Signed: Alejo Marie MD at 14:16 EST , Physical Exam Const alert, oriented x3, no apparent distress and healthy appearing Constitutional Narrative: Patient is morbidly obese General Appearance: cooperative, well kempt and well developed Orientation / Consciousness: awake, oriented to person, oriented to place and oriented to time HEENT normocephalic, head/scalp atraumatic and moist oral mucous membranes Eyes PERRL, EOMs intact bilaterally and conjunctivae normal Neck supple, no JVD, thyroid normal and no carotid bruits General: trachea midline Resp normal respiratory effort, no retractions, no use of accessory muscles and clearto auscultation bilaterally Auscultation: Negative for rales, rhonchi or wheezes Cardio regular rate, regular rhythm, S1 normal heart sound, S2 normal heart sound, no murmurs, no rub and no gallops GI normal to inspection, nondistended, normoactive bowel sounds, soft to palpation,non-tender and non-distended Extremity no clubbing, cyanosis or edema Skin no rashes or lesions noted General Skin Exam: no breakdown Neuro oriented x3, CN's II-XII intact bilaterally, moves all extremities, no focal motor deficits and no sensory deficits noted Sensorium / Orientation: awake, alert, oriented to person, oriented to place andoriented to time Speech: speech normal Psych affect normal Assessment & Plan Assessment/Plan (1) LEELA (obstructive sleep apnea): PLAN: Plan 1. Obstructive sleep apnea-patient has her own CPAP machine here, she will use it while she is in the hospital #2 osteoarthritis-postop day 0 right total knee replacement, patient is seeing PT and OT, orthopedic surgery is managing her orthopedic issues #3 chronic anticoagulation-patient is on Xarelto as an outpatient due to past history of PE, orthopedic surgery is holding the Xarelto at the present time dueto her surgery, it appears that the Xarelto will be resumed tomorrow night at dinner. #4 essential hypertension-patient is on verapamil, blood pressure will be monitored #5 chronic depression-patient is on Effexor #6 hyperlipidemia-patient is on Lipitor at this time #7 morbid obesity-complicates care, medical course, recovery, and prognosis Total clinical time spent by myself addressing the patient's medical issues, reviewing all of her data, and collaborating with patient's care team: 30 minutes Charges/Coding Visit Charges Office Visits / Consults: 14607 OV L4 Est 30min 12/27/23 1840 <Electronically signed by Zachary Andino DO> Cosigner Signature (if applicable): CC: ~ Signed [facility] Work Phone: 1(142) 562-143002-28-2024 Procedure [facility] 12-27-2023 History and physical note Author Norah Turner [facility] December 27, 2023 9:57am Note Date/Time December 21, 2023 6:51am [facility] Medical Records Department [address] [place] [address] History & Physical Exam 12/21/23 0649 MR#: [id number] Acct: [id number] Name: QUIRINO PECK Rep #:[id number] : 1950 73 From: Alejandro DUBON PA-C PCP: Dr. Larry Joyce, DO Status: [facility] Location: [place] [address] History and Physical History and Physical? Patient Name: Mi Peck : 1950 From:? ALEJANDRO FITZPATRICK PA-C? DATE OF PRE-OPERATIVE EXAM: 12/20/2023 DATE OF SURGERY:? 12/27/2023 SCHEDULED PROCEDURE:? Right total hip arthroplasty HISTORY OF PRESENT ILLNESS: Preoperative history and physical exam was performed on December 20, 2023.? Thisis a 73-year-old female who has had ongoing pain for over 2 years with her righthip.? Patient's pain can reach 9/10 with activities.? Her pain has been intermittent, aching, sharp, stabbing and sore.? Her pain has been progressivelybeen getting worse.? She has start up pain.? Pain is located in the right buttock with pain radiating into the anterior thigh.? She states occasional instability with the left leg.? Pain occasionally awakens her at night.? She hasdifficulty with activities of daily living including shopping and housework.? Patient denies past history of surgery on the right hip.? She has been through weight loss program prescribed fit.? She uses a walker.? She has tried rest, physical therapy, home exercises with minimal relief.? She has been on oral Tylenol.? Patient has past history of DVT after gallbladder surgery.? She was initially on Coumadin but has been on Rivaroxaban 20 mg daily by her primary care physician.? She has medical history pertinent for previous DVT/pulmonary embolism, hypertension, hypercholesterolemia, chronic obstructive pulmonary disease, atrial tachycardia, depression, vitamin D deficiency, and history of anemia with iron deficiency.? Patient has been instructed by the primary care physician to stop the Rivaroxaban 48 hours prior to surgery.? She has obtain surgical clearance from the primary care physician Dr. Joyce and cardiology Susan Núñez.? Patient does have sleep apnea in which she uses a BiPAP.? Patient does state that she has required oxygen in the past after COVID-19.? Shehas not required any oxygen recently.? After failing conservative measures and discussing all treatment options was Dr. Norah Turner, the patient does wish toproceed with a right total hip arthroplasty.? She denies any recent chest pain, shortness of breath, fevers chills.? Preoperatively she did test positive for staph in which she has been doing the nasal decontamination. REVIEW OF SYSTEMS: Review Of Systems: Constitutional: Denies change in appetite, fever and weight change. Cardiovasular: Reports irregular heartbeat, but denies chest pain and heart murmur. Respiratory: Reports shortness of breath, but denies cough, pneumonia, tuberculosis and wheezing. Gastrointestinal: Reports constipation, but denies diarrhea, heartburn, nausea, rectal itching, bloody stools and vomiting. Genitourinary: Denies female genital problems. Denies urinary symptoms. Musculoskeletal: Reports gait disturbance, leg swelling, pain, trouble walking and weakness. Skin: Reports history of shingles, but denies Raynaud's and tattoo. Neurological: Denies ambulatory dysfunction, dizziness, numbness/tingling and tremor. Psychiatric: Reports stress, but denies anxiety and insomnia. Hematologic/Lymphatic: Denies anemia, bleeding/bruising tendency and past transfusion. Reviewed and updated. PAST MEDICAL HISTORY: Advance Care Plan: No Advance Directives Effective Date: 07/10/2023 Past Medical History: Medical Problems: Arthritis, High Blood Pressure, Hypercholesterolemia, History Of Blood Clots/ DVT, Sleep Apnea, Covid- 19, Pulmonary Embolism, atrial tachycardia, Chronic Obstructive Pulmonary Disease (COPD), Depression, Sinus Tachycardia, Mixed Hyperlipidemia, anemia, vitamin d deficiency Accidents: Fracture - RT [employer] RT ANKLE 1970 Surgical Hx: Appendectomy Cataracts - (2018) [facility] EYE LUBBOCK? Gallbladder - (2018) AO Tonsillectomy - [facility] Anesthesia Complications: Anesthesia Complications - NAUSEA? Assistive Devices: Glasses, Dentures, Walker, Bipap Reviewed and updated. SOCIAL HISTORY: Social History: Marital: .Occupation: Retired.Work Status: Retired.Hand Dominance: Right-handed. Personal Habits:? Cigarette Use: Never Smoked Cigarettes.Smokeless Tobacco: Never Used Smokeless Tobacco.E-Cigarette Use: Never used.Alcohol: Denies use.Drug Use: Denies Use.Enjoy Exercising: Exercises 1-3 X/Week. Reviewed, no changes. VITALS: Ht: 60.9 Wt: 219lb 6oz Wt k.508 BMI: 41.6 BP: 128/80 Pulse: 114 Resp: 18 T: 97.7 T: 36.5C Pain Level: 6 O2SatR: 95 ALLERGIES: No Known Drug Allergy? MEDICATIONS: Mupirocin 2 % use qtip and apply inside each nostril twice a day until the day of surgery, Verapamil HCL ER 240 mg take 1 tablet by mouth every 12 hours, Venlafaxine HCL ER 37.5 mg take 1 capsule by mouth every day, Simvastatin 10 mg take 1 tablet by mouth at bedtime, Benazepril HCL 10 mg take 1 tablet by mouth every day, Valacyclovir HCL 1 gm take 1 tablet by mouth every 8 hours for 10 days, CVS D3 50 mcg (1999 Ut) daily, Instaflex Joint Supplement? 1 po qdaily, Miralax 17 gm as needed, Xarelto 20 mg once daily PRE-OP EXAM:? General appearance:NORMAL? ? ? Other: Eyes: Conjunctivae and lids: NORMAL? Pupils: ERR Ears, Nose, Mouth, and Throat: NORMAL? Other: Inspection of lips, teeth and gums: NORMAL? ?Other: Neck: Examination of neck: no masses noted. Respiratory: Assessment of respiratory effort: NORMAL? ?Other: ?Auscultation of lungs: clear to auscultation no wheezes, rhonchi or rales. Cardiovascular:? Auscultation of heart: regular rate and rhythm, no murmurs, gallops or rubs. PHYSICAL EXAMINATION: Patient does walk with a waddling and antalgic gait with use of walker.? Right hip range of motion 65 flexion, internal rotation 10, external rotation no redness and skin fold.? The right lower extremity is 3 mm shorter than the left.? Sensation intact to light touch. IMAGING STUDIES: Previous x-rays of the right hip reveal joint space narrowing, subchondral sclerosis, osteophyte formation consistent with severe stage IV bone on bone erosive osteoarthritis IMPRESSION: 1.? Severe right hip osteoarthritis 2.? Hypertension 3.? History of DVT and pulmonary embolism: Currently on Rivaroxaban 20 mg 4.? Hypercholesterolemia 5.? Sleep apnea with use of BiPAP 6.? Sinus tachycardia 7.? History of anemia iron deficiency 8.? Vitamin D deficiency 9.? Chronic obstructive pulmonary disease 10.? Depression 11.? Morbid obesity with BMI 41.6 PLAN: Dr. Norah Turner did discuss and review with the patient all treatment options including surgical versus nonsurgical options.? Patient does wish to proceed with the above-stated procedure.? Potential risks, benefits, and complications of the procedure were discussed in detail including but not limited to , infection, nerve and blood vessel damage, persistent pain, numbness, tingling, paresthesias, blood clot, pulmonary embolism, and requirement for possible further surgery.? The patient expressed full understanding and has no further questions for the doctor.? Patient does agree to proceed with the above-stated procedure and has signed the surgery consent form. POST-OP MEDICATION PLAN: Pain Medications:? Postoperative pain regimen will be initiated by Dr. Norah Turner at the hospital.? Due to patient testing positive for staph and her morbid obesity she will be placed on doxycycline postoperatively for 2 weeks.? We discussed side effects including hypersensitivity to sunlight in which she should take appropriate precautions.? Also recommended probiotic while on the antibiotic.? She was instructed to bring her BiPAP and walker to the hospital DVT Prophylaxis: Patient has been instructed to stop the Rivaroxaban 48 hours prior to surgery.? This will be resumed postoperatively This dictation was created using voice recognition software. Phonetic and/or grammatical errors may exist. ___? I have re-examined the patient.? There are no clinical changes since date of exam. ___? See progress notes for changes. ___? Dictated on admission Date: ? ? ?Time: Signature: 12/21/23 0651 <Electronically signed by Alejandro DUBON PA-C> Cosigner Signature (if applicable): CC: MOHIT Fitzpatrick; Dr. Larry Joyce, DO; Dr. Norah Turner MD~ Signed ADDENDUM by Dr. Norah Turner MD on 12/27/23 at 0957 Addendum I have examined the patient and the H&P has been reviewed. There are no clinicalchanges since date of exam. 12/27/23 0957<Electronically signed by Norah Turner MD> Cosigner Signature (if applicable): cc: MOHIT Fitzpatrick; Dr. Larry Joyce DO; Dr. Norah Turner MD ~* Signed [facility] Work Phone: 1(466) 636-816802-13-2024 History of Past illness Narrative* Problem Noted Date Diagnosed Date Resolved Date Anticoagulation goal of INR 3.0 to 4.0 11/25/2021 08/30/2022 documented as of this encounter (statuses as of 12/12/2023) [facility]02-09-2024 History of Past illness Narrative* Problem Noted Date Diagnosed Date Resolved Date Anticoagulation goal of INR 3.0 to 4.0 11/25/2021 08/30/2022 documented as of this encounter (statuses as of 12/08/2023) [facility]12-11-2023 History of Present illness Narrative* Mary Cooper, SUPERVISOR RECLAMATION.RETAIL ANALYTICS MANAGER - 10/09/2023 1:20 PM EST [facility] Date: October 09, 2023 Primary Care Provider: Larry Joyce DO SUBJECTIVE: Chief Complaint: 1 year follow-up Mi Peck is a 72 year old female with PMH HTN, hyperlipidemia, depression, osteoarthritis, vitamin D deficiency, atrial tachycardia on holter monitor 11/2021-12/2021), history of DVT(1998), nocturnal hypoxia (dx 01/2022) who is here today for 1 year follow-up. No recent labs available for review, she reports she just had labs done with Larry Joyce. She waschanged from coumadin to Xarelto one month ago by PCP for her history of DVT due to her INR being very variable and needing labs drawn 2+ times a week. Patient reports feeling good from a cardiac standpoint. She feels much better now that her heart rate is controlled, no longer beating fast. She denies chest pain, palpitations, PND, orthopnea, syncope, near-syncope. Mild chronic intermittent edema no worse from normal, no swelling today. She does report some mild OLIVER she equates to being less active due to her right hip pain, having right hip replacement 12/27/23. PAST MEDICAL HISTORY Diagnosis Date Abnormal CT scan, lung Anticoagulation goal of INR 3.0 to 4.0 Atrial tachycardia By Holter worn 11/16/2021 Benign hypertension COVID-19 09/30/2021 Dvt femoral (deep venous thrombosis) (HCC) H/O echocardiogram 12/08/2021 EF 55-60%, trivial MR, trivial MA, trivial History of cardiac monitoring 11/16/2021 83 runs of SVT History of stress test 12/20/2021 EF 61%, reversible defect in the anterior and inferior on distal inferolateral wall extending to the apex suggesting ischemia in this area. Hx of cardiac catheterization 12/28/2021 EF 55% normal left cardiac catheterization done by Dr. Hernandez at [facility]. Iron deficiency Mixed hyperlipidemia Moderate recurrent major depression (HCC) Morbid obesity (HCC) Nocturnal hypoxia oxygen study 01/2022 Osteoarthritis, knee Osteoporosis Sinus tachycardia Vitamin D deficiency PAST SURGICAL HISTORY Procedure Laterality Date APPENDECTOMY BARIUM ENEMA 10/30/2004 CATARACT EXTRACTION HX Bilateral 11/30/2017 CATARACT EXTRACTION HX COLONOSCOPY 04/09/2018 LIGATE FALLOPIAN TUBE REMOVAL GALLBLADDER 10/30/1989 FAMILY HISTORY Problem Relation Age of Onset Heart Attack Mother Glaucoma Mother other (osteoarthritis) Mother Hyperlipidemia Father Hyperthyroidism Father other (osteoarthritis) Father Diabetes Sister Hyperlipidemia Brother Social History Tobacco Use Smoking status: Never Passive exposure: Never Smokeless tobacco: Never Substance Use Topics Alcohol use: Never Drug use: Never Allergies Patient has no known allergies. Current Outpatient Medications Medication Sig rivaroxaban (XARELTO) 20 mg tablet Take 20 mg by mouth daily with dinner. verapamil SR (CALAN SR, ISOPTIN SR) 240 mg CR tablet TAKE 1 TABLET BY MOUTH TWICE A DAY venlafaxine (EFFEXOR) 37.5 mg tablet Take 37.5 mg by mouth once daily. ascorbic acid, vitamin C, (VITAMIN C) 500 mg tablet Take 500 mg by mouth once daily. benazepril (LOTENSIN) 10 mg tablet Take 10 mg by mouth once daily. cholecalciferol (VITAMIN D3) 50 mcg (2,000 unit) tablet Take 2,000 Units by mouth once daily. denosumab (PROLIA) 60 mg/mL Inject 60 mg subcutaneously once every 6 months. simvastatin (ZOCOR) 10 mg tablet Take 10 mg by mouth daily at bedtime. No current facility-administered medications for this visit. REVIEW OF SYSTEMS: RESPIRATORY: No cough. + mild shortness of breath since she has been less active with hip pain, resolves with rest. CARDIOVASCULAR: No chest pain, palpitations. + mild intermittent extremity swelling after periods of standing (ie standing in kitchen making Scott cookies). No orthopnea, no bendopenia. No syncope or near syncope. GI: No blood in stools. : No gross blood in urine. MSK: + right hip pain, getting hip replacement in November OBJECTIVE: 10/09/23 1338 BP: 136/70 BP Site: Left Arm BP Position: Sitting Pulse: 76 Weight: 102.1 kg (225 lb) Height: 152.4 cm (5') Last 3 Encounter BP Readings: Date: BP: 09/05/2022 138/70 12/07/2021 120/90 11/29/2021 128/88 Last 3 Encounter Pulse Readings: Date: Pulse: 09/05/2022 86 12/07/2021 78 11/29/2021 122 Last 3 Encounter Wt Readings: Date: Wt: 09/05/2022 104.3 kg (230 lb) 02/22/2022 102.5 kg (226 lb) 12/07/2021 101.6 kg (224 lb) PHYSICAL EXAMINATION: GENERAL: Alert and oriented x 3, pleasant, no acute distress. PSYCH: Behavior and mood appropriate. HEENT: Normocephalic and atraumatic. Sclera anicteric. LUNGS: Breathing appears comfortable at rest sitting in chair, speaking full sentences, clear to auscultation, no wheezing, no rhonchi, no crackles. No cough during visit. HEART: No JVD. No carotid bruit. Regular rhythm, normal rate, no murmur, no rubs, no gallop, radialpulses 2+ equal. ABDOMEN: Bowel sounds present, no aortic bruit, soft EXTREMITIES: No edema, no calf tenderness. SKIN: No rash or ecchymosis. Recent Labs: Potassium (MMOL/L) Date Value 12/28/2021 4.8 Sodium (MMOL/L) Date Value 12/28/2021 142 Creatinine (MG/DL) Date Value 12/28/2021 0.87 BUN (MG/DL) Date Value 12/28/2021 13 Glucose (MG/DL) Date Value 12/28/2021 109 INR (no units) Date Value 12/28/2021 1.19 Diagnostic results: EKG 10/09/2023: -Sinus Rhythm with non-specific anterior wall T wave changes (T wave inversion V1 only without depression), no axis deviation, HR 76, QRS 78, QTc 402, MA 144 ASSESSMENT/PLAN: 1. Atrial tachycardia -Per Dr Shea 02/22/22 note, Holter monitor in 2021 showed 83 short episodes, longest 11 beat run, fastest 6 beat run 208 bpm. 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 -She is on verapamil for atrial tachycardia which is doing well for her. She is in sinus rhythm on EKG today and she reports feeling well without palpitations -Continue verapamil 240 mg 240 mg twice a day -Recent labs drawn with PCP, requested results from Larry Joyce's office 2. Benign hypertension -Target BP 130/80 or less. BP controlled on current medications. -Continue benazepril. Managed by PCP and patient reports she had recent labs, requested results from Larryjosiah Saunderser's office 3. Mixed hyperlipidemia -No recent labs on file for review. abs with PCP. Will obtain copies -Continue low intensity statin. 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 History of DVT, remote -Per patient report her DVT was provoked in 1998 when she had pneumonia and was unable to do anything and was very inactive due to illness Mary Cooper APRN, MSN, RETAIL ANALYTICS MANAGER Follow-up: One year Susan Núñez [facility] of Past illness Narrative* Problem Noted Date Diagnosed Date Resolved Date Anticoagulation goal of INR 3.0 to 4.0 11/25/2021 08/30/2022 documented as of this encounter (statuses as of 10/10/2023) [facility]11-08-2022 History of Past illness Narrative* Problem Noted Date Resolved Date Anticoagulation goal of INR 3.0 to 4.0 2 08/30/2022 documented as of this encounter (statuses as of 09/06/2022) [facility]11-07-2022 NoteHNO ID: [id number] Author: Adolfo Gonsales, DO Service: ? Author Type: Physician Type: Progress Notes Filed: 09/06/2022 4:48 AM Note Text: Referring Provider: Kamar Shea MD Date: September 05, 2022 Chief Complaint: Established Patient Follow-Up (6 month follow up for HTN) HISTORY OF PRESENT ILLNESS: Mi Peck is a 71 year old female who presents for Established Patient Follow-Up (6 month follow up for HTN). ALLERGIES No Known Allergies PAST MEDICAL HISTORY: PAST MEDICAL HISTORY Diagnosis Date Abnormal CT scan, lung Anticoagulation goal of INR 3.0 to 4.0 Atrial tachycardia (HCC) By Holter worn 11/16/2021 Benign hypertension COVID-19 09/30/2021 OLIVER (dyspnea on exertion) Dvt femoral (deep venous thrombosis) (HCC) H/O echocardiogram 12/08/2021 EF 55-60%, trivial MR, trivial MA, trivial History of cardiac monitoring 11/16/2021 83 runs of SVT History of stress test 12/20/2021 EF 61%, reversible defect in the anterior and inferior on distal inferolateral wall extending to the apex suggesting ischemia in this area. Hx of cardiac catheterization 12/28/2021 EF 55% normal left cardiac catheterization done by Dr. Hernandez at [facility]. Hypoxia Iron deficiency Mixed hyperlipidemia Moderate recurrent major depression (HCC) Morbid obesity (HCC) Osteoarthritis, knee Osteoporosis Sinus tachycardia Vitamin D deficiency PAST SURGICAL HISTORY Procedure Laterality Date APPENDECTOMY BARIUM ENEMA 10/30/2004 CATARACT EXTRACTION HX Bilateral 11/30/2017 CATARACT EXTRACTION HX COLONOSCOPY 04/09/2018 LIGATE FALLOPIAN TUBE REMOVAL GALLBLADDER 10/30/1989 FAMILY HISTORY Problem Relation Age of Onset Heart Attack Mother Glaucoma Mother other (osteoarthritis) Mother Hyperlipidemia Father Hyperthyroidism Father other (osteoarthritis) Father Diabetes Sister Hyperlipidemia Brother SOCIAL HISTORY: Tobacco Use: Never Alcohol Use: Never Drug Use: Never Employer And Job Title: None on file Years Of Education Completed: Not specified Marital Status: MEDICATIONS: Current Outpatient Medications Medication Sig verapamil SR (CALAN SR, ISOPTIN SR) 240 mg CR tablet Take 1 tablet by mouth twice daily. venlafaxine (EFFEXOR) 37.5 mg tablet Take 37.5 mg by mouth once daily. ascorbic acid, vitamin C, (VITAMIN C) 500 mg tablet Take 500 mg by mouth once daily. benazepril (LOTENSIN) 10 mg tablet Take 10 mg by mouth once daily. cholecalciferol (VITAMIN D3) 50 mcg (2,000 unit) tablet Take 2,000 Units by mouth once daily. denosumab (PROLIA) 60 mg/mL Inject 60 mg subcutaneously once every 6 months. simvastatin (ZOCOR) 10 mg tablet Take 10 mg by mouth daily at bedtime. warfarin (COUMADIN) 1 mg tablet Take 1 mg by mouth daily as directed. No current facility-administered medications for this visit. I have personally reviewed the patients past medical history including social, family, surgical, diagnostics, and medications. REVIEW OF SYSTEMS: Review of Systems Constitutional: Negative for chills and fatigue. Respiratory: Negative for chest tightness and shortness of breath. Cardiovascular: Negative for chest pain, palpitations and leg swelling. Neurological: Negative for dizziness, syncope, weakness and light-headedness. Hematological: Does not bruise/bleed easily. Psychiatric/Behavioral: Negative for confusion and hallucinations. Vitals: BP 138/70 Pulse 86 Ht 157.5 cm (5' 2) Wt 104.3 kg (230 lb) BMI 42.07 kg/m? PHYSICAL EXAMINATION: BP 138/70 Pulse 86 Ht 157.5 cm (5' 2) Wt 104.3 kg (230 lb) BMI 42.07 kg/m? Last 3 Encounter BP Readings: Date: BP: 12/07/2021 120/90 11/29/2021 128/88 Last 3 Encounter Pulse Readings: Date: Pulse: 12/07/2021 78 11/29/2021 122 Last 3 Encounter Wt Readings: Date: Wt: 02/22/2022 102.5 kg (226 lb) 12/07/2021 101.6 kg (224 lb) 11/29/2021 100.7 kg (222 lb) Physical Exam Vitals reviewed. Constitutional: General: She is not in acute distress. Appearance: Normal appearance. HENT: Head: Normocephalic. Right Ear: External ear normal. Left Ear: External ear normal. Nose: Nose normal. Mouth/Throat: Mouth: Mucous membranes are moist. Eyes: Extraocular Movements: Extraocular movements intact. Cardiovascular: Rate and Rhythm: Normal rate and regular rhythm. Pulses: Normal pulses. Carotid pulses are 2+ on the right side and 2+ on the left side. Radial pulses are 2+ on the right side and 2+ on the left side. Posterior tibial pulses are 2+ on the right side and 2+ on the left side. Heart sounds: Normal heart sounds. No murmur heard. Pulmonary: Effort: Pulmonary effort is normal. Breath sounds: Normal breath sounds. Abdominal: General: Abdomen is flat. Bowel sounds are normal. Palpations: Abdomen is soft. Tenderness: There is no abdominal tenderness. Musculoskeletal: General: Normal range of motion. Cervical back: Normal r (more content not included)...[facility] 09-05-2022 History of Present illness Narrative* Adolfo Gonsales, DO - 09/05/2022 2:08 PM EST Referring Provider: Kamar Shea MD Date: September 05, 2022 Chief Complaint: Established Patient Follow-Up (6 month follow up for HTN) HISTORY OF PRESENT ILLNESS: Mi Peck is a 71 year old female who presents for Established Patient Follow-Up (6 month follow up for HTN). ALLERGIES No Known Allergies PAST MEDICAL HISTORY: PAST MEDICAL HISTORY Diagnosis Date Abnormal CT scan, lung Anticoagulation goal of INR 3.0 to 4.0 Atrial tachycardia (HCC) By Holter worn 11/16/2021 Benign hypertension COVID-19 09/30/2021 OLIVER (dyspnea on exertion) Dvt femoral (deep venous thrombosis) (HCC) H/O echocardiogram 12/08/2021 EF 55-60%, trivial MR, trivial MA, trivial History of cardiac monitoring 11/16/2021 83 runs of SVT History of stress test 12/20/2021 EF 61%, reversible defect in the anterior and inferior on distal inferolateral wall extending to the apex suggesting ischemia in this area. Hx of cardiac catheterization 12/28/2021 EF 55% normal left cardiac catheterization done by Dr. Hernandez at [facility]. Hypoxia Iron deficiency Mixed hyperlipidemia Moderate recurrent major depression (HCC) Morbid obesity (HCC) Osteoarthritis, knee Osteoporosis Sinus tachycardia Vitamin D deficiency PAST SURGICAL HISTORY Procedure Laterality Date APPENDECTOMY BARIUM ENEMA 10/30/2004 CATARACT EXTRACTION HX Bilateral 11/30/2017 CATARACT EXTRACTION HX COLONOSCOPY 04/09/2018 LIGATE FALLOPIAN TUBE REMOVAL GALLBLADDER 10/30/1989 FAMILY HISTORY Problem Relation Age of Onset Heart Attack Mother Glaucoma Mother other (osteoarthritis) Mother Hyperlipidemia Father Hyperthyroidism Father other (osteoarthritis) Father Diabetes Sister Hyperlipidemia Brother SOCIAL HISTORY: Tobacco Use: Never Alcohol Use: Never Drug Use: Never Employer And Job Title: None on file Years Of Education Completed: Not specified Marital Status: MEDICATIONS: Current Outpatient Medications Medication Sig verapamil SR (CALAN SR, ISOPTIN SR) 240 mg CR tablet Take 1 tablet by mouth twice daily. venlafaxine (EFFEXOR) 37.5 mg tablet Take 37.5 mg by mouth once daily. ascorbic acid, vitamin C, (VITAMIN C) 500 mg tablet Take 500 mg by mouth once daily. benazepril (LOTENSIN) 10 mg tablet Take 10 mg by mouth once daily. cholecalciferol (VITAMIN D3) 50 mcg (2,000 unit) tablet Take 2,000 Units by mouth once daily. denosumab (PROLIA) 60 mg/mL Inject 60 mg subcutaneously once every 6 months. simvastatin (ZOCOR) 10 mg tablet Take 10 mg by mouth daily at bedtime. warfarin (COUMADIN) 1 mg tablet Take 1 mg by mouth daily as directed. No current facility-administered medications for this visit. I have personally reviewed the patients past medical history including social, family, surgical, diagnostics, and medications. REVIEW OF SYSTEMS: Review of Systems Constitutional: Negative for chills and fatigue. Respiratory: Negative for chest tightness and shortness of breath. Cardiovascular: Negative for chest pain, palpitations and leg swelling. Neurological: Negative for dizziness, syncope, weakness and light-headedness. Hematological: Does not bruise/bleed easily. Psychiatric/Behavioral: Negative for confusion and hallucinations. Vitals: BP 138/70 Pulse 86 Ht 157.5 cm (5' 2) Wt 104.3 kg (230 lb) BMI 42.07 kg/m PHYSICAL EXAMINATION: BP 138/70 Pulse 86 Ht 157.5 cm (5' 2) Wt 104.3 kg (230 lb) BMI 42.07 kg/m Last 3 Encounter BP Readings: Date: BP: 12/07/2021 120/90 11/29/2021 128/88 Last 3 Encounter Pulse Readings: Date: Pulse: 12/07/2021 78 11/29/2021 122 Last 3 Encounter Wt Readings: Date: Wt: 02/22/2022 102.5 kg (226 lb) 12/07/2021 101.6 kg (224 lb) 11/29/2021 100.7 kg (222 lb) Physical Exam Vitals reviewed. Constitutional: General: She is not in acute distress. Appearance: Normal appearance. HENT: Head: Normocephalic. Right Ear: External ear normal. Left Ear: External ear normal. Nose: Nose normal. Mouth/Throat: Mouth: Mucous membranes are moist. Eyes: Extraocular Movements: Extraocular movements intact. Cardiovascular: Rate and Rhythm: Normal rate and regular rhythm. Pulses: Normal pulses. Carotid pulses are 2+ on the right side and 2+ on the left side. Radial pulses are 2+ on the right side and 2+ on the left side. Posterior tibial pulses are 2+ on the right side and 2+ on the left side. Heart sounds: Normal heart sounds. No murmur heard. Pulmonary: Effort: Pulmonary effort is normal. Breath sounds: Normal breath sounds. Abdominal: General: Abdomen is flat. Bowel sounds are normal. Palpations: Abdomen is soft. Tenderness: There is no abdominal tenderness. Musculoskeletal: General: Normal range of motion. Cervical back: Normal range of motion. Right lower leg: No edema. Left lower leg: No edema. Skin: General: Skin is warm. Capillary Refill: Capillary refill takes 2 to 3 seconds. Findings: No rash or wound. Neurological: General: No focal deficit present. Mental Status: She is alert and oriented to person, place, and time. Mental status is at baseline. Coordination: Coordination is intact. Psychiatric: Mood and Affect: Mood normal. Thought Content: Thought content normal. Judgment: Judgment normal. LABS: Glucose (MG/DL) Date Value 12/28/2021 109 Potassium (MMOL/L) Date Value 12/28/2021 4.8 Sodium (MMOL/L) Date Value 12/28/2021 142 Chloride (MMOL/L) Date Value 12/28/2021 106 CO2 (MMOL/L) Date Value 12/28/2021 23.0 Creatinine (MG/DL) Date Value 12/28/2021 0.87 BUN (MG/DL) Date Value 12/28/2021 13 Anion Gap (MMOL/L) Date Value 12/28/2021 13 Calcium (MG/DL) Date Value 12/28/2021 9.2 Hemoglobin (G/DL) Date Value 12/28/2021 12.4 Hematocrit (%) Date Value 12/28/2021 37.7 WBC (K/CUMM) Date Value 12/28/2021 8.3 No results found for: CHOL, HDL, LDL, TG EKG: DIAGNOSTIC TEST RESULTS: Recent Results (from the past 24 hour(s)) ECG COMPLETE Collection Time: 09/05/22 3:15 PM Result Value Ref Range Ventricular Rate 86 BPM Atrial Rate 86 BPM P-R Interval 150 ms QRS Duration 80 ms QT Interval 368 ms QTC Calculation (Bazett) 440 ms Calculated P [place] 57 degrees Calculated R [place] 5 degrees Calculated T [place] 42 degrees Narrative NAME : MI PECK PID : [id number] : 1950 Gender : Female Race : ORD : [id number] Procedure Date : Sep 05 2022 15:15:05 Edit Date : Sep 05 2022 14:15:05 Diagnosis: SINUS RHYTHM WITH PREMATURE SUPRAVENTRICULAR COMPLEXES LOW VOLTAGE QRS, CONSIDER PULMONARY DISEASE, PERICARDIAL EFFUSION, OR NORMAL VARIANT BORDERLINE ECG NO PREVIOUS ECGS AVAILABLE Test Reason : Location : [facility] : [facility] [place] Overread By : , Edited By : , Referred By : ADOLFO GONSALES Acquired by : , Impression SINUS RHYTHM WITH PREMATURE SUPRAVENTRICULAR COMPLEXES LOW VOLTAGE QRS, CONSIDER PULMONARY DISEASE, PERICARDIAL EFFUSION, OR NORMAL VARIANT BORDERLINE ECG NO PREVIOUS ECGS AVAILABLE ASSESSMENT/PLAN: 1. Benign hypertension - ICD9: 401.1, ICD10: I10 (primary diagnosis) Patient's blood pressure in the office today was recorded as 138/70. Target systolic BP 140 or lessand diastolic BP 90 or less. Continue current medications. EKG done in office today. - ECG COMPLETE 2. Mixed hyperlipidemia - ICD9: 272.2, ICD10: E78.2 Patient is currently taking Simvastatin 10 mg every day. We do not have patients last FLP on file. 3. half-way (current) use of anticoagulants - ICD9: V58.61, ICD10: Z79.01 Patient is taking Warfarin 1 mg as directed. They are currently on medications that may affect the coagulation cascade. We asked about hematochezia, melena, bright red blood and coughing up blood like hemoptysis. They deny any symptoms. We also asked the patient about increased bruising and went over the risk of bleeding. We reviewd the relationship between dosing and the renal profile. 4. Sinus tachycardia - ICD9: 427.89, ICD10: R00.0 Patient had Monitor done on 11/16/21 and it showed 83 runs of SVT. Therefore we will continue her onanticoagulation therapy 5. H/O echocardiogram - ICD9: V15.89, ICD10: Z92.89 Patient had Echo done on 12/08/21 and it showed EF 55-60%, trivial MR, trivial MA, trivial. 6. History of stress test - ICD9: V15.89, ICD10: Z92.89 Patient had Stress Test done on 12/20/21 and it showed EF 61%, reversible defect in the anterior andinferior on distal inferolateral wall extending to the apex suggesting ischemia in this area. 7. Hx of cardiac catheterization - ICD9: V45.89, ICD10: Z98.890 Patient had Cath done on 12/28/21 and it showed EF 55% normal left cardiac catheterization done by Dr. Hernandez at [facility]. 8. Non-smoker - ICD9: V49.89, ICD10: Z78.9 Patient has never been a smoker. 9. Chronic anticoagulationPatient is taking 2 Coumadin. They are currently on medications that may affect the coagulation cascade. We asked about hematochezia, melena, bright red blood and coughing up blood like hemoptysis. They deny any symptoms. We also asked the patient about increased bruising and went over the risk of bleeding. We reviewd the relationship between dosing and the renal profile. ISwapna MA, scribing for Dr. Adolfo Gonsales. Follow up in: 1 year follow up for HTN Prior to entering the room, I reviewed the last progress note including the diagnosis and plan of action. When available, I then reviewed the last heart catheterization, stress test, echocardiogram and EKG. I proceeded to review the medial therapy and any side effects the patient may have had in the past. I was able to look at the last several EKGs. A new EKG was performed today and an interetation was performed. I reviewed its interpretation with the family and compared it to the previous EKGsthat we have in the medical records. Changes were described to the patient. In a pictorial format; I described the MA and QRS intervals. This was to show the effects of antiarrhythmic therapy on the e lectrical system. I was able to look at the past several EKG's. A new EKG was performed today and interpretation was noted. I reviewed this interpretation with the patient, and the family when available, and compared it to the previous EKG's that we have in the medical record. Since my office visit was carried out with a scribe, while in the exam room I was able to devote one hundred percent of my time in [id number] conversation with the patient. I answered all the questions and explained the diagnosis of arrhythmia. Greater that 51% of my time was spent with [id number] conversation with the patient. I have discussed the recommended treatment, alternative therapies and other options in detail. I've discussed the best benefit and side effects of these recommended treatments. I've attempted to answer all the questions to the patient's satisfaction and understanding. With approval, we would recommend an pursuethe current therapy such as continue chronic anticoagulation. After leaving the exam room, I went back into the patient's chart and coordinated care with my nurse ordering the proper testing and medicinal changes. Letter was performed with voice recognition algorithms and sent to the referring team. The chart was completed. Including the pre-exam, exam and post- exam, the total time spent in the patient's management was greater than 15 minutes I, Dr. Adolfo Gonsales, have reviewed and agree with the information in the medical record. Adolfo Gonsales DO [facility] Note ORIGINAL EXAMINATION: BONE DENSITOMETRY 06/07/2022 3:22 pm TECHNIQUE: A bone density DEXA scan was performed of the lumbar spine and left hip on a [employer] System. COMPARISON: March 02, 2020. HISTORY: ORDERING SYSTEM PROVIDED HISTORY: Reason for Exam: screening Postmenopausal. FINDINGS: LUMBAR SPINE: The bone mineral density in the lumbar spine including the 1 through L4 levels is measured at 0.881 g/cm2, which corresponds to a T-score of -1.5. This is within the osteopenic range by WHO criteria. This represents no statistically significant change in bone mineralization since the prior study. LEFT HIP: The bone mineral density in the total hip is measured at 0.748 g/cm2 corresponding to a T-score of -1.6. This is within the osteopenic range by WHO criteria. This represents no statistically significant change in bone mineralization since the prior study. The bone mineral density of the femoral neck is measured at 0.526 g/cm2 corresponding to a T-score of -2.9. This is within the osteoporotic range by WHO criteria. 10 year fracture risk, FRAX: FRAX not reported because some T-scores are at or below -2.5. IMPRESSION: Osteoporosis by WHO criteria. No statistically significant change in bone mineralization since the prior study. Interpreted by: Delaney Mares Preliminary Report By: Delaney Mares Electronically signed By Delaney Mares Dictated Date: 06/07/2022 3:58:13 PM Prelim Date: 06/07/2022 4:00:36 PM Sign Date: 06/07/2022 4:00:36 PM Ordering Provider: LARRY JOYCE [facility]08-09-2022 Note ORIGINAL EXAMINATION: BONE DENSITOMETRY 06/07/2022 3:22 pm TECHNIQUE: A bone density DEXA scan was performed of the lumbar spine and left hip on a [employer] System. COMPARISON: March 02, 2020. HISTORY: ORDERING SYSTEM PROVIDED HISTORY: Reason for Exam: screening Postmenopausal. FINDINGS: LUMBAR SPINE: The bone mineral density in the lumbar spine including the 1 through L4 levels is measured at 0.881 g/cm2, which corresponds to a T-score of -1.5. This is within the osteopenic range by WHO criteria. This represents no statistically significant change in bone mineralization since the prior study. LEFT HIP: The bone mineral density in the total hip is measured at 0.748 g/cm2 corresponding to a T-score of -1.6. This is within the osteopenic range by WHO criteria. This represents no statistically significant change in bone mineralization since the prior study. The bone mineral density of the femoral neck is measured at 0.526 g/cm2 corresponding to a T-score of -2.9. This is within the osteoporotic range by WHO criteria. 10 year fracture risk, FRAX: FRAX not reported because some T-scores are at or below -2.5. IMPRESSION: Osteoporosis by WHO criteria. No statistically significant change in bone mineralization since the prior study. Interpreted by: Delaney aMres Preliminary Report By: Delaney Mares Electronically signed By Delaney Mares Dictated Date: 06/07/2022 3:58:13 PM Prelim Date: 06/07/2022 4:00:36 PM Sign Date: 06/07/2022 4:00:36 PM Ordering Provider: [place] [id number] HCoV 229E RNA RENAY+non-probe Ql (Nph)Not Detected *NA* (06/02/22 10:14 AM) [employer] Viro/Sero [id number] Miscellaneous Notes* Telephone Encounter - Nigel Peña MA - 03/03/2022 8:48 AM EDT Pt called and notified per susan pulse ox was abnormal. She desaturated 461 times wearing overnight pulse ox. She desaturated 62 times an hour. If agreeable, order oxygen at 2 L nasal cannula through [facility]. Refer patient Dr. Vo for further evaluation and treatment abnormal pulse ox. Pt agreeable order faxed to [facility] pt states ct is too far for her she needs a doctor [place]. Pt lives in [place] * Telephone Encounter - Kimberley Rodriguez - 03/02/2022 3:03 PM EDT Patient called you back. Can you please call her back tomorrow * Telephone Encounter - Nigel Peña MA - 03/02/2022 1:26 PM EDT Left message on machine for pt to return the call * Telephone Encounter - Nigel Peña MA - 03/01/2022 12:48 PM EDT Left message for pt to return the call * Telephone Encounter - Susan Núñez APRN.CNP - 03/01/2022 8:36 AM EDT Let the patient know, a chest pulse ox was abnormal. She desaturated 461 times wearing a chest pulse ox. She desaturated 62 times an hour. If agreeable, order oxygen at 2 L nasal cannula through [facility]. Refer patient Dr. Vo for further evaluation and treatment abnormal a chest pulse ox. documented in this encounterC[facility]04-26-[facility]22 NoteHNO ID: [id number] Author: Kamar Shea MD Service: ? Author Type: Physician Type: Progress Notes Filed: 02/22/2022 8:37 AM Note Text: [facility] PCP: Larry Joyce DO, DO HPI: Mi Peck is a 71 year old female who is here today for a follow-up visit. Presently with the patient denies any problems with chest pain, pressure, or discomfort. The patient denies any orthopnea PND, or lower extremity edema. The patient does get some dyspnea on exertion. However she is more limited by leg weakness than she is by shortness of breath. She does not have any sensation of palpitations. She denies any lightheadedness, presyncope, or syncope. Prior history: Overview Notes of Problems Addressed This Visit Cardiovascular Mixed hyperlipidemia Benign hypertension - Primary Atrial tachycardia (HCC) By Holter worn 11/16/2021 Sinus tachycardia Relevant Orders ECG B/O W INTERP (MED OFFICE) (Completed) Other Morbid obesity (HCC) Hx of cardiac catheterization EF 55% normal left cardiac catheterization done by Dr. Hernandez at [facility]. CURRENT MEDICATIONS: Current Outpatient Medications Medication Sig - verapamil SR (CALAN SR, ISOPTIN SR) 240 mg CR tablet Take 1 tablet by mouth twice daily. - venlafaxine (EFFEXOR) 37.5 mg tablet Take 37.5 mg by mouth every other day. - ascorbic acid, vitamin C, (VITAMIN C) 500 mg tablet Take 500 mg by mouth once daily. - benazepril (LOTENSIN) 10 mg tablet Take 10 mg by mouth once daily. - cholecalciferol (VITAMIN D-3) 50 mcg (2,000 unit) tablet Take 2,000 Units by mouth once daily. - denosumab (PROLIA) 60 mg/mL Inject 60 mg subcutaneously once every 6 months. - simvastatin (ZOCOR) 10 mg tablet Take 10 mg by mouth daily at bedtime. - warfarin (COUMADIN) 1 mg tablet Take 1 mg by mouth daily as directed. No current facility-administered medications for this visit. PAST MEDICAL HISTORY Diagnosis Date - Abnormal CT scan, lung - Anticoagulation goal of INR 3.0 to 4.0 - Atrial tachycardia (HCC) By Holter worn 11/16/2021 - Benign hypertension - COVID-19 09/30/2021 - OLIVER (dyspnea on exertion) - Dvt femoral (deep venous thrombosis) (HCC) - H/O echocardiogram 12/08/2021 EF 55-60%, trivial MR, trivial MA, trivial - History of cardiac monitoring 11/16/2021 83 runs of SVT - History of stress test 12/20/2021 EF 61%, reversible defect in the anterior and inferior on distal inferolateral wall extending to the apex suggesting ischemia in this area. - Hx of cardiac catheterization 12/28/2021 EF 55% normal left cardiac catheterization done by Dr. Hernandez at [facility]. - Hypoxia - Iron deficiency - Mixed hyperlipidemia - Moderate recurrent major depression (HCC) - Morbid obesity (HCC) - Osteoarthritis, knee - Osteoporosis - Sinus tachycardia - Vitamin D deficiency PAST SURGICAL HISTORY Procedure Laterality Date - APPENDECTOMY - BARIUM ENEMA 10/30/2004 - CATARACT EXTRACTION HX Bilateral 11/30/2017 - CATARACT EXTRACTION HX - COLONOSCOPY 04/09/2018 - LIGATE FALLOPIAN TUBE - REMOVAL GALLBLADDER 10/30/1989 FAMILY HISTORY Problem Relation Age of Onset - Heart Attack Mother - Glaucoma Mother - other (osteoarthritis) Mother - Hyperlipidemia Father - Hyperthyroidism Father - other (osteoarthritis) Father - Diabetes Sister - Hyperlipidemia Brother SOCIAL HISTORY: Social History Tobacco Use - Smoking status: Never Smoker - Smokeless tobacco: Never Used Substance Use Topics - Alcohol use: Never - Drug use: Never ALLERGIES: Patient has no known allergies. Review of Systems Constitutional: Negative for fatigue and fever. Respiratory: Negative for cough, chest tightness, shortness of breath and wheezing. Cardiovascular: Negative for chest pain, palpitations and leg swelling. Gastrointestinal: Negative for abdominal pain, constipation, diarrhea, nausea and vomiting. Endocrine: Negative for cold intolerance and heat intolerance. Musculoskeletal: Negative for arthralgias and myalgias. Skin: Negative for rash. Neurological: Negative for dizziness, seizures, syncope and light-headedness. Hematological: Does not bruise/bleed easily. PHYSICAL EXAMINATION: 02/22/22 0800 02/22/22 0806 02/22/22 0807 Orthostatic BP: 110/80 108/72 102/70 BP Position: Supine Sitting Standing Orthostatic Pulse: 64 82 88 Weight: 102.5 kg (226 lb) Height: 157.5 cm (5' 2) Last 3 Encounter BP Readings: Date: BP: 12/07/2021 120/90 11/29/2021 128/88 Last 3 Encounter Pulse Readings: Date: Pulse: 12/07/2021 78 11/29/2021 122 Last 3 Encounter Wt Readings: Date: Wt: 02/22/2022 102.5 kg (226 lb) 12/07/2021 101.6 kg (224 lb) 11/29/2021 100.7 kg (222 lb) Physical Exam Vitals reviewed. Constitutional: Appearance: Normal appearance. She is obese. Neck: Vascular: No carotid bruit or JVD. Cardiovascular: Rate and Rhythm: Normal rate and regular rhyth (more content not included)... [facility]04-26-2022 History of Present illness Narrative* Kamar Shea MD - 02/22/2022 8:10 AM EDT [facility] PCP: Larry Joyce DO, HPI: Mi Peck is a 71 year old female who is here today for a follow-up visit. Presently with the patient denies any problems with chest pain, pressure, or discomfort. The patient denies any orthopnea PND, or lower extremity edema. The patient does get some dyspnea on exertion.However she is more limited by leg weakness than she is by shortness of breath. She does not have any sensation of palpitations. She denies any lightheadedness, presyncope, or syncope. Prior history: Overview Notes of Problems Addressed This Visit Cardiovascular Mixed hyperlipidemia Benign hypertension - Primary Atrial tachycardia (HCC) By Holter worn 11/16/2021 Sinus tachycardia Relevant Orders ECG B/O W INTERP (MED OFFICE) (Completed) Other Morbid obesity (HCC) Hx of cardiac catheterization EF 55% normal left cardiac catheterization done by Dr. Hernandez at [facility]. CURRENT MEDICATIONS: Current Outpatient Medications Medication Sig verapamil SR (CALAN SR, ISOPTIN SR) 240 mg CR tablet Take 1 tablet by mouth twice daily. venlafaxine (EFFEXOR) 37.5 mg tablet Take 37.5 mg by mouth every other day. ascorbic acid, vitamin C, (VITAMIN C) 500 mg tablet Take 500 mg by mouth once daily. benazepril (LOTENSIN) 10 mg tablet Take 10 mg by mouth once daily. cholecalciferol (VITAMIN D-3) 50 mcg (2,000 unit) tablet Take 2,000 Units by mouth once daily. denosumab (PROLIA) 60 mg/mL Inject 60 mg subcutaneously once every 6 months. simvastatin (ZOCOR) 10 mg tablet Take 10 mg by mouth daily at bedtime. warfarin (COUMADIN) 1 mg tablet Take 1 mg by mouth daily as directed. No current facility-administered medications for this visit. PAST MEDICAL HISTORY Diagnosis Date Abnormal CT scan, lung Anticoagulation goal of INR 3.0 to 4.0 Atrial tachycardia (HCC) By Holter worn 11/16/2021 Benign hypertension COVID-19 09/30/2021 OLIVER (dyspnea on exertion) Dvt femoral (deep venous thrombosis) ([facility]) H/O echocardiogram 12/08/2021 EF 55-60%, trivial MR, trivial MA, trivial History of cardiac monitoring 11/16/2021 83 runs of SVT History of stress test 12/20/2021 EF 61%, reversible defect in the anterior and inferior on distal inferolateral wall extending to the apex suggesting ischemia in this area. Hx of cardiac catheterization 12/28/2021 EF 55% normal left cardiac catheterization done by Dr. Hernandez at [facility]. Hypoxia Iron deficiency Mixed hyperlipidemia Moderate recurrent major depression (HCC) Morbid obesity (HCC) Osteoarthritis, knee Osteoporosis Sinus tachycardia Vitamin D deficiency PAST SURGICAL HISTORY Procedure Laterality Date APPENDECTOMY BARIUM ENEMA 10/30/2004 CATARACT EXTRACTION HX Bilateral 11/30/2017 CATARACT EXTRACTION HX COLONOSCOPY 04/09/2018 LIGATE FALLOPIAN TUBE REMOVAL GALLBLADDER 10/30/1989 FAMILY HISTORY Problem Relation Age of Onset Heart Attack Mother Glaucoma Mother other (osteoarthritis) Mother Hyperlipidemia Father Hyperthyroidism Father other (osteoarthritis) Father Diabetes Sister Hyperlipidemia Brother SOCIAL HISTORY: Social History Tobacco Use Smoking status: Never Smoker Smokeless tobacco: Never Used Substance Use Topics Alcohol use: Never Drug use: Never ALLERGIES: Patient has no known allergies. Review of Systems Constitutional: Negative for fatigue and fever. Respiratory: Negative for cough, chest tightness, shortness of breath and wheezing. Cardiovascular: Negative for chest pain, palpitations and leg swelling. Gastrointestinal: Negative for abdominal pain, constipation, diarrhea, nausea and vomiting. Endocrine: Negative for cold intolerance and heat intolerance. Musculoskeletal: Negative for arthralgias and myalgias. Skin: Negative for rash. Neurological: Negative for dizziness, seizures, syncope and light-headedness. Hematological: Does not bruise/bleed easily. PHYSICAL EXAMINATION: 02/22/22 0800 02/22/22 0806 02/22/22 0807 Orthostatic BP: 110/80 108/72 102/70 BP Position: Supine Sitting Standing Orthostatic Pulse: 64 82 88 Weight: 102.5 kg (226 lb) Height: 157.5 cm (5' 2) Last 3 Encounter BP Readings: Date: BP: 12/07/2021 120/90 11/29/2021 128/88 Last 3 Encounter Pulse Readings: Date: Pulse: 12/07/2021 78 11/29/2021 122 Last 3 Encounter Wt Readings: Date: Wt: 02/22/2022 102.5 kg (226 lb) 12/07/2021 101.6 kg (224 lb) 11/29/2021 100.7 kg (222 lb) Physical Exam Vitals reviewed. Constitutional: Appearance: Normal appearance. She is obese. Neck: Vascular: No carotid bruit or JVD. Cardiovascular: Rate and Rhythm: Normal rate and regular rhythm. Pulses: Carotid pulses are 2+ on the right side and 2+ on the left side. Heart sounds: Normal heart sounds. No murmur heard. No systolic murmur is present. No diastolic murmur is present. No friction rub. No gallop. No S3 or S4 sounds. Pulmonary: Effort: No respiratory distress. Breath sounds: Normal breath sounds. No stridor. No wheezing, rhonchi or rales. Chest: Chest wall: No tenderness. Abdominal: General: Abdomen is flat. Bowel sounds are normal. There is no distension. Palpations: Abdomen is soft. Tenderness: There is no abdominal tenderness. There is no guarding. Musculoskeletal: Right lower leg: No edema. Left lower leg: No edema. Skin: Findings: No rash. Neurological: Mental Status: She is alert. DIAGNOSTIC TEST RESULTS: Recent Results (from the past 24 hour(s)) ECG B/O W INTERP (MED OFFICE) Collection Time: 02/22/22 12:00 AM Impression Normal sinus rhythm at 64 bpm. There is some baseline artifact. There are nonspecific T wave changes in the anterior leads. The patient is taking verapamil SR 240 mg twice daily, Lotensin 10 mg daily, Zocor 10 mg p.o. nightly, warfarin at the time of this recording. ASSESSMENT/PLAN: 1. Benign hypertension - ICD9: 401.1, ICD10: I10 Target blood pressure 130/80 or less. The patient is present taking verapamil 240 mg twice daily and benazepril 10 mg daily. Blood pressure well controlled. 2. Mixed hyperlipidemia - ICD9: 272.2, ICD10: E78.2 The patient is presently taking simvastatin 10 mg daily. Managed by primary care physician. 3. Sinus tachycardia - ICD9: 427.89, ICD10: R00.0 Patient has a diagnosis of sinus tachycardia. She is on verapamil 240 mg twice daily. Recent event monitor showed heart rates ranging from 33-136 bpm. The patient's age-predicted maximum heart rate is 148 bpm. - ECG B/O W INTERP (MED OFFICE) 4. Atrial tachycardia (HCC) - ICD9: 427.89, ICD10: I47.1 The patient had documentation of atrial tachycardia while wearing a 48-hour Holter monitor October 2021. There were 83 short episodes of atrial tachycardia, longest being 11 beats, fastest 6 beat ptu956 bpm. She is now taking verapamil 240 mg twice daily. The patient wore an event monitor from December 16, 2021- January 14, 2022. The event monitor showed there was no evidence for sinus node dysfunction or conduction system disease. She has some bradycardic rates but they were in the early morninghours when the patient was presumably sleeping. She had insignificant atrial ectopy. She did not have any ventricular ectopy. She did not have any recurrent atrial tachycardia. Verapamil at the present dose is doing a good job of controlling the patient's atrial tachycardia. Obstructive sleep apnea, could be because the atrial tachycardia that was previously demonstrated. The patient will benefit from a nocturnal oximetry study to see whether or not she has evidence for obstructive sleep apnea. If so she will benefit from referral for a sleep study. 5. Morbid obesity (HCC) - ICD9: 278.01, ICD10: E66.01 Stable - Behavioral intervention Today I discussed weight loss with the patient. We discussed caloric restriction and increasing calorie expenditure by increasing activities. I explained to her that her weight could be responsible for her leg weakness as well as her dyspnea on exertion and her hypertension and her atrial tachycardia. It is may even be causing her to have obstructive sleep apnea. 6. Hx of cardiac catheterization - ICD9: V45.89, ICD10: Z98.890 The patient underwent cardiac catheterization 12/28/2021. Ejection fraction was normal at 55%. Normalcoronary arteries. Kamar Shea MD [facility] Miscellaneous Notes* Telephone Encounter - Nigel Peña MA - 01/24/2022 10:30 AM EDT Pt called and notified per susan event monitor looks okay. She had insignificant atrial ectopy. No ventricular ectopy. Pt agreeable * Telephone Encounter - Susan Núñez APRN.CNP - 01/24/2022 8:10 AM EDT Let the patient know, event monitor looks okay. She had insignificant atrial ectopy. No ventricularectopy. documented in [facility] encounterC[facility] NoteHNO ID: [id number] Author: Swapna Kraus MA Service: ? 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 Monitor was placed on patient while in office and understood instructions. Patients Verapamil was increased to 240 mg BID Name and reviewed and verified with patient. Allergies reviewed and verified with patient. Current Outpatient Medications Medication Sig - verapamil (CALAN, ISOPTIN) 120 mg tablet Take 2 tablets by mouth twice daily. - venlafaxine (EFFEXOR) 37.5 mg tablet Take 37.5 mg by mouth every other day. - ascorbic acid, vitamin C, (VITAMIN C) 500 mg tablet Take 500 mg by mouth once daily. - benazepril (LOTENSIN) 10 mg tablet Take 10 mg by mouth once daily. - cholecalciferol (VITAMIN D-3) 50 mcg (2,000 unit) tablet Take 2,000 Units by mouth once daily. - denosumab (PROLIA) 60 mg/mL Inject 60 mg subcutaneously once every 6 months. - simvastatin (ZOCOR) 10 mg tablet Take 10 mg by mouth daily at bedtime. - warfarin (COUMADIN) 1 mg tablet Take 1 mg by mouth daily as directed. No current facility-administered medications for this visit. Patient is taking medication as prescribed Yes Took medication today Yes Experiencing side effects No Physician notified of EKG readings Yes EKG: Normal sinus rhythm. Left cheung axis. Nonspecific T wave changes anterior leads. Abnormal EKG. Heart rate 83 BPM Swapna Kraus [facility]02-08-2022 NoteHNO ID: [id number] Author: Susan Núñez APRN.THEODORE Service: ? Author Type: Nurse Practitioner Type: Progress Notes Filed: 12/09/2021 2:30 PM Note Text: [facility] Larry Joyce DO, SUBJECTIVE: Mi Peck is a 71 year old female who is here today for follow-up visit. The patient saw Dr. Gonsales last week. She was complaining of fast heart rates. We had documentation of sinus tachycardia as well as atrial tachycardia by 48-hour Holter monitor. Patient was started on verapamil 120 mg twice daily. She states her tachycardia seems to be better but she still still continues to have fast heart rates. The fast heart rates seem to be related to physical activity. She has had problems with shortness of breath with minimal activity. She denies chest pain, PND, orthopnea, syncope, near-syncope, or edema. PAST MEDICAL HISTORY Diagnosis Date - Abnormal CT scan, lung - Anticoagulation goal of INR 3.0 to 4.0 - Atrial tachycardia (HCC) By Holter worn 11/16/2021 - Benign hypertension - COVID-19 09/30/2021 - OLIVER (dyspnea on exertion) - Dvt femoral (deep venous thrombosis) (HCC) - History of cardiac monitoring 11/16/2021 83 runs of SVT - Hypoxia - Iron deficiency - Mixed hyperlipidemia - Moderate recurrent major depression (HCC) - Morbid obesity (HCC) - Osteoarthritis, knee - Osteoporosis - Sinus tachycardia - Vitamin D deficiency PAST SURGICAL HISTORY Procedure Laterality Date - APPENDECTOMY - BARIUM ENEMA 10/30/2004 - CATARACT EXTRACTION HX Bilateral 11/30/2017 - CATARACT EXTRACTION HX - COLONOSCOPY 04/09/2018 - LIGATE FALLOPIAN TUBE - REMOVAL GALLBLADDER 10/30/1989 FAMILY HISTORY Problem Relation Age of Onset - Heart Attack Mother - Glaucoma Mother - other (osteoarthritis) Mother - Hyperlipidemia Father - Hyperthyroidism Father - other (osteoarthritis) Father - Diabetes Sister - Hyperlipidemia Brother SOCIAL HISTORY: Social History Tobacco Use - Smoking status: Never Smoker - Smokeless tobacco: Never Used Substance Use Topics - Alcohol use: Never - Drug use: Never ALLERGIES: Patient has no known allergies. CURRENT MEDICATIONS: Current Outpatient Medications Medication Sig - verapamil (CALAN, ISOPTIN) 120 mg tablet Take 2 tablets by mouth twice daily. - venlafaxine (EFFEXOR) 37.5 mg tablet Take 37.5 mg by mouth every other day. - ascorbic acid, vitamin C, (VITAMIN C) 500 mg tablet Take 500 mg by mouth once daily. - benazepril (LOTENSIN) 10 mg tablet Take 10 mg by mouth once daily. - cholecalciferol (VITAMIN D-3) 50 mcg (2,000 unit) tablet Take 2,000 Units by mouth once daily. - denosumab (PROLIA) 60 mg/mL Inject 60 mg subcutaneously once every 6 months. - simvastatin (ZOCOR) 10 mg tablet Take 10 mg by mouth daily at bedtime. - warfarin (COUMADIN) 1 mg tablet Take 1 mg by mouth daily as directed. No current facility-administered medications for this visit. Review of Systems Constitutional: Negative for activity change and fever. Respiratory: Positive for shortness of breath. Negative for apnea, cough, chest tightness, wheezing and stridor. Cardiovascular: Positive for palpitations. Negative for chest pain and leg swelling. Gastrointestinal: Negative for abdominal distention, diarrhea and vomiting. Musculoskeletal: Negative for joint swelling, neck pain and neck stiffness. Skin: Negative for color change, pallor and rash. Neurological: Negative for dizziness, syncope, weakness, light-headedness and numbness. Hematological: Does not bruise/bleed easily. Psychiatric/Behavioral: Negative for agitation, behavioral problems and confusion. The patient is not nervous/anxious. All other systems reviewed and are negative. PHYSICAL EXAMINATION: 12/07/21 1253 BP: 120/90 BP Position: Sitting Pulse: 78 Weight: 101.6 kg (224 lb) Height: 157.5 cm (5' 2) Last 3 Encounter BP Readings: Date: BP: 11/29/2021 128/88 Last 3 Encounter Pulse Readings: Date: Pulse: 11/29/2021 122 Last 3 Encounter Wt Readings: Date: Wt: 11/29/2021 100.7 kg (222 lb) Physical Exam Vitals and nursing note reviewed. Constitutional: General: She is not in acute distress. Appearance: Normal appearance. She is not toxic-appearing. HENT: Head: Normocephalic and atraumatic. Nose: Nose normal. Mouth/Throat: Mouth: Mucous membranes are moist. Neck: Vascular: No carotid bruit. Cardiovascular: Rate and Rhythm: Normal rate and regular rhythm. Pulses: Normal pulses. Heart sounds: Normal heart sounds. No murmur heard. No friction rub. No gallop. Pulmonary: Effort: Pulmonary effort is normal. No respiratory distress. Breath sounds: Normal breath sounds. No stridor. No wheezing, rhonchi or rales. Chest: Chest wall: No tenderness. Abdominal: General: Abdomen is flat. There is no distension. Palpations: Abdomen is soft. There is no mass. Tenderness: There is no abdominal tenderness. [facility] [place]more content not included[place]01-31-2022 NoteHNO ID: [id number] Author: Adolfo Gonsales DO Service: ? Author Type: Physician Type: Progress Notes Filed: 12/01/2021 5:19 AM Note Text: Referring Provider: Larry Joyce DO Date: November 29, 2021 Chief Complaint: CARD New Patient Consult (Tachycardia, HTN) HISTORY OF PRESENT ILLNESS: Mi Peck is a 71 year old female who presents for CARD New Patient Consult (Tachycardia, HTN). Recently had Covid infection in September. Complaining of palpitations since having Covid. ALLERGIES No Known Allergies PAST MEDICAL HISTORY: PAST MEDICAL HISTORY Diagnosis Date - Abnormal CT scan, lung - Anticoagulation goal of INR 3.0 to 4.0 - COVID-19 09/30/2021 - OLIVER (dyspnea on exertion) - Dvt femoral (deep venous thrombosis) (HCC) - Essential hypertension - Hypoxia - Iron deficiency - Mixed hyperlipidemia - Moderate recurrent major depression (HCC) - Morbid obesity (HCC) - Osteoarthritis, knee - Osteoporosis - Tachycardia - Vitamin D deficiency PAST SURGICAL HISTORY Procedure Laterality Date - APPENDECTOMY - BARIUM ENEMA 10/30/2004 - CATARACT EXTRACTION HX Bilateral 11/30/2017 - CATARACT EXTRACTION HX - COLONOSCOPY 04/09/2018 - LIGATE FALLOPIAN TUBE - REMOVAL GALLBLADDER 10/30/1989 FAMILY HISTORY Problem Relation Age of Onset - Heart Attack Mother - Glaucoma Mother - other (osteoarthritis) Mother - Hyperlipidemia Father - Hyperthyroidism Father - other (osteoarthritis) Father - Diabetes Sister - Hyperlipidemia Brother SOCIAL HISTORY: Tobacco Use: Never Alcohol Use: Never Drug Use: Never Employer And Job Title: None on file Years Of Education Completed: Not specified Marital Status: MEDICATIONS: Current Outpatient Medications Medication Sig - venlafaxine (EFFEXOR) 37.5 mg tablet Take 37.5 mg by mouth every other day. - amLODIPine (NORVASC) 5 mg tablet Take by mouth once daily. - ascorbic acid, vitamin C, (VITAMIN C) 500 mg tablet Take 500 mg by mouth once daily. - benazepril (LOTENSIN) 10 mg tablet Take 10 mg by mouth once daily. - cholecalciferol (VITAMIN D-3) 50 mcg (2,000 unit) tablet Take 2,000 Units by mouth once daily. - denosumab (PROLIA) 60 mg/mL Inject 60 mg subcutaneously once every 6 months. - simvastatin (ZOCOR) 10 mg tablet Take 10 mg by mouth daily at bedtime. - warfarin (COUMADIN) 1 mg tablet Take 1 mg by mouth daily as directed. - benzonatate (TESSALON PERLE) 100 mg capsule Take 100 mg by mouth as needed. (Patient not taking: Reported on 11/29/2021 ) No current facility-administered medications for this visit. I have personally reviewed the patients past medical history including social, family, surgical, diagnostics, and medications./AB REVIEW OF SYSTEMS: Review of Systems Constitutional: Positive for fatigue. Negative for chills. Respiratory: Positive for shortness of breath. Negative for chest tightness. Cardiovascular: Negative for chest pain, palpitations and leg swelling. Neurological: Positive for weakness. Negative for dizziness, syncope and light-headedness. Hematological: Does not bruise/bleed easily. Psychiatric/Behavioral: Negative for confusion and hallucinations. Vitals: BP 128/88 (BP Site: Left Arm, BP Position: Sitting) Pulse (!) 122 Ht 157.5 cm (5' 2) Wt 100.7 kg (222 lb) BMI 40.60 kg/m? PHYSICAL EXAMINATION: BP 128/88 (BP Site: Left Arm, BP Position: Sitting) Pulse (!) 122 Ht 157.5 cm (5' 2) Wt 100.7 kg (222 lb) BMI 40.60 kg/m? No data found for this vital: BP No data found for this vital: Pulse No data found for this vital: Wt Physical Exam Vitals reviewed. Constitutional: General: She is not in acute distress. Cardiovascular: Rate and Rhythm: Normal rate and regular rhythm. Pulses: Carotid pulses are 2+ on the right side and 2+ on the left side. Radial pulses are 2+ on the right side and 2+ on the left side. Femoral pulses are 2+ on the right side and 2+ on the left side. Popliteal pulses are 2+ on the right side and 2+ on the left side. Dorsalis pedis pulses are 2+ on the right side and 2+ on the left side. Posterior tibial pulses are 2+ on the right side and 2+ on the left side. Heart sounds: Murmur heard. Systolic murmur is present with a grade of 2/6. Comments: PMI not displaced. 2nd heart sound loud. Pulmonary: Effort: Pulmonary effort is normal. Breath sounds: Normal breath sounds. Abdominal: General: Abdomen is flat. Bowel sounds are normal. Palpations: Abdomen is soft. Tenderness: There is no abdominal tenderness. Musculoskeletal: Right lower leg: No edema. Left lower leg: No edema. Skin: General: Skin is warm. Findings: No rash or wound. Neurological: Mental Status: She is alert and oriented to person, place, and time. Coordination: Coordination is intact. LABS: No results found for: GLUC, K, NA, CHLOR, CO2, CREAT, BUN, ANION, CA, TPROT, ALB, TBILI, ALKPHOS, AST, ALT No result (more content not included)...[facility]12-04-[facility]21 Hospital Discharge instructions Patient Education 10/02/2021 11:26:32 Warfarin: What You Need to Know Warfarin: What You Need to Know Warfarin is an anticoagulant. Anticoagulants help prevent the formation of blood clots. They also help stop the growth of blood clots. Warfarin is sometimes referred to as a blood thinner. Normally, when body tissues are cut or damaged, the blood clots in order to prevent blood loss. Sometimes clots form inside your blood vessels and obstruct the flow of blood through your circulatory system (thrombosis). These clots may travel through your bloodstream and become lodged in smaller blood vessels in your brain, which can cause a stroke, or in your lungs (pulmonary embolism). WHO SHOULD USE WARFARIN? Warfarin is prescribed for people at risk of developing harmful blood clots: People with surgically implanted mechanical heart valves, irregular heart rhythms called atrial fibrillation, and certain clotting disorders. People who have developed harmful blood clotting in the past, including those who have had a strokeor a pulmonary embolism, or thrombosis in their legs (deep vein thrombosis [DVT]). People with an existing blood clot, such as a pulmonary embolism. WARFARIN DOSING Warfarin tablets come in different strengths. Each tablet strength is a different color, with the amount of warfarin (in milligrams) clearly printed on the tablet. If the color of your tablet is different than usual when you receive a new prescription, report it immediately to your pharmacist or health care provider. WARFARIN MONITORING The goal of warfarin therapy is to lessen the clotting tendency of blood but not prevent clotting completely. Your health care provider will monitor the anticoagulation effect of warfarin closely andadjust your dose as needed. For your safety, blood tests called prothrombin time (PT) or international normalized ratio (INR) are used to measure the effects of warfarin. Both of these tests can be done with a finger stick or a blood draw. The longer it takes the blood to clot, the higher the PT or INR. Your health care provider will inform you of your target PT or INR range. If, at any time, your PT or INR is above the target range,there is a risk of bleeding. If your PT or INR is below the target range, there is a risk of clotting. Whether you are started on warfarin while you are in the hospital or in your health care provider'soffice, you will need to have your PT or INR checked within one week of starting the medicine. Initially, some people are asked to have their PT or INR checked as much as twice a week. Once you are on a stable maintenance dose, the PT or INR is checked less often, usually once every 2 to 4 weeks. The warfarin dose may be adjusted if the PT or INR is not within the target range. It is important to keep all laboratory and health care provider follow-up appointments. Not keeping appointments could result in a chronic or permanent injury, pain, or disability because warfarin is a medicine that requires close monitoring. WHAT ARE THE SIDE EFFECTS OF WARFARIN? Too much warfarin can cause bleeding (hemorrhage) from any part of the body. This may include bleeding from the gums, blood in the urine, bloody or dark stools, a nosebleed that is not easily stopped, coughing up blood, or vomiting blood. Too little warfarin can increase the risk of blood clots. Too little or too much warfarin can also increase the risk of a stroke. Warfarin use may cause a skin rash or irritation, an unusual fever, continual nausea or stomach upset, or severe pain in your joints or back. SPECIAL PRECAUTIONS WHILE TAKING WARFARIN Warfarin should be taken exactly as directed. It is very important to take warfarin as directed since bleeding or blood clots could result in chronic or permanent injury, pain, or disability. Take your medicine at the same time every day. If you forget to take your dose, you can take it if it is within 6 hours of when it was due. Do not change the dose of warfarin on your own to make up for missed or extra doses. If you miss more than 2 doses in a row, you should contact your health care provider for advice. Avoid situations that cause bleeding. You may have a tendency to bleed more easily than usual whiletaking warfarin. The following actions can limit bleeding: Using a softer toothbrush. Flossing with waxed floss rather than unwaxed floss. Shaving with an electric razor rather than a blade. Limiting the use of sharp objects. Avoiding potentially harmful activities, such as contact sports. Warfarin and or Warfarin is not advised during the first trimester of due to an increased risk of defects. In certain situations, a woman may take warfarin after her first trimester of . A woman who becomes or plans to become while taking warfarin should notify her healthcare provider immediately. Although warfarin does not pass into breast milk, a woman who wishes to breastfeed while taking warfarin should also consult with her health care provider. Alcohol, Smoking, and Illicit Drug Use Alcohol affects how warfarin works in the body. It is best to avoid alcoholic drinks or consume very small amounts while taking warfarin. In general, alcohol intake should be limited to 1 oz (30 mL) of liquor, 6 oz (180 mL) of wine, or 12 oz (360 mL) of beer each day. Notify your health care provider if you change your alcohol intake. Smoking affects how warfarin works. It is best to avoid smoking while taking warfarin. Notify your health care provider if you change your smoking habits. It is best to avoid all illicit drugs while taking warfarin since there are few studies that show how warfarin interacts with these drugs. Other Medicines and Dietary Supplements Many prescription and [id number] medicines can interfere with warfarin. Be sure all of your health care providers know you are taking warfarin. Notify your health care provider who prescribed warfarin for you or your pharmacist before starting or stopping any new medicines, including [id number]-[id number] vitamins, dietary supplements, and pain medicines. Your warfarin dose may need to be adjusted. Some common lare-llw-tipqkaq medicines that may increase the risk of bleeding while taking warfarininclude: Acetaminophen. Aspirin. Nonsteroidal anti-inflammatory medicines (NSAIDs), such as ibuprofen or naproxen. Vitamin E. Dietary Considerations Foods that have moderate or high amounts of vitamin K can interfere with warfarin. Avoid major changes in your diet or notify your health care provider before changing your diet. Eat a consistent amount of foods that have moderate or high amounts of vitamin K. Eating less foods containing vitamin Kcan increase the risk of bleeding. Eating more foods containing vitamin K can increase the risk of blood clots. Additional questions about dietary considerations can be discussed with a dietitian. Foods that are very high in vitamin K: Greens, such as Georgian chard and beet, marsha, mustard, or turnip greens (fresh or frozen, cooked). Kale (fresh or frozen, cooked). Parsley (raw). Spinach (cooked). Foods that are high in vitamin K: Asparagus (frozen, cooked). Beans, green (frozen, cooked). Broccoli. Bok addison (cooked). [place] sprouts (fresh or frozen, cooked). Cabbage (cooked). Coleslaw. Foods that are moderately high in vitamin K: Blueberries. Black-eyed peas. Endive (raw). Green leaf lettuce (raw). Green scallions (raw). Kale (raw). Okra (frozen, cooked). Plantains (fried). [place]son lettuce (raw). Sauerkraut (canned). Spinach (raw). CALL YOUR CLINIC OR HEALTH CARE PROVIDER IF YOU: Plan to have any surgery or procedure. Feel sick, especially if you have diarrhea or vomiting. Experience or anticipate any major changes in your diet. Start or stop a prescription or abjp-ico-qiigjyr medicine. Become, plan to become, or think you may be . Are having heavier than usual menstrual periods. Have had a fall, accident, or any symptoms of bleeding or unusual bruising. Develop an unusual fever. CALL 911 IN THE [place] OR GO TO THE EMERGENCY DEPARTMENT IF YOU: Think you may be having an allergic reaction to warfarin. The signs of an allergic reaction could include itching, rash, hives, swelling, chest tightness, or trouble breathing. See signs of blood in your urine. The signs could include reddish, pinkish, or tea-colored urine. See signs of blood in your stools. The signs could include bright red or black stools. Vomit or cough up blood. In these instances, the blood could have either a bright red or a coffee-grounds appearance. Have bleeding that will not stop after applying pressure for 30 minutes such as cuts, nosebleeds, or other injuries. Have severe pain in your joints or back. Have a new and severe headache. Have sudden weakness or numbness of your face, arm, or leg, especially on one side of your body. Have sudden confusion or trouble understanding. Have sudden trouble seeing in one or both eyes. Have sudden trouble walking, dizziness, loss of balance, or coordination. Have trouble speaking or understanding (aphasia). Document Released: 10/16/2006 Document Revised: 10/21/2014 Document Reviewed: 04/11/2014 [facility] [place] Patient Information 2015 [facility]. This information is not intended to replace advicegiven to you by your health care provider. Make sure you discuss any questions you have with your health care provider. 10/02/2021 11:26:31 Warfarin Coagulopathy Warfarin Coagulopathy Warfarin coagulopathy refers to bleeding that may occur as a complication of the medicine warfarin.Warfarin is a blood thinner (anticoagulant). Anticoagulants prevent dangerous blood clots. Bleedingis the most common and most serious complication of warfarin. While taking warfarin, you will need to have blood tests (prothrombin tests, or PT tests) regularlyto measure your blood clotting time. The PT test results will be reported as the International Normalized Ratio (INR). The INR tells your health care provider whether your dosage of warfarin needs kaden changed. The longer it takes your blood to clot, the higher the INR. Your risk of warfarin coagulopathy increases as your INR increases. What are the causes? This condition may be caused by: Taking too much warfarin (overdose). Underlying medical conditions. Changes to your diet. Interactions with medicines, supplements, or alcohol. What are the signs or symptoms? Warfarin coagulopathy may cause bleeding from any tissue or organ. Symptoms may include: Bleeding from the gums. A nosebleed that is not easily stopped. Blood in stool. This may look like bright red, dark, or black, tarry stools. Blood in urine. This may look like pink, red, or brown urine. Unusual bruising or bruising easily. A cut that does not stop bleeding within 10 minutes. Coughing up blood. Vomiting blood. Feeling nauseous for longer than 1 day. Broken blood vessels in the eye (subconjunctival hemorrhage). This may look like a bright red or dark red patch on the white part of the eye. Abdominal or back pain with or without bruising. Sudden, severe headache. Sudden weakness or numbness of the face, arm, or leg, especially on one side of the body. Sudden confusion. Difficulty speaking (aphasia) or understanding speech. Sudden trouble seeing out of one or both eyes. Unexpected difficulty walking. Dizziness. Loss of balance or coordination. Unusual vaginal bleeding. Swelling or pain at an injection site. Skin scarring due to tissue (necrosis) of fatty tissue. This may cause pain in the waist, thighs, or buttocks. This is more common among women. How is this diagnosed? This condition is diagnosed after your health care provider places you on warfarin and then finds out how it affects your blood's ability to clot. Prothrombin time (PT) clotting tests are used to monitor your clotting factor. These tests also help your health care provider to find the warfarin dosethat is best for you. How is this treated? This condition is treated with vitamin K. Vitamin K helps the blood to clot. You may receive vitamin K every 12 hours, or as needed. You may also receive donated plasma (transfusions of fresh frozen plasma). Plasma is the liquid part of blood, and contains substances that help the blood clot. Follow these instructions at home: Medicines Take warfarin exactly as told by your health care provider. This ensures that you avoid bleeding orclots that could result in serious injury, pain, or disability. Take your medicine at the same time every day. If you forget to take your dose of warfarin, take itas soon as you remember on that day. If you do not remember to take it on that day, do not take an extra dose the next day. Contact your health care provider if you miss a dose or take an extra dose. Do not change your dosage on your own to make up for missed or extra doses. Talk with your health care provider or your pharmacist before starting or stopping any new medicines. Many prescription and gmtx-fpz-iwzlwbg medicines can interfere with warfarin. This includes quvd-krs-rdcnsva vitamins, dietary supplements, herbal medicines, and pain medicines. Your warfarin dosage may need to be adjusted. Eating and drinking It is important to maintain a normal, balanced diet while taking warfarin. Avoid major changes in your diet. If you are planning to change your diet, talk with your health care provider before makingchanges. Your health care provider may recommend that you work with a diet and nutrition and dietetics instructor (dietitian). Vitamin K makes warfarin less effective. It is found in many foods. Eat a consistent amount of foods that contain vitamin K. For example, you may decide to eat 2 vitamin K-containing foods each day. Your warfarin dose is set according to the amount of vitamin K in your blood. Eat a consistent amount of foods that contain vitamin K. Vitamin K makes warfarin less effective, so eating the same amount each day enables your health care provider to set the correct dose of warfarin. You may decide to eat 2 vitamin K-containing foods each day. Tests Make sure to have PT tests at least once every 4 6 weeks for the entire time you are taking warfarin. Ask your health care provider what your target INR range is. Make sure you always know your target range. If your INR is not in your target range, your health care provider may adjust your dosage. Preventing bleeding and injury Some common lqva-ynf-zylrkbx medicines and supplements may increase the risk of bleeding while taking warfarin. They include: ?Acetaminophen. ?Aspirin. ?NSAIDs, such as ibuprofen or naproxen. ?Vitamin E. Avoid situations that cause bleeding. You may bleed more easily while taking warfarin. To limit bleeding, take the following actions: ?Use a softer toothbrush. ?Floss with waxed floss, not unwaxed floss. ?Shave with an electric razor, not with a blade. ?Limit your use of sharp objects. ?Avoid potentially harmful activities, such as contact sports. General instructions Wear or carry identification that says that you are taking warfarin. Make sure that all health care providers, including your dentist, know that you are taking warfarin. If you need surgery, tell your health care provider that you are taking warfarin. You may have to stop taking warfarin before your surgery. If you plan to breastfeed or become while taking warfarin, talk with your health care provider. Avoid alcohol, tobacco, and drugs. ?If your health care provider approves, limit alcohol intake to no more than 1 drink a day for non- women and 2 drinks a day for men. One drink equals 12 oz. of beer, 5 oz. of wine, or 1 oz. of hard liquor. ?If you change the amount of nicotine, tobacco, or alcohol you use, tell your health care provider. Keep all follow-up visits and lab visits as told by your health care provider. This is very important because warfarin is a medicine that needs to be closely monitored. Contact a health care provider if: You miss a dose. You take an extra dose. You plan to have any kind of surgery or procedure. You are unable to take your medicine due to nausea, vomiting, or diarrhea. You have any major changes in your diet, or you plan to make major changes in your diet. You start or stop any epdr-izl-xnlofsa medicine, prescription medicine, or dietary supplement. You become , plan to become , or think you may be . You have menstrual periods that are heavier than usual, or unusual vaginal bleeding. You have unusual bruising. You lose your appetite. You have a fever. You have diarrhea that lasts for more than 24 hours. Get help right away if: You develop symptoms of an allergic reaction, such as: ?Swelling of the lips, face, tongue, mouth, or throat. ?Rash. ?Itching. ?Itchy, red, swollen areas of skin (hives). ?Trouble breathing. ?Chest tightness. You have any symptoms of stroke. BEFAST is an easy way to remember the main warning signs of stroke: ?B - Balance. Signs are dizziness, sudden trouble walking, or loss of balance. ?E - Eye. Signs are trouble seeing or a sudden change in vision. ?F - Face. Signs are sudden weakness or numbness of the face, or the face or eyelid drooping on oneside. ?A - Arm. Signs are weakness or numbness in an arm. This happens suddenly and usually on one side of the body. ?S - Speech. Signs are trouble speaking, slurred speech, or trouble understanding speech. ?T - Time. Time to call emergency services. Write down the time your symptoms started. You have other signs of stroke, such as: ?A sudden, severe headache with no known cause. ?Nausea or vomiting. ?Seizure. You have signs or symptoms of a blood clot, such as: ?Pain or swelling in your leg or arm. ?Skin that is red or warm to the touch on your arm or leg. ?Shortness of breath or difficulty breathing. ?Chest pain. ?Unexplained fever. You have: ?A fall or have an accident, especially if you hit your head. ?Blood in your urine. Your urine may look reddish, pinkish, or tea-colored. ?Blood in your stool. Your stool may be black or bright red. ?Bleeding that does not stop after applying pressure to the area for 30 minutes. ?Severe pain in your joints or back. ?Purple or blue toes. ?Skin ulcers that do not go away. You vomit blood or cough up blood. The blood may be bright red, or it may look like coffee grounds. These symptoms may represent a serious problem that is an emergency. Do not wait to see if the symptoms will go away. Get medical help right away. Call your local emergency services (911 in the [place] Do not drive yourself to the hospital. Summary Warfarin needs to be closely monitored with blood tests. It is very important to keep all lab visits and follow-up visits with your health care provider. Make sure you know your target INR range and your warfarin dosage. Monitor how much vitamin K you eat every day. Try to eat the same amount every day. Wear or carry identification that says that you are taking warfarin. Take warfarin at the same time every day. Call your health care provider if you miss a dose or if you take an extra dose. Do not change the dosage of warfarin on your own. Know the signs and symptoms of blood clots, bleeding, and stroke. Know when to get emergency medical help. This information is not intended to replace advice given to you by your health care provider. Make sure you discuss any questions you have with your health care provider. Document Released: 09/24/2007 Document Revised: 01/03/2018 Document Reviewed: 01/03/2018 [employer] Patient Education 2019 [employer] 10/02/2021 11:26:30 Vitamin K Foods and Warfarin Vitamin K Foods and Warfarin Warfarin is a blood thinner (anticoagulant). Anticoagulant medicines help prevent the formation of blood clots. These medicines work by decreasing the activity of vitamin K, which promotes normal blood clotting. When you take warfarin, problems can occur from suddenly increasing or decreasing the amount of vitamin K that you eat from one day to the next. Problems may include: Blood clots. Bleeding. What general guidelines do I need to follow? To avoid problems when taking warfarin: Eat a balanced diet that includes: ?Fresh fruits and vegetables. ?Whole grains. ?Low-fat dairy products. ?Lean proteins, such as fish, eggs, and lean cuts of meat. Keep your intake of vitamin K consistent from day to day. To do this: ?Avoid eating large amounts of vitamin K one day and low amounts of vitamin K the next day. ?If you take a multivitamin that contains vitamin K, be sure to take it every day. ?Know which foods contain vitamin K. Use the lists below to understand serving sizes and the amountof vitamin K in one serving. Avoid major changes in your diet. If you are going to change your diet, talk with your health care provider before making changes. Work with a nutrition and dietetics instructor (dietitian) to develop a meal plan that works best for you. High vitamin K foods Foods that are high in vitamin K contain more than 100 mcg (micrograms) per serving. These include: Broccoli (cooked) cup has 110 mcg. [place]burn sprouts (cooked) cup has 109 mcg. Greens, beet (cooked) cup has 350 mcg. Greens, marsha (cooked) cup has 418 mcg. Greens, turnip (cooked) cup has 265 mcg. Green onions or scallions cup has 105 mcg. Kale (fresh or frozen) cup has 531 mcg. Parsley (raw) 10 sprigs has 164 mcg. Spinach (cooked) cup has 444 mcg. Georgian chard (cooked) cup has 287 mcg. Moderate vitamin K foods Foods that have a moderate amount of vitamin K contain 25 100 mcg per serving. These include: Asparagus (cooked) 5 mathew have 38 mcg. Black-eyed peas (dried) cup has 32 mcg. Cabbage (cooked) cup has 37 mcg. Kiwi fruit 1 medium has 31 mcg. Lettuce 1 cup has 57 63 mcg. Okra (frozen) cup has 44 mcg. Prunes (dried) 5 prunes have 25 mcg. Watercress (raw) 1 cup has 85 mcg. Low vitamin K foods Foods low in vitamin K contain less than 25 mcg per serving. These include: Artichoke 1 medium has 18 mcg. Avocado 1 oz. has 6 mcg. Blueberries cup has 14 mcg. Cabbage (raw) cup has 21 mcg. Carrots (cooked) cup has 11 mcg. Cauliflower (raw) cup has 11 mcg. [place] with peel (raw) cup has 9 mcg. Grapes cup has 12 mcg. Aquadale 1 medium has 9 mcg. Nuts 1 oz. has 15 mcg. Pear 1 medium has 8 mcg. Peas (cooked) cup has 19 mcg. Pickles 1 spear has 14 mcg. Pumpkin seeds 1 oz. has 13 mcg. Sauerkraut (canned) cup has 16 mcg. Soybeans (cooked) cup has 16 mcg. Tomato (raw) 1 medium has 10 mcg. Tomato sauce cup has 17 mcg. Vitamin K-free foods If a food contain less than 5 mcg per serving, it is considered to have no vitamin K. These foods include: Bread and cereal products. Cheese. Eggs. Fish and shellfish. Meat and poultry. Milk and dairy products. [place] seeds. Actual amounts of vitamin K in foods may be different depending on processing. Talk with your dietitian about what foods you can eat and what foods you should avoid. This information is not intended to replace advice given to you by your health care provider. Make sure you discuss any questions you have with your health care provider. Document Released: 08/13/2010 Document Revised: 09/28/2018 Document Reviewed: 01/18/2017 [employer] Patient Education 2020 [employer]. 10/02/2021 11:26:27 COVID-19: How to Protect Yourself and Others - [facility] COVID-19: How to Protect Yourself and Others Know how it spreads There is currently no vaccine to prevent coronavirus disease 2019 (COVID-19). The best way to prevent illness is to avoid being exposed to this virus. The virus is thought to spread mainly from wuuwat-jn-ilwqir. ?Between people who are in close contact with one another (within about 6 feet). ?Through respiratory droplets produced when an infected person coughs, sneezes or talks. ?These droplets can land in the mouths or noses of people who are nearby or possibly be inhaled into the lungs. ?Some recent studies have suggested that COVID-19 may be spread by people who are not showing symptoms. Everyone should Clean your hands often Wash your hands often with soap and water for at least 20 seconds especially after you have been marissa public place, or after blowing your nose, coughing, or sneezing. If soap and water are not readily available, use a hand ampoule filler that contains at least 60% alcohol. Cover all surfaces of your hands and rub them together until they feel dry. Avoid touching your eyes, nose, and mouth with unwashed hands. Avoid close contact Limit contact with others as much as possible. Avoid close contact with people who are sick. Put distance between yourself and other people. ?Remember that some people without symptoms may be able to spread virus. ?This is especially important for people who are at higher risk of getting very sick.www.cdc.gov/cor onavirus/2019-ncov/radg-vdraz-yrjqjfajvsi/achfby-su-zqdpto-risk.html Cover your mouth and nose with a cloth face cover when around others You could spread COVID-19 to others even if you do not feel sick. Everyone should wear a cloth face covering in public settings and when around people not living in their household, especially when social distancing is difficult to maintain. ?Cloth face coverings should not be placed on young children under age 2, anyone who has trouble breathing, or is unconscious, incapacitated or otherwise unable to remove the mask without assistance. The cloth face cover is meant to protect other people in case you are infected. Do NOT use a facemask meant for a healthcare worker. Continue to keep about 6 feet between yourself and others. The cloth face cover is not a substitutefor social distancing. Cover coughs and sneezes Always cover your mouth and nose with a tissue when you cough or sneeze or use the inside of your elbow. Throw used tissues in the trash. Immediately wash your hands with soap and water for at least 20 seconds. If soap and water are not readily available, clean your hands with a hand ampoule filler that contains at least 60% alcohol. Clean and disinfect Clean AND disinfect frequently touched surfaces daily. This includes tables, doorknobs, light switches, countertops, handles, desks, phones, keyboards, toilets, faucets, and sinks. www.cdc.gov/coronav irus/2019-ncov/ytemqig-ppdnqxo-ldwn/xyjfqnwythze-fenq-kbtm.html If surfaces are dirty, clean them: Use detergent or soap and water prior to disinfection. Then, use a household disinfectant. You can see a list of EPA-registered household disinfectants here. cdc.gov/coronavirus 04/28/2020 This information is not intended to replace advice given to you by your health care provider. Make sure you discuss any questions you have with your health care provider. Document Released: 02/11/2020 Document Revised: 05/07/2020 Document Reviewed: 05/07/2020 [employer] Patient Education 2020 [employer] 10/02/2021 11:26:26 COVID-19 COVID-19 COVID-19 is a respiratory infection that is caused by a virus called severe acute respiratory syndrome coronavirus 2 (SARS-CoV-2). The disease is also known as coronavirus disease or novel coronavirus. In some people, the virus may not cause any symptoms. In others, it may cause a serious infection. The infection can get worse quickly and can lead to complications, such as: Pneumonia, or infection of the lungs. Acute respiratory distress syndrome or ARDS. This is fluid build-up in the lungs. Acute respiratory failure. This is a condition in which there is not enough oxygen passing from thelungs to the body. Sepsis or septic shock. This is a serious bodily reaction to an infection. Blood clotting problems. Secondary infections due to bacteria or fungus. The virus that causes COVID-19 is contagious. This means that it can spread from person to person through droplets from coughs and sneezes (respiratory secretions). What are the causes? This illness is caused by a virus. You may catch the virus by: Breathing in droplets from an infected person's cough or sneeze. Touching something, like a table or a doorknob, that was exposed to the virus (contaminated) and then touching your mouth, nose, or eyes. What increases the risk? Risk for infection You are more likely to be infected with this virus if you: Live in or travel to an area with a COVID-19 outbreak. Come in contact with a sick person who recently traveled to an area with a COVID-19 outbreak. Provide care for or live with a person who is infected with COVID-19. Risk for serious illness You are more likely to become seriously ill from the virus if you: Are 65 years of age or older. Have a long-term disease that lowers your body's ability to fight infection (immunocompromised). Live in a residential or long-term care facility. Have a long-term (chronic) disease such as: ?Chronic lung disease, including chronic obstructive pulmonary disease or asthma ?Heart disease. ?Diabetes. ?Chronic kidney disease. ?Liver disease. Are obese. What are the signs or symptoms? Symptoms of this condition can range from mild to severe. Symptoms may appear any time from 2 to 14days after being exposed to the virus. They include: A fever. A cough. Difficulty breathing. Chills. Muscle pains. A sore throat. Loss of taste or smell. Some people may also have stomach problems, such as nausea, vomiting, or diarrhea. Other people may not have any symptoms of COVID-19. How is this diagnosed? This condition may be diagnosed based on: Your signs and symptoms, especially if: ?You live in an area with a COVID-19 outbreak. ?You recently traveled to or from an area where the virus is common. ?You provide care for or live with a person who was diagnosed with COVID-19. A physical exam. Lab tests, which may include: ?A nasal swab to take a sample of fluid from your nose. ?A throat swab to take a sample of fluid from your throat. ?A sample of mucus from your lungs (sputum). ?Blood tests. Imaging tests, which may include, X-rays, CT scan, or ultrasound. How is this treated? At present, there is no medicine to treat COVID-19. Medicines that treat other diseases are being used on a trial basis to see if they are effective against COVID-19. Your health care provider will talk with you about ways to treat your symptoms. For most people, the infection is mild and can be managed at home with rest, fluids, and rkpb-xet-javrdop medicines. Treatment for a serious infection usually takes places in a hospital intensive care unit (ICU). It may include one or more of the following treatments. These treatments are given until your symptoms improve. Receiving fluids and medicines through an IV. Supplemental oxygen. Extra oxygen is given through a tube in the nose, a face mask, or a franklin. Positioning you to lie on your stomach (prone position). This makes it easier for oxygen to get into the lungs. Continuous positive airway pressure (CPAP) or bi-level positive airway pressure (BPAP) machine. This treatment uses mild air pressure to keep the airways open. A tube that is connected to a motor delivers oxygen to the body. Ventilator. This treatment moves air into and out of the lungs by using a tube that is placed in your windpipe. Tracheostomy. This is a procedure to create a hole in the neck so that a breathing tube can be inserted. Extracorporeal membrane oxygenation (ECMO). This procedure gives the lungs a chance to recover by taking over the functions of the heart and lungs. It supplies oxygen to the body and removes carbon dioxide. Follow these instructions at home: Lifestyle If you are sick, stay home except to get medical care. Your health care provider will tell you how long to stay home. Call your health care provider before you go for medical care. Rest at home as told by your health care provider. Do not use any products that contain nicotine or tobacco, such as cigarettes, e- cigarettes, and chewing tobacco. If you need help quitting, ask your health care provider. Return to your normal activities as told by your health care provider. Ask your health care provider what activities are safe for you. General instructions Take ywjm-oej-fhnjanq and prescription medicines only as told by your health care provider. Drink enough fluid to keep your urine pale yellow. Keep all follow-up visits as told by your health care provider. This is important. How is this prevented? There is no vaccine to help prevent COVID-19 infection. However, there are steps you can take to protect yourself and others from this virus. To protect yourself: Do not travel to areas where COVID-19 is a risk. The areas where COVID-19 is reported change often.To identify high-risk areas and travel restrictions, check the CDC travel website: wwwnc.cdc.gov/travel/notices If you live in, or must travel to, an area where COVID-19 is a risk, take precautions to avoid infection. ?Stay away from people who are sick. ?Wash your hands often with soap and water for 20 seconds. If soap and water are not available, usean alcohol-based hand ampoule filler. ?Avoid touching your mouth, face, eyes, or nose. ?Avoid going out in public, follow guidance from your state and local health authorities. ?If you must go out in public, wear a cloth face covering or face mask. ?Disinfect objects and surfaces that are frequently touched every day. This may include: ?Counters and tables. ?Doorknobs and light switches. ?Sinks and faucets. ?Electronics, such as phones, remote controls, keyboards, computers, and tablets. To protect others: If you have symptoms of COVID-19, take steps to prevent the virus from spreading to others. If you think you have a COVID-19 infection, contact your health care provider right away. Tell yourhealth care team that you think you may have a COVID-19 infection. Stay home. Leave your house only to seek medical care. Do not use public transport. Do not travel while you are sick. Wash your hands often with soap and water for 20 seconds. If soap and water are not available, use alcohol-based hand ampoule filler. Stay away from other members of your household. Let healthy household members care for children andpets, if possible. If you have to care for children or pets, wash your hands often and wear a mask.If possible, stay in your own room, separate from others. Use a different bathroom. Make sure that all people in your household wash their hands well and often. Cough or sneeze into a tissue or your sleeve or elbow. Do not cough or sneeze into your hand or into the air. Wear a cloth face covering or face mask. Where to find more information Centers for Disease Control and Prevention: www.cdc.gov/coronavirus/2019-ncov/index.html World Health Organization: www.who.int/health-topics/coronavirus Contact a health care provider if: You live in or have traveled to an area where COVID-19 is a risk and you have symptoms of the infection. You have had contact with someone who has COVID-19 and you have symptoms of the infection. Get help right away if: You have trouble breathing. You have pain or pressure in your chest. You have confusion. You have bluish lips and fingernails. You have difficulty waking from sleep. You have symptoms that get worse. These symptoms may represent a serious problem that is an emergency. Do not wait to see if the symptoms will go away. Get medical help right away. Call your local emergency services (911 in the [place] Do not drive yourself to the hospital. Let the emergency medical personnel know if you think you have COVID-19. Summary COVID-19 is a respiratory infection that is caused by a virus. It is also known as coronavirus disease or novel coronavirus. It can cause serious infections, such as pneumonia, acute respiratory distress syndrome, acute respiratory failure, or sepsis. The virus that causes COVID-19 is contagious. This means that it can spread from person to person through droplets from coughs and sneezes. You are more likely to develop a serious illness if you are 65 years of age or older, have a weak immunity, live in a residential, or have chronic disease. There is no medicine to treat COVID-19. Your health care provider will talk with you about ways to treat your symptoms. Take steps to protect yourself and others from infection. Wash your hands often and disinfect objects and surfaces that are frequently touched every day. Stay away from people who are sick and wear amask if you are sick. This information is not intended to replace advice given to you by your health care provider. Make sure you discuss any questions you have with your health care provider. Document Released: 11/21/2019 Document Revised: 03/12/2020 Document Reviewed: 11/21/2019 [employer] Patient Education 2019 [employer]. 10/02/2021 11:26:26 COVID-19 Frequently Asked Questions COVID-19 Frequently Asked Questions COVID-19 (coronavirus disease) is an infection that is caused by a large family of viruses. Some viruses cause illness in people and others cause illness in animals like camels, cats, and bats. In some cases, the viruses that cause illness in animals can spread to humans. Where did the coronavirus come from? In September 2019, [place] told the World Health Organization (WHO) of several cases of lung disease (human respiratory illness). These cases were linked to an open seafood and livestock market in the city of [facility]. The link to the seafood and livestock market suggests that the virus may have spread from animals to humans. However, since that first outbreak in September, the virus has also been shownto spread from person to person. What is the name of the disease and the virus? Disease name Early on, this disease was called novel coronavirus. This is because scientists determined that thedisease was caused by a new (novel) respiratory virus. The World Health Organization (WHO) has now named the disease COVID-19, or coronavirus disease. Virus name The virus that causes the disease is called severe acute respiratory syndrome coronavirus 2 (SARS-CoV-2). More information on disease and virus naming World Health Organization (WHO): www.who.int/emergencies/diseases/odueh-vqbhouvkcuu-2712/technical-g uidance/vcmkuc-omi-ytfiowcudtp-disease-(covid-2019)-pao-eht-edndt-vdgs-wnztqc-ko Who is at risk for complications from coronavirus disease? Some people may be at higher risk for complications from coronavirus disease. This includes older adults and people who have chronic diseases, such as heart disease, diabetes, and lung disease. If you are at higher risk for complications, take these extra precautions: Avoid close contact with people who are sick or have a fever or cough. Stay at least 3 6 ft (1 2 m)away from them, if possible. Wash your hands often with soap and water for at least 20 seconds. Avoid touching your face, mouth, nose, or eyes. Keep supplies on hand at home, such as food, medicine, and cleaning supplies. Stay home as much as possible. Avoid social gatherings and travel. How does coronavirus disease spread? The virus that causes coronavirus disease spreads easily from person to person (is contagious). There are also cases of community-spread disease. This means the disease has spread to: People who have no known contact with other infected people. People who have not traveled to areas where there are known cases. It appears to spread from one person to another through droplets from coughing or sneezing. Can I get the virus from touching surfaces or objects? There is still a lot that we do not know about the virus that causes coronavirus disease. Scientists are basing a lot of information on what they know about similar viruses, such as: Viruses cannot generally survive on surfaces for long. They need a human body (host) to survive. It is more likely that the virus is spread by close contact with people who are sick (direct contact), such as through: ?Shaking hands or hugging. ?Breathing in respiratory droplets that travel through the air. This can happen when an infected person coughs or sneezes on or near other people. It is less likely that the virus is spread when a person touches a surface or object that has the virus on it (indirect contact). The virus may be able to enter the body if the person touches a surface or object and then touches his or her face, eyes, nose, or mouth. Can a person spread the virus without having symptoms of the disease? It may be possible for the virus to spread before a person has symptoms of the disease, but this ismost likely not the main way the virus is spreading. It is more likely for the virus to spread by being in close contact with people who are sick and breathing in the respiratory droplets of a sick person's cough or sneeze. What are the symptoms of coronavirus disease? Symptoms vary from person to person and can range from mild to severe. Symptoms may include: Fever. Cough. Tiredness, weakness, or fatigue. Fast breathing or feeling short of breath. These symptoms can appear anywhere from 2 to 14 days after you have been exposed to the virus. If you develop symptoms, call your health care provider. People with severe symptoms may need hospital care. If I am exposed to the virus, how long does it take before symptoms start? Symptoms of coronavirus disease may appear anywhere from 2 to 14 days after a person has been exposed to the virus. If you develop symptoms, call your health care provider. Should I be tested for this virus? Your health care provider will decide whether to test you based on your symptoms, history of exposure, and your risk factors. How does a health care provider test for this virus? Health care providers will collect samples to send for testing. Samples may include: Taking a swab of fluid from the nose. Taking fluid from the lungs by having you cough up mucus (sputum) into a sterile cup. Taking a blood sample. Taking a stool or urine sample. Is there a treatment or vaccine for this virus? Currently, there is no vaccine to prevent coronavirus disease. Also, there are no medicines like antibiotics or antivirals to treat the virus. A person who becomes sick is given supportive care, which means rest and fluids. A person may also relieve his or her symptoms by using gezp-vlq-uzzfogn medicines that treat sneezing, coughing, and runny nose. These are the same medicines that a person takes for the common cold. If you develop symptoms, call your health care provider. People with severe symptoms may need hospital care. What can I do to protect myself and my family from this virus? You can protect yourself and your family by taking the same actions that you would take to prevent the spread of other viruses. Take the following actions: Wash your hands often with soap and water for at least 20 seconds. If soap and water are not available, use alcohol-based hand ampoule filler. Avoid touching your face, mouth, nose, or eyes. Cough or sneeze into a tissue, sleeve, or elbow. Do not cough or sneeze into your hand or the air. ?If you cough or sneeze into a tissue, throw it away immediately and wash your hands. Disinfect objects and surfaces that you frequently touch every day. Avoid close contact with people who are sick or have a fever or cough. Stay at least 3 6 ft (1 2 m)away from them, if possible. Stay home if you are sick, except to get medical care. Call your health care provider before you get medical care. Make sure your vaccines are up to date. Ask your health care provider what vaccines you need. What should I do if I need to travel? Follow travel recommendations from your local health authority, the CDC, and WHO. Travel information and advice Centers for Disease Control and Prevention (CDC): www.cdc.gov/coronavirus/2019-ncov/travelers/index.html World Health Organization (WHO): www.who.int/emergencies/diseases/qcenq-zhfoppkpkqs-6345/travel-advice Know the risks and take action to protect your health You are at higher risk of getting coronavirus disease if you are traveling to areas with an outbreak or if you are exposed to travelers from areas with an outbreak. Wash your hands often and practice good hygiene to lower the risk of catching or spreading the virus. What should I do if I am sick? General instructions to stop the spread of infection Wash your hands often with soap and water for at least 20 seconds. If soap and water are not available, use alcohol-based hand ampoule filler. Cough or sneeze into a tissue, sleeve, or elbow. Do not cough or sneeze into your hand or the air. If you cough or sneeze into a tissue, throw it away immediately and wash your hands. Stay home unless you must get medical care. Call your health care provider or local health authority before you get medical care. Avoid public areas. Do not take public transportation, if possible. If you can, wear a mask if you must go out of the house or if you are in close contact with someonewho is not sick. Keep your home clean Disinfect objects and surfaces that are frequently touched every day. This may include: ?Counters and tables. ?Doorknobs and light switches. ?Sinks and faucets. ?Electronics such as phones, remote controls, keyboards, computers, and tablets. Wash dishes in hot, soapy water or use a soccer referee. Air-dry your dishes. Wash laundry in hot water. Prevent infecting other household members Let healthy household members care for children and pets, if possible. If you have to care for children or pets, wash your hands often and wear a mask. Sleep in a different bedroom or bed, if possible. Do not share personal items, such as razors, toothbrushes, deodorant, garcia, brushes, towels, and washcloths. Where to find more information Centers for Disease Control and Prevention (CDC) Information and news updates: www.cdc.gov/coronavirus/2019-ncov World Health Organization (WHO) Information and news updates: www.who.int/emergencies/diseases/kcmso-pnsndxcldyr-9029 Coronavirus health topic: www.who.int/health-topics/coronavirus Questions and answers on COVID-19: www.who.int/news-room/q-a-detail/q-e-cpuginijyfytx Global tracker: Sensee.Wowan365.com [place] [employer] (AAP) Information for families: www.healthychildren.org/Swedish/health-issues/conditions/chest-lungs/Pages /1166-Dvqqs-Rrxtfpvekeq.aspx The coronavirus situation is changing rapidly. Check your local health authority website or the CDCand WHO websites for updates and news. When should I contact a health care provider? Contact your health care provider if you have symptoms of an infection, such as fever or cough, andyou: ?Have been near anyone who is known to have coronavirus disease. ?Have come into contact with a person who is suspected to have coronavirus disease. ?Have traveled outside of the country. When should I get emergency medical care? Get help right away by calling your local emergency services (911 in the [place] if you have: ?Trouble breathing. ?Pain or pressure in your chest. ?Confusion. ?Blue-tinged lips and fingernails. ?Difficulty waking from sleep. ?Symptoms that get worse. Let the emergency medical personnel know if you think you have coronavirus disease. Summary A new respiratory virus is spreading from person to person and causing COVID-19 (coronavirus disease). The virus that causes COVID-19 appears to spread easily. It spreads from one person to another through droplets from coughing or sneezing. Older adults and those with chronic diseases are at higher risk of disease. If you are at higher risk for complications, take extra precautions. There is currently no vaccine to prevent coronavirus disease. There are no medicines, such as antibiotics or antivirals, to treat the virus. You can protect yourself and your family by washing your hands often, avoiding touching your face, and covering your coughs and sneezes. This information is not intended to replace advice given to you by your health care provider. Make sure you discuss any questions you have with your health care provider. Document Released: 02/11/2020 Document Revised: 02/11/2020 Document Reviewed: 02/11/2020 [employer] Patient Education 2019 [employer]. Follow Up Care 09/30/2021 13:02:43 With:LARRY JOYCE Address: [address] [place] [address] [place] [address] [phone] Business (1) When: Unknown Comments:please follow up within 3-5 days [facility] 12-02-2021 Evaluation + Plan noteExtracted from: Title:History and Physical Author:GERBER THOMAS APRN-RETAIL ANALYTICS MANAGER Date:09/30/21 1. Acute hypoxemic respirato ry failure due to COVID-19, Pneumonia due to COVID- 19 virus 3. Supratherapeutic INR 4. Hypertension 5. Hyperlipidemia 6. History of DVT - Deep vein thrombosis 7. History of pulmonary embolism 8. Anxiety and depression 9. Morbid obesity Patient presents to the hospital with complaints of increased weakness, congestion. Symptoms started 11 days ago, patient tested positive for COVID /. Patient is not vaccinated. She was found to be hypoxic in the ED with ambulation at 85% on room air, she was placed on 2L nasal cannula. Will continue remdesivir and dexamethasone. Wean oxygen as tolerated, encouraged use of incentive spirometer for lung expansion. Trend covid labs. History of DVT/PE on Coumadin. Supratherapeutic INR 6.6, patient asymptomatic- no signs of active bleeding. Will hold Coumadin. Hyperglycemia with complaints of increased thirst, will obtain A1c. Denied history of diabetes. History of hypertension, blood pressures controlled. Continue home antihypertensive. History of hyperlipidemia, continue statin therapy. Anxiety and depression, continue venlafaxine. Morbid obesity with BMI of 41 complicating care. DVT prophylaxis: SCDs, Coumadin on hold. GI prophylaxis: Pepcid BID The plan of care was discussed with the patient, including end-of-life wishes. Patient would not like aggressive measures in the event of cardiac/pulmonary arrest including CPR, defibrillation, or mechanical ventilation. The patient was given the opportunity to ask questions, all questions were answered to her satisfaction, and she is amendable to the plan of care. Patient is a DNRCCA-DNI Plan discussed with patient bedside, patient agreeable. Patient states she updated . All questions answered. Discussed with Dr. Eric Ferreira This dictation was performed using voice recognition software and may include grammatical and/or spelling errors. Future Appointments Appointment Date:10/05/2021 10:00:00 AM Scheduled Provider: Location:[facility] Appointment Type: Nurse Protime Appointment Date:01/18/2022 02:20:00 PM Scheduled Provider:LARRY JOYCE DO Location:[facility] Appointment Type:[facility] Evaluation + Plan note Future Appointments Appointment Date:09/28/2021 09:00:00 AM Scheduled Provider: Location:[facility] Appointment Type: Nurse Protime Appointment Date:01/18/2022 02:20:00 PM Scheduled Provider:LARRY JOYCE DO Location:[facility] Appointment Type:[facility] Evaluation + Plan note Future Appointments Appointment Date:2021 10:20:00 AM Scheduled Provider:LARRY JOYCE DO Location:[facility] Appointment Type: OV Appointment Date:01/18/2022 02:20:00 PM Scheduled Provider:LARRY JOYCE DO Location:[facility] Appointment Type:[facility] Evaluation + Plan note Future Appointments Appointment Date:01/18/2022 02:20:00 PM Scheduled Provider:LARRY JOYCE DO Location:[facility] Appointment Type:[facility] Evaluation + Plan note Future Appointments Appointment Date:12/09/2021 02:00:00 PM Scheduled Provider: Location:[facility] Appointment Type:PC Nurse Protime Appointment Date:12/20/2021 08:30:00 AM Scheduled Provider: Location:[facility] Appointment Type:NM Myocardial Spect Rest/Stress Liat (AH Appointment Date:01/18/2022 02:30:00 PM Scheduled Provider:LARRY JOYCE DO Location:[facility] Appointment Type:PC OV Future Scheduled Tests Radiology* NM Myocardial Spect Rest/Stress 12/20/21 [facility] Evaluation + Plan note Future Appointments Appointment Date:01/06/2022 02:00:00 PM Scheduled Provider: Location:[facility] Appointment Type:PC Nurse Protime Appointment Date:01/18/2022 02:30:00 PM Scheduled Provider:LRARY JOYCE DO Location:[facility] Appointment Type:PC OV [facility] Evaluation + Plan note Future Appointments Appointment Date:03/04/2022 01:30:00 PM Scheduled Provider: Location:[facility] Appointment Type:PC Nurse Protime Appointment Date:08/05/2022 02:00:00 PM Scheduled Provider:LARRY JOYCE DO Location:[facility] Appointment Type:PC OV Follow Up Future Scheduled Tests Radiology* BD Bone Density DEXA Axial Skeleton 02/04/22 [facility] Evaluation + Plan note Future Appointments Appointment Date:06/07/2022 03:00:00 PM Scheduled Provider: Location:[facility] Appointment Type:BD Bone Density DEXA Axial Skeleton Appointment Date:06/16/2022 01:15:00 PM Scheduled Provider: Location:[facility] Appointment Type:PC Nurse Appointment Date:08/05/2022 02:00:00 PM Scheduled Provider:LARRY JOYCE DO Location:[facility] Appointment Type:PC OV Follow Up Future Scheduled Tests Radiology* BD Bone Density DEXA Axial Skeleton 06/07/22 [facility] Evaluation + Plan note Future Appointments Appointment Date:06/16/2022 01:15:00 PM Scheduled Provider: Location:[facility] Appointment Type:PC Nurse Appointment Date:08/05/2022 02:00:00 PM Scheduled Provider:LARRY JOYCE DO Location:[facility] Appointment Type:PC OV Follow Up [facility] Evaluation + Plan note Future Appointments Appointment Date:11/01/2022 01:45:00 PM Scheduled Provider: Location:[facility] Appointment Type:PC Nurse Protime Appointment Date:03/09/2023 01:15:00 PM Scheduled Provider:LARRY JOYCE DO Location:[facility] Appointment Type:PC OV [facility] Evaluation + Plan note Future Appointments Appointment Date:03/14/2023 01:45:00 PM Scheduled Provider: Location:[facility] Appointment Type:PC Nurse Protime Appointment Date:08/31/2023 01:30:00 PM Scheduled Provider:LARRY JOYCE DO Location:[facility] Appointment Type: [facility] Evaluation + Plan note Future Appointments Appointment Date:12/05/2023 03:00:00 PM Scheduled Provider:LARRY JOYCE DO Location:[facility] Appointment Type:PC OV Pre Op Appointment Date:03/07/2024 03:00:00 PM Scheduled Provider:LARRY JOYCE DO Location:[facility] Appointment Type:PC OV [facility] [facility] Evaluation + Plan note Future Appointments Appointment Date:09/10/2024 01:30:00 PM Scheduled Provider:LARRY JOYCE DO Location:[facility] Appointment Type:PC Wellness Medicare [facility] Evaluation + Plan note Future Appointments Appointment Date:03/11/2025 02:00:00 PM Scheduled Provider:LARRY JOYCE DO Location:[facility] Appointment Type:PC OV Future Scheduled Tests Laboratory* Ferritin 09/10/24 * Iron Level 09/10/24 * Thyroid Stimulating Hormone 09/10/24 * Complete Blood Count 09/10/24 * Lipid Profile 09/10/24 * Vitamin D Level 09/10/24 * Complete Metabolic Panel 09/10/24 [facility] evaluation + Plan note Future Appointments Appointment Date:03/11/2025 02:00:00 PM Scheduled Provider:LARRY JOYCE DO Location:[facility] Appointment Type:[facility] Evaluation + Plan note Future Appointments Appointment Date:09/12/2025 01:30:00 PM Scheduled Provider:LARRY JOYCE DO Location:[facility] Appointment Type:PC Wellness Medicare Future Scheduled Tests Laboratory* Thyroid Stimulating Hormone 09/11/25 * Complete Blood Count 09/11/25 * Lipid Profile 09/11/25 * Vitamin D Level 09/11/25 * Complete Metabolic Panel 09/11/25 [facility] evaluation note* Diagnosis Benign hypertension- Primary Essential hypertension, benign Mixed hyperlipidemia Sinus tachycardia Other specified cardiac dysrhythmias Atrial tachycardia (HCC) Other specified cardiac dysrhythmias Morbid obesity (HCC) Morbid obesity Hx of cardiac catheterization Other postprocedural status [facility] Diagnosis Abnormal pulse oximetry- Primary Abnormal arterial blood gases documented in this encounter [facility] noteNo assessment information [facility] Work Phone: evaluation note* Diagnosis Onset Date Resolution Status Obesity acute LEELA (obstructive sleep apnea) [facility] Work Phone: evaluation note* Diagnosis Onset Date Resolution Status Obesity acute LEELA (obstructive sleep apnea) acute Obesity acute LEELA (obstructive sleep apnea) [facility] Work Phone: evaluation note* Diagnosis Benign hypertension- Primary Essential hypertension, benign 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 Long-term (current) use of anticoagulants Sinus tachycardia Other specified cardiac dysrhythmias H/O echocardiogram Other specified personal history presenting hazards to health History of stress test Other specified conditions influencing health status Hx of cardiac catheterization Other postprocedural status Non-smoker Other specified conditions influencing health status [facility] Diagnosis Atrial tachycardia- Primary Other specified cardiac dysrhythmias Benign hypertension Essential hypertension, benign Mixed hyperlipidemia half-way (current) use of anticoagulants Long-term (current) use of anticoagulants Personal history of DVT (deep vein thrombosis) Personal history of venous thrombosis and embolism [facility] this [facility] Diagnosis Onset Date Resolution Status Dyspnea chronic Obesity chronic LEELA (obstructive sleep apnea) chronic S/P total right hip arthroplasty acute LEELA (obstructive sleep apnea) chronic [facility] Work Phone: Evaluation note* Diagnosis Benign hypertension- Primary Essential hypertension, benign Mixed hyperlipidemia Atrial tachycardia (HCC) Other specified cardiac dysrhythmias 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 Long-term (current) use of anticoagulants BMI 40.0-44.9, adult (HCC) Body Mass Index 40.0-44.9, adult OLIVER (dyspnea on exertion) Other dyspnea and respiratory abnormality documented in this encounter [facility] note* Diagnosis Onset Date Resolution Status Admit Date Obesity chronic June 1:14pm LEELA (obstructive sleep apnea) chronic July 10, 2025 1:14pm [facility] Work Phone: Hospital course Narrative No data available for this section [facility] Discharge instructions No data available for this section [facility] Progress note No data available for this section [facility] Reason for referral (narrative)* Outpatient Procedure (Routine) - Closed Specialty Diagnoses / Procedures Referred By Contac t Referred To [facility] Diagnoses Benign hypertension Procedures ECG COMPLETE ECG ROUTINE ECG W/LEAST 12 LDS W/I&R Adolfo Gonsales, DO [address] [place] [address] [facility] [address] [place] [address] Referral ID Status Reason Start Date Expiration Date V isits Requested Visits Authorized [id number] Closed Auto-Generate d Referral 08/30/2022 08/30/2023 1 1 [facility] for referral (narrative)* Outpatient Procedure (Routine) - Pending Review Specialty Diagnoses / Procedures Referred By Contac t Referred To Contact [facility] Diagnoses Atrial tachycardia Procedures ECG COMPLETE ECG ROUTINE ECG W/LEAST 12 LDS W/I&R Susan Núñez, SUPERVISOR RECLAMATION.RETAIL ANALYTICS MANAGER [address] [address] [facility] [address] [address] Referral ID Status Reason Start Date Expiration Date Visits Requested Visits Authorized [id number] Pending Review Auto-Generat ed Referral 3 10/08/2024 1 1 [facility] for referral (narrative)* Outpatient Procedure (Routine) - New Request Specialty Diagnoses / Procedures Referred By Contac t Referred To Contact [facility] Diagnoses Atrial tachycardia (HCC) Procedures ECG COMPLETE ECG ROUTINE ECG W/LEAST 12 LDS W/I&R Susan Núñez, SUPERVISOR RECLAMATION.RETAIL ANALYTICS MANAGER [address] [address] Referral ID Status Reason Start Date Expiration Date Visits Requested Visits Authorized [id number] New Request Auto-Generat ed Referral 4 10/14/2025 1 1 [facility] for referral (narrative)No reason for referral information [facility]Dear[facility] Work Phone: Summary Purpose Family History No Family History Records Found Relationship Condition Age at Onset Recorded Date/T carlos sister Diabetes mellitus Unknown brother Hyperlipidemia Unknown mother Glaucoma Unknown Myocardial infarction Unknown Osteoarthritis Unknown father Hyperlipidemia Unknown Hyperthyroidism Unknown grandfather Cerebrovascular accident (CVA) Unknown Advance Directives No Advanced Directives Records Found Advance Directive Response Recorded Date/ Time Living Will No December 27 024 3:44pm Power of Under Sheriff No December 27, 2023 3:44pm Reason for Referral Specialty Diagnoses / Procedures Referred By Jonny t Referred To Contact Diagnoses Abnormal pulse oximetry Procedures CONSULT TO PULM/CRITICAL CARE Susan Núñez, SUPERVISOR RECLAMATION.RETAIL ANALYTICS MANAGER [address] [place] [address] Raheel Quintero [address] [place] [address] Referral ID Status Reason Start Date Expiration Date Visits Requested Visits Authorized [id number] Ref Not Required PCP Requested Referral 03/03/2022 03/03/2023 1 1 Chief Complaint and Reason for Visit Chief Complaint SCIATICA Chief Complaint SCIATICA HYPOXEMIA LEELA; 04/20 CONF Reason for Visit Obesity LEELA (obstructive sleep apnea) Chief Complaint SCIATICA HYPOXEMIA LEELA; 04/20 CONF LEELA; BIPAP S *INVENTORY TAGGED Reason for Visit Obesity LEELA (obstructive sleep apnea) Chief Complaint SCIATICA HYPOXEMIA LEELA; 04/20 CONF LEELA; BIPAP S *INVENTORY TAGGED Radiculopathy, lumbar region Reason for Visit Obesity LEELA (obstructive sleep apnea) Chief Complaint SCIATICA HYPOXEMIA LEELA; 04/20 CONF LEELA; BIPAP S *INVENTORY TAGGED Radiculopathy, lumbar region 2 M FU LEELA BACK PAIN/RX HERE Reason for Visit Obesity LEELA (obstructive sleep apnea) Obesity LEELA (obstructive sleep apnea) Chief Complaint HYPOXEMIA LEELA; 04/20 CONF LEELA; BIPAP S *INVENTORY TAGGED Radiculopathy, lumbar region 2 M FU LEELA BACK PAIN/RX HERE Reason for Visit Obesity LEELA (obstructive sleep apnea) Obesity LEELA (obstructive sleep apnea) Chief Complaint 1 Y FU PREOP ANTERIOR RIGHT TOTAL HIP ARTHROPLAS ANTERIOR RIGHT TOTAL HIP ARTHROPLAS Reason for Visit Dyspnea Obesity LEELA (obstructive sleep apnea) S/P total right hip arthroplasty LEELA (obstructive sleep apnea) Chief Complaint Admit Date 3 M FU July 10, 2025 1:14pm Reason for Visit Admit Date Obesity July 10, 2025 1:14pm LEELA (obstructive sleep apnea) July 10, 2025 1:14pm Additional Source Comments INFORMATION SOURCE (unrecogn ized section and content) DATE CREATED AUTHOR 01/20/2022 [facility] Ida Portillo DATE CREATED AUTHOR AUTHOR'S ORGANIZ ATION 09/11/2022 [facility] DATE CREATED AUTHOR AUTHOR'S ORGANIZ ATION 04/16/2024 [facility] ([place]) DATE CREATED AUTHOR AUTHOR'S ORGANIZ ATION 10/21/2024 [facility] DATE CREATED AUTHOR AUTHOR'S ORGANIZ ATION 05/21/2025 [facility] DATE CREATED AUTHOR AUTHOR'S ORGANIZ ATION 09/05/2025 [facility] Source Comments (unrecognize d section and content) In the event this informatio n is protected by the Federal Confidentiality of Alcohol and Drug Abuse Patient Records regulations: The Federal rules restrict any use of the information to criminally investigate or prosecute any alcohol or drug abuse patient.[facility] the event this information is protected by the Federal Confidentiality of Alcohol and Drug Abuse Patient Records regulations: The Federal rules restrict any use of the information to criminally investigate or prosecute any alcohol or drug abuse patient.[facility] Hospital[facility] the event this information is protected by the Federal Confidentiality of Alcohol and Drug Abuse Patient Records regulations: The Federal rules restrict any use of the information to criminally investigate or prosecute any alcohol or drug abuse patient.[facility] Hospital[facility] the event this information is protected by the Federal Confidentiality of Alcohol and Drug Abuse Patient Records regulations: The Federal rules restrict any use of the information to criminally investigate or prosecute any alcohol or drug abuse patient.[facility] Hospital[facility] the event this information is protected by the Federal Confidentiality of Alcohol and Drug Abuse Patient Records regulations: The Federal rules restrict any use of the information to criminally investigate or prosecute any alcohol or drug abuse patient.[facility] HospitalIn the event this information is protected by the Federal Confidentiality of Alcohol and Drug Abuse Patient Records regulations: The Federal rules restrict any use of the information to criminally investigate or prosecute any alcohol or drug abuse patient.[facility] Hospital[facility] the event this information is protected by the Federal Confidentiality of Alcohol and Drug Abuse Patient Records regulations: The Federal rules restrict any use of the information to criminally investigate or prosecute any alcohol or drug abuse patient.[facility] HospitalIn the event this information is protected by the Federal Confidentiality of Alcohol and Drug Abuse Patient Records regulations: The Federal rules restrict any use of the information to criminally investigate or prosecute any alcohol or drug abuse patient.[facility] Reason for Visit (unrecogniz ed section and content) Reason Comments Results Reason Comments Follow Up Reason Comments Results Reason Comments Established Patient Follow-Up 6 month fo llow up for HTN Reason Comments Follow Up Care Teams (unrecognized sec tion and content) Film Inspector Relationship Specialty Start Date End Date Larry Joyce DO [address] [place] [id number] PCP - General Family Practice 11/29/21 Film Inspector Relationship Specialty Start Date End Date Larry Joyce DO [address] [place] [id number] PCP - General Family Practice 11/29/21 Film Inspector Relationship Specialty Start Date End Date Larry Joyce DO [address] [place] [address] PCP - General Family Practice 11/29/21 Film Inspector Relationship Specialty Start Date End Date Larry Joyce DO [address] [place] [id number] PCP - General Family Medicine 11/29/21 Film Inspector Relationship Specialty Start Date End Date aLrry Joyce DO [address] [place] [address] PCP - General Family Medicine 11/29/21 Film Inspector Relationship Specialty Start Date End Date Larry Joyce DO [address] [place] [address] PCP - General Family Medicine 11/29/21 Team Status: Active Member Role Status Dates Dr. Juan Fraser MD Family Provider Active Dr. Larry Joyce , DO Primary Care Provider Activ e Team Status: Inactive Member Role Status Dates Dr. Larry Joyce , DO Primary Care Provider, Refe rring Provider Active Annia Sainz FRANCHISE SPECIALIST, FRANCHISE SPECIALIST-C Attending Provider Active Team Status: Active Member Role Status Dates Dr. Larry Joyce , DO Primary Care Provider Activ e Dr. Kamar Morales MD Attending Provider Active Dr. oNrah Turner MD Referring Provider Active Team Status: Active Member Role Status Dates Dr. Larry Joyce , DO Primary Care Provider Activ e Dr. Norah Turner MD Admit Provider, R eferring Provider, Other Provider Active Dr. Zachary Andino , Attending Provider, Other Pro vider Active Team Status: Inactive Member Role Status Dates Dr. Larry Joyce , DO Primary Care Provider Activ e Dr. Norah Turner MD Admit Provider, A ttending Provider, Referring Provider Active Dr. Roselia Dailey MD Other Provider Active Film Inspector Relationship Specialty Start Date End Date Larry Joyce DO [address] [place] [address] PCP - General Family Medicine 11/29/21 Team Status: Active Member Role/Relationship Status Dates Dr. Juan Fraser MD Family Provider Active Dr. Larry Joyce , DO Primary Care Provider Activ e Team Status: Inactive Member Role/Relationship Status Dates Dr. Larry Joyce , DO Primary Care Provider Activ e Start: July 10, 2025 End: July 10, 2025 Dr. Larry Joyce , Referring Provider Active Start: July 10, 2025 End: July 10, 2025 Annia Sainz FRANCHISE SPECIALIST, FRANCHISE SPECIALIST-C Attending Provider Active Start: July 10, 2025 End: July 10, 2025 Goals (unrecognized section and content) Goals may be documented in a n alternate section Care Team (unrecognized sect ion and content) Care Team Personnel Name: LARRY JOYCE DO Position: P4 Physician - Primary Care Med Service: Active Provider Member Role: Primary Care Physician Address: Address: [address] [place] [address] Care Team Related Persons Name: SWAPNA PECK Care Team Personnel Name: LARRY JOYCE DO Position: P4 Physician - Primary Care Med Service: Active Provider Member Role: Primary Care Physician Address: Address: [address] [place] [address] Care Team Related Persons Name: SWAPNA PECK Care Team Personnel Name: LARRY JOYCE DO Position: P4 Physician - Primary Care Member Role: Primary Care Physician Address: Address: [address] [place] [address] Care Team Related Persons Name: SWAPNA PECK FOR RECORDS PERTAINING TO PATIENTS WHO ARE OR HAVE BEEN ENROLLED IN A CHEMICAL DEPENDENCY/SUBSTANCEABUSE PROGRAM, SOME INFORMATION MAY BE OMITTED. This clinical summary was aggregated from multiple sources. Caution should be exercised in using it in the provision of clinical care. This summary normalizes information from multiple sources, and as a consequence, information in this document may materially change the coding, format and clinical context of patient data. In addition, data may be omitted in some cases. CLINICAL DECISIONS SHOULD BE BASED ON THE PRIMARY CLINICAL RECORDS. [facility] [employer] provides no warranty or guarantee of the accuracy or completeness of information in this document.
== END | disposition home or self-care (01) ==
LOC: SL 20:03
PROVIDERS: Referring Provider Nurse Practitioner Acute Care; Visit Provider Nurse Practitioner Acute Care
DX: G47.33 Obstructive sleep apnea (adult) (pediatric) (principal)
CPT/HCPCS: 95810; 95811

== ENCOUNTER → 2025-09-23 | Outpatient (CLI) | payer MEDICARE, BC, SELFPAY ==
--- OUTSIDE RECORDS SUMMARY | 2025-09-23 20:52 | XMS RPT_ITS | CCD ---
Author Organization [facility] Care Team Providers Care Benefits Administrator Name Role Phone DR LARRY JOYCE DO Primary Care Physician [phone] Larry Joyce DO Primary Care Provider Dr. Larry Joyce Primary Care Provider [phone] Dr. Larry Joyce Referring Provider Dr. Austin Hudson Attending Provider [phone] Alistair PAPER INSPECTOR, PAPER INSPECTOR-C Annia Attending Provider [phone] Larry Joyce DO Primary Care Provider LARRY [...] LARRY JOYCE DO Primary Care Physician [phone] Larry Joyce DO Primary Care Provider Dr. Larry Joyce Primary Care Provider [phone] Dr. Larry Joyce Referring Provider Alistair PAPER INSPECTOR, PAPER INSPECTOR-C Annia Attending Provider [phone] Dr. Kamar Morales Attending Provider Johnny, Dr. Smith Referring Provider [phone] Johnny, Dr. Smith Admit Provider Dr. Norah Turner Other Provider Sina, Dr. Sharma Attending Provider Sina, Dr. Sharma Other Provider MARIA DEL CARMEN DO, DR JUAREZ Attending [...] Care Unavailable Maria Del Carmen DO, Larry Esteves Primary Care Provider SUSAN NÚÑEZ Attending Unavailable MARIA DEL CARMENLARRY Primary Care Unavailable Maria Del Carmen DO, Dr. Larry Esteves Primary Care Provider Maria Del Carmen MARIE, Dr. Larry Esteves Referring Provider [phone] Alistair WILSON-C, Annia Attending Provider Larry Joyce Referring Unavailable Alistair PAPER INSPECTOR, Annia Attending Unavailable Maria Del CarmenLarry peña Primary Care Unavailable Maria Del CarmenLarry peña Primary Care Unavailable Alistair PAPER INSPECTOR, Annia Attending Unavailable Sainz PAPER INSPECTOR, Annia Attending Unavailable Sainz PAPER INSPECTOR, Annia Referring Unavailable Maria Del CarmenLarry Primary Care Unavailable Maria Del CarmenLarry Referring Unavailable Alistair PAPER INSPECTOR, Annia Attending Unavailable Maria Del CarmenLarry peña Primary Care Unavailable MARIA DEL CARMEN DO, [...] CAROLYN ROBLEDO, DR WILCOX Attending Unavailabl e Medications Current Medications Medication Drug Class(es) Dates [...] Daily, # 90 tab(s), 1 Refill(s), Pharmacy: [facility], 154, cm, 03/11/25 13:53:00 EDT, Height, kg, 03/11/25 13:53:00 EDT, Dosing Weight Start Date: 04/24/25 Status: Ordered Quantity: 90.0 Unit: tab(s) Repeat number: 2 Start: 11-27-2023 benazepril 10 mg oral tablet Dose : 10 mg = 1 tab(s), Oral, Daily, # 90 tab(s), 1 Refill(s), Pharmacy: [facility], 156, cm, 03/07/24 15:00:00 EDT, Height, kg, 03/07/24 15:00:00 EDT, Dosing Weight Start Date: 07/26/24 Status: Ordered Quantity: 90.0 Unit: tab(s) Repeat number: 2 Start: 10-03-2023 benazepril 10 mg oral tablet Dose : 10 mg = 1 tab(s), Oral, Daily, # 90 tab(s), 1 Refill(s), Pharmacy: [facility], 156, cm, 09/07/23 15:00:00 EST, Height, kg, 09/07/23 15:00:00 EST, Dosing Weight Start Date: 10/03/23 Status: Ordered Start: 09-01-2022 benazepril 10 mg oral tablet Dose : 10 mg = 1 tab(s), Oral, Daily, # 90 tab(s), 1 Refill(s), Pharmacy: [facility]/pharmacy #[id number], 156, cm, 09/01/22 14:10:00 EDT, Height, [...] Ordered docusate sodium 50 mg / sennosides, skilled nursing 8.6 mg oral tablet (2 sources) Start: 12-28-2023 Sennosides-Docusate Sodium (Stool Softener-Stimulant Laxat) 8.6-50 mg Tablet Active 2 {tbl} PO TWICE A DAY 12 3 0 December 28, 2023 1:00am Take until first [...] nostril, # 48 gram(s), 3 Refill(s), Pharmacy: [facility], 154, cm, 09/10/24 13:29:00 EST, Height, kg, 09/10/24 13:29:00 EST, Dosing Weight Start Date: 11/08/24 Status: Ordered Quantity: 48.0 Unit: g Repeat number: 4 Start: 05-07-2024 fluticasone pr oprionate NASAL 50 mcg/ spray Dose = 2 spray(s), Nasal, BID, in each nostril, # 48 gram(s), 1 Refill(s), Pharmacy: [facility], 156, cm, 03/07/24 15:00:00 EDT, Height, kg, 03/07/24 15:00:00 EDT, Dosing Weight Start Date: 05/07/24 Status: Ordered Quantity: 48.0 Unit: g Repeat number: 2 Start: 10-03-2023 fluticasone pr oprionate NASAL 50 mcg/ spray Dose = 2 spray(s), Nasal, BID, in each nostril, # 48 gram(s), 1 Refill(s), Pharmacy: [facility], 156, cm, 09/07/23 15:00:00 EST, Height, kg, 09/07/23 15:00:00 EST, Dosing Weight Start Date: 10/03/23 Status: Ordered Start: 02-28-2023 fluticasone pr oprionate NASAL 50 mcg/ spray Dose = 2 spray(s), Nasal, BID, in each nostril, # 1 EA, 5 Refill(s), Pharmacy: [facility]/pharmacy #[id number], 156, cm, 09/01/22 14:10:00 EDT, Height, [...] nostril, # 1 EA, 5 Refill(s), Pharmacy: [facility]/pharmacy #[id number], 160, cm, 12/26/19 13:19:00 EST, Height, kg, 12/26/19 13:19:00 EST, Dosing Weight Start Date: 04/07/20 Status: Ordered fluticasone proprionate NASAL 50 mcg/ spray (6 sources) Start: 04-07-2020 fluticasone pr oprionate NASAL 50 mcg/ spray Dose = 2 spray(s), Nasal, BID, in each nostril, # 1 EA, 5 Refill(s), Pharmacy: [facility]/pharmacy #[id number], 160, cm, 12/26/19 13:19:00 EST, Height, [...] supper, # 90 tab(s), 1 Refill(s), Pharmacy: [facility], 154, cm, 03/11/25 13:53:00 EDT, [...] qHS, # 30 tab(s), 0 Refill(s), Pharmacy: [facility], 154, cm, 03/11/25 13:53:00 EDT, Height, kg, 03/11/25 13:53:00 EDT, Dosing Weight Start Date: 04/13/25 Status: Ordered Quantity: 30.0 Unit: tab(s) Repeat number: 1 Start: 11-27-2023 simvastatin 10 mg oral tablet Dose : 10 mg = 1 tab(s), Oral, qHS, # 90 tab(s), 1 Refill(s), Pharmacy: [facility], 156, cm, 03/07/24 15:00:00 EDT, Height, kg, 03/07/24 15:00:00 EDT, Dosing Weight Start Date: 07/26/24 Status: Ordered Quantity: 90.0 Unit: tab(s) Repeat number: 2 Start: 10-03-2023 simvastatin 10 mg oral tablet Dose : 10 mg = 1 tab(s), Oral, qHS, # 90 tab(s), 1 Refill(s), Pharmacy: [facility], 156, cm, 09/07/23 15:00:00 EST, Height, kg, 09/07/23 15:00:00 EST, Dosing Weight Start Date: 10/03/23 Status: Ordered Start: 09-01-2022 simvastatin 10 mg oral tablet Dose : 10 mg = 1 tab(s), Oral, qHS, # 90 tab(s), 1 Refill(s), Pharmacy: [facility]/pharmacy #[id number], 156, cm, 09/01/22 14:10:00 EDT, Height, [...] 03-25-2025 triamcinolone 0.1% topical ointment Apply 1 esrene, Topical, BID, X 14 day(s), # 15 gram(s), 0 Refill(s), Pharmacy: [facility], Ointment, 154, cm, 03/11/25 13:53:00 [...] qDay, # 90 cap(s), 1 Refill(s), Pharmacy: [facility], 154, cm, 12/02/24 10:33:00 EST, Height, kg, 12/02/24 10:33:00 EST, Dosing Weight Start Date: 12/30/24 Status: Ordered Quantity: 90.0 Unit: cap(s) Repeat number: 2 Start: 03-24-2022 venlafaxine 37 .5 mg oral capsule, extended release Dose : 37.5 mg = 1 cap(s), Oral, qDay, # 90 cap(s), 1 Refill(s), Pharmacy: [facility], 156, cm, 03/07/24 15:00:00 EDT, Height, [...] DAY, # 45 cap(s), 1 Refill(s), Pharmacy: [facility]/pharmacy #[id number], 160, cm, 09/29/20 11:24:00 EST, Height, [...] q12h, # 180 tab(s), 1 Refill(s), Pharmacy: [facility], 154, cm, 12/02/24 10:33:00 EST, Height, [...] q12h, # 180 tab(s), 1 Refill(s), Pharmacy: [facility], 156, cm, 03/07/24 15:00:00 EDT, Height, [...] q12h, # 180 tab(s), 1 Refill(s), Pharmacy: [facility], 156, cm, 12/05/23 14:48:00 EST, Height, [...] q12h, # 180 tab(s), 1 Refill(s), Pharmacy: [facility]/pharmacy #[id number], 156, cm, 09/01/22 14:10:00 EDT, Height, kg, 05/20/23 9:20:00 EDT, Dosing Weight Start Date: 08/10/23 Status: Ordered Start: 02-28-2023 take 1 tablet by lula th every hour, then take 1 tablet by mouth every twelve hours verapamil 240 mg/12 hours oral tablet, extended release Dose : 240 mg = 1 tab(s), Oral, q12h, # 180 tab(s), 1 Refill(s), Pharmacy: [facility]/pharmacy #[id number], 156, cm, 09/01/22 14:10:00 EDT, Height Start Date: 02/28/23 Status: Ordered Start: 12-01-2022 take 1 tablet by lula th twice daily verapamil SR (CALAN SR, ISOPTIN SR) 240 mg CR tablet Indications: Essential hypertension , Atrial tachycardia (HCC) TAKE 1 TABLET BY MOUTH TWICE A DAY 180 tablet 2 12/01/2022 Active Start: 02-04-2022 take 1 tablet by lula th every hour, then take 1 tablet by mouth every twelve hours verapamil 240 mg/12 hours oral tablet, extended release Dose : 240 mg = 1 tab(s), Oral, q12h, # 180 tab(s), 0 Refill(s) Start Date: 02/04/22 Status: Ordered Start: 12-16-2021 take 1 tablet by lula th twice daily verapamil SR (CALAN SR, ISOPTIN SR) 240 mg CR tablet Indications: Essential hypertension , Atrial tachycardia (HCC) Take 1 tablet by mouth twice daily. 180 tablet 3 12/16/2021 Active Comment on above: Take 1 tablet by lula th twice daily. TAKE 1 TABLET BY LULA TH TWICE A DAY Vitamin C 1000 mg [...] qDay, # 90 tab(s), 1 Refill(s), [id number], cm, 09/01/22 14:10:00 EDT, Height, kg, 02/28/23 13:30:00 EDT, Dosing Weight Start Date: 02/28/23 Status: Ordered Start: 02-21-2023 take 1 tablet by lula th once daily warfarin 1 mg oral tablet See Instructions, Take one daily as directed., # 90 tab(s), 1 Refill(s), Pharmacy: [facility]/pharmacy #[id number], 156, cm, 09/01/22 14:10:00 EDT, Height, kg, 09/01/22 14:10:00 EDT, Dosing Weight Start Date: 02/21/23 Status: Ordered Start: 07-26-2022 warfarin 6 mg oral tablet Dose : 6 mg = 1 tab(s), Oral, qDay, # 90 tab(s), 1 Refill(s), Pharmacy: [facility]/pharmacy #[id number], 156, cm, 06/01/22 16:19:00 EDT, Height, [...] qDay, # 90 tab(s), 1 Refill(s), [id number] 157.5, cm, 10/12/21 8:22:00 EST, Height, kg, 10/12/21 8:22:00 EST, Dosing Weight Start Date: 10/12/21 Status: Ordered Start: 08-04-2021 End: 10-09-2023 take 1 tablet by mouth once daily warfarin 1 mg oral tablet See Instructions, Take one daily as directed., # 90 tab(s), 1 Refill(s), [id number], cm, 06/01/22 16:19:00 EDT, Height, kg, 06/01/22 16:19:00 EDT, Dosing Weight Start Date: 07/26/22 Status: Ordered Start: 08-04-2021 warfarin 6 mg oral tablet Dose : 6 mg = 1 tab(s), Oral, qDay, In absence of PCP, # 30 tab(s), 0 Refill(s), [id number], cm, 07/20/21 13:56:00 EDT, Height, [...] day(s), # 5 EA, 0 Refill(s), Pharmacy: [facility]/pharmacy #[id number], COVID, 156, cm, 0... Start Date: 06/03/22 Stop Date: 06/08/22 Status: [...] qDay, # 90 tab(s), 1 Refill(s), Pharmacy: [facility]/pharmacy #[id number], 157.5, cm, 10/12/21 8:22:00 EST, Height, [...] cap(s), 0 Refill(s), 10/29/21 14:31:00 EST, Pharmacy: [facility]/pharmacy #[id number], 157.5, cm, 10/12/21 8:22:00 EST, Height, [...] qDay, # 7 tab(s), 0 Refill(s), Pharmacy: [facility]/pharmacy #[id number], 160, cm, 09/30/21 20:57:00 EST, Height, kg, 09/30/21 20:57:00 EST, Dosing Weight Start Date: 10/02/21 Stop Date: 10/09/21 Status: Ordered doxycycline monohydrate 100 mg oral capsule (2 sources) Tetracycline-class Drug Start: 12-28-2023 End: 07-10-2025 take 1 capsule by mouth twice daily Doxycycline Monohydrate 100 mg Capsule Discontinued 100 mg PO TWICE A DAY 28 14 0 December 28, 2023 1:00am July 10, 2025 1:30pm [facility] Medication (20 sources) Start: 05-08-2020 [facility] Medication Insta Flex - for joints takes one daily, 0 Refill(s), 107.7 Start Date: 05/08/20 Status: Ordered Repeat number: 1 Start: 05-08-2020 Mis Medicatio n Insta Flex - for joints takes one daily, 0 Refill(s), 107.7 Start Date: 05/08/20 Status: Ordered Start: 05-08-2020 [facility] [place] Medicatio n Algmary Chaim Bafic - bone supplement takes one [...] sources) Long-term current use of anticoagulant; Translations: [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] Onset: 08-30-2022 Episodic Other aftercare (3 sources) care home (current) use of anticoagulants; Translations: [care home (current) use of anticoagulants] Onset: 11-25-2021 Episodic [...] (BMI) 40.0-44.9, adult; Translations: [BMI 40.0-44.9, adult ([facility])] Onset: 10-07-2024 Chronic Phlebitis; thrombophlebitis and thromboembolism [...] Test Name Value Interpretation Reference Range Facility .Auto Diffon 09-10-2025 Basophil, Absolute 0.0 10 3/mcL Normal 0.0-0.3 [facility] Comment on above: Performed By: #### V IDH, TSH, CBC, FERR, ADIFF, FE, LIPID, GFR, ANEU, CMP #### [facility] [address] [place], [place] [address] Basophils/100 WBC (Bld) 0.4 % Normal 0.0-2.5 [facility] Comment on above: Performed By: #### V IDH, TSH, CBC, FERR, ADIFF, FE, LIPID, GFR, ANEU, CMP #### [address] [address] Eosinophil, Absolute 0.2 10 3/mcL Normal 0.0-0.7 [facility] Comment on above: Performed By: #### V IDH, TSH, CBC, FERR, ADIFF, FE, LIPID, GFR, ANEU, CMP #### [address] [address] Eosinophils/100 WBC (Bld) 2.3 % Normal 0.0-6.0 [facility] Comment on above: Performed By: #### V IDH, TSH, CBC, FERR, ADIFF, FE, LIPID, GFR, ANEU, CMP #### [address] [address] Lymphocyte, Absolute 2.6 10 3/mcL Normal 0.9-4.3 [facility] Comment on above: Performed By: #### V IDH, TSH, CBC, FERR, ADIFF, FE, LIPID, GFR, ANEU, CMP #### [address] [address] Lymphocytes/100 WBC (Bld) 34.1 % Normal 20.0-40.0 [facility] Comment on above: Performed By: #### V IDH, TSH, CBC, FERR, ADIFF, FE, LIPID, GFR, ANEU, CMP #### [address] [address] Monocyte, Absolute 0.8 10 3/mcL Normal 0.1-1.4 [facility] Comment on above: Performed By: #### V IDH, TSH, CBC, FERR, ADIFF, FE, LIPID, GFR, ANEU, CMP #### [address] [address] Monocytes/100 WBC (Bld) 11.3 % Normal 2.0-13.0 [facility] Comment on above: Performed By: #### V IDH, TSH, CBC, FERR, ADIFF, FE, LIPID, GFR, ANEU, CMP #### [address] [address] Neutrophils/100 WBC (Bld) 51.9 % Normal 50.0-75.0 [facility] Comment on above: Performed By: #### V IDH, TSH, CBC, FERR, ADIFF, FE, LIPID, GFR, ANEU, CMP #### [address] [address] .GFRon 09-10-2025 Estimated Glomerular Filtration Rate 77 ml/min/1.73sqm Normal [facility] Comment on above: Result Comment: Stages of [...] calculate the eGFR results. Performed By: #### V IDH, TSH, CBC, FERR, ADIFF, FE, LIPID, GFR, ANEU, CMP #### [address] [address] .NEUABSon 09-10-2025 Neutrophil, Absolute 3.9 10 3/mcL Normal 2.3-8.1 [facility] Comment on above: Performed By: #### V IDH, TSH, CBC, FERR, ADIFF, FE, LIPID, GFR, ANEU, CMP #### [address] [address] CBCon 09-10-2025 Erythrocyte distribution width (RBC) [Ratio] 14.1 % Normal 11.5-15.5 [facility] Comment on above: Performed By: #### V IDH, TSH, CBC, FERR, ADIFF, FE, LIPID, GFR, ANEU, CMP #### [address] [address] Hematocrit (Bld) [Volume fraction] 41.4 % Normal 34.0-46.0 [facility] Comment on above: Performed By: #### V IDH, TSH, CBC, FERR, ADIFF, FE, LIPID, GFR, ANEU, CMP #### [place] [address] Hgb 13.7 G/dL Normal 12.0-16.0 [facility] Comment on above: Performed By: #### V IDH, TSH, CBC, FERR, ADIFF, FE, LIPID, GFR, ANEU, CMP #### [place] [address] MCH (RBC) [Entitic mass] 30.6 pg Normal 27.0-33.0 [facility] Comment on above: Performed By: #### V IDH, TSH, CBC, FERR, ADIFF, FE, LIPID, GFR, ANEU, CMP #### [place] [address] MCHC 33.1 G/dL Normal 32.0-36.0 [facility] Comment on above: Performed By: #### V IDH, TSH, CBC, FERR, ADIFF, FE, LIPID, GFR, ANEU, CMP #### [place] [address] MCV (RBC) [Entitic vol] 92.4 fL Normal 80.0-99.0 [facility] Comment on above: Performed By: #### V IDH, TSH, CBC, FERR, ADIFF, FE, LIPID, GFR, ANEU, CMP #### [place] [address] Platelet 236 10 3/mcL Normal 150-450 [facility] Comment on above: Performed By: #### V IDH, TSH, CBC, FERR, ADIFF, FE, LIPID, GFR, ANEU, CMP #### [place] [address] Platelet mean volume (Bld) [Entitic vol] 8.5 fL Normal 6.6-10.5 [facility] Comment on above: Performed By: #### V IDH, TSH, CBC, FERR, ADIFF, FE, LIPID, GFR, ANEU, CMP #### [address] [place] [address] RBC 4.48 10 6/mcL Normal 4.10-5.30 [facility] Comment on above: Performed By: #### V IDH, TSH, CBC, FERR, ADIFF, FE, LIPID, GFR, ANEU, CMP #### [address] [address] WBC 7.5 10 3/mcL Normal 4.5-10.8 [facility] Comment on above: Performed By: #### V IDH, TSH, CBC, FERR, ADIFF, FE, LIPID, GFR, ANEU, CMP #### [address] [address] CMPon 09-10-2025 Albumin Level 3.3 G/dL Low 3.4-4.8 [facility] Comment on above: Performed By: #### V IDH, TSH, CBC, FERR, ADIFF, FE, LIPID, GFR, ANEU, CMP #### [address] [address] Albumin/Globulin [Mass ratio] 0.9 {ratio} Low 1.1-2.5 [facility] Comment on above: Performed By: #### V IDH, TSH, CBC, FERR, ADIFF, FE, LIPID, GFR, ANEU, CMP #### [address] [address] ALP [Catalytic activity/Vol] 69 U/L Normal 40-135 [facility] Comment on above: Performed By: #### V IDH, TSH, CBC, FERR, ADIFF, FE, LIPID, GFR, ANEU, CMP #### [address] [address] ALT [Catalytic activity/Vol] 21 U/L Normal 14-59 [facility] Comment on above: Performed By: #### V IDH, TSH, CBC, FERR, ADIFF, FE, LIPID, GFR, ANEU, CMP #### [address] [address] AST [Catalytic activity/Vol] 16 U/L Normal 10-40 [facility] Comment on above: Performed By: #### V IDH, TSH, CBC, FERR, ADIFF, FE, LIPID, GFR, ANEU, CMP #### [address] [address] Bili Total 0.5 mg/dL Normal 0.2-1.0 [facility] Comment on above: Result Comment: Use of this assay is not recommended for patients undergoing treatment with eltrombopag due to the potential for falsely elevated results. Performed By: #### V IDH, TSH, CBC, FERR, ADIFF, FE, LIPID, GFR, ANEU, CMP #### [place] [address] BUN/Creatinine Ratio 19 ratio Normal 7-27 [facility] Comment on above: Performed By: #### V IDH, TSH, CBC, FERR, ADIFF, FE, LIPID, GFR, ANEU, CMP #### [place] [address] Calcium [Mass/Vol] 9.2 mg/dL Normal 8.4-10.2 [facility] Comment on above: Performed By: #### V IDH, TSH, CBC, FERR, ADIFF, FE, LIPID, GFR, ANEU, CMP #### [place] [address] Chloride [Moles/Vol] 103 mmol/L Normal 98-107 [facility] Comment on above: Performed By: #### V IDH, TSH, CBC, FERR, ADIFF, FE, LIPID, GFR, ANEU, CMP #### [address] [address] CO2 [Moles/Vol] 29 mmol/L Normal 23-31 [facility] Comment on above: Performed By: #### V IDH, TSH, CBC, FERR, ADIFF, FE, LIPID, GFR, ANEU, CMP #### [place] [address] Creatinine [Mass/Vol] 0.80 mg/dL Normal 0.51-0.95 [facility] Comment on above: Performed By: #### V IDH, TSH, CBC, FERR, ADIFF, FE, LIPID, GFR, ANEU, CMP #### [address] [address] Electrolyte Balance 7.0 mEq/L Normal 4.0-15.0 [facility] Comment on above: Performed By: #### V IDH, TSH, CBC, FERR, ADIFF, FE, LIPID, GFR, ANEU, CMP #### [address] [address] Globulin 3.8 G/dL Normal 2.7-4.4 [facility] Comment on above: Performed By: #### V IDH, TSH, CBC, FERR, ADIFF, FE, LIPID, GFR, ANEU, CMP #### [address] [address] Glucose [Mass/Vol] 95 mg/dL Normal 83-110 [facility] Comment on above: Performed By: #### V IDH, TSH, CBC, FERR, ADIFF, FE, LIPID, GFR, ANEU, CMP #### [address] [address] Potassium [Moles/Vol] 4.8 mmol/L Normal 3.5-5.1 [facility] Comment on above: Performed By: #### V IDH, TSH, CBC, FERR, ADIFF, FE, LIPID, GFR, ANEU, CMP #### [address] [address] Sodium [Moles/Vol] 139 mmol/L Normal 136-145 [facility] Comment on above: Performed By: #### V IDH, TSH, CBC, FERR, ADIFF, FE, LIPID, GFR, ANEU, CMP #### [address] [address] Total Protein 7.1 G/dL Normal 6.4-8.2 [facility] Comment on above: Performed By: #### V IDH, TSH, CBC, FERR, ADIFF, FE, LIPID, GFR, ANEU, CMP #### [address] [address] Urea nitrogen [Mass/Vol] 15 mg/dL Normal 7-18 [facility] Comment on above: Performed By: #### V IDH, TSH, CBC, FERR, ADIFF, FE, LIPID, GFR, ANEU, CMP #### [address] [address] LIPIDon 09-10-2025 Cholesterol [Mass/Vol] 202 mg/dL High 0-200 [facility] Comment on above: Result Comment: Chol esterol Reference Interval: Less than 200 Desirable 200-239 Borderline high risk 240 and above High risk Performed By: #### V IDH, TSH, CBC, FERR, ADIFF, FE, LIPID, GFR, ANEU, CMP #### [address] [address] Cholesterol in HDL [Mass/Vol] 92 mg/dL High 40-60 [facility] Comment on above: Performed By: #### V IDH, TSH, CBC, FERR, ADIFF, FE, LIPID, GFR, ANEU, CMP #### [address] [address] Cholesterol in LDL [Mass/Vol] 94 mg/dL Normal 0-130 [facility] Comment on above: Performed By: #### V IDH, TSH, CBC, FERR, ADIFF, FE, LIPID, GFR, ANEU, CMP #### [address] [address] Triglyceride [Mass/Vol] 81 mg/dL Normal 0-150 [facility] Comment on above: Result Comment: Trig lyceride Reference Interval: Less than 150 Normal 150-199 Borderline high risk 200-499 High risk 500 or higher Very high risk Performed By: #### V IDH, TSH, CBC, FERR, ADIFF, FE, LIPID, GFR, ANEU, CMP #### [address] [address] TSHon 09-10-2025 TSH Qn 3.20 m[IU]/L Normal 0.36-3.74 [facility] Comment on above: Performed By: #### V IDH, TSH, CBC, FERR, ADIFF, FE, LIPID, GFR, ANEU, CMP #### [address] [address] VIDHon 09-10-2025 Vit. D 25-Hydroxy 62.4 ng/mL Normal [facility] Comment on above: Result Comment: Inte rpretive Values Based on Total 25(OH) Vitamin D: Deficient <20 ng/mL Insufficient 20 - <30 ng/mL Sufficient 30-100 ng/mL Performed By: #### V IDH, TSH, CBC, FERR, ADIFF, FE, LIPID, GFR, ANEU, CMP #### [facility] [address] [place], [place] [address] Pulmonary Visit Reporton Pulmonary Visit Report [facility] [address] [place] [address] OFFICE VISIT Date of Service: 07/10/25 MR#: [id number] Acct: [id number] Name: QUIRINO PECK Rep #: [id number] : 1950 Provider: GENARO Sainz Age/Sex: 74/F [place] [facility] Status: Signed Assessment and Plan Assessment and [...] - Encounter for immunization Medications: New Fluad [id number] (65 yr up)(PF) 45 mcg (15 mcg x 3)/0.5 mL (flu vac 2024 [id number](PF)) 45 mcg IM ONCE 0.5 mL 0RF NS Z23 - Encounter for immunization Discontinued doxycycline monohydrate Discontinued Reason: Order Completed 100 mg PO BID 14 days 28 caps 0RF Plan Details Additional Comments: This note was generated with [employer] dictation software. It may contain incorrect words, [...] had excellent success with them. She states "I am still working with them now". She utilizes PAP therapy but is not noticing feeling more rested. She is napping 15 to 20 minutes at least once weekly. She is experiencing dry mouth and mask leaks, despite the fact that she "does not move when sleeping". She is not having morning headaches. 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 General Required: No DME Vendor: Mary Ellen Accompanied by: Self Is patient in pain?: No Allergies No Known Allergies Allergy (Verified 07/10/25 13:21) Medications ???Medication ???Instructions ???Recorded ???Confirmed ???Type cholecalciferol (vitamin D3) 50 50 mcg PO DAILY 03/24/22 07/10/25 History mcg (2,000 unit) capsule denosumab 60 mg/mL subcutaneous 60 mg subcut [id number] 03/24/2209/23 History syringe venlafaxine 37.5 mg 37.5 mg PO DAILY 03/24/22 07/10/25 History capsule,extended release 24 hr zinc 50 mg tablet 50 mg PO DAILY 03/24/22 07/10/25 H istory ascorbic acid (vitamin C) 1,000 mg 1 g PO DAILY 06/08/22 07/10/25 H istory tablet benazepril 10 mg tablet 10 mg PO DA (more content not included)... Normal [facility] .Auto Diffon 03-18-2025 Basophil, Absolute 0.0 10 3/mcL Normal 0.0-0.3 [facility] Comment on above: Performed By: #### V IDH, TSH, CBC, FERR, ADIFF, FE, LIPID, GFR, ANEU, CMP #### [address] [address] Basophils/100 WBC (Bld) 0.3 % Normal 0.0-2.5 [facility] Comment on above: Performed By: #### V IDH, TSH, CBC, FERR, ADIFF, FE, LIPID, GFR, ANEU, CMP #### [address] [address] Eosinophil, Absolute 0.2 10 3/mcL Normal 0.0-0.7 [facility] Comment on above: Performed By: #### V IDH, TSH, CBC, FERR, ADIFF, FE, LIPID, GFR, ANEU, CMP #### [address] [address] Eosinophils/100 WBC (Bld) 2.9 % Normal 0.0-6.0 [facility] Comment on above: Performed By: #### V IDH, TSH, CBC, FERR, ADIFF, FE, LIPID, GFR, ANEU, CMP #### [address] [address] Lymphocyte, Absolute 3.0 10 3/mcL Normal 0.9-4.3 [facility] Comment on above: Performed By: #### V IDH, TSH, CBC, FERR, ADIFF, FE, LIPID, GFR, ANEU, CMP #### [address] [address] Lymphocytes/100 WBC (Bld) 34.9 % Normal 20.0-40.0 [facility] Comment on above: Performed By: #### V IDH, TSH, CBC, FERR, ADIFF, FE, LIPID, GFR, ANEU, CMP #### [address] [address] Monocyte, Absolute 0.7 10 3/mcL Normal 0.1-1.4 [facility] Comment on above: Performed By: #### V IDH, TSH, CBC, FERR, ADIFF, FE, LIPID, GFR, ANEU, CMP #### [address] [address] Monocytes/100 WBC (Bld) 8.8 % Normal 2.0-13.0 [facility] Comment on above: Performed By: #### V IDH, TSH, CBC, FERR, ADIFF, FE, LIPID, GFR, ANEU, CMP #### [address] [address] Neutrophils/100 WBC (Bld) 53.1 % Normal 50.0-75.0 [facility] Comment on above: Performed By: #### V IDH, TSH, CBC, FERR, ADIFF, FE, LIPID, GFR, ANEU, CMP #### [address] [address] .GFRon 03-18-2025 Estimated Glomerular Filtration Rate 76 ml/min/1.73sqm Normal [facility] Comment on above: Result Comment: Stages of [...] calculate the eGFR results. Performed By: #### V IDH, TSH, CBC, FERR, ADIFF, FE, LIPID, GFR, ANEU, CMP #### [address] [address] .NEUABSon 03-18-2025 Neutrophil, Absolute 4.5 10 3/mcL Normal 2.3-8.1 [facility] Comment on above: Performed By: #### V IDH, TSH, CBC, FERR, ADIFF, FE, LIPID, GFR, ANEU, CMP #### [address] [address] CBCon 03-18-2025 Erythrocyte distribution width (RBC) [Ratio] 14.3 % Normal 11.5-15.5 [facility] Comment on above: Performed By: #### V IDH, TSH, CBC, FERR, ADIFF, FE, LIPID, GFR, ANEU, CMP #### [address] [address] Hematocrit (Bld) [Volume fraction] 41.7 % Normal 34.0-46.0 [facility] Comment on above: Performed By: #### V IDH, TSH, CBC, FERR, ADIFF, FE, LIPID, GFR, ANEU, CMP #### [address] [address] Hgb 14.1 G/dL Normal 12.0-16.0 [facility] Comment on above: Performed By: #### V IDH, TSH, CBC, FERR, ADIFF, FE, LIPID, GFR, ANEU, CMP #### [address] [address] MCH (RBC) [Entitic mass] 31.0 pg Normal 27.0-33.0 [facility] Comment on above: Performed By: #### V IDH, TSH, CBC, FERR, ADIFF, FE, LIPID, GFR, ANEU, CMP #### [address] [address] MCHC 33.9 G/dL Normal 32.0-36.0 [facility] Comment on above: Performed By: #### V IDH, TSH, CBC, FERR, ADIFF, FE, LIPID, GFR, ANEU, CMP #### [address] [address] MCV (RBC) [Entitic vol] 91.4 fL Normal 80.0-99.0 [facility] Comment on above: Performed By: #### V IDH, TSH, CBC, FERR, ADIFF, FE, LIPID, GFR, ANEU, CMP #### [address] [address] Platelet 226 10 3/mcL Normal 150-450 [facility] Comment on above: Performed By: #### V IDH, TSH, CBC, FERR, ADIFF, FE, LIPID, GFR, ANEU, CMP #### [place] [address] Platelet mean volume (Bld) [Entitic vol] 7.9 fL Normal 6.6-10.5 [facility] Comment on above: Performed By: #### V IDH, TSH, CBC, FERR, ADIFF, FE, LIPID, GFR, ANEU, CMP #### [place] [address] RBC 4.56 10 6/mcL Normal 4.10-5.30 [facility] Comment on above: Performed By: #### V IDH, TSH, CBC, FERR, ADIFF, FE, LIPID, GFR, ANEU, CMP #### [address] [address] WBC 8.5 10 3/mcL Normal 4.5-10.8 [facility] Comment on above: Performed By: #### V IDH, TSH, CBC, FERR, ADIFF, FE, LIPID, GFR, ANEU, CMP #### [address] [address] CMPon 03-18-2025 Albumin Level 3.5 G/dL Normal 3.4-4.8 [facility] Comment on above: Performed By: #### V IDH, TSH, CBC, FERR, ADIFF, FE, LIPID, GFR, ANEU, CMP #### [address] [address] Albumin/Globulin [Mass ratio] 1.0 {ratio} Low 1.1-2.5 [facility] Comment on above: Performed By: #### V IDH, TSH, CBC, FERR, ADIFF, FE, LIPID, GFR, ANEU, CMP #### [address] [address] ALP [Catalytic activity/Vol] 68 U/L Normal 40-135 [facility] Comment on above: Performed By: #### V IDH, TSH, CBC, FERR, ADIFF, FE, LIPID, GFR, ANEU, CMP #### [address] [address] ALT [Catalytic activity/Vol] 22 U/L Normal 14-59 [facility] Comment on above: Performed By: #### V IDH, TSH, CBC, FERR, ADIFF, FE, LIPID, GFR, ANEU, CMP #### [address] [address] AST [Catalytic activity/Vol] 19 U/L Normal 10-40 [facility] Comment on above: Performed By: #### V IDH, TSH, CBC, FERR, ADIFF, FE, LIPID, GFR, ANEU, CMP #### [address] [address] Bili Total 0.6 mg/dL Normal 0.2-1.0 [facility] Comment on above: Result Comment: Use of this assay is not recommended for patients undergoing treatment with eltrombopag due to the potential for falsely elevated results. Performed By: #### V IDH, TSH, CBC, FERR, ADIFF, FE, LIPID, GFR, ANEU, CMP #### [place] [address] BUN/Creatinine Ratio 17 ratio Normal 7-27 [facility] Comment on above: Performed By: #### V IDH, TSH, CBC, FERR, ADIFF, FE, LIPID, GFR, ANEU, CMP #### [place] [address] Calcium [Mass/Vol] 9.6 mg/dL Normal 8.4-10.2 [facility] Comment on above: Performed By: #### V IDH, TSH, CBC, FERR, ADIFF, FE, LIPID, GFR, ANEU, CMP #### [place] [address] Chloride [Moles/Vol] 105 mmol/L Normal 98-107 [facility] Comment on above: Performed By: #### V IDH, TSH, CBC, FERR, ADIFF, FE, LIPID, GFR, ANEU, CMP #### [place] [address] CO2 [Moles/Vol] 26 mmol/L Normal 23-31 [facility] Comment on above: Performed By: #### V IDH, TSH, CBC, FERR, ADIFF, FE, LIPID, GFR, ANEU, CMP #### [place] [address] Creatinine [Mass/Vol] 0.81 mg/dL Normal 0.51-0.95 [facility] Comment on above: Performed By: #### V IDH, TSH, CBC, FERR, ADIFF, FE, LIPID, GFR, ANEU, CMP #### [place] [address] Electrolyte Balance 9.0 mEq/L Normal 4.0-15.0 [facility] Comment on above: Performed By: #### V IDH, TSH, CBC, FERR, ADIFF, FE, LIPID, GFR, ANEU, CMP #### [address] [address] Globulin 3.5 G/dL Normal 2.7-4.4 [facility] Comment on above: Performed By: #### V IDH, TSH, CBC, FERR, ADIFF, FE, LIPID, GFR, ANEU, CMP #### [address] [address] Glucose [Mass/Vol] 110 mg/dL Normal 83-110 [facility] Comment on above: Performed By: #### V IDH, TSH, CBC, FERR, ADIFF, FE, LIPID, GFR, ANEU, CMP #### [address] [address] Potassium [Moles/Vol] 4.8 mmol/L Normal 3.5-5.1 [facility] Comment on above: Performed By: #### V IDH, TSH, CBC, FERR, ADIFF, FE, LIPID, GFR, ANEU, CMP #### [address] [address] Sodium [Moles/Vol] 140 mmol/L Normal 136-145 [facility] Comment on above: Performed By: #### V IDH, TSH, CBC, FERR, ADIFF, FE, LIPID, GFR, ANEU, CMP #### [address] [address] Total Protein 7.0 G/dL Normal 6.4-8.2 [facility] Comment on above: Performed By: #### V IDH, TSH, CBC, FERR, ADIFF, FE, LIPID, GFR, ANEU, CMP #### [address] [address] Urea nitrogen [Mass/Vol] 14 mg/dL Normal 7-18 [facility] Comment on above: Performed By: #### V IDH, TSH, CBC, FERR, ADIFF, FE, LIPID, GFR, ANEU, CMP #### [address] [address] LABORATORYOrdered By: SYSTEM SYSTEM on 03-18-2025 25-hydroxyvitamin [...] 03-18-2025 Cholesterol [Mass/Vol] 177 mg/dL Normal 0-200 [facility] Comment on above: Result Comment: Chol esterol Reference Interval: Less than 200 Desirable 200-239 Borderline high risk 240 and above High risk Performed By: #### V IDH, TSH, CBC, FERR, ADIFF, FE, LIPID, GFR, ANEU, CMP #### [place] [id number] Cholesterol in HDL [Mass/Vol] 93 mg/dL High 40-60 [facility] Comment on above: Performed By: #### V IDH, TSH, CBC, FERR, ADIFF, FE, LIPID, GFR, ANEU, CMP #### [place] [address] Cholesterol in LDL [Mass/Vol] 62 mg/dL Normal 0-130 [facility] Comment on above: Performed By: #### V IDH, TSH, CBC, FERR, ADIFF, FE, LIPID, GFR, ANEU, CMP #### [place] [address] Triglyceride [Mass/Vol] 110 mg/dL Normal 0-150 [facility] Comment on above: Result Comment: Trig lyceride Reference Interval: Less than 150 Normal 150-199 Borderline high risk 200-499 High risk 500 or higher Very high risk Performed By: #### V IDH, TSH, CBC, FERR, ADIFF, FE, LIPID, GFR, ANEU, CMP #### [place] [address] TSHon 03-18-2025 TSH Qn 2.76 m[IU]/L Normal 0.36-3.74 [facility] Comment on above: Performed By: #### V IDH, TSH, CBC, FERR, ADIFF, FE, LIPID, GFR, ANEU, CMP #### [place] [id number] VIDHon 03-18-2025 Vit. D 25-Hydroxy 48.9 ng/mL Normal [facility] Comment on above: Result Comment: Inte rpretive Values Based on Total 25(OH) Vitamin D: Deficient <20 ng/mL Insufficient 20 - <30 ng/mL Sufficient 30-100 ng/mL Performed By: #### V IDH, TSH, CBC, FERR, ADIFF, FE, LIPID, GFR, ANEU, CMP #### [place] [address] Pulmonary Visit Reporton Pulmonary Visit Report [facility] [place] [address] [place] [address] OFFICE VISIT Date of Service: 01/30/25 MR#: [id number] Acct: [id number] Name: QUIRINO PECK Rep #: [id number] : 1950 Provider: GENARO Sainz Age/Sex: 74/F [place] [facility] Status: Signed Assessment and Plan Assessment and [...] difficulty with dry mouth. 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 [facility] Final Surgical Pathology Rep [facility] 12-04-2024 Final Surgical Pathology Report . Pathology Reports Accession: Collected Date/Time: Received Date/Time: Pathologist: [id number] 12/02/2024 11:07 EST 12/03/2024 10:36 EST MED SUGGS MD Final Surgical Pathology Report DIAGNOSIS: RIGHT COLON, POLYPECTOMY: - HYPERPLASTIC POLYP CLINICAL INFORMATION: Procedure: COLONOSCOPY WITH POLYPECTOMY Preoperative diagnosis: HISTORY OF COLON POLYPS Postoperative diagnosis: HISTORY OF COLON POLYPS SPECIMEN: A RIGHT COLON POLYP GROSS DESCRIPTION: All parts labelled with patient name and [id number] Received in formalin labeled "right colon polyp" are 4 degroot-brown tissue fragments measuring 0.1 to 0.7 x 0.1 cm. Fecal debris also identified. TS-1 Mari Brian, Grossing Lay Out And Detail Drafter/ Dr. Med Suggs, Pathologist Performed by Mari Brian MICROSCOPIC DESCRIPTION: The microscopic examination is performed, except in the case of Gross Only. Verified by Pathology Report verified by [facility] MED SUGGS Sign out Date: 12/04/2024 16:36 Performing Lab: [facility], [address] [place] [address] Pathology Dept Disclaimer If ancillary studies were utilized, the following Laboratory Developed Test (LDT) disclaimer will apply: Under CLIA requirements, [facility] Pathology Laboratory is qualified to perform high complexity testing. For all ancillary stains, positive and negative controls stain appropriately. Performance characteristics of immunohistochemical and chromogenic in-situ hybridization tests have been determined by [facility] Pathology Laboratory. These tests are used for clinical purposes, They should not be regarded as investigational or for research. 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 Hx of cardiac catheterization 12/28/2021 EF 55% normal left cardiac catheterization done by Dr. Hernandez at [facility]. Iron deficiency care home current use of anticoagulant Xarelto 20 mg [...] General: She (more content not included)... Normal [facility] ECG COMPLETEon 10-14-2024 ECG COMPLETE Ventricular Rate : 7 1 BPM Atrial Rate : 71 BPM P-R Interval : 164 ms QRS Duration : 82 ms Q-T Interval : 374 ms QTC Calculation(Bazett) : 406 ms Calculated P Scipio : 46 degrees Calculated R Scipio : -6 degrees Calculated T Scipio : 38 degrees Normal sinus rhythm Intra -atrial conduction delay Leftward axis RSR' or QR pattern in V1 suggests right ventricular conduction delay Septal infarct (cited on or before 09-Oct-2023) Abnormal ECG When compared with ECG of 09-Oct-2023 14:37, RSR v-1 is now present Confirmed by KAMAR SHEA MD ([id number]) on 10/17/2024 7:45:35 PM NAME : MI PECK PID : [id number] : 1950 Gender : Female Race : ORD : [id number] Procedure Date : Oct 14 2024 13:51:02 Edit Date : Oct 17 2024 19:45:38 Diagnosis: Normal sinus rhythm Intra -atrial conduction delay Leftward axis RSR' or QR pattern in V1 suggests right ventricular conduction delay Septal infarct (cited on or before 09-Oct-2023) Abnormal ECG When compared with ECG of 09-Oct-2023 14:37, RSR v-1 is now present Confirmed by KAMAR SHEA MD ([id number]) on 10/17/2024 7:45:35 PM Test Reason : Location : 201 : [facility] Overread By : KAMAR SHEA MD Edited By : KAMAR SHEA MD Referred By : , Acquired by : [facility] MA MAMMOGRAM SCREENING BILAT ERAL W/TOMOon 10-11-2024 MA MAMMOGRAM SCREENING BILATERAL W/CASANDRA ORIGINAL FROM: [place] [address] PROCEDURE FOR: MI PECK [address] [place] [address] Home: PID#: [id number] Exam#: [id number] : 1950 Age: 73 TO: LARRY JOYCE [address] [address] Fax: NO FAX EXAMINATION: SCREENING DIGITAL BILATERAL [...] screening with annual mammograms is recommended. Vicente Hendricks risk calculations, generated with the history provided, [...] addition to annual mammographic screening per the [employer]. BIRADS: BI-RADS: 2: Benign RECALL: 1 year screening RECALL TYPE: mammo LETTER SENT: Normal BI-RADS 1 and 2 Interpreted by: Brandt Payne MD Preliminary Report By: Brandt Payne MD Electronically signed By Brandt Payne MD Dictated Date: 10/11/2024 6:40:35 PM Prelim Date: 10/11/2024 6:43:04 PM Sign Date: 10/11/2024 6:43:04 PM Ordering Provider: LARRY JOYCE Mutuel Teller: CHARO SIEGEL RT (R)(M) letter sent: Normal BI-RADS 1 and 2 Mammogram BI-RADS: 2 Benign Normal [facility] .Auto Diffon 10-08-2024 Basophil, Absolute 0.0 10 3/mcL Normal 0.0-0.2 [facility] Comment on above: Performed By: #### V IDH, TSH, CBC, FERR, ADIFF, FE, LIPID, GFR, ANEU, CMP #### [address] [address] Basophils/100 WBC (Bld) 0.4 % Normal 0.0-2.5 [facility] Comment on above: Performed By: #### V IDH, TSH, CBC, FERR, ADIFF, FE, LIPID, GFR, ANEU, CMP #### [address] [address] Eosinophil, Absolute 0.2 10 3/mcL Normal 0.0-0.7 [facility] Comment on above: Performed By: #### V IDH, TSH, CBC, FERR, ADIFF, FE, LIPID, GFR, ANEU, CMP #### [address] [address] Eosinophils/100 WBC (Bld) 2.3 % Normal 0.0-7.0 [facility] Comment on above: Performed By: #### V IDH, TSH, CBC, FERR, ADIFF, FE, LIPID, GFR, ANEU, CMP #### [address] [address] Lymphocyte, Absolute 2.7 10 3/mcL Normal 0.9-4.3 [facility] Comment on above: Performed By: #### V IDH, TSH, CBC, FERR, ADIFF, FE, LIPID, GFR, ANEU, CMP #### [address] [address] Lymphocytes/100 WBC (Bld) 34.2 % Normal 20.0-40.0 [facility] Comment on above: Performed By: #### V IDH, TSH, CBC, FERR, ADIFF, FE, LIPID, GFR, ANEU, CMP #### [address] [address] Monocyte, Absolute 0.7 10 3/mcL Normal 0.1-1.4 [facility] Comment on above: Performed By: #### V IDH, TSH, CBC, FERR, ADIFF, FE, LIPID, GFR, ANEU, CMP #### [address] [address] Monocytes/100 WBC (Bld) 8.6 % Normal 2.0-13.0 [facility] Comment on above: Performed By: #### V IDH, TSH, CBC, FERR, ADIFF, FE, LIPID, GFR, ANEU, CMP #### [address] [address] Neutrophils/100 WBC (Bld) 54.5 % Normal 50.0-75.0 [facility] Comment on above: Performed By: #### V IDH, TSH, CBC, FERR, ADIFF, FE, LIPID, GFR, ANEU, CMP #### [address] [address] .GFRon 10-08-2024 GFR 86 ml/min/1.73sqm Normal [facility] Comment on above: Result Comment: GFR Population [...] 15 mL/min/1.73 square meters Performed By: #### V IDH, TSH, CBC, FERR, ADIFF, FE, LIPID, GFR, ANEU, CMP #### [address] [address] GFR Non- 71 ml/min/1.73sqm Normal [facility] Comment on above: Result Comment: GFR Population [...] 15 mL/min/1.73 square meters Performed By: #### V IDH, TSH, CBC, FERR, ADIFF, FE, LIPID, GFR, ANEU, CMP #### [address] [address] .NEUABSon 10-08-2024 Neutrophil, Absolute 4.3 10 3/mcL Normal 2.3-8.1 [facility] Comment on above: Performed By: #### V IDH, TSH, CBC, FERR, ADIFF, FE, LIPID, GFR, ANEU, CMP #### [address] [address] CBCon 10-08-2024 Erythrocyte distribution width (RBC) [Ratio] 14.2 % Normal 11.5-15.5 [facility] Comment on above: Performed By: #### V IDH, TSH, CBC, FERR, ADIFF, FE, LIPID, GFR, ANEU, CMP #### [place] [address] Hematocrit (Bld) [Volume fraction] 37.3 % Normal 34.0-46.0 [facility] Comment on above: Performed By: #### V IDH, TSH, CBC, FERR, ADIFF, FE, LIPID, GFR, ANEU, CMP #### [place] [address] Hgb 12.7 G/dL Normal 12.0-16.0 [facility] Comment on above: Performed By: #### V IDH, TSH, CBC, FERR, ADIFF, FE, LIPID, GFR, ANEU, CMP #### [place] [address] MCH (RBC) [Entitic mass] 31.0 pg Normal 27.0-33.0 [facility] Comment on above: Performed By: #### V IDH, TSH, CBC, FERR, ADIFF, FE, LIPID, GFR, ANEU, CMP #### [address] [address] MCHC 34.0 G/dL Normal 32.0-36.0 [facility] Comment on above: Performed By: #### V IDH, TSH, CBC, FERR, ADIFF, FE, LIPID, GFR, ANEU, CMP #### [place] [address] MCV (RBC) [Entitic vol] 91.0 fL Normal 80.0-99.0 [facility] Comment on above: Performed By: #### V IDH, TSH, CBC, FERR, ADIFF, FE, LIPID, GFR, ANEU, CMP #### [place] [address] Platelet 218 10 3/mcL Normal 150-450 [facility] Comment on above: Performed By: #### V IDH, TSH, CBC, FERR, ADIFF, FE, LIPID, GFR, ANEU, CMP #### [address] [address] Platelet mean volume (Bld) [Entitic vol] 8.0 fL Normal 6.6-10.5 [facility] Comment on above: Performed By: #### V IDH, TSH, CBC, FERR, ADIFF, FE, LIPID, GFR, ANEU, CMP #### [address] [address] RBC 4.09 10 6/mcL Low 4.10-5.30 [facility] Comment on above: Performed By: #### V IDH, TSH, CBC, FERR, ADIFF, FE, LIPID, GFR, ANEU, CMP #### [address] [id number] WBC 7.8 10 3/mcL Normal 4.5-10.8 [facility] Comment on above: Performed By: #### V IDH, TSH, CBC, FERR, ADIFF, FE, LIPID, GFR, ANEU, CMP #### [address] [id number] CMPon 10-08-2024 Albumin Level 3.3 G/dL Low 3.4-4.8 [facility] Comment on above: Performed By: #### V IDH, TSH, CBC, FERR, ADIFF, FE, LIPID, GFR, ANEU, CMP #### [address] [id number] Albumin/Globulin [Mass ratio] 1.2 {ratio} Normal 1.1-2.5 [facility] Comment on above: Performed By: #### V IDH, TSH, CBC, FERR, ADIFF, FE, LIPID, GFR, ANEU, CMP #### [address] [id number] ALP [Catalytic activity/Vol] 65 U/L Normal 40-135 [facility] Comment on above: Performed By: #### V IDH, TSH, CBC, FERR, ADIFF, FE, LIPID, GFR, ANEU, CMP #### [address] [address] ALT [Catalytic activity/Vol] 24 U/L Normal 14-59 [facility] Comment on above: Performed By: #### V IDH, TSH, CBC, FERR, ADIFF, FE, LIPID, GFR, ANEU, CMP #### [address] [address] AST [Catalytic activity/Vol] 21 U/L Normal 10-40 [facility] Comment on above: Performed By: #### V IDH, TSH, CBC, FERR, ADIFF, FE, LIPID, GFR, ANEU, CMP #### [address] [address] Bili Total 0.4 mg/dL Normal 0.2-1.0 [facility] Comment on above: Result Comment: Use of this assay is not recommended for patients undergoing treatment with eltrombopag due to the potential for falsely elevated results. Performed By: #### V IDH, TSH, CBC, FERR, ADIFF, FE, LIPID, GFR, ANEU, CMP #### [address] [address] BUN/Creatinine Ratio 22 ratio Normal 7-27 [facility] Comment on above: Performed By: #### V IDH, TSH, CBC, FERR, ADIFF, FE, LIPID, GFR, ANEU, CMP #### [address] [address] Calcium [Mass/Vol] 9.3 mg/dL Normal 8.4-10.2 [facility] Comment on above: Performed By: #### V IDH, TSH, CBC, FERR, ADIFF, FE, LIPID, GFR, ANEU, CMP #### [address] [address] Chloride [Moles/Vol] 102 mmol/L Normal 98-107 [facility] Comment on above: Performed By: #### V IDH, TSH, CBC, FERR, ADIFF, FE, LIPID, GFR, ANEU, CMP #### [address] [address] CO2 [Moles/Vol] 29 mmol/L Normal 23-31 [facility] Comment on above: Performed By: #### V IDH, TSH, CBC, FERR, ADIFF, FE, LIPID, GFR, ANEU, CMP #### [address] [address] Creatinine [Mass/Vol] 0.79 mg/dL Normal 0.55-1.02 [facility] Comment on above: Result Comment: Test ing performed on Meta[employer]ix Dimension EXL analyzer using a modified kinetic Rojelio technique. Performed By: #### V IDH, TSH, CBC, FERR, ADIFF, FE, LIPID, GFR, ANEU, CMP #### [place] [address] Electrolyte Balance 9.0 mEq/L Normal 4.0-15.0 [facility] Comment on above: Performed By: #### V IDH, TSH, CBC, FERR, ADIFF, FE, LIPID, GFR, ANEU, CMP #### [place] [address] Globulin 2.8 G/dL Normal [facility] Comment on above: Performed By: #### V IDH, TSH, CBC, FERR, ADIFF, FE, LIPID, GFR, ANEU, CMP #### [place] [address] Glucose [Mass/Vol] 93 mg/dL Normal 83-110 [facility] Comment on above: Performed By: #### V IDH, TSH, CBC, FERR, ADIFF, FE, LIPID, GFR, ANEU, CMP #### [address] [address] Potassium [Moles/Vol] 4.2 mmol/L Normal 3.5-5.1 [facility] Comment on above: Performed By: #### V IDH, TSH, CBC, FERR, ADIFF, FE, LIPID, GFR, ANEU, CMP #### [place] [address] Sodium [Moles/Vol] 140 mmol/L Normal 136-145 [facility] Comment on above: Performed By: #### V IDH, TSH, CBC, FERR, ADIFF, FE, LIPID, GFR, ANEU, CMP #### [address] [address] Total Protein 6.1 G/dL Low 6.4-8.2 [facility] Comment on above: Performed By: #### V IDH, TSH, CBC, FERR, ADIFF, FE, LIPID, GFR, ANEU, CMP #### [place] [address] Urea nitrogen [Mass/Vol] 17 mg/dL Normal 7-18 [facility] Comment on above: Performed By: #### V IDH, TSH, CBC, FERR, ADIFF, FE, LIPID, GFR, ANEU, CMP #### [place] [id number] FEon 10-08-2024 Iron [Mass/Vol] 54 ug/dL Normal 50-170 [facility] Comment on above: Performed By: #### V IDH, TSH, CBC, FERR, ADIFF, FE, LIPID, GFR, ANEU, CMP #### [address] [address] Jennifer 10-08-2024 Ferritin [Mass/Vol] 73.0 ng/mL Normal 8.0-252.0 [facility] Comment on above: Performed By: #### V IDH, TSH, CBC, FERR, ADIFF, FE, LIPID, GFR, ANEU, CMP #### [address] [address] LABORATORYOrdered By: SYSTEM SYSTEM on 10-08-2024 25-hydroxyvitamin [...] 10-08-2024 Cholesterol [Mass/Vol] 186 mg/dL Normal 0-200 [facility] Comment on above: Result Comment: Chol esterol Reference Interval: Less than 200 Desirable 200-239 Borderline high risk 240 and above High risk Performed By: #### V IDH, TSH, CBC, FERR, ADIFF, FE, LIPID, GFR, ANEU, CMP #### [address] [address] Cholesterol in HDL [Mass/Vol] 96 mg/dL High 40-60 [facility] Comment on above: Performed By: #### V IDH, TSH, CBC, FERR, ADIFF, FE, LIPID, GFR, ANEU, CMP #### [address] [address] Cholesterol in LDL [Mass/Vol] 73 mg/dL Normal 0-130 [facility] Comment on above: Performed By: #### V IDH, TSH, CBC, FERR, ADIFF, FE, LIPID, GFR, ANEU, CMP #### [address] [address] Triglyceride [Mass/Vol] 83 mg/dL Normal 0-150 [facility] Comment on above: Result Comment: Trig lyceride Reference Interval: Less than 150 Normal 150-199 Borderline high risk 200-499 High risk 500 or higher Very high risk Performed By: #### V IDH, TSH, CBC, FERR, ADIFF, FE, LIPID, GFR, ANEU, CMP #### [address] [address] TSHon 10-08-2024 TSH Qn 3.01 m[IU]/L Normal 0.36-3.74 [facility] Comment on above: Performed By: #### V IDH, TSH, CBC, FERR, ADIFF, FE, LIPID, GFR, ANEU, CMP #### [place] [id number] [place], [place] [address] WILLIAMyoana 10-08-2024 Vit. D 25-Hydroxy 44.5 ng/mL Normal [facility] Comment on above: Result Comment: Inte rpretive Values Based on Total 25([place]) Vitamin D: Deficient <20 ng/mL Insufficient 20 - <30 ng/mL Sufficient 30-100 ng/mL Performed By: #### V IDH, TSH, CBC, FERR, ADIFF, FE, LIPID, GFR, ANEU, CMP #### [place] [id number] [place], [place] [address] BD BONE DENSITY DEXA AXIAL S [facility] 10-04-2024 BD BONE DENSITY DEXA AXIAL SKELETON [...] 10/04/2024 3:55:43 PM Ordering Provider: LARRY Hatfield [facility] .Auto Diffon 03-15-2024 Basophil, Absolute 0.0 10 3/mcL Normal 0.0-0.2 [facility] ([place]) Comment on above: Performed By: #### U ERNESTO, FERR, TSH, CBC, CMP, GFR, LIPID, ADIFF, VIDH, FE, ANEU #### [address] [address] Basophils/100 WBC (Bld) 0.2 % Normal 0.0-2.5 [facility] ([place]) Comment on above: Performed By: #### U ERNESTO, FERR, TSH, CBC, CMP, GFR, LIPID, ADIFF, VIDH, FE, ANEU #### [address] [address] Eosinophil, Absolute 0.2 10 3/mcL Normal 0.0-0.4 [facility] ([place]) Comment on above: Performed By: #### U ERNESTO, FERR, TSH, CBC, CMP, GFR, LIPID, ADIFF, VIDH, FE, ANEU #### [address] [address] Eosinophils/100 WBC (Bld) 2.1 % Normal 0.0-7.0 [facility] ([place]) Comment on above: Performed By: #### U ERNESTO, FERR, TSH, CBC, CMP, GFR, LIPID, ADIFF, VIDH, FE, ANEU #### [address] [address] Lymphocyte, Absolute 2.8 10 3/mcL Normal 0.8-3.9 [facility] ([place]) Comment on above: Performed By: #### U ERNESTO, FERR, TSH, CBC, CMP, GFR, LIPID, ADIFF, VIDH, FE, ANEU #### [address] [address] Lymphocytes/100 WBC (Bld) 34.9 % Normal 10.0-50.0 [facility] ([place]) Comment on above: Performed By: #### U ERNESTO, FERR, TSH, CBC, CMP, GFR, LIPID, ADIFF, VIDH, FE, ANEU #### [address] [address] Monocyte, Absolute 0.7 10 3/mcL Normal 0.2-1.0 [facility] ([place]) Comment on above: Performed By: #### U ERNESTO, FERR, TSH, CBC, CMP, GFR, LIPID, ADIFF, VIDH, FE, ANEU #### [address] [address] Monocytes/100 WBC (Bld) 9.2 % Normal 1.7-13.0 [facility] ([place]) Comment on above: Performed By: #### U ERNESTO, FERR, TSH, CBC, CMP, GFR, LIPID, ADIFF, VIDH, FE, ANEU #### [address] [address] Neutrophils/100 WBC (Bld) 53.6 % Normal 37.0-80.0 [facility] ([place]) Comment on above: Performed By: #### U ERNESTO, FERR, TSH, CBC, CMP, GFR, LIPID, ADIFF, VIDH, FE, ANEU #### [address] [address] .GFRon 03-15-2024 GFR 94 ml/min/1.73sqm Normal [facility] ([place]) Comment on above: Result Comment: GFR Population [...] GFR, LIPID, ADIFF, VIDH, FE, ANEU #### [address] [address] GFR Non- 78 ml/min/1.73sqm Normal [facility] ([place]) Comment on above: Result Comment: GFR Population [...] GFR, LIPID, ADIFF, VIDH, FE, ANEU #### [address] [address] .NEUABSon 03-15-2024 Neutrophil, Absolute 4.3 10 3/mcL Normal 2.9-6.2 [facility] ([place]) Comment on above: Performed By: #### U ERNESTO, FERR, TSH, CBC, CMP, GFR, LIPID, ADIFF, VIDH, FE, ANEU #### [address] [address] CBCon 03-15-2024 Erythrocyte distribution width (RBC) [Ratio] 13.8 % Normal 11.5-14.5 [facility] ([place]) Comment on above: Performed By: #### U ERNESTO, FERR, TSH, CBC, CMP, GFR, LIPID, ADIFF, VIDH, FE, ANEU #### [address] [address] Hematocrit (Bld) [Volume fraction] 37.7 % Normal 37.0-47.0 [facility] ([place]) Comment on above: Performed By: #### U ERNESTO, FERR, TSH, CBC, CMP, GFR, LIPID, ADIFF, VIDH, FE, ANEU #### [place] [address] Hgb 12.9 G/dL Normal 12.0-16.0 [facility] ([place]) Comment on above: Performed By: #### U ERNESTO, FERR, TSH, CBC, CMP, GFR, LIPID, ADIFF, VIDH, FE, ANEU #### [place] [address] MCH (RBC) [Entitic mass] 30.6 pg Normal 27.0-31.2 [facility] ([place]) Comment on above: Performed By: #### U ERNESTO, FERR, TSH, CBC, CMP, GFR, LIPID, ADIFF, VIDH, FE, ANEU #### [address] [address] MCHC 34.3 G/dL Normal 33.0-37.0 [facility] ([place]) Comment on above: Performed By: #### U ERNESTO, FERR, TSH, CBC, CMP, GFR, LIPID, ADIFF, VIDH, FE, ANEU #### [address] [address] MCV (RBC) [Entitic vol] 89.5 fL Normal 80.0-94.0 [facility] ([place]) Comment on above: Performed By: #### U ERNESTO, FERR, TSH, CBC, CMP, GFR, LIPID, ADIFF, VIDH, FE, ANEU #### [place] [address] Platelet 247 10 3/mcL Normal 130-400 [facility] ([place]) Comment on above: Performed By: #### U ERNESTO, FERR, TSH, CBC, CMP, GFR, LIPID, ADIFF, VIDH, FE, ANEU #### [address] [address] Platelet mean volume (Bld) [Entitic vol] 8.4 fL Normal 7.4-10.4 [facility] ([place]) Comment on above: Performed By: #### U ERNESTO, FERR, TSH, CBC, CMP, GFR, LIPID, ADIFF, VIDH, FE, ANEU #### [address] [address] RBC 4.21 10 6/mcL Normal 4.20-5.40 [facility] ([place]) Comment on above: Performed By: #### U ERNESTO, FERR, TSH, CBC, CMP, GFR, LIPID, ADIFF, VIDH, FE, ANEU #### [place] [id number] WBC 8.0 10 3/mcL Normal 4.6-10.8 [facility] ([place]) Comment on above: Performed By: #### U ERNESTO, FERR, TSH, CBC, CMP, GFR, LIPID, ADIFF, VIDH, FE, ANEU #### [address] [address] CMPon 03-15-2024 Albumin Level 3.6 G/dL Normal 3.4-4.8 [facility]) Comment on above: Performed By: #### U ERNESTO, FERR, TSH, CBC, CMP, GFR, LIPID, ADIFF, VIDH, FE, ANEU #### [address] [address] Albumin/Globulin [Mass ratio] 1.1 {ratio} Normal 1.1-2.5 [facility]) Comment on above: Performed By: #### U ERNESTO, FERR, TSH, CBC, CMP, GFR, LIPID, ADIFF, VIDH, FE, ANEU #### [address] [address] ALP [Catalytic activity/Vol] 76 U/L Normal 40-135 [facility] ([place]) Comment on above: Performed By: #### U ERNESTO, FERR, TSH, CBC, CMP, GFR, LIPID, ADIFF, VIDH, FE, ANEU #### [address] [address] ALT [Catalytic activity/Vol] 19 U/L Normal 14-59 [facility] ([place] Comment on above: Performed By: #### U ERNESTO, FERR, TSH, CBC, CMP, GFR, LIPID, ADIFF, VIDH, FE, ANEU #### [address] [address] AST [Catalytic activity/Vol] 17 U/L Normal 10-40 [facility] ([place]) Comment on above: Performed By: #### U ERNESTO, FERR, TSH, CBC, CMP, GFR, LIPID, ADIFF, VIDH, FE, ANEU #### [address] [address] Bili Total 0.4 mg/dL Normal 0.2-1.0 [facility] ([place]) Comment on above: Result Comment: Use of this assay is not recommended for patients undergoing treatment with eltrombopag due to the potential for falsely elevated results. Performed By: #### U ERNESTO, FERR, TSH, CBC, CMP, GFR, LIPID, ADIFF, VIDH, FE, ANEU #### [address] [address] BUN/Creatinine Ratio 19 ratio Normal 7-27 [facility] ([place]) Comment on above: Performed By: #### U ERNESTO, FERR, TSH, CBC, CMP, GFR, LIPID, ADIFF, VIDH, FE, ANEU #### [address] [address] Calcium [Mass/Vol] 9.2 mg/dL Normal 8.4-10.2 [facility] ([place]) Comment on above: Performed By: #### U ERNESTO, FERR, TSH, CBC, CMP, GFR, LIPID, ADIFF, VIDH, FE, ANEU #### [address] [address] Chloride [Moles/Vol] 102 mmol/L Normal 98-107 [facility] ([place]) Comment on above: Performed By: #### U ERNESTO, FERR, TSH, CBC, CMP, GFR, LIPID, ADIFF, VIDH, FE, ANEU #### [address] [address] CO2 [Moles/Vol] 26 mmol/L Normal 23-31 [facility] ([place] Comment on above: Performed By: #### U ERNESTO, FERR, TSH, CBC, CMP, GFR, LIPID, ADIFF, VIDH, FE, ANEU #### [address] [address] Creatinine [Mass/Vol] 0.73 mg/dL Normal 0.55-1.02 [facility] ([place]) Comment on above: Performed By: #### U ERNESTO, FERR, TSH, CBC, CMP, GFR, LIPID, ADIFF, VIDH, FE, ANEU #### [address] [address] Electrolyte Balance 10.0 mEq/L Normal 4.0-15.0 [facility] ([place]) Comment on above: Performed By: #### U ERNESTO, FERR, TSH, CBC, CMP, GFR, LIPID, ADIFF, VIDH, FE, ANEU #### [address] [address] Globulin 3.3 G/dL Normal [facility] ([place]) Comment on above: Performed By: #### U ERNESTO, FERR, TSH, CBC, CMP, GFR, LIPID, ADIFF, VIDH, FE, ANEU #### [address] [address] Glucose [Mass/Vol] 101 mg/dL Normal 83-110 [facility] ([place] Comment on above: Performed By: #### U ERNESTO, FERR, TSH, CBC, CMP, GFR, LIPID, ADIFF, VIDH, FE, ANEU #### [address] [address] Potassium [Moles/Vol] 5.1 mmol/L Normal 3.5-5.1 [facility] ([place]) Comment on above: Performed By: #### U ERNESTO, FERR, TSH, CBC, CMP, GFR, LIPID, ADIFF, VIDH, FE, ANEU #### [address] [address] Sodium [Moles/Vol] 138 mmol/L Normal 136-145 [facility] ([place] Comment on above: Performed By: #### U ERNESTO, FERR, TSH, CBC, CMP, GFR, LIPID, ADIFF, VIDH, FE, ANEU #### [address] [address] Total Protein 6.9 G/dL Normal 6.4-8.2 [facility] ([place]) Comment on above: Performed By: #### U ERNESTO, FERR, TSH, CBC, CMP, GFR, LIPID, ADIFF, VIDH, FE, ANEU #### [address] [address] Urea nitrogen [Mass/Vol] 14 mg/dL Normal 7-18 [facility] ([place]) Comment on above: Performed By: #### U ERNESTO, FERR, TSH, CBC, CMP, GFR, LIPID, ADIFF, VIDH, FE, ANEU #### [address] [address] FEon 03-15-2024 Iron [Mass/Vol] 54 ug/dL Normal 50-170 [facility] ([place]) Comment on above: Performed By: #### U ERNESTO, FERR, TSH, CBC, CMP, GFR, LIPID, ADIFF, VIDH, FE, ANEU #### [address] [address] Jennifer 03-15-2024 Ferritin [Mass/Vol] 80.0 ng/mL Normal 8.0-252.0 [facility] ([place]) Comment on above: Performed By: #### U ERNESTO, FERR, TSH, CBC, CMP, GFR, LIPID, ADIFF, VIDH, FE, ANEU #### [address] [address] LIPIDon 03-15-2024 Cholesterol [Mass/Vol] 197 mg/dL Normal 0-200 [facility] ([place]) Comment on above: Result Comment: Chol esterol Reference Interval: Less than 200 Desirable 200-239 Borderline high risk 240 and above High risk Performed By: #### U ERNESTO, FERR, TSH, CBC, CMP, GFR, LIPID, ADIFF, VIDH, FE, ANEU #### [address] [address] Cholesterol in HDL [Mass/Vol] 88 mg/dL High 40-60 [facility] ([place]) Comment on above: Performed By: #### U ERNESTO, FERR, TSH, CBC, CMP, GFR, LIPID, ADIFF, VIDH, FE, ANEU #### [address] [address] Cholesterol in LDL [Mass/Vol] 89 mg/dL Normal 0-130 [facility] ([place]) Comment on above: Performed By: #### U ERNESTO, FERR, TSH, CBC, CMP, GFR, LIPID, ADIFF, VIDH, FE, ANEU #### [address] [address] Triglyceride [Mass/Vol] 101 mg/dL Normal 0-150 [facility] ([place]) Comment on above: Result Comment: Trig lyceride Reference Interval: Less than 150 Normal 150-199 Borderline high risk 200-499 High risk 500 or higher Very high risk Performed By: #### U ERNESTO, FERR, TSH, CBC, CMP, GFR, LIPID, ADIFF, VIDH, FE, ANEU #### [address] [address] TSHon 03-15-2024 TSH Qn 2.13 m[IU]/L Normal 0.36-3.74 [facility] ([place]) Comment on above: Performed By: #### U ERNESTO, FERR, TSH, CBC, CMP, GFR, LIPID, ADIFF, VIDH, FE, ANEU #### [place] [address] URICon 03-15-2024 Uric Acid Lvl 3.5 mg/dL Normal 2.6-6.2 [facility] ([place]) Comment on above: Performed By: #### U ERNESTO, FERR, TSH, CBC, CMP, GFR, LIPID, ADIFF, VIDH, FE, ANEU #### [facility] [address] [place], [place] [address] VIDHon 03-15-2024 Vit. D 25-Hydroxy 49.2 ng/mL Normal [facility] ([place]) Comment on above: Result Comment: Inte rpretive Values Based on Total 25([place]) Vitamin D: Deficient <20 ng/mL Insufficient 20 - <30 ng/mL Sufficient 30-100 ng/mL Performed By: #### U ERNESTO, FERR, TSH, CBC, CMP, GFR, LIPID, ADIFF, VIDH, FE, ANEU #### [facility] [address] [place], [place] [address] Basophil percentageOrdered B y: Norah Turner on 12-28-2023 Chloride [Moles/Vol] 108 mmol/L 98-107 [facility] Glucose [Mass/Vol] 132 mg/dL 74-106 [facility] Comment on above: Fasting Glucose resu lt greater than or equal to 126 mg/dL suggests DIABETES MELLITUS per A.D.A. criteria. Hemoglobin (Bld) [Mass/Vol] 10.6 g/dL 12.0-15.0 [facility] Potassium [Moles/Vol] 4.5 mmol/L 3.5-5.1 [facility] Sodium [Moles/Vol] 138 mmol/L 136-145 [facility] WBC (Bld) [#/Vol] 15.2 10*3/uL 4.4-11.0 [facility] Determination of erythrocyte mean corpuscular volume (MCV)Ordered By: Norah Turner on 12-28-2023 MCV (RBC) [Entitic vol] 97.1 fL 81-99 [facility] Erythrocyte distribution wid th ratioOrdered By: Norah Turner on 12-28-2023 Erythrocyte distribution width (RBC) [Ratio] 13.4 % 11.6-14.6 [facility] Erythrocyte distribution wid th standard deviationOrdered By: Norah Turner on 12-28-2023 Erythrocyte distribution width (RBC) [Entitic vol] 47.8 fL 35.1-43.9 [facility] Hematocrit Auto (Bld) [Volum e fraction]Ordered By: Norah Turner on 12-28-2023 Hematocrit (Bld) [Volume fraction] 33.7 % 37-47 [facility] Laboratory - Chemistry and C hemistry - challengeOrdered By: Norah Turner on 12-28-2023 CO2 [Moles/Vol] 26.0 mmol/L 21.0-32.0 [facility] Urea nitrogen/Creatinine [Mass ratio] 20.5 mg/mg 10-20 [facility] Laboratory - Hematology and Cell countsOrdered By: Norah Turner on 12-28-2023 MCH (RBC) [Entitic mass] 30.5 pg 27.0-32.0 [facility] MCHC (RBC) [Mass/Vol] 31.5 g/dL 32-36 [facility] Platelet mean volume (Bld) [Entitic vol] 9.9 fL 6.2-12.0 [facility] Platelets (Bld) [#/Vol] 195 10*3/uL 150-450 [facility] No Panel InformationOrdered By: Norah Turner on 12-28-2023 Estimated Creatinine Clearance Calc 64.77 ml/min [facility] Estimated GFR (MDRD) Amer 108 mL/min >60 [facility] Comment on above: GFR Calc Estimated GFR (MDRD) Non-Af Amer 90 mL/min >60 [facility] Comment on above: Non- GFR Calc RBC Auto (Bld) [#/Vol]Ordere d By: Norah Turner on 12-28-2023 RBC (Bld) [#/Vol] 3.47 10*6/uL 4.2-5.4 [facility] Serum or plasma calcium abby urement (mass/volume)Ordered By: Norah Turner on 12-28-2023 Calcium [Mass/Vol] 8.3 mg/dL 8.5-10.1 [facility] Serum or plasma creatinine m easurement (mass/volume)Ordered By: Norah Turner on 12-28-2023 Creatinine [Mass/Vol] 0.68 mg/dL 0.55-1.02 [facility] Comment on above: The validity of the calculated GFR & GFRAA in patients over 70 years has not been determined. Clinical correlation is essential. Serum or plasma urea nitroge n measurement (mass/volume)Ordered By: Norah Turner on 12-28-2023 Urea nitrogen [Mass/Vol] 14 mg/dL 7-18 [facility] Thin prep Papanicolaou smear with manual screeningOrdered By: Norah Turner on 12-28-2023 Thin prep Papanicolaou smear with manual screening 4 5-15 [facility] Absolute lymphocyte countOrd ered By: Norah uTrner on 11-30-2023 Lymphocytes Auto (Unsp spec) [#/Vol] 3.70 10*3/uL 0.83-4.51 [facility] Automated lymphocyte count a s percentage of total leukocytesOrdered By: Norah Turner on 11-30-2023 Lymphocytes/100 WBC Auto (Unsp spec) 38.0 % 19-41 [facility] Basophil percentageOrdered B y: Norah Turner on 11-30-2023 Basophils/100 WBC (Bld) 0.2 % 0-1 [facility] Eosinophils/100 WBC (Bld) 2.8 % 0-5 [facility] Monocytes/100 WBC (Bld) 8.8 % 0-10 [facility] Neutrophils (Bld) [#/Vol] 4.9 10*3/uL 2.0-7.7 [facility] Neutrophils/100 WBC (Bld) 50.1 % 47-70 [facility] Immature granulocytes/100 WB C Auto (Bld)Ordered By: Norah Turner on 11-30-2023 Immature granulocytes/100 WBC (Bld) 0.100 % 0.0-0.9 [facility] Comment on above: IG% - Immature Granu locytes (promyelocytes, myelocytes and metamyelocytes) > 1% indicates that a LEFT SHIFT is Present. Laboratory - Chemistry and C hemistry - challengeOrdered By: Teo Churchill on 11-30-2023 Magnesium [Mass/Vol] 2.3 mg/dL 1.6-2.6 [facility] Laboratory - Hematology and Cell countsOrdered By: Norah Turner on 11-30-2023 Nucleated RBC/100 WBC (Bld) [Ratio] 0 % 0-5 [facility] No Panel InformationOrdered By: Norah Turner on 11-30-2023 Nasal Screen MRSA/MSSA [facility] Thin prep Papanicolaou smear with manual screeningOrdered By: Norah Turner on 11-30-2023 Thin prep Papanicolaou smear with manual screening 3.6 g/dL 3.2-5.0 [facility] MAMMOGRAM SCREENING BILAT ERAL W/TOMOon 10-03-2023 [place] MAMMOGRAM SCREENING BILATERAL W/CASANDRA ORIGINAL FROM: [facility] [address] [place] [id number] PROCEDURE FOR: [place] [facility]K [address] [place] [address] Home: PID#: [id number] Exam#: [id number] : 1950 Age: 72 TO: LARRY JOYCE [address] [place] [id number] Fax: NO FAX EXAMINATION: SCREENING DIGITAL BILATERAL [...] screening with annual mammograms is recommended. Vicente Hendricks risk calculations, generated with the history provided, [...] addition to annual mammographic screening per the [employer]. BIRADS: MAMMOGRAM BI-RADS: 2: Benign finding RECALL: 1 year screening RECALL TYPE: mammo LETTER SENT: Normal BI-RADS 1 and 2 Interpreted by: Brandt Payne MD Preliminary Report By: Brandt Payne MD Electronically signed By Brandt Payne MD Dictated Date: 10/03/2023 7:59:23 PM Prelim Date: 10/03/2023 8:01:27 PM Sign Date: 10/03/2023 8:01:27 PM Ordering Provider: LARRY JOYCE Mutuel Teller: CHARO SIEGEL RT (R)(M) letter sent: Normal BI-RADS 1 and 2 Mammogram BI-RADS: 2 Benign Normal [facility] ([place]) .Auto Diffon 09-15-2023 Basophil, Absolute 0.0 10 3/mcL Normal 0.0-0.2 [facility] ([place]) Comment on above: Performed By: #### U ERNESTO, FERR, TSH, CBC, CMP, GFR, LIPID, ADIFF, VIDH, FE, ANEU #### [address] [id number] Basophils/100 WBC (Bld) 0.2 % Normal 0.0-2.5 [facility] ([place]) Comment on above: Performed By: #### U ERNESTO, FERR, TSH, CBC, CMP, GFR, LIPID, ADIFF, VIDH, FE, ANEU #### [address] [address] Eosinophil, Absolute 0.1 10 3/mcL Normal 0.0-0.4 [facility] ([place]) Comment on above: Performed By: #### U ERNESTO, FERR, TSH, CBC, CMP, GFR, LIPID, ADIFF, VIDH, FE, ANEU #### [address] [address] Eosinophils/100 WBC (Bld) 0.6 % Normal 0.0-7.0 [facility] ([place]) Comment on above: Performed By: #### U ERNESTO, FERR, TSH, CBC, CMP, GFR, LIPID, ADIFF, VIDH, FE, ANEU #### [address] [address] Lymphocyte, Absolute 3.1 10 3/mcL Normal 0.8-3.9 [facility] ([place]) Comment on above: Performed By: #### U ERNESTO, FERR, TSH, CBC, CMP, GFR, LIPID, ADIFF, VIDH, FE, ANEU #### [address] [address] Lymphocytes/100 WBC (Bld) 28.3 % Normal 10.0-50.0 [facility] ([place]) Comment on above: Performed By: #### U ERNESTO, FERR, TSH, CBC, CMP, GFR, LIPID, ADIFF, VIDH, FE, ANEU #### [address] [address] Monocyte, Absolute 0.9 10 3/mcL Normal 0.2-1.0 [facility] ([place]) Comment on above: Performed By: #### U ERNESTO, FERR, TSH, CBC, CMP, GFR, LIPID, ADIFF, VIDH, FE, ANEU #### [address] [address] Monocytes/100 WBC (Bld) 8.0 % Normal 1.7-13.0 [facility] ([place]) Comment on above: Performed By: #### U ERNESTO, FERR, TSH, CBC, CMP, GFR, LIPID, ADIFF, VIDH, FE, ANEU #### [address] [address] Neutrophils/100 WBC (Bld) 62.9 % Normal 37.0-80.0 [facility] ([place]) Comment on above: Performed By: #### U ERNESTO, FERR, TSH, CBC, CMP, GFR, LIPID, ADIFF, VIDH, FE, ANEU #### [address] [address] .GFRon 09-15-2023 GFR Non- 64 ml/min/1.73sqm Normal [facility] ([place]) Comment on above: Result Comment: GFR Population [...] GFR, LIPID, ADIFF, VIDH, FE, ANEU #### [address] [address] GFR 77 ml/min/1.73sqm Normal [facility] ([place]) Comment on above: Result Comment: GFR Population [...] GFR, LIPID, ADIFF, VIDH, FE, ANEU #### [address] [address] .NEUABSon 09-15-2023 Neutrophil, Absolute 7.0 10 3/mcL High 2.9-6.2 [facility] ([place]) Comment on above: Performed By: #### U ERNESTO, FERR, TSH, CBC, CMP, GFR, LIPID, ADIFF, VIDH, FE, ANEU #### [address] [address] CBCon 09-15-2023 Erythrocyte distribution width (RBC) [Ratio] 13.9 % Normal 11.5-14.5 [facility] ([place]) Comment on above: Performed By: #### U ERNESTO, FERR, TSH, CBC, CMP, GFR, LIPID, ADIFF, VIDH, FE, ANEU #### [place] [address] Hematocrit (Bld) [Volume fraction] 39.4 % Normal 37.0-47.0 [facility] ([place]) Comment on above: Performed By: #### U ERNESTO, FERR, TSH, CBC, CMP, GFR, LIPID, ADIFF, VIDH, FE, ANEU #### [place] [address] Hgb 12.8 G/dL Normal 12.0-16.0 [facility] ([place]) Comment on above: Performed By: #### U ERNESTO, FERR, TSH, CBC, CMP, GFR, LIPID, ADIFF, VIDH, FE, ANEU #### [place] [address] MCH (RBC) [Entitic mass] 30.6 pg Normal 27.0-31.2 [facility] ([place]) Comment on above: Performed By: #### U ERNESTO, FERR, TSH, CBC, CMP, GFR, LIPID, ADIFF, VIDH, FE, ANEU #### [place] [address] MCHC 32.6 G/dL Low 33.0-37.0 [facility] ([place]) Comment on above: Performed By: #### U ERNESTO, FERR, TSH, CBC, CMP, GFR, LIPID, ADIFF, VIDH, FE, ANEU #### [place] [address] MCV (RBC) [Entitic vol] 93.8 fL Normal 80.0-94.0 [facility] ([place]) Comment on above: Performed By: #### U ERNESTO, FERR, TSH, CBC, CMP, GFR, LIPID, ADIFF, VIDH, FE, ANEU #### [place] [address] Platelet 253 10 3/mcL Normal 130-400 [facility] ([place]) Comment on above: Performed By: #### U ERNESTO, FERR, TSH, CBC, CMP, GFR, LIPID, ADIFF, VIDH, FE, ANEU #### [address] [address] Platelet mean volume (Bld) [Entitic vol] 7.8 fL Normal 7.4-10.4 [facility] ([place]) Comment on above: Performed By: #### U ERNESTO, FERR, TSH, CBC, CMP, GFR, LIPID, ADIFF, VIDH, FE, ANEU #### [place] [address] RBC 4.20 10 6/mcL Normal 4.20-5.40 [facility] ([place]) Comment on above: Performed By: #### U ERNESTO, FERR, TSH, CBC, CMP, GFR, LIPID, ADIFF, VIDH, FE, ANEU #### [place] [id number] WBC 11.1 10 3/mcL High 4.6-10.8 [facility] ([place]) Comment on above: Performed By: #### U ERNESTO, FERR, TSH, CBC, CMP, GFR, LIPID, ADIFF, VIDH, FE, ANEU #### [address] [address] CMPon 09-15-2023 Albumin Level 2.0 G/dL Low 3.4-4.8 [facility] ([place]) Comment on above: Performed By: #### U ERNESTO, FERR, TSH, CBC, CMP, GFR, LIPID, ADIFF, VIDH, FE, ANEU #### [address] [address] Albumin/Globulin [Mass ratio] 0.4 {ratio} Low 1.1-2.5 [facility] ([place]) Comment on above: Performed By: #### U ERNESTO, FERR, TSH, CBC, CMP, GFR, LIPID, ADIFF, VIDH, FE, ANEU #### [address] [address] ALP [Catalytic activity/Vol] 65 U/L Normal 40-135 [facility] ([place]) Comment on above: Performed By: #### U ERNESTO, FERR, TSH, CBC, CMP, GFR, LIPID, ADIFF, VIDH, FE, ANEU #### [address] [address] ALT [Catalytic activity/Vol] 23 U/L Normal 14-59 [facility] ([place]) Comment on above: Performed By: #### U ERNESTO, FERR, TSH, CBC, CMP, GFR, LIPID, ADIFF, VIDH, FE, ANEU #### [address] [address] AST [Catalytic activity/Vol] 16 U/L Normal 10-40 [facility] ([place]) Comment on above: Performed By: #### U ERNESTO, FERR, TSH, CBC, CMP, GFR, LIPID, ADIFF, VIDH, FE, ANEU #### [address] [address] Bili Total 0.6 mg/dL Normal 0.2-1.0 [facility] ([place]) Comment on above: Result Comment: Use of this assay is not recommended for patients undergoing treatment with eltrombopag due to the potential for falsely elevated results. Performed By: #### U ERNESTO, FERR, TSH, CBC, CMP, GFR, LIPID, ADIFF, VIDH, FE, ANEU #### [address] [address] BUN/Creatinine Ratio 23 ratio Normal 7-27 [facility] ([place]) Comment on above: Performed By: #### U ERNESTO, FERR, TSH, CBC, CMP, GFR, LIPID, ADIFF, VIDH, FE, ANEU #### [address] [address] Calcium [Mass/Vol] 8.8 mg/dL Normal 8.4-10.2 [facility] ([place]) Comment on above: Performed By: #### U ERNESTO, FERR, TSH, CBC, CMP, GFR, LIPID, ADIFF, VIDH, FE, ANEU #### [address] [address] Chloride [Moles/Vol] 104 mmol/L Normal 98-107 [facility] ([place]) Comment on above: Performed By: #### U ERNESTO, FERR, TSH, CBC, CMP, GFR, LIPID, ADIFF, VIDH, FE, ANEU #### [address] [address] CO2 [Moles/Vol] 25 mmol/L Normal 23-31 [facility] ([place]) Comment on above: Performed By: #### U ERNESTO, FERR, TSH, CBC, CMP, GFR, LIPID, ADIFF, VIDH, FE, ANEU #### [address] [address] Creatinine [Mass/Vol] 0.87 mg/dL Normal 0.55-1.02 [facility] ([place]) Comment on above: Performed By: #### U ERNESTO, FERR, TSH, CBC, CMP, GFR, LIPID, ADIFF, VIDH, FE, ANEU #### [address] [address] Electrolyte Balance 7.0 mEq/L Normal 4.0-15.0 [facility] ([place]) Comment on above: Performed By: #### U ERNESTO, FERR, TSH, CBC, CMP, GFR, LIPID, ADIFF, VIDH, FE, ANEU #### [address] [address] Globulin 4.7 G/dL Normal [facility] ([place]) Comment on above: Performed By: #### U ERNESTO, FERR, TSH, CBC, CMP, GFR, LIPID, ADIFF, VIDH, FE, ANEU #### [address] [address] Glucose [Mass/Vol] 98 mg/dL Normal 83-110 [facility] ([place]) Comment on above: Performed By: #### U ERNESTO, FERR, TSH, CBC, CMP, GFR, LIPID, ADIFF, VIDH, FE, ANEU #### [address] [address] Potassium [Moles/Vol] 4.2 mmol/L Normal 3.5-5.1 [facility] ([place]) Comment on above: Performed By: #### U ERNESTO, FERR, TSH, CBC, CMP, GFR, LIPID, ADIFF, VIDH, FE, ANEU #### [address] [address] Sodium [Moles/Vol] 136 mmol/L Normal 136-145 [facility] ([place]) Comment on above: Performed By: #### U ERNESTO, FERR, TSH, CBC, CMP, GFR, LIPID, ADIFF, VIDH, FE, ANEU #### [address] [address] Total Protein 6.7 G/dL Normal 6.4-8.2 [facility] ([place]) Comment on above: Performed By: #### U ERNESTO, FERR, TSH, CBC, CMP, GFR, LIPID, ADIFF, VIDH, FE, ANEU #### [address] [address] Urea nitrogen [Mass/Vol] 20 mg/dL High 7-18 [facility] ([place]) Comment on above: Performed By: #### U ERNESTO, FERR, TSH, CBC, CMP, GFR, LIPID, ADIFF, VIDH, FE, ANEU #### [address] [address] LIPIDon 09-15-2023 Cholesterol [Mass/Vol] 207 mg/dL High 0-200 [facility] ([place]) Comment on above: Result Comment: Chol esterol Reference Interval: Less than 200 Desirable 200-239 Borderline high risk 240 and above High risk Performed By: #### U ERNESTO, FERR, TSH, CBC, CMP, GFR, LIPID, ADIFF, VIDH, FE, ANEU #### [address] [address] Cholesterol in HDL [Mass/Vol] 97 mg/dL High 40-60 [facility] ([place]) Comment on above: Performed By: #### U ERNESTO, FERR, TSH, CBC, CMP, GFR, LIPID, ADIFF, VIDH, FE, ANEU #### [address] [address] Cholesterol in LDL [Mass/Vol] 96 mg/dL Normal 0-130 [facility] ([place]) Comment on above: Performed By: #### U ERNESTO, FERR, TSH, CBC, CMP, GFR, LIPID, ADIFF, VIDH, FE, ANEU #### [address] [address] Triglyceride [Mass/Vol] 72 mg/dL Normal 0-150 [facility] ([place]) Comment on above: Result Comment: Trig lyceride Reference Interval: Less than 150 Normal 150-199 Borderline high risk 200-499 High risk 500 or higher Very high risk Performed By: #### U ERNESTO, FERR, TSH, CBC, CMP, GFR, LIPID, ADIFF, VIDH, FE, ANEU #### [address] [address] TSHon 09-15-2023 TSH Qn 2.34 m[IU]/L Normal 0.36-3.74 [facility] ([place]) Comment on above: Performed By: #### U ERNESTO, FERR, TSH, CBC, CMP, GFR, LIPID, ADIFF, VIDH, FE, ANEU #### [address] [address] VIDHon 09-15-2023 Vit. D 25-Hydroxy 47.7 ng/mL Normal [facility] ([place]) Comment on above: Result Comment: Inte rpretive Values Based on Total 25(OH) Vitamin D: Deficient <20 ng/mL Insufficient 20 - <30 ng/mL Sufficient 30-100 ng/mL Performed By: #### U ERNESTO, FERR, TSH, CBC, CMP, GFR, LIPID, ADIFF, VIDH, FE, ANEU #### [address] [address] LABORATORYOrdered By: SYSTEM SYSTEM on 03-03-2023 25-hydroxyvitamin [...] CNOVon 09-05-2022 CNOV Office Visit (CARDUM ) LIVKENNETHLUCIAN Bella ([id number]) 1950 F Date Time Provider Department 09/05/22 [...] for HTN) HISTORY OF PRESENT ILLNESS: Mi Bella Liv is a 71 year old female who [...] echocardiogram 12/08/2021 EF 55-60%, trivial MR, trivial SD, trivial History of cardiac monitoring 11/16/2021 83 runs of SVT History of stress test 12/20/2021 EF 61%, reversible defect in the anterior and inferior on distal inferolateral wall extending to the apex suggesting ischemia in this area. Hx of cardiac catheterization 12/28/2021 EF 55% normal left cardiac catheterization done by Dr. Hernandez at [facility]. Hypoxia Iron deficiency Mixed hyperlipidemia Moderate [...] 138/70 Pulse 86 Ht 157.5 cm (5' 2") Wt 104.3 kg (230 lb) BMI 42.07 kg/m? PHYSICAL EXAMINATION: BP 138/70 Pulse 86 Ht 157.5 cm (5' 2") Wt 104.3 kg (230 lb) BMI 42.07 [...] is normal. (more content not included)... Normal [facility] ECG COMPLETEon 09-05-2022 ECG COMPLETE Ventricular Rate : 8 6 BPM Atrial Rate : 86 BPM P-R Interval : 150 ms QRS Duration : 80 ms Q-T Interval : 368 ms QTC Calculation(Bazett) : 440 ms Calculated P Scipio : 57 degrees Calculated R Sc[place]io : 5 degrees Calculated T Scipio : 42 degrees SINUS RHYTHM WITH PREMATURE SUPRAVENTRICULAR COMPLEXES Confirmed by ADOLFO GONSALES DO ([id number]) on 09/11/2022 6:25:33 AM NAME : MI PECK PID : [id number] : 1950 Gender : Female Race : ORD : [id number] Procedure Date : Sep 05 2022 15:15:05 Edit Date : Sep 11 2022 06:25:35 Diagnosis: SINUS RHYTHM WITH PREMATURE SUPRAVENTRICULAR COMPLEXES Confirmed by ADOLFO GONSALES DO ([id number]) on 09/11/2022 6:25:33 AM Test Reason : Location : 1 : [facility] Overread By : ADOLFO GONSALES DO Edited By : ADOLFO GONSALES DO Referred By : ADOLFO GONSALES Acquired by : , Normal [facility] LABORATORYOrdered By: Yani Schuler on 06-02-2022 Adenovirus [...] Yes (06/02/22 10:14 AM) Invalid Interpretation Code Auto Viro/Sero SS hMPV RNA RENAY+non-probe Ql (Nph) Not Detected *NA* (06/02/22 10:14 AM) Invalid Interpretation Code Not Detected Auto Viro/Sero SS Illness or injury onset date and time [id number] Invalid Interpretation Code Auto Viro/Sero SS M. pneumoniae DNA RENAY+non-probe Ql (Nph) Not Detected *NA* (06/02/22 10:14 AM) Invalid Interpretation Code Not Detected Auto Viro/Sero SS Parainfluenza virus 1 RNA RENAY+non-probe Ql (Nph) Not Detected *NA* (06/02/22 10:14 AM) Invalid Interpretation Code Not Detected Auto Viro/Sero SS Parainfluenza virus 2 RNA RENAY+non-probe Ql (Nph) Not Detected *NA* (06/02/22 10:14 AM) Invalid Interpretation Code Not Detected Auto Viro/Sero SS Parainfluenza virus 3 RNA RENAY+non-probe Ql (Nph) Not Detected *NA* (06/02/22 10:14 AM) Invalid Interpretation Code Not Detected Auto Viro/Sero SS Parainfluenza virus 4 RNA RENAY+non-probe Ql (Nph) Not Detected *NA* (06/02/22 10:14 AM) Invalid Interpretation Code Not Detected Auto Viro/Sero SS Patient was hospitalized because of this condition No (06/02/22 10:14 AM) Invalid Interpretation Code Auto Viro/Sero SS status Not (06/02/22 10:14 AM) Invalid Interpretation Code Auto Viro/Sero SS RESIDES IN A CONGREGATE CARE SETTING:FIND:PT:^PA TIENT:ORD: No (06/02/22 10:14 AM) Invalid Interpretation Code Auto Viro/Sero SS Rhinovirus+Enterovi tomi RNA RENAY+non-probe Ql (Nph) Not Detected *NA* (06/02/22 10:14 AM) Invalid Interpretation Code Not Detected Auto Viro/Sero SS RSV RNA RENAY+non-probe Ql (Nph) Not Detected *NA* (06/02/22 10:14 AM) Invalid Interpretation Code Not Detected Auto Viro/Sero SS SARS-CoV-2 (COVID-19) RNA RENAY+probe Ql (Unsp spec) Detected 1 *ABN* (06/02/22 10:14 AM) Invalid Interpretation Code Not Detected AH Auto Viro/Sero SS Comment on above: Result Comment: This organism causes a reportable disease. Infection Control has been notified. Results have been reported to the [facility]. Rohit 03-01-2022 CNPN Telephone (CARDUM) MI PECK ([id number]) 1950 F Date Time Provider Department 03/01/22 SUSAN NÚÑEZ During your visit today, we recorded the following information about you: Susan Núñez APRN.[facility] 03/01/2022 8:36 AM Signed Let the patient know, a chest pulse ox was abnormal. She desaturated 461 times wearing a chest pulse ox. She desaturated 62 times an hour. If agreeable, order oxygen at 2 L nasal cannula through [facility]. Refer patient Dr. Vo for further evaluation [...] oxygen at 2 L nasal cannula through [facility]. Refer patient Dr. Vo for further evaluation and treatment abnormal pulse ox. Pt agreeable order faxed to [facility] pt states ct is too far for her she needs a doctor in [place] or [place]. Pt lives in [place] Chiquis Keon 03/04/2022 3:20 PM Signed Patient called stating that she see Dr Bj Morgan a security tech at [facility] next month. He is rechecking her x-rays due to Covid. She is asking if she needs to stay with this doctor or can she go to the doctor in [place], who is closer. She wanted Susan's opinion. Please advise Chiquis Herbert March 04, 2022 3:19 PM Susan Núñez APRN.[employer] 03/07/2022 8:03 AM Signed I think it [...] pulse oximetry [R79.81] Order(s):CONSULT TO PULM/CRITICAL CARE [022554] Order #: [id number]: 1 FUTURE Prescriptions as of 03/08/2022 - [...] Encounter Status:Closed by SUSAN NÚÑEZ on 03/03/22 Normal [facility] Petty 02-22-2022 CNOV Office Visit (CARDUM ) MI PECK ([id number]) 1950 F Date Time Provider Department 02/22/22 [...] cardiac catheterization done by Dr. Hernandez at [facility]. CURRENT MEDICATIONS: Current Outpatient Medications Medication [...] echocardiogram 12/08/2021 EF 55-60%, trivial MR, trivial SD, trivial - History of cardiac monitoring 11/16/2021 83 runs of SVT - History of stress test 12/20/2021 EF 61%, reversible defect in the anterior and inferior on distal inferolateral wall extending to the apex suggesting ischemia in this area. - Hx of cardiac catheterization 12/28/2021 EF 55% normal left cardiac catheterization done by Dr. Hernandez at [facility]. - Hypoxia - Iron deficiency - [...] kg (226 lb) Height: 157.5 cm (5' 2") Last 3 Encounter BP Readings: Date: BP: 12/07/2021 120/90 11/29/2021 128/88 Last 3 Encounter Pulse Readings: Date: Pulse: 12/07/2021 78 11/29/2021 122 Last 3 Encounter Wt Readings: Date: Wt: 02/22/2022 102.5 kg (226 lb) 12/07/2021 101.6 kg (224 lb) 11/29/2021 10 (more content not included)... Normal [facility] LABORATORYOrdered By: Catarino Apple on 02-22-2022 Albumin [...] ml/min/1.73sqm Invalid Interpretation Code AO Chemistry S Rohit 01-24-2022 VELVET Telephone ([employer] LIVMI Bella ([id number]) 1950 F Date Time Provider Department 01/24/22 SUSAN NÚÑEZ During your visit today, we recorded the following information about you: Susan Núñez APRN.[employer] 01/24/2022 8:10 AM Signed Let the patient know, event monitor looks okay. She had insignificant atrial ectopy. No ventricular ectopy. Nigel Peña MA 01/24/2022 10:31 AM Signed Pt called and notified per susan event monitor looks okay. She had insignificant atrial ectopy. No ventricular ectopy. Pt agreeable Allergies As of Date: 01/24/2022 (No Known Allergies) Date Reviewed: 12/16/2021 Reviewed by: Susan Núñez APRN.[employer] - Fully Assessed Reason for Visit: Results [...] Encounter Status:Closed by NIGEL PEÑA on 01/24/22 [facility] Rohit 12-30-2021 VELVET Telephone (CARDUM) MI PECK ([id number]) 1950 F Date Time Provider Department 12/30/21 SUSAN NÚÑEZ During your visit today, we recorded the following information about you: Kimberley Rodriguez 12/30/2021 8:14 AM Signed Patient calls today. Reason for Call: Patient was tpold by Dr Hernandez to call us and see if she needs a follow up after her heart cath. Can you please let her know [phone] (home) [phone] (cell) Patient last appointment: 12/07/2021 Kimberley Núñez APRN.[facility] 12/30/2021 8:17 AM Signed Because the cath was normal, she can keep her January appointment with Dr. Shea unless she has problems. Kimberley Leonlin 12/30/2021 8:28 AM Signed Called patient and notified her per Susan Because the cath was normal, she can keep her January appointment with Dr. Shea unless she has problems. Patient understood Allergies As of Date: 12/30/2021 (No Known Allergies) Date Reviewed: 12/16/2021 Reviewed by: Susan Núñez APRN.[employer] - Fully Assessed Reason for Visit: Question [9577] Prescriptions as of 12/30/2021 - verapamil SR [...] Status:Closed by KIMBERLEY RODRIGUEZ on 12/30/21 Normal [facility] BMPon 12-28-2021 Anion gap [Moles/Vol] 13 mmol/L Normal 5-16 [facility] Comment on above: Order Comment: Campu s: M Performed By: #### L 500.24376, L500.85195 #### [facility] [address] [place] [address] Calcium [Mass/Vol] 9.2 mg/dL Normal 8.5-10.5 [facility] Comment on above: Order Comment: Campu s: M Result Comment: NOTE NEW NORMAL RANGE DUE TO REAGENT CHANGE Performed By: #### L 500.57373, L500.05002 #### [facility] [address] [place] [address] Chloride [Moles/Vol] 106 mmol/L Normal 98-107 [facility] Comment on above: Order Comment: Campu s: M Performed By: #### L 500.56904, L500.22514 #### [facility] [place] [address] CO2 [Moles/Vol] 23.0 mmol/L Normal 21-32 [facility] Comment on above: Order Comment: Campu s: M Performed By: #### L 500.44384, L5.14570 #### [facility] [address] [place] [id number] Creatinine [Mass/Vol] 0.87 mg/dL Normal 0.510-0.95 0 [facility] Comment on above: Order Comment: Campu s: M Result Comment: Clarice ents receiving either N-Acetylcysteine (NAC) or Metamizole prior to venipuncture, may have falsely depressed results. Performed By: #### L 500.02450, L5.45737 #### [facility] [address] [place] [address] Glucose [Mass/Vol] 109 mg/dL High 70-100 [facility] Comment on above: Order Comment: Campu s: M Result Comment: 70-1 00- Normal Fasting; 100-125 Impaired Fasting; greater than 126 on more than one result- Diabetes. ADA guidelines. Results may be falsely elevated after the administration of Sulfapyridine. Results may be falsely depressed after the administration of Sulfasalazine. Performed By: #### L 500.06653, L5.31259 #### [facility] [address] [place] [address] Potassium [Moles/Vol] 4.8 mmol/L Normal 3.5-5.1 [facility] Comment on above: Order Comment: Campu s: M Result Comment: Slig ht Hemolysis, Result may be affected. Performed By: #### L 500.48050, L500.51318 #### [facility] [address] [place] [address] Sodium [Moles/Vol] 142 mmol/L Normal 136-145 [facility] Comment on above: Order Comment: Jamilu s: M Performed By: #### L 500.13775, L5.00900 #### [facility] [place] [address] Urea nitrogen [Mass/Vol] 13 mg/dL Normal 7-26 [facility] Comment on above: Order Comment: Campu s: M Result Comment: Slig ht Hemolysis, Result may be affected. Performed By: #### L 500.71385, L500.64671 #### [facility] [address] [place] [address] Urea nitrogen/Creatinine [Mass ratio] 15 mg/mg Normal 15-24 [facility] Comment on above: Order Comment: Campu s: M Performed By: #### L 500.86959, L500.79660 #### [facility] [address] [place] [address] CBCon 12-28-2021 Erythrocyte distribution width (RBC) [Ratio] 17.4 % High 11-14.5 [facility] Comment on above: Order Comment: Campu s: M Performed By: #### L 200.36615 #### [facility] [address] [place] [address] Hematocrit (Bld) [Volume fraction] 37.7 % Normal 35.0-47.0 [facility] Comment on above: Order Comment: Campu s: M Performed By: #### L 200.19904 #### [facility] [address] [place] [address] Hemoglobin (Bld) [Mass/Vol] 12.4 g/dL Normal 11.5-15.5 [facility] Comment on above: Order Comment: Campu s: M Performed By: #### L 200.45569 #### [facility] [address] [place], [place] [id number] MCHC (RBC) [Mass/Vol] 32.9 g/dL Normal 32.0-36.0 [facility] Comment on above: Order Comment: Campu s: M Performed By: #### L 200.47292 #### [facility] [address] [place], [place] [id number] MCV (RBC) [Entitic vol] 89.8 fL Normal 80.0-99.0 [facility] Comment on above: Order Comment: Campu s: M Performed By: #### L 200.39894 #### [facility] [address] [place] [address] Nucleated RBC/100 WBC (Bld) [Ratio] 0.0 % Normal Less than 1 [facility] Comment on above: Order Comment: Campu s: M Performed By: #### L 200.59999 #### [facility] [address] [place] [address] Platelet mean volume (Bld) [Entitic vol] 9.8 fL Normal 9.4-12.4 [facility] Comment on above: Order Comment: Campu s: M Performed By: #### L 200.00318 #### [facility] [address] [place] [address] PLT 291 K/CU MM Normal 150-450 [facility] Comment on above: Order Comment: Campu s: M Performed By: #### L 200.92005 #### [facility] [address] [place] [address] RBC 4.20 M/CU MM Normal 3.90-5.30 [facility] Comment on above: Order Comment: Campu s: M Performed By: #### L 200.21937 #### [facility] [address] [place], [place] [id number] WBC 8.3 K/CUMM Normal 4.5-11.0 [facility] Comment on above: Order Comment: Campu s: M Performed By: #### L 200.89624 #### [facility] [address] [place], [place] [id number] CCon 12-28-2021 CARDIAC CATH Normal [facility] CC DATE OF SERVICE: 10/2021 PRIMARY CARE: Larry Joyce DO SUBACUTE NURSE: Kamar Shea MD PROCEDURE: Left heart catheterization. [...] 2% xylocaine without epinephrine was used for [facility] PATIENT NAME: MI PECK [address] [facility] [address] [place] MEDICAL REC #: [id number] [place] [address] ADMIT DATE: DISCHARGE DATE: CARDIAC CATH ATTENDING PHY: Sarai Hernandez MD local anesthesia. Using modified Seldinger technique, a 4-Kosovan arterial sheath was placed. Right radial artery angiography was performed utilizing a 4-Kosovan multipurpose and 4-Kosovan JL4 catheter. At the conclusion of the [...] proximal LAD with only minor plaque disease. [facility] PATIENT NAME: MI PECK [address] [facility] [address] MEDICAL REC #: [id number] [place] [address] ADMIT DATE: DISCHARGE DATE: CARDIAC CATH ATTENDING PHY: Sarai Hernandez MD E. Circumflex coronary artery: Nondominant large caliber vessel gave origin to few obtuse marginal branches. The largest is the third, it has only minor plaque disease. F. Right coronary artery: Large caliber dominant vessel with moderate tortuosity and minor plaque disease. CONCLUSION: A normal left heart catheterization as above. Sarai Hernandez MD /[id number] [facility] File#: [id number] CC: Kamar Shea MD, FACP, FACC, KRISTI CC: Sarai Hernandez MD END OF DOCUMENT / CHANGE LOG FOLLOWS Last Edited By Elec. Signed By Sarai Hernandez MD, Ahmed A MD #SABAH on 12/29/2021 14:19 ET on 12/29/2021 14:19 ET Revision Number - 2 [facility] [address] MEDICAL REC #: [id number] [place] [address] ADMIT DATE: DISCHARGE DATE: CARDIAC CATH ATTENDING PHY: Sarai Hernandez MD Verified/Reviewed by 12/29/21 [facility] PATIENT NAME: MI PECK [facility] [address] MEDICAL REC #: [id number] [place] [address] ADMIT DATE: DISCHARGE DATE: CARDIAC CATH ATTENDING PHY: Sarai Hernandez MD Normal [facility] GFR ESTon 12-28-2021 IF AMER Greater than 60 Normal [facility] Comment on above: Order Comment: Campu s: M Performed By: #### L 500.92318, L500.06295 #### [facility] LABORATORY [address] [place] [address] IF non-AFR AMER Greater than 60 Normal [facility] Comment on above: Order Comment: Campu s: M Performed By: #### L 500.73900, L500.04424 #### [facility] [address] [place] [address] PTon 12-28-2021 INR Coag (PPP) [Relative time] 1.19 {INR} High 0.9-1.1 [facility] Comment on above: Order Comment: Campu s: M Result Comment: Phi mmended PT INR therapeutic range for clinical assessment manager and prophylactic therapy is 2.0 - 3.0. For heart valve and shunt patients the range is 2.5 - 3.5. Performed By: #### L 300.37571 #### [facility] [address] [place] [address] PTS 12.9 SECONDS High 9.5-12.0 [facility] Comment on above: Order Comment: Rani s: M Performed By: #### L 300.93145 #### [facility] [address] [place] [address] CNPNon 12-21-2021 VELVET Telephone (CARDUM) MI PECK ([id number]) 1950 F Date Time Provider Department 12/21/21 SUSAN NÚÑEZ During your visit today, we recorded the following information about you: Susan Núñez APRN.PROGRESSIVE ASSEMBLER AND FITTER 12/21/2021 12:43 PM Signed Let the patient know, stress test is abnormal. She has reversible defects in the anterior, inferior, and distal inferolateral dos santos suggesting she could have some blocked arteries. She would benefit from left cardiac catheterization. Let me know if she is agreeable for me to go ahead and schedule her at [facility]. Nigel Peña MA 12/21/2021 2:04 PM Signed Pt called and notified per susan stress test is abnormal. She has reversible defects in the anterior, inferior, and distal inferolateral dos santos suggesting she could have some blocked arteries. She would benefit from left cardiac catheterization. Let me know if she is agreeable for me to go ahead and schedule her at [facility]. Pt agreeable to proceeding with heart cath Susan Núñez APRN.PROGRESSIVE ASSEMBLER AND FITTER 12/21/2021 2:15 PM Signed Let the patient know, I have her scheduled for left cardiac catheterization at [facility] 12/28/2021 at 10 AM. She will need [...] her scheduled for left cardiac catheterization at [facility] 12/28/2021 at 10 AM. She will need [...] Date Reviewed: 12/16/2021 Reviewed by: Susan Núñez APRN.PROGRESSIVE ASSEMBLER AND FITTER - Fully Assessed Reason for Visit: Results [...] Encounter Status:Closed by NIGEL PEÑA on 12/21/21 [facility] CNOVon 12-16-2021 CNOV Office Visit (CARDUM ) MI PECK ([id number]) 1950 F Date Time Provider Department 12/16/21 [...] Swapna Kraus MA Referring Provider: SUSAN NÚÑEZ [[id number]] Allergies As of Date: 12/16/2021 (No Known Allergies) Date Reviewed: 12/16/2021 Reviewed by: Susan Núñez APRN.PROGRESSIVE ASSEMBLER AND FITTER - Fully Assessed Reason for Visit: EKG [793] Cmt: EKG, Ortho's and 30 day event monitor Primary Visit Diagnosis:Atrial tachycardia (HCC) [I47.1] Other Visit Diagnoses:Essential hypertension [I10] Benign hypertension [I10] Order(s):OUTSIDE VENDOR CARDIAC OUTPATIENT EVENT RECORDER [[id number]] Order #: [id number]: 1 ECG B/O W INTERP (MED OFFICE) [ECG06] Order #: [id number] Prescriptions as of 12/20/2021 - verapamil SR [...] Encounter Status:Closed by SUSAN NÚÑEZ on 12/16/21 [facility] (CARDUM) MI EPCK ([id number]) 1950 F Date Time Provider Department 12/15/21 SUSAN NÚÑEZ During your visit today, we recorded the following information about you: Kimberley Michael 12/15/2021 9:34 AM Signed Echo results on your desk for review. Please let the patient know the results Susan Núñez APRN.[facility] 12/15/2021 11:06 AM Signed Let the patient know, echo looks okay. Ejection fraction normal at 55-60%, trivial MR, TR, SD Nigel Peña MA 12/15/2021 11:21 AM Signed Pt called and notified and notified per susan echo looks okay. Ejection fraction normal at 55-60%, trivial MR, TR, SD. Pt agreeable Allergies As of Date: 12/15/2021 [...] Encounter Status:Closed by NIGEL PEÑA on 12/15/21 [facility] CNArnaud 12-07-2021 CNOV Office Visit (BONNY ) MI PECK ([id number]) 1950 F Date Time Provider Department 12/07/21 1:00 PM SUSAN NÚÑEZ During your visit today, we recorded the following information about you: Pulse Blood pressure Weight Height 78/minute 120/90 101.6 kg 1.575 m Susan Núñez APRN.PROGRESSIVE ASSEMBLER AND FITTER 12/07/2021 1:38 PM Addendum [facility] Larry [...] kg (224 lb) Height: 157.5 cm (5' 2") Last 3 Encounter BP Readings: Date: BP: [...] breath sounds. (more content not included)... Normal [facility] CNPNon 12-07-2021 CNPN Telephone (CARDUM) MI PECK ([id number]) 1950 F Date Time Provider Department 12/07/21 SUSAN NÚÑEZ During your visit today, we recorded the following information about you: Nigel Peña MA 12/07/2021 1:28 PM Signed Pt needs an auth for a stress test to be done at [facility] Theodore Quiroz 12/07/2021 1:43 PM Signed No auth required for Medicare and Medicare supplement Theodore Rodriguez 12/08/2021 9:14 AM Signed Stress test scheduled at [facility] on 12/20 @ 6:30 am. Order [...] Encounter Status:Closed by KIMBERLEY RODRIGUEZ on 12/08/21 [facility] CNOVon 11-29-2021 CNOV Office Visit (CARDUM ) MI PECK ([id number]) 1950 F Date Time Provider Department 1/31/22 2:15 PM ADOLFO GONSALES During your visit [...] Pulse (!) 122 Ht 157.5 cm (5' 2") Wt 100.7 kg (222 lb) BMI 40.60 kg/m? PHYSICAL EXAMINATION: BP 128/88 (BP Site: Left Arm, BP Position: Sitting) Pulse (!) 122 Ht 157.5 cm (5' 2") Wt 100.7 kg (222 lb) BMI 40.60 [...] or wound (more content not included)... Normal [facility] Rohit 11-29-2021 CNPN Telephone (CARDUM) MI PECK ([id number]) 1950 F Date Time Provider Department 11/29/21 ADOLFO GONSALES During your visit today, we recorded the following information about you: June Elias 11/29/2021 3:10 PM Signed Prior authorization request for echo to be done at [facility] is being submitted for review. Please notify clerical staff when ready. June Elias 11/30/2021 6:06 AM Signed No auth required for Medicare and Medicare supplement Theodore Holbrookelle Michael 12/01/2021 9:15 AM Addendum Echo scheduled at [facility] on 12/08 @ 8:45 am. Order [...] Encounter Status:Closed by KIMBERLEY RODRIGUEZ on 12/01/21 Normal [facility] LABORATORYOrdered By: Heaven Martin on 10-02-2021 [...] Heme SS LABORATORYOrdered By: SYSTEM SYSTEM on 10-01-2021 Ferritin [Mass/Vol] 790.6 ng/mL [...] definite cause of disease. Laboratories within the [facility] and its territories are required to report [...] ECG B/O W INTERP (MED OFFICE ) [facility] Vital Signs Date Time Vital Sign Value Performing Clinician Facility 07-10-2025 07:57-0400 Body height 152.[address] Larry Joyce DO Work Phone: [facility] 07-10-2025 07:57-0400 Body mass index (BMI) [Ratio] 37.5 kg/m2 Dr. Larry Joyce DO Work Phone: [facility] 07-10-2025 07:57-0400 Body temperature 97.3 [degF] Dr. Larry Joyce DO Work Phone: [facility] 07-10-2025 07:57-0400 Body weight 87.[address] Lrary Joyce DO Work Phone: [facility] 07-10-2025 07:57-0400 Diastolic blood pressure 66 mm[Hg] Dr. Larry Joyce DO Work Phone: [facility] 07-10-2025 07:57-0400 Heart rate 85 /min Dr. Larry Joyce DO Work Phone: [facility] 07-10-2025 07:57-0400 Respiratory rate 18 /min Dr. Larry Joyce DO Work Phone: [facility] 07-10-2025 07:57-0400 SaO2% (BldA) [Mass fraction] 96 % Dr. Larry Joyce DO Work Phone: [facility] 07-10-2025 07:57-0400 Systolic blood pressure 116 mm[Hg] Dr. Larry Joyce DO Work Phone: [facility] 12-02-2024 11:28-0500 Diastolic Blood Pressure Non-Invasive 61 mm[Hg] DR BRENDEN LEON MD [facility] 12-02-2024 11:28-0500 Heart rate 69 /min DR BRENDEN LEON MD [facility] 12-02-2024 11:28-0500 Respiratory rate 16 /min DR BRENDEN LEON MD [facility] 12-02-2024 11:28-0500 Systolic Blood Pressure Non-Invasive 119 mm[Hg] DR BRENDEN LEON MD [facility] 12-02-2024 11:21-0500 Diastolic Blood Pressure Non-Invasive 58 mm[Hg] DR BREDNEN LEON MD [facility] 12-02-2024 11:21-0500 Heart rate 70 /min DR BRENDEN LEON MD [facility] 12-02-2024 11:21-0500 Respiratory rate 19 /min DR BRENDEN LEON MD [facility] 12-02-2024 11:21-0500 Systolic Blood Pressure Non-Invasive 112 mm[Hg] DR BRENDEN LEON MD [facility] 12-02-2024 11:15-0500 Body temperature 97.52 [degF] DR BRENDEN LEON MD [facility] 12-02-2024 11:15-0500 Diastolic Blood Pressure Non-Invasive 57 mm[Hg] DR BRENDEN LEON MD [facility] 12-02-2024 11:15-0500 Heart rate 66 /min DR BRENDEN LEON MD [facility] 12-02-2024 11:15-0500 Respiratory rate 19 /min DR BRENDEN LEON MD [facility] 12-02-2024 11:15-0500 Systolic Blood Pressure Non-Invasive 105 mm[Hg] DR BRENDEN LEON MD [facility] 12-02-2024 11:10-0500 Respiratory Rate - Anes 17 br/min DR BRENDEN LEON MD [facility] 12-02-2024 11:05-0500 Respiratory Rate - Anes 17 br/min DR BRENDEN LEON MD [facility] 12-02-2024 10:33-0500 Body height [address] BRENDEN LEON MD [facility] 12-02-2024 10:33-0500 Body temperature 96.8 [degF] DR BRENDEN LEON MD [facility] 12-02-2024 10:33-0500 Body weight 89.[address] BRENDEN LEON MD [facility] 12-02-2024 10:33-0500 Body weight 37.78 kg/m2 DR BRENDEN LEON MD [facility] 12-02-2024 10:33-0500 Heart rate 86 /min DR BRENDEN LEON MD [facility] 11-01-2024 09:59-0500 Body temperature 97.52 [degF] DR LARRY JOYCE DO [facility] 11-01-2024 09:59-0500 Diastolic Blood Pressure Non-Invasive 57 mm[Hg] DR LARRY JOYCE DO [facility] 11-01-2024 09:59-0500 Heart rate 77 /min DR LARRY JOYCE DO [facility] 11-01-2024 09:59-0500 Reason For Taking VItal Signs DR LARRY JOYCE DO [facility] 11-01-2024 09:59-0500 Respiratory rate 16 /min DR LARRY JOYCE DO [facility] 11-01-2024 09:59-0500 Systolic Blood Pressure Non-Invasive 116 mm[Hg] DR LARRY JOYCE DO [facility] 10-14-2024 12:56-0500 Body height 152.4 cm Susan Núñez MANAGER PLAN.PROGRESSIVE ASSEMBLER AND FITTER Work Phone: [facility] 10-14-2024 12:56-0500 Body mass index (BMI) [Ratio] 40.04 kg/m2 Susan Núñez MANAGER PLAN.PROGRESSIVE ASSEMBLER AND FITTER Work Phone: [facility] 10-14-2024 12:56-0500 Body weight 92.99 kg Susan Núñez MANAGER PLAN.PROGRESSIVE ASSEMBLER AND FITTER Work Phone: [facility] 10-14-2024 12:56-0500 Diastolic blood pressure 72 mm[Hg] Susan Núñez MANAGER PLAN.PROGRESSIVE ASSEMBLER AND FITTER Work Phone: [facility] 10-14-2024 12:56-0500 Heart rate 71 /min Susan Núñez MANAGER PLAN.PROGRESSIVE ASSEMBLER AND FITTER Work Phone: [facility] 10-14-2024 12:56-0500 Systolic blood pressure 120 mm[Hg] Susan Núñez MANAGER PLAN.PROGRESSIVE ASSEMBLER AND FITTER Work Phone: [facility] 04-15-2024 12:00-0400 Body temperature 97.88 [degF] DR LARRY JOYCE DO [facility] 04-15-2024 12:00-0400 Diastolic Blood Pressure Non-Invasive 59 mm[Hg] DR LARRY JOYCE DO [facility] 04-15-2024 12:00-0400 Heart rate 89 /min DR LARRY JOYCE DO [facility] 04-15-2024 12:00-0400 Reason For Taking VItal Signs DR LARRY JOYCE DO [facility] 04-15-2024 12:00-0400 Respiratory rate 16 /min DR LARRY JOYCE DO [facility] 04-15-2024 12:00-0400 Systolic Blood Pressure Non-Invasive 108 mm[Hg] DR LARRY OJYCE DO [facility] 12-28-2023 11:02-0500 SaO2% (BldA) [Mass fraction] 95 % Dr. Larry Joyce Work Phone: [facility] 12-28-2023 10:00-0500 Body temperature 98 [degF] Dr. Larry Joyce Work Phone: [facility] 12-28-2023 10:00-0500 Diastolic blood pressure 50 mm[Hg] Dr. Larry Joyce Work Phone: [facility] 12-28-2023 10:00-0500 Heart rate 75 /min Dr. Larry Joyce Work Phone: [facility] 12-28-2023 10:00-0500 Respiratory rate 16 /min Dr. Larry Joyce Work Phone: [facility] 12-28-2023 10:00-0500 Systolic blood pressure 116 mm[Hg] Dr. Larry Joyce Work Phone: [facility] 12-27-2023 21:28-0500 Inhaled oxygen flow rate 2 L/min Dr. Larry Joyce Work Phone: [facility] 12-27-2023 15:44-0500 Body height 152.[address] Larry Joyce Work Phone: [facility] 12-27-2023 15:44-0500 Body mass index (BMI) [Ratio] 42.2 kg/m2 Dr. Larry Joyce Work Phone: [facility] 12-27-2023 15:44-0500 Body weight [address] Larry Joyce Work Phone: [facility] 10-12-2023 11:50-0500 Body temperature 97.7 [degF] DR LARRY JOYCE DO [facility] 10-12-2023 11:50-0500 Diastolic Blood Pressure Non-Invasive 71 mm[Hg] DR LARRY JOYCE DO [facility] 10-12-2023 11:50-0500 Heart rate 66 /min DR LARRY JOYCE DO [facility] 10-12-2023 11:50-0500 Respiratory rate 16 /min DR LARRY JOYCE DO [facility] 10-12-2023 11:50-0500 Systolic Blood Pressure Non-Invasive 137 mm[Hg] DR LARRY JOYCE DO [facility] 10-09-2023 13:38-0500 Body height 152.4 cm Mary Cooper APRN.PROGRESSIVE ASSEMBLER AND FITTER Work Phone: [facility] 10-09-2023 13:38-0500 Body weight 102.06 kg Mary Cooper MANAGER PLAN.PROGRESSIVE ASSEMBLER AND FITTER Work Phone: [facility] 10-09-2023 13:38-0500 Diastolic blood pressure 70 mm[Hg] Mray Cooper MANAGER PLAN.PROGRESSIVE ASSEMBLER AND FITTER Work Phone: [facility] 10-09-2023 13:38-0500 Heart rate 76 /min Mary Cooper MANAGER PLAN.PROGRESSIVE ASSEMBLER AND FITTER Work Phone: [facility] 10-09-2023 13:38-0500 Systolic blood pressure 136 mm[Hg] Mary Cooper MANAGER PLAN.PROGRESSIVE ASSEMBLER AND FITTER Work Phone: [facility] 09-04-2023 14:00-0500 Heart rate 108 /min Dr. Larry Joyce Work Phone: [facility] 09-04-2023 14:00-0500 SaO2% (BldA) [Mass fraction] 91 % Dr. Larry Joyce Work Phone: [facility] 09-04-2023 07:54-0500 Body mass index (BMI) [Ratio] 40.9 kg/m2 Dr. Larry Joyce Work Phone: [facility] 09-04-2023 07:54-0500 Body temperature 96.9 [degF] Dr. Larry Joyce Work Phone: [facility] 09-04-2023 07:54-0500 Body weight 101.[address] Larry Joyce Work Phone: [facility] 09-04-2023 07:54-0500 Diastolic blood pressure 74 mm[Hg] Dr. Larry Joyce Work Phone: [facility] 09-04-2023 07:54-0500 Respiratory rate 20 /min Dr. Larry Joyce Work Phone: [facility] 09-04-2023 07:54-0500 Systolic blood pressure 117 mm[Hg] Dr. Larry Joyce Work Phone: [facility] 09-05-2022 14:11-0500 Body height 157.5 cm Adolfo Le Lutin [email or web address] DO Work Phone: [facility] 09-05-2022 14:11-0500 Body weight 104.33 kg Adolfo Gross DO Work Phone: [facility] 09-05-2022 14:11-0500 Diastolic blood pressure 70 mm[Hg] Adolfo Gross DO Work Phone: [facility] 09-05-2022 14:11-0500 Heart rate 86 /min Adolfo Gross DO Work Phone: [facility] 09-05-2022 14:11-0500 Systolic blood pressure 138 mm[Hg] Adolfo Gross DO Work Phone: [facility] 06-08-2022 07:58-0400 Body height 157.[address] Larry Joyce Work Phone: [facility] Work Phone: 06-08-2022 07:58-0400 Body mass index (BMI) [Ratio] 41.1 kg/m2 Dr. Larry Joyce Work Phone: [facility] Work Phone: 06-08-2022 07:58-0400 Body temperature 96.4 [degF] Dr. Larry Joyce Work Phone: [facility] Work Phone: 06-08-2022 07:58-0400 Body weight 102.[address] Larry Joyce Work Phone: [facility] Work Phone: 06-08-2022 07:58-0400 Diastolic blood pressure 73 mm[Hg] Dr. Larry Joyce Work Phone: [facility] Work Phone: 06-08-2022 07:58-0400 Heart rate 83 /min Dr. Larry Joyce Work Phone: [facility] Work Phone: 06-08-2022 07:58-0400 Respiratory rate 16 /min Dr. Larry Joyce Work Phone: [facility] Work Phone: 06-08-2022 07:58-0400 SaO2% (BldA) [Mass fraction] 98 % Dr. Larry Joyce Work Phone: [facility] Work Phone: 06-08-2022 07:58-0400 Systolic blood pressure 116 mm[Hg] Dr. Larry Joyce Work Phone: [facility] Work Phone: 03-31-2022 11:16-0400 Body height 157.[address] Larry Joyce Work Phone: [facility] Work Phone: 03-31-2022 11:16-0400 Body mass index (BMI) [Ratio] 41.1 kg/m2 Dr. Larry Joyce Work Phone: [facility] Work Phone: 03-31-2022 11:16-0400 Body temperature 98 [degF] Dr. Larry Joyce Work Phone: [facility] Work Phone: 03-31-2022 11:16-0400 Body weight 102.[address] Larry Joyce Work Phone: [facility] Work Phone: 03-31-2022 11:16-0400 Diastolic blood pressure 65 mm[Hg] Dr. Larry Joyce Work Phone: [facility] Work Phone: 03-31-2022 11:16-0400 Heart rate 68 /min Dr. Larry Jocye Work Phone: [facility] Work Phone: 03-31-2022 11:16-0400 Respiratory rate 16 /min Dr. Larry Joyce Work Phone: [facility] Work Phone: 03-31-2022 11:16-0400 SaO2% (BldA) [Mass fraction] 97 % Dr. Larry Joyce Work Phone: [facility] Work Phone: 03-31-2022 11:16-0400 Systolic blood pressure 123 mm[Hg] Dr. Larry Joyce Work Phone: [facility] Work Phone: 02-22-2022 08:00-0400 Body height 157.5 cm Kamar Shea MD Work Phone: [facility] 02-22-2022 08:00-0400 Body weight 102.51 kg Kamar Shea MD Work Phone: [facility] 10-02-2021 13:08-0500 Heart rate 77 /min KENYA RIZZARDI MANAGER PLAN-PROGRESSIVE ASSEMBLER AND FITTER [facility] 10-02-2021 13:08-0500 Respiratory rate 20 /min KENYA RIZZARDI MANAGER PLAN-PROGRESSIVE ASSEMBLER AND FITTER [facility] 10-02-2021 13:01-0500 Body temperature 97.88 [degF] KENYA NÉSTORZZARDI MANAGER PLAN-PROGRESSIVE ASSEMBLER AND FITTER [facility] 10-02-2021 13:01-0500 Diastolic blood pressure 67 mm[Hg] KENYA RIZZARDI MANAGER PLAN-PROGRESSIVE ASSEMBLER AND FITTER [facility] 10-02-2021 13:01-0500 Reason For Taking VItal Signs KENYAPARISH SIMONARDI MANAGER PLAN-PROGRESSIVE ASSEMBLER AND FITTER [facility] 10-02-2021 13:01-0500 Systolic blood pressure 131 mm[Hg] KENYAPARISH SIMONARDI MANAGER PLAN-PROGRESSIVE ASSEMBLER AND FITTER [facility] 10-02-2021 08:59-0500 Diastolic blood pressure 63 mm[Hg] KENYAPARISH SIMONARDI MANAGER PLAN-PROGRESSIVE ASSEMBLER AND FITTER [facility] 10-02-2021 08:59-0500 Heart rate 63 /min KENYA RIZZARDI MANAGER PLAN-PROGRESSIVE ASSEMBLER AND FITTER [facility] 10-02-2021 08:59-0500 Reason For Taking VItal Signs KENYA RIHARSHALARDI MANAGER PLAN-PROGRESSIVE ASSEMBLER AND FITTER [facility] 10-02-2021 08:59-0500 Respiratory rate 18 /min KENYA RIZZARDI MANAGER PLAN-PROGRESSIVE ASSEMBLER AND FITTER [facility] 10-02-2021 08:59-0500 Systolic blood pressure 132 mm[Hg] KENYA RIZZARDI MANAGER PLAN-PROGRESSIVE ASSEMBLER AND FITTER [facility] 10-02-2021 04:25-0500 Body temperature 97.88 [degF] KENYA RIZZARDI MANAGER PLAN-PROGRESSIVE ASSEMBLER AND FITTER [facility] 10-02-2021 04:25-0500 Diastolic blood pressure 52 mm[Hg] KENYA RIZZARDI MANAGER PLAN-PROGRESSIVE ASSEMBLER AND FITTER [facility] 10-02-2021 04:25-0500 Heart rate 78 /min KENYA RIZZARDI MANAGER PLAN-PROGRESSIVE ASSEMBLER AND FITTER [facility] 10-02-2021 04:25-0500 Respiratory rate 20 /min KENYA RIZZARDI MANAGER PLAN-PROGRESSIVE ASSEMBLER AND FITTER [facility] 10-02-2021 04:25-0500 Systolic blood pressure 151 mm[Hg] KENYA RIZZARDI MANAGER PLAN-PROGRESSIVE ASSEMBLER AND FITTER [facility] 10-01-2021 23:35-0500 Body temperature 97.52 [degF] KENYA RIZZARDI MANAGER PLAN-PROGRESSIVE ASSEMBLER AND FITTER [facility] 10-01-2021 23:35-0500 Heart rate 68 /min KENYA RIZZARDI MANAGER PLAN-PROGRESSIVE ASSEMBLER AND FITTER [facility] 10-01-2021 21:04-0500 Heart rate 76 /min KENYA RIZZARDI MANAGER PLAN-PROGRESSIVE ASSEMBLER AND FITTER [facility] 10-01-2021 19:59-0500 Heart rate 84 /min KENYA RIZZARDI MANAGER PLAN-PROGRESSIVE ASSEMBLER AND FITTER [facility] 10-01-2021 16:41-0500 Heart rate 84 /min KENYA RIZZARDI MANAGER PLAN-PROGRESSIVE ASSEMBLER AND FITTER [facility] 10-01-2021 16:41-0500 Mean blood pressure 91 mm[Hg] KENYA RIZZARDI MANAGER PLAN-PROGRESSIVE ASSEMBLER AND FITTER [facility] 10-01-2021 16:41-0500 Reason For Taking VItal Signs KENYA RIZZARDI MANAGER PLAN-PROGRESSIVE ASSEMBLER AND FITTER [facility] 10-01-2021 11:18-0500 Heart rate 76 /min KENYA RIZZARDI MANAGER PLAN-PROGRESSIVE ASSEMBLER AND FITTER [facility] 10-01-2021 03:10-0500 Mean blood pressure 88 mm[Hg] KENYA RIZZARDI MANAGER PLAN-PROGRESSIVE ASSEMBLER AND FITTER [facility] 10-01-2021 00:10-0500 Mean blood pressure 93 mm[Hg] KENYA RIZZARDI MANAGER PLAN-PROGRESSIVE ASSEMBLER AND FITTER [facility] 09-30-2021 20:57-0500 Body height 160 cm KENYA RIZZARDI MANAGER PLAN-PROGRESSIVE ASSEMBLER AND FITTER [facility] 09-30-2021 20:57-0500 Body weight 106.2 kg KENYAPARISH THOMAS MANAGER PLAN-PROGRESSIVE ASSEMBLER AND FITTER [facility] 09-30-2021 20:57-0500 Body weight 41.48 kg/m2 KENYAPARISH THOMAS MANAGER PLAN-PROGRESSIVE ASSEMBLER AND FITTER [facility] 09-30-2021 20:50-0500 Body weight 106.2 kg KENYAPARISH THOMAS MANAGER PLAN-PROGRESSIVE ASSEMBLER AND FITTER [facility] 09-30-2021 20:29-0500 Heart rate 84 /min KENYAPARISH THOMAS MANAGER PLAN-PROGRESSIVE ASSEMBLER AND FITTER [facility] 09-30-2021 14:13-0500 Body weight 105.1 kg KENYA THOMAS MANAGER PLAN-PROGRESSIVE ASSEMBLER AND FITTER [facility] Encounters Encounter Date Encounter Type Care Provider Facility Start: 09-10-2025 End: 09-10-[address] LARRY JOYCE DO Facility:[facility] Start: 09-09-2025 [facility] Start: 07-10-2025 End: 07-10-2025 Patient encounter procedure Annia LAM [facility] Work Phone: Start: 07-10-2025 End: 07-10-[address] Larry Joyce DO Work Phone: -[facility] Start: 05-05-2025 End: 05-05-[address] LARRY JOYCE DO Facility:[facility] Start: 05-05-2025 End: 05-05-[address] LARRY JOYCE DO [facility] Start: 03-18-2025 End: 03-18-[address] LARRY JOYCE DO Facility:[facility] Start: 03-18-2025 End: 03-18-[address] LARRY JOYCE DO [facility] Start: 01-30-2025 End: 01-30-2025 ambulatory Larry Joyce [facility] Start: 12-02-2024 End: 12-02-[address] LARRY JOYCE DO Facility:[facility] Start: 12-02-2024 End: 12-02-[address] BRENDEN LEON MD [facility] Start: 11-01-2024 End: 11-01-[address] LARRY JOYCE DO Facility:[facility] Start: 11-01-2024 End: 11-01-[address] LARRY JOYCE DO [facility] Start: 10-14-2024 End: 10-14-2024 Patient encounter procedure Susan Núñez MANAGER PLAN.PROGRESSIVE ASSEMBLER AND FITTER Work Phone: [facility] Comment on above: Benign hypertension (Primary Dx); Mixed hyperlipidemia; Atrial tachycardia (HCC); care home current use of anticoagulant; BMI 40.0-44.9, adult (HCC); OLIVER (dyspnea on exertion) Start: 10-14-2024 End: 10-14-2024 ambulatory SUSAN NÚÑEZ Facility:[id number] Start: 10-08-2024 End: 10-08-[address] LARRY JOYCE DO Facility:[facility] Start: 10-08-2024 End: 10-08-[address] LARRY JOYCE DO [facility] Start: 10-04-2024 End: 10-04-[address] LARRY JOYCE DO Facility:[facility] Start: 10-04-2024 End: 10-04-[address] LARRY JOYCE DO [facility] Start: 09-30-2024 End: 09-30-2024 ambulatory Larry Joyce Facility:[facility] Start: 04-15-2024 End: 04-15-[address] LARRY JOYCE DO Facility:[facility] Start: 04-15-2024 End: 04-15-[address] LARRY JOYCE DO [facility] Start: 03-15-2024 End: 03-15-[address] LARRY JOYCE DO Facility:[facility] Start: 12-27-2023 Non-patient / Non-visit Dr. Janel Joyce Work Phone: [facility] Work Phone: Start: 12-27-2023 End: 12-28-2023 Evaluation and management of inpatient Dr. Larry Joyce Work Phone: [facility] 3 Work Phone: Start: 12-27-2023 End: 12-28-[address] Larry Joyce Work Phone: [facility] Work Phone: Start: 12-12-2023 Patient encounter procedure [facility] Provider [facility] Department Start: 12-08-2023 Patient encounter procedure [facility] Provider [facility] Department Start: 11-30-2023 End: 11-30-2023 Non-patient / Non-visit Dr. Larry Joyce Work Phone: [facility] Work Phone: Start: 10-12-2023 End: 10-12-[address] LARRY JOYCE DO Facility:[facility] Start: 10-12-2023 End: 10-12-[address] LARRY JOYCE DO [facility] Start: 10-09-2023 End: 10-09-2023 Patient encounter procedure Mary Cooper APRN.PROGRESSIVE ASSEMBLER AND FITTER Work Phone: 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 Larry Joyce Work Phone: [facility] Work Phone: Start: 07-19-2023 End: 10-30-[address] NORAH TURNER MD Facility:[facility] Start: 03-03-2023 End: 03-03-[address] LARRY JOYCE DO [facility] Start: 09-29-2022 End: 09-29-[address] LARRY JOYCE DO [facility] Start: 09-05-2022 End: 09-05-2022 ambulatory ADOLFO GONSALES DO Facility:[facility] Start: 09-05-2022 End: 09-05-2022 Patient encounter procedure Adolfo Gonsales DO Work Phone: [facility] Comment on above: Benign hypertension (Primary Dx); Mixed hyperlipidemia; 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 Larry Joyce Work Phone: [facility] Work Phone: Start: 07-15-2022 End: 07-15-[address] Larry Joyce Work Phone: [facility] Start: 06-27-[address] Larry Joyce Work Phone: [facility] Start: 06-21-2022 End: 06-21-[address] Larry Joyce Work Phone: [facility] Work Phone: Start: 06-21-2022 End: 06-21-[address] Larry Joyce Work Phone: [facility] Start: 06-08-2022 End: 06-08-[address] Larry Joyce Work Phone: [facility] Start: 06-07-2022 End: 06-07-[address] LARRY JOYCE DO [facility] Start: 06-02-2022 End: 06-06-2022 Outreach Lab TA [place] MANAGER PLAN-PROGRESSIVE ASSEMBLER AND FITTER [facility] Start: 05-31-2022 End: 05-31-[address] Larry Joyce Work Phone: [facility]MRI - [facility] Start: 05-05-2022 End: 05-05-[address] Larry Joyce Work Phone: [facility] Start: 04-22-2022 End: 04-22-[address] Larry Joyce Work Phone: [facility] Start: 03-31-2022 End: 03-31-[address] Larry Joyce Work Phone: [facility] Start: 03-07-2022 End: 03-07-2022 Patient encounter procedure [facility], [facility] Start: 03-01-2022 Telephone encounter Susan guan MANAGER PLAN.PROGRESSIVE ASSEMBLER AND FITTER Work Phone: [facility] Comment on above: Results Start: 02-22-2022 End: 02-22-2022 ambulatory LARRY JOYCE Facility:[facility] Start: 02-22-2022 End: 02-22-2022 Patient encounter procedure Kamar Shea MD Work Phone: [facility] Comment on above: Benign hypertension (Primary Dx); Mixed hyperlipidemia; Sinus tachycardia; Atrial tachycardia (HCC); Morbid obesity (HCC); Hx of cardiac catheterization Start: 01-24-2022 Telephone encounter Susan guan MANAGER PLAN.PROGRESSIVE ASSEMBLER AND FITTER Work Phone: [facility] Comment on above: Results Start: 12-20-2021 End: 12-20-2021 Patient encounter procedure SUSAN NÚÑEZ MANAGER PLAN-PROGRESSIVE ASSEMBLER AND FITTER [facility] Start: 12-16-2021 End: 12-16-2021 ambulatory LARRY JOYCE Facility:[facility] Start: 12-08-2021 End: 12-08-2021 Patient encounter procedure ADOLFO GONSALES DO [facility] Start: 12-07-2021 End: 12-07-2021 ambulatory LARRY JOYCE Facility:[facility] Start: 11-29-2021 End: 11-29-2021 ambulatory LARRY JOYCE Facility:[facility] Start: 11-16-2021 End: 11-16-[address] LARRY JOYCE DO [facility] Start: 10-20-2021 End: 10-20-[address] LARRY JOYCE DO [facility] Start: 09-30-2021 End: 10-02-2021 Evaluation and management of inpatient KENYA THOMAS MANAGER PLAN-PROGRESSIVE ASSEMBLER AND FITTER [facility] Start: 09-14-2021 End: 09-14-[address] LARRY JOYCE DO [facility] Procedures Date Procedure Procedure Detail Performing Clinician Start: 10-14-2024 Ecg routine ecg w/le ast 12 lds i&r only Susan Núñez MANAGER PLAN.PROGRESSIVE ASSEMBLER AND FITTER Work Phone: Start: 12-27-2023 Plain X-ray of hip Dr. Larry Joyce Work Phone: Start: 12-27-2023 Fluoroscopic guidance D garfield Joyce Work Phone: Start: 12-27-2023 Plain x-ray of pelvi s and lower extremity Dr. Larry Joyce Work Phone: Start: 12-27-2023 Total replacement of hip Dr. Larry Joyce Work Phone: Start: 12-27-2023 Right hip region str ucture (body structure) DR LARRY JOYCE DO Comment on above: Total replacement Start: 11-30-2023 Nasal Screen MRSA/MSSA Dr. Laryr Joyec Work Phone: Start: 10-09-2023 Ecg routine ecg w/le ast 12 lds i&r only Susan Núñez MANAGER PLAN.PROGRESSIVE ASSEMBLER AND FITTER Work Phone: Start: 05-31-2022 MRI of lumbar [...] DTaP,Tdap,Td Vaccine (3 - Td or Tdap) [facility] Start: 10-15-2025 End: 10-15-2025 Patient encounter procedure 10/15/2025 1:00 PM EST Office Visit [facility] [address] [place] [address] Susan Núñez, MANAGER PLAN.PROGRESSIVE ASSEMBLER AND FITTER [address] [facility] [address] [place] [address] [facility] Comment on above: 1 year follow up Start: 10-14-2025 BP Controlled (<130/80) BP Controlle d (<130/80) [facility] Start: 12-28-2024 DIABETES SCREEN DIABETES SCREEN [facility] Start: 12-28-2024 Diabetes Screening Diabetes Screenin g [facility] Start: 06-30-2024 Covid-19 Vaccine () Covid-19 Vaccine () [facility] Start: 12-28-2023 Patient discharge [facility] Start: 12-27-2023 Application of intermittent pneumatic compression device [facility] Start: 12-27-2023 Following clinical pathway protocol [facility] Start: 12-27-2023 Provision of overbed trapeze [facility] Start: 12-27-2023 Admission procedure [facility] Start: 12-27-2023 Ambulation therapy management [facility] Start: 12-27-2023 Application of device [facility] Start: 12-27-2023 Assessment of risk o f venous thromboembolism [facility] Start: 12-27-2023 Catheterization of vein [facility] Start: 12-27-2023 Exercises [facility] Start: 12-27-2023 Following clinical pathway protocol [facility] Start: 12-27-2023 Incentive spirometry [facility] Start: 12-27-2023 Introduction of urin piedad catheter [facility] Start: 12-27-2023 Measuring intake and output [facility] Start: 12-27-2023 Neurovascular assessment [facility] Start: 12-27-2023 Patient education [facility] Start: 12-27-2023 Procedure discontinued [facility] Start: 12-27-2023 Provision of activit y privileges [facility] Start: 12-27-2023 Recommendation to continue with treatment [facility] Start: 12-27-2023 Referral to occupati onal therapist [facility] Start: 12-27-2023 Referral to service [facility] Start: 12-27-2023 Vital signs measurements [facility] Start: 12-27-2023 Wound care [facility] Start: 12-27-2023 [facility] Start: 12-27-2023 Consultation [facility] Start: 10-30-2023 Advance Directive Discussion Advance Directive Discussion [facility] Start: 10-30-2022 Advance Directive Discussion Advance Directive Discussion [facility] Start: 06-30-2022 Influenza vaccination INFLUENZ A (Season Ended) [facility] Start: 10-30-2021 ADVANCE DIRECTIVE DISCUSSION ADVANCE DIRECTIVE DISCUSSION [facility] Start: 06-30-2021 Influenza vaccination INFLUENZA (#1) [facility] Start: 03-01-2021 Screening for malign ant neoplasm of colon [facility] Start: 2014 BONE DENSITY BONE DENSITY [facility] Start: 2014 Bone Density Screening Bone Density Screening [facility] Start: 2014 PNEUMOCOCCAL: 65+ (1 - PCV) PNEUMOCOCCAL: 65+ (1 - PCV) [facility] Start: 2014 PNEUMOVAX AGE 65 AND OVER WITH 5YR LOOKBACK (#1) PNEUMOVAX AGE 65 AND OVER WITH 5YR LOOKBACK (#1) [facility] Start: 2014 Screening for osteoporosis Bone Density Screening [facility] Start: 2009 RSV Vaccine (1 - 1-d ose 60+ series) RSV Vaccine (1 - 1-dose 60+ series) [facility] Start: 2009 RSV Vaccine (1 - Ris k 60-74 years 1-dose series) RSV Vaccine (1 - Risk 60-74 years 1-dose series) [facility] Start: 1999 SHINGRIX VACCINE (1 of 2) JIMÉNEZ GRIX VACCINE (1 of 2) [facility] Start: 1994 COLOGUARD (FIT-DNA) COLOGUARD (FIT-D NA) [facility] Start: 1994 Colonoscopy COLONOSCOPY [facility] Start: 1994 COLORECTAL CANCER SCREENING COLORECTAL CANCER SCREENING [facility] Start: [address] COLONOGRAPHY [facility] Start: 1994 DIABETES SCREEN DIABETES SCREEN [facility] Start: 1994 FECAL OCCULT BLOOD FECAL OCCULT BLOO D [facility] Start: 1994 Lipid 1996 panel - S helio or Plasma Lipid Screening [facility] Start: 1994 Lipid panel Lipid Screening [facility] Start: 1994 LIPID SCREEN LIPID SCREEN [facility] Start: 1994 Screening for malign ant neoplasm of colon [facility] Start: 1994 SIGMOIDOSCOPY SIGMOIDOSCOPY [facility] Start: 1989 Mammography [facility] Start: 1989 Screening for malign ant neoplasm of breast Mammogram Screening [facility] Start: 1968 Urine microalbumin profile DTAP,TDAP,TD (1 - Tdap) [facility] Start: 1967 ANNUAL PCP TEAM VEHICLE CARE SPECIALIST SAGAR DISEASE VISIT ANNUAL PCP TEAM CHRONIC DISEASE VISIT [facility] Start: 1967 Anxiety Screening Anxiety Screening [facility] Start: 1967 BP CONTROLLED (<130/80) BP CONTROLLE D (<130/80) [facility] Start: 1967 HEPATITIS C SCREENING HEPATITIS C [facility] Start: 1967 Hepatitis C screening Hepatitis C [facility] Start: 1954 COVID-19 VACCINE (1) COVID-19 VACCIN E (1) [facility] Start: [birth year]-28-1950 COVID-19 VACCINE (#1) COVID-19 VACCI NE (#1) [facility] ECG COMPLETE ECG COMPLETE ECG Routine Benign hypertension 09/05/2022 3:15 PM EST [facility] Work Phone: ECG COMPLETE ECG COMPLETE ECG Routine Atrial tachycardia 10/09/2023 2:37 PM EST [facility] Work Phone: ECG COMPLETE ECG COMPLETE ECG Routine Atrial tachycardia (HCC) 10/14/2024 1:51 PM EST [facility] Work Phone: Exercise tolerance test [facility] Patient referral [facility] Work Phone: Polysomnography [facility] Immunizations Immunization Date Immunization Notes Care Provider Nadya wilder 09-10-2024 influenza, high dose seasonal, preservative-free; Translations: [Fluad PF Prefilled Syringe ] DR LARRY JOYCE DO [facility] 09-07-2023 Pneumococcal conjuga te PCV20, polysaccharide [id number] conjugate, adjuvant, PF; Translations: [Prevnar 20] DR LARRY JOYCE DO [facility] 09-07-2023 influenza, high dose seasonal, preservative-free; Translations: [Fluad Quadrivalent PF ] DR LARRY JOYCE DO [facility] 09-01-2022 influenza, high dose seasonal, preservative-free DR LARRY JOYCE DO [facility] 09-07-2020 influenza virus vacc ine, unspecified formulation DR LARRY JOYCE DO [facility] Comment on above: Location History: [facility] 06-22-2018 tetanus toxoid, redu jono diphtheria toxoid, and acellular pertussis vaccine, adsorbed DR LARRY JOYCE DO [facility] 01-26-2015 pneumococcal conjuga te vaccine, [address] LARRY JOYCE DO [facility] 03-19-2007 tetanus toxoid, redu jono diphtheria toxoid, and acellular pertussis vaccine, adsorbed DR LARRY JOYCE DO [facility] 03-04-2002 pneumococcal polysaccharide vaccine, [address] LARRY JOYCE DO [facility] Payers Date Payer Category Payer Self-pay [id number] 2023 Medicare [id number] 2016 Unknown KARTHIK ANGELES ME DICARE SUPPLEMENT [id number] 2016-Present [phone] [address] [place] [address] Indemnity [id number] 2016 Private Health Insurance [facility] [id number] 2016 Unknown [id number] 2016 Unknown [id number]. [id number] 2014 Medicare MEDICARE MEDICAR E A AND B [id number] 2014-Present [phone] [address] [address] [place] [address] Medicare [id number] 2014 Medicare [id number] [id number]. [id number] 2014 Medicare [id number] 1950 Unknown [id number] 2.16.840.1.547313.3.579. 2.627 1949 Unknown [id number] 2.16.840.1.313964.3.579. 2.62 1949 Unknown [id number] 2.16.840.1.074509.3.579. 2.627 1949 Unknown [id number] 2.16.840.1.190330.3.579. 2.62 1949 Unknown [id number] 2.16.840.1.457174.3.579. 2.627 1949 Unknown [id number] 2.16.840.1.559320.3.579. 2.62 1949 Unknown [id number] 2.16.840.1.121540.3.579. 2.62 1949 Unknown [id number] 2.16.840.1.263514.3.579. 2.62 1949 Unknown [id number] 2.16.840.1.838579.3.579. 2. 1949 Unknown [id number] 2.16.840.1.678388.3.579. 2. 1949 Unknown [id number] 2.16.840.1.958408.3.579. 2. 1949 Unknown [id number] 2.16.840.1.710570.3.579. 2.62 1949 Unknown [id number] 2.16.840.1.040382.3.579. 2.62 1949 Unknown [id number] 2.16.840.1.481880.3.579. 2.62 1949 Unknown [id number] 2.16.840.1.430234.3.579. 2.62 Unknown [id number] Unknown [id number] 2.16.840.1.815106.3.579. 2.462 Unknown [id number] 2.16.840.1.676481.3.579. 2.462 Unknown [id number] 2.16.840.1.437207.3.579. 2.462 Unknown [id number] 2.16.840.1.624943.3.579. 2.462 Social History Date Type Detail Facility Start: 06-21-2019 End: 11-27-2023 Never smoked tobacco (finding) [facility] Comment on above: no smoke exposure Start: 1950 Sex Assigned At Female A [facility] Start: 11-23-2021 End: 10-09-2023 Tobacco use and exposure Smokeless tobacco non-user [facility] Start: 12-29-2021 End: 10-14-2024 Alcohol intake Lifetime non-drinker (finding) [facility] Start: 11-23-2021 History SDOH Alcohol Frequency 1 [facility] Start: 1950 Sex Assigned At Not on file [facility] Start: 02-12-2022 End: 09-05-2022 Exposure to SARS-CoV-2 (event) Not sure [facility] Start: 03-31-2022 End: 11-27-2023 Tobacco smoking status NHIS Unknown if ever smoked [facility] Start: 10-09-2023 End: 10-14-2024 History of Social function [facility] Start: 10-09-2023 End: 10-14-2024 Tobacco use panel [facility] National Score (1-100), lower number is lower risk 67 [facility] Sexual Orientation [facility] Start: 04-24-2019 Sex Female (finding) [facility] NEGATED: Highlighted rowStart: NINF History of tobacco use Passive smoker [facility] Medical Equipment Procedure Code Equipment Code Equipment Origin al Text Equipment Identifier Dates 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 approach ([id number]) Ceramic femoral head prosthesis ()[id number] FDA Start: 12-27-2023 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 approach ([id number]) Non-constrained polyethylene acetabular liner ()[id number] FDA Start: 12-27-2023 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 approach (016666220) Acetabular shell ()[id number] FDA Start: 12-27-2023 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 approach ([id number]) Coated hip femur prosthesis, modular ()[id number] FDA Start: 12-27-2023 Goals Date Patient Goal Desired Activity /State Personal health goal Functional Status Date Assessment Result Facility 12-02-2024 Functional Status Maintained [facility] d[facility] 12-28-2023 Functional status Chair [facility] Work Phone: 12-27-2023 Functional status With Assist of 1 [facility] Work Phone: Mental Status Date Assessment Result Facility 12-02-2024 Mental Status Oriented x 4 [facility] 12-28-2023 Cognitive function Level Of Cons ciousness Awake;Alert;Appropriate;Follow s Commands [facility] Work Phone: 12-27-2023 Cognitive function Voice/Name [facility] Work Phone: Clinical Notes 09-30-2021 to 05-05-2025 Note Date & Type Note Facility 05-05-2025 Nurse Progress note patient tolerated prolia injection without signs or symptoms of a reaction Digitally Signed by Annia Hudson RN on 05/05/2025 02:20 PM [facility] 12-02-2024 Evaluation + Plan note Extrac noman from: Title:Clinical Document Author:BRENDEN LEON Date:12/02/24 [place] ADMISSION HISTORY AN D PHYSICIAL CHIEF COMPLAINT: HISTORY OF PRESENT ILLNESS: REVIEW OF SYSTEMS: ACTIVE PROBLEMS: (16) Abnormal CT scan, lung (2490839729) Atrial tachycardia (535451111) BMI 40.0-44.9, adult (9412067706) DVT (deep vein thrombosis) in (64877610) DVT - Deep vein thrombosis (1168498041) History of DVT in adulthood (3343224940) Hyperlipidemia (86865852) Hypertension (5213751382) Iron deficiency (39292892) Moderate recurrent major depression (470972680) Morbid obesity (612934664) LEELA (obstructive sleep apnea) (769432528) Osteoarthritis, knee (180100933) Osteoporosis (481679827) Shingles (9473453) Vitamin D deficiency (28202861) MEDICATIONS: Active Inpt Meds: None Active PRN Meds: None One Time Meds: None Active IV Meds: Lactated Ringers Infusion 1,000 mL (LR 1,000 mL) Start: 12/02/24 10:25:00 EST, Rate: 50 mL/hr, 12/02/24 10:25:00 EST ALLERGIES: (1) NKA FAMILY HISTORY: SOCIAL HISTORY: PHYSICAL EXAM: VITALS: UqjgikDavvUPKqagtZUIxM8XPT9SzcwQs(kg) 12/02 10:3336--850176XY03/03 89.6 24 Hr Tmax: 36 at 12/02 [...] Date:03/11/2025 02:00:00 PM Scheduled Provider:LARRY JOYCE DO Location:[facility] Appointment Type:[facility] 02-03-2025 Hospital Discharge instructions Patient Education [...] 07/12/2005 Document Revised: 01/31/2019 Document Reviewed: 01/31/2019 [employer] Patient Education 2020 [employer]. 12/02/2024 11:17:39 Moderate Conscious Sedation, Adult, Care [...] until you are awake and alert. Take mneh-wlf-ehuuqbr and prescription medicines only as told by [...] 08/06/2014 Document Revised: 09/28/2018 Document Reviewed: 02/04/2017 [employer] Patient Education 2020 [employer]. 12/02/2024 11:17:34 Colonoscopy, Adult, Care After, Uzqp-gz-Qoif Colonoscopy, Adult, Care After This sheet gives [...] are soft and easy to digest. Take lgwf-nqp-wuhswat or prescription medicines only as told by [...] 11/18/2011 Document Revised: 08/16/2018 Document Reviewed: 07/10/2017 [employer] Patient Education 2020 [employer]. Follow Up Care 11/22/2024 10:08:25 With:BRENDEN LEON MD Address: [address] [phone] When: Unknown [facility] 02-03-2025 Note Discharge Instructions Thank you for allowing [facility] to assist you with your healthcare needs. The following is importantdischarge information regarding your hospital visit. Your Care Team LARRY JOYCE DO DR. LEON What to do next Scheduled Follow-Up Appointments Appointment Type When With Where Contact Information StatusPC 03/11/2025 02:00 PM EDT LARRY JOYCE DO [address] [address] Confirmed Follow Up Appointments Follow Up with BRENDEN LEON MD Where:[address] [place] [address]- [phone] The Following Activity and Diet Have Been [...] 07/12/2005 Document Revised: 01/31/2019 Document Reviewed: 01/31/2019 [employer] Patient Education 2020 [employer] Moderate Conscious Sedation, Adult, Care After These [...] until you are awake and alert. Take tftk-ass-ojkenuh and prescription medicines only as told by [...] 08/06/2014 Document Revised: 09/28/2018 Document Reviewed: 02/04/2017 [employer] Patient Education 2020 [employer]. Colonoscopy, Adult, Care After This sheet gives [...] are soft and easy to digest. Take skoe-fvy-ywtpjks or prescription medicines only as told by [...] 11/18/2011 Document Revised: 08/16/2018 Document Reviewed: 07/10/2017 [employer] Patient Education 2020 [employer] Additional Information VACCINATE! IT SAVES LIVES! Members of the community who have not yet received the COVID-19 vaccine and would like to receive it can visit one of [facility] vaccine clinics. There are many vaccine clinic locations within the [facility]. For locations and available times, please visit [email or web address] It is important to note that some COVID mobile vaccine clinics are held outdoors and may be canceled in rainy or stormy conditions. To learn more about pediatric vaccinations (ages 5-11), we invite you to visit the [facility] webpage. [email or web address]/pages/[email or web address]-Boljj-Pbvqsdjgmxs-Tkbohysmzy-[email or web address]-Qna stions.htmlTo learn more about the COVID-19 vaccine, we invite you to visit the CDC website for a list of frequently asked questions.https://www.cdc.gov/coronavirus/2019-ncov/vaccines/faq.html [facility] Patient Portal Access Instructions: Stay connected with your healthcare team and access your personal medical information anytime with the [employer] Patient Portal. Please follow the directions below to create your [employer] account: 1.Access the email account you provided upon registration to the hospital/physician office.2.Look for an invitation email from [facility].3.Open the email and access the invitation link: AcceptInvitation to [employer].4.Fill in the required ocampo to create your account. To access your account, visit [employer]. Click the blue button labeled "Access Patient Portal" and then log in with the username [...] who you will allowto register on the [employer] Patient Portal for access to your information. You can also access the [employer] Patient Portal on the [employer] [employer]. Simply click on "Patient Portal" and then log into your account. If you would like to receive a full copy of your medical records, please contact the [facility] Medical Records Department by calling [phone], Monday through Monday between 8 a.m. and [...] Call your local pharmacy or go to http://bit.ly/5Z4Kl4k to find one close to you.3.Make use of household items: Use cat litter or old coffee grounds to dispose medications if other options arenot available. Mix your drugs with these household products, seal them in an airtight container andthrow it into the garbage. Call [facility]: [phone] to be sure your drugs can be [...] Adult, Care After Colonoscopy, Adult, Care After, Zicn-aw-Icyo Medication Leaflets My discharge plan and instructions have been reviewed and explained to me and ILIV KATHERN Munderstand my current condition and have read and understand these discharge instructions. I have received a written copy of the plan/instructions. If I have questions, I am aware that I should contact my doctor. Patient/Karate Black Belt Signature: Date/Time: Relationship to Patient: Witness Name/Signature: Date/Time: [facility]02-03-2025 Anesthesiology Consult note Patient: MI PECK Age: 74 years Sex: Female : 1950 Associated Diagnoses: None Author: VENESSA VINESSTABBER Preoperative Information Time of last food or [...] (deep vein thrombosis) in / SNOMED CT 35072535 / Confirmed Atrial tachycardia / SNOMED CT 278953447 / Confirmed BMI 40.0-44.9, adult / SNOMED CT 9057338295 / Confirmed DVT - Deep vein thrombosis / SNOMED CT 9966953651 / Confirmed Shingles / SNOMED CT 0654597 / Confirmed History of DVT in adulthood / SNOMED CT 6211093966 / Confirmed Hyperlipidemia / SNOMED CT 69608527 / Confirmed Hypertension / SNOMED CT 6461196866 / Confirmed Abnormal CT scan, lung / SNOMED CT 7254437141 / Confirmed Iron deficiency / SNOMED CT 84784413 / Confirmed Morbid obesity / SNOMED CT 320715795 / Confirmed LEELA (obstructive sleep apnea) / SNOMED CT 273745822 / Confirmed Osteoarthritis, knee / SNOMED CT 075817257 / Confirmed Osteoporosis / SNOMED CT 023253385 / Confirmed Moderate recurrent major depression / SNOMED CT 142793456 / Confirmed Vitamin D deficiency / SNOMED CT 95511165 / Confirmed, Active Problems (16) Abnormal CT scan, lung Atrial tachycardia BMI 40.0-44.9, adult DVT (deep vein thrombosis) in DVT - Deep vein thrombosis History of DVT in adulthood Hyperlipidemia Hypertension Iron deficiency Moderate recurrent major depression Morbid obesity LEELA (obstructive sleep apnea) Osteoarthritis, knee Osteoporosis Shingles Vitamin D deficiency Histories Past Medical History: Resolved Hypoxia (7889380824): Resolved. Pneumonia due to COVID-19 virus (4253313933): Resolved. OLIVER (dyspnea on exertion) (737029933): Resolved. Family History: Diabetes mellitus Sister Stroke Grandparent (maternal grandmother) Heart attack Mother Hyperthyroidism Father Glaucoma Mother Hyperlipidemia Father Brother Osteoarthritis Mother Father Diabetes Sister Procedure history: Right hip (663937185) on 12/27/2023 at 73 Years. Comments: 09/10/2024 13:33 Jasmina Lewis LPN Total replacement Colonoscopy (451456351) on 04/09/2018 at 67 Years. Bilateral cataracts (838225524) on 11/30/2017 at 67 Years. Comments: 04/09/2018 7:34 Megan Araujo RN SECOND SURGERY JANUARY 2018 Barium enema (294497301) on 10/30/2004 at 54 Years. Cholecystectomy (41811322) on 10/30/1989 at 39 Years. Appendectomy (827864208). Tubal ligation (834726949). Cataract (023623874). Comments: 06/11/2019 11:43 Jasmina Nolasco LPN bilateral Social History: Social & Psychosocial Habits Alcohol 12/02/2024Risk Assessment: Denies Alcohol Use 12/02/2024 Use: Never Substance Abuse 12/02/2024Risk Assessment: Denies Substance Abuse 12/02/2024 Use: Never Tobacco 12/02/2024 Tobacco Use: Never (less than 100 in l Comment: no smoke exposure - 06/21/2019 13:19 - Valentina Valdovinos RN Home/Environment 12/02/2024 Primary Assembly Repairer: self Nutrition/Health 12/02/2024 Caffeine intake amount: [...] Signs (last 24 hrs) Last Charted Temp Zmpdymwh72.4 DegC (DEC 02 11:15) Heart Rate Oljgouarc77 bpm (DEC 02 11:15) AEO639 mmHg (DEC 02 11:15) DBPL 57 mmHg (DEC 02 11:15) BMI37.78 (DEC 02 10:33) Measurements from flowsheet : Measurements 12/02/2024 10:33 EST Height 154 cm Admission Weight 89.6 kg Weight Method Stated [place] Body Weight 46.95 kg BSA Admission 1.87 [...] Type 0-10 Pain scale Nail Bed Color Point Blank Capillary Refill < 2 seconds Respirations Unlabored [...] Position Lateral, left side down Provider Name MISAELVENESSA JOYA Shayne MANAGER PLAN-STABBER Transported From Operating Room Anesthesia Summary Review [...] Lactated Ringers Injection Begin Bag 1,000 mL mL Hollis History and Physical 12/02/2024 10:50 EST SN [...] Surgeon SN - CAt - Role Performed STABBER SN - CAt - Role Performed [employer] 1 SN - CAt - Role Performed Suction Worker 1 12/02/2024 10:33 EST Designated Person #1 We May Share PHI ELMER () [phone] Designated Person #1 Relationship Spouse Designated Person #2 We May Share PHI Swapna Bernabephdonta (DIL) [phone] Additional Designated Person Share PHI Additional Designated Person Share PHI Privacy Restrictions Requested None Height 154 cm Admission Weight 89.6 kg Weight Method Stated [place] Body Weight 46.95 kg BSA Admission 1.87 [...] Allergies Yes Anesthesia Extension Set Applied Yes Research And Development Manager On Yes Colon Prep Results Good Consent [...] Method Explanation, Printed materials Preferred Spoken Language Norwegian Preferred Written Language Norwegian Patient's Current Physicians DR. STEVENS Discharge To, [...] Note-Nursing Procedure/Therapy Intake . Assessment and Plan [place] Society of Anesthesiologists (ASA) physical status classification: Class III. Anesthetic Preoperative Plan Anesthetic technique: MAC. Postoperative pain management: Per surgeon. Informed consent: signed by patient. Digitally Signed by VENESSA VINES on 12/02/2024 11:18 AM [facility]02-03-2025 Note Date of Service 12/02/2024 Procedure Name Screening colonoscopy history of colon polyp Consent Taken before procedure Indication Screening history of colon polyp Location [facility] Pre-Procedure Exam High risk screening history [...] POLYPS, HISTORY OF COLON POLYPS, Preferred Lab: [facility], [id number] Post Procedure Assessment, 12/02/24 11:13:00 EST, Stop [...] BRENDEN LEON MD on 12/02/2024 11:17 AM [facility]02-03-2025 Note [place] ADMISSION HISTORY AND PHYSICIAL CHIEF COMPLAINT: HISTORY OF PRESENT ILLNESS: REVIEW OF SYSTEMS: ACTIVE PROBLEMS: (16) Abnormal CT scan, lung (9395149819) Atrial tachycardia (746705702) BMI 40.0-44.9, adult (4658328951) DVT (deep vein thrombosis) in (56158511) DVT - Deep vein thrombosis (9620146945) History of DVT in adulthood (5820914391) Hyperlipidemia (73807634) Hypertension (0726923089) Iron deficiency (56298931) Moderate recurrent major depression (645330724) Morbid obesity (316335860) LEELA (obstructive sleep apnea) (273289533) Osteoarthritis, knee (842343955) Osteoporosis (359816994) Shingles (9728804) Vitamin D deficiency (83142869) MEDICATIONS: Active Inpt Meds: None Active PRN Meds: None One Time Meds: None Active IV Meds: Lactated Ringers Infusion 1,000 mL (LR 1,000 mL) Start: 12/02/24 10:25:00 EST, Rate: 50 mL/hr, 12/02/24 10:25:00 EST ALLERGIES: (1) NKA FAMILY HISTORY: SOCIAL HISTORY: PHYSICAL EXAM: VITALS: HfniskFhrhUMAaavaXEPxA1XDF2ZgdpLm(kg) 12/02 10:3336--442508WM86/03 89.6 24 Hr Tmax: 36 at 12/02 [...] BRENDEN LEON MD on 12/02/2024 10:57 AM [facility]01-03-2025 Nurse Progress note Patient tolerated injection without signs or symptoms of reaction. Patient left the unit without incident. Digitally Signed by Loni Yeboah RN on 11/01/2024 10:21 AM [facility]12-16-2024 History of Present illness Narrative * Susan Núñez, POOJA.PROGRESSIVE ASSEMBLER AND FITTER - 10/14/2024 1:00 PM EST [facility] Larry Joyce DO, SUBJECTIVE: Mi Peck [...] echocardiogram 12/08/2021 EF 55-60%, trivial MR, trivial SD, trivial History of cardiac monitoring 11/16/2021 83 runs of SVT History of DVT (deep vein thrombosis) History of stress test 12/20/2021 EF 61%, reversible defect in the anterior and inferior on distal inferolateral wall extending to the apex suggesting ischemia in this area. Hx of cardiac catheterization 12/28/2021 EF 55% normal left cardiac catheterization done by Dr. Hernandez at [facility]. Iron deficiency care home current use of anticoagulant Xarelto 20 mg [...] and monitor for recurrent atrial arrhythmias. 4. care home (current) use of anticoagulants - ICD9: V58.61, [...] with change in symptoms. documented in [facility] NoteHNO ID: [id number] Author: SUSAN NÚÑEZ APRN.PROGRESSIVE ASSEMBLER AND FITTER Service: ? Author Type: Nurse Practitioner Type: Progress Notes Filed: 10/14/2024 13:06 Note Text: [facility] Larry Joyce DO, SUBJECTIVE: Mi Peck [...] echocardiogram 12/08/2021 EF 55-60%, trivial MR, trivial SD, trivial History of cardiac monitoring 11/16/2021 83 runs of SVT History of DVT (deep vein thrombosis) History of stress test 12/20/2021 EF 61%, reversible defect in the anterior and inferior on distal inferolateral wall extending to the apex suggesting ischemia in this area. Hx of cardiac catheterization 12/28/2021 EF 55% normal left cardiac catheterization done by Dr. Hernandez at [facility]. 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 (more content not included)...[facility]12-06-2024 Note ORIGINAL EXAMINATION: BONE DENSITOMETRY 10/04/2024 3:53 [...] Date: 10/04/2024 3:55:43 PM [facility] Progress note patient tolerated prolia injection without signs or symptoms of a reaction Digitally Signed by Annia Hudson RN on 04/15/2024 12:21 PM [facility]02-29-2024 Consult note Author Christi Vivar [facility] December 28, 2023 11:52am Note Date/Time December 28, 2023 11:52am [facility] Medical Records Department [address] [place] [address] Counseling Note - Pharmacy 12/28/23 1150 MR#: [id number] Acct: [id number] Name: QUIRINO PECK Rep #:[id number] : 1950 73 From: Christi Vivar PCP: Dr. Larry Joyce DO Status: ADM TAMMY Y Location: [place] [address] Pharmacy [facility] has [...] understanding of their dischargemedications. Patient counseled by pharmacy delivery driver, Levi. Medications at Discharge Home Medications cholecalciferol (vitamin D3) 50 mcg (2,000 unit) capsule 50 mcg PO DAILY 03/24/22 denosumab 60 mg/mL subcutaneous syringe 60 mg subcut [id number] 03/24/22 venlafaxine 37.5 mg capsule,extended release 24 hr 37.5 mg PO DAILY 03/24/22 zinc 50 mg tablet 50 mg PO DAILY 03/24/22 ascorbic acid (vitamin C) 1,000 mg tablet 1 g PO DAILY 06/08/22 benazepril 10 mg tablet 10 mg PO [...] signed by Christi Vivar> Date _ Christi Richardson Signature (if applicable): Date CC: ~ Signed [facility] Work Phone: 1(252) 842-386602-29-2024 Progress note Author Alejandro Fitzpatrick [facility] December 28, 2023 11:23am Note Date/Time December 28, 2023 10:18am [facility] Medical Records Department [address] [place] [address] Progress Note - Orthopedic 12/28/23 1011 MR#: [id number] Acct: [id number] Name: QUIRINO PECK Rep #:[id number] : 1950 73 From: Alejandro DUBON PA-C PCP: Dr. Larry Joyce, DO Status: ADM TAMMY Location: [place] [address] Subjective Subjective The patient was sitting in [...] would like her prescriptions E scribed to [facility] pharmacy. Upon discharge she will contact her officewith any concerns or questions. I have reviewed the [place] Automated Rx Reporting System (OARRS) report for [...] Cosigner Signature (if applicable): cc: ~* Signed [facility] Work Phone: 1(168) 646-987702-29-2024 Discharge summary Author Alejandro Fitzpatrick [facility] December 28, 2023 10:24am Note Date/Time December 28, 2023 10:19am [facility] Medical Records Department [address] [place] [address] Instructions for Home/Discharge Instructions 12/28/23 1018 MR#: [id number] Acct: [id number] Name: QUIRINO PECK Rep #:[id number] : [...] level: Operative Extremity Additional Activity Instructions:: Follow [facility] Post-op Instructions. Once postoperative dressing has [...] denosumab 60 mg/mL syringe 60 mg subcut [id number] venlafaxine 37.5 mg capsule,extended release 24hr 37.5 [...] - Ines Ruiz PA [Med Staff - [facility] Practice Prof] - 01/10/24 3:15 pm Disposition Disposition (needs filled in before D/C Order can be placed): Home, Self Care 12/28/23 1024<Electronically signed by Alejandro DUBON PA-C>Alejandro DUBON PA-C CC: Dr. Larry Joyce DO; Dr. Roselia Dailey MD ~ Signed [facility] Work Phone: 1(425) 694-247702-28-2024 Progress note Author Zachary Andino [facility] December 27, 2023 6:40pm Note Date/Time December 27, 2023 6:40pm [facility] Medical Records Department [address] [place] [address] Progress Note - Hospitalist 12/27/23 1829 MR#: [id number] Acct: [id number] Name: QUIRINO PECK Rep #:[id number] : 1950 73 From: Zachary Andino DO PCP: Dr. Larry Joyce DO Status: ADM TAMMY Location: [place] [id number] Reason for Visit Reason for Visit: Diagnoses [...] Charges/Coding Visit Charges Office Visits / Consults: 27591 OV L4 Est 30min 12/27/23 1840 <Electronically signed by Zachary Andino DO> Cosigner Signature (if applicable): CC: ~ Signed [facility] Work Phone: 1(435) 373-895902-28-2024 Procedure [facility] 12-27-2023 History and physical note Author Norah Turner [facility] December 27, 2023 9:57am Note Date/Time December 21, 2023 6:51am [facility] Medical Records Department [address] [place] [address] History & Physical Exam 12/21/23 0649 MR#: [id number] Acct: [id number] Name: QUIRINO PECK Rep #:[id number] : 1950 73 From: Alejandro DUBON PA-C PCP: Dr. Larry Joyce, DO Status: REG [facility] Location: [place] [address] History and Physical History and Physical? Patient Name: Mi Muellerhrey : 1950 From:? ALEJANDRO FITZPATRICK PA-C? DATE [...] 1970 Surgical Hx: Appendectomy Cataracts - (2018) [facility]? Gallbladder - (2018) AO Tonsillectomy - AO Anesthesia Complications: Anesthesia Complications - NAUSEA? Assistive Devices: Glasses, Dentures, Walker, Bipap Reviewed and updated. SOCIAL HISTORY: Social History: Marital: .Occupation: Retired.Work Status: Retired.Hand Dominance: Right-handed. Personal Habits:? Cigarette Use: Never Smoked Cigarettes.Smokeless Tobacco: Never Used Smokeless Tobacco.E-Cigarette Use: Never used.Alcohol: Denies use.Drug Use: Denies Use.Enjoy Exercising: Exercises 1-3 X/Week. Reviewed, no changes. VITALS: Ht: 60.9" Wt: 219lb 6oz Wt k.508 BMI: 41.6 [...] (if applicable): CC: MOHIT Fitzpatrick; Dr. Larry Joyce DO; Dr. Norah Turner MD~ Signed ADDENDUM by Dr. Norah Turner MD on 12/27/23 at 0957 Addendum I have examined the patient and the H&P has been reviewed. There are no clinicalchanges since date of exam. 12/27/23 0957<Electronically signed by Norah Turner MD> Cosigner Signature (if applicable): cc: MOHIT Fitzpatrick; Dr. Larry Joyce DO; Dr. Norah Turner MD ~* Signed [facility] Work Phone: 1(688) 327-554702-13-2024 History of Past illness Narrative* Problem Noted Date Diagnosed Date Resolved Date Anticoagulation goal of INR 3.0 to 4.0 11/25/2021 08/30/2022 documented as of this encounter (statuses as of 12/12/2023) [facility] History of Past illness Narrative* Problem Noted Date Diagnosed Date Resolved Date Anticoagulation goal of INR 3.0 to 4.0 11/25/2021 08/30/2022 documented as of this encounter (statuses as of 12/08/2023) [facility]12-[facility] History of Present illness Narrative* Mary Cooper APRN.PROGRESSIVE ASSEMBLER AND FITTER - 10/09/2023 1:20 PM EST [facility] Date: October 09, 2023 Primary Care Provider: Larry Joyce, DO SUBJECTIVE: Chief Complaint: 1 year follow-up [...] echocardiogram 12/08/2021 EF 55-60%, trivial MR, trivial SD, trivial History of cardiac monitoring 11/16/2021 83 runs of SVT History of stress test 12/20/2021 EF 61%, reversible defect in the anterior and inferior on distal inferolateral wall extending to the apex suggesting ischemia in this area. Hx of cardiac catheterization 12/28/2021 EF 55% normal left cardiac catheterization done by Dr. Hernandez at [facility]. Iron deficiency Mixed hyperlipidemia Moderate recurrent [...] deviation, HR 76, QRS 78, QTc 402, SD 144 ASSESSMENT/PLAN: 1. Atrial tachycardia -Per Dr Shea 02/22/22 note, Holter monitor in 2021 showed 83 short episodes, longest 11 beat run, fastest 6 beat run 208 bpm. 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 -She is [...] she had recent labs, requested results from Larry Joyce's office 3. Mixed hyperlipidemia -No recent labs on file for review. abs with PCP. Will obtain copies -Continue low intensity statin. Managed by PCP and patient reports she had recent labs, requested results from Larry Joyce's office 4. 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 History of DVT, remote -Per patient report her DVT was provoked in 1998 when she had pneumonia and was unable to do anything and was very inactive due to illness Mary Cooper APRN, MSN, PROGRESSIVE ASSEMBLER AND FITTER Follow-up: One year Susan Núñez documented in this encounterOhio[facility] History of Past illness Narrative* Problem Noted Date Diagnosed Date Resolved Date Anticoagulation goal of INR 3.0 to 4.0 11/25/2021 08/30/2022 documented as of this encounter (statuses as of 10/10/2023) [facility]11-08-[facility] History of Past illness Narrative* Problem Noted Date Resolved Date Anticoagulation goal of INR 3.0 to 4.0 08/30/2022 documented as of this encounter (statuses as of 09/06/2022) [facility]11-07-2022 NoteHNO ID: [id number] Author: Adolfo Gonsales, DO Service: ? Author [...] on exertion) Dvt femoral (deep venous thrombosis) ([facility]) H/O echocardiogram 12/08/2021 EF 55-60%, trivial MR, trivial SD, trivial History of cardiac monitoring 11/16/2021 83 runs of SVT History of stress test 12/20/2021 EF 61%, reversible defect in the anterior and inferior on distal inferolateral wall extending to the apex suggesting ischemia in this area. Hx of cardiac catheterization 12/28/2021 EF 55% normal left cardiac catheterization done by Dr. Hernandez at [facility]. Hypoxia Iron deficiency Mixed hyperlipidemia Moderate [...] 138/70 Pulse 86 Ht 157.5 cm (5' 2") Wt 104.3 kg (230 lb) BMI 42.07 kg/m? PHYSICAL EXAMINATION: BP 138/70 Pulse 86 Ht 157.5 cm (5' 2") Wt 104.3 kg (230 lb) BMI 42.07 [...] Cervical back: Normal r (more content not included)...[facility] 09-05-2022 History of Present illness Narrative* Adolfo Gonsales, - 09/05/2022 2:08 PM EST Referring Provider: [...] echocardiogram 12/08/2021 EF 55-60%, trivial MR, trivial SD, trivial History of cardiac monitoring 11/16/2021 83 runs of SVT History of stress test 12/20/2021 EF 61%, reversible defect in the anterior and inferior on distal inferolateral wall extending to the apex suggesting ischemia in this area. Hx of cardiac catheterization 12/28/2021 EF 55% normal left cardiac catheterization done by Dr. Hernandez at [facility]. Hypoxia Iron deficiency Mixed hyperlipidemia Moderate [...] 138/70 Pulse 86 Ht 157.5 cm (5' 2") Wt 104.3 kg (230 lb) BMI 42.07 kg/m PHYSICAL EXAMINATION: BP 138/70 Pulse 86 Ht 157.5 cm (5' 2") Wt 104.3 kg (230 lb) BMI 42.07 [...] QTC Calculation (Bazett) 440 ms Calculated P [place] 57 degrees Calculated R [place] 5 degrees Calculated T [place] 42 degrees Narrative NAME : MI PECK PID : [id number] : 1950 Gender : Female Race : ORD : [id number] Procedure Date : Sep 05 2022 15:15:05 Edit Date : Sep 05 2022 14:15:05 Diagnosis: SINUS RHYTHM WITH PREMATURE SUPRAVENTRICULAR COMPLEXES LOW VOLTAGE QRS, CONSIDER PULMONARY DISEASE, PERICARDIAL EFFUSION, OR NORMAL VARIANT BORDERLINE ECG NO PREVIOUS ECGS AVAILABLE Test Reason : Location : 1 : [facility] Overread By : , Edited By : [...] have patients last FLP on file. 3. care home (current) use of anticoagulants - ICD9: V58.61, [...] it showed EF 55-60%, trivial MR, trivial SD, trivial. 6. History of stress test - [...] cardiac catheterization done by Dr. Hernandez at [facility]. 8. Non-smoker - ICD9: V49.89, ICD10: [...] relationship between dosing and the renal profile. I, Swapna Kraus MA, scribing for Dr. Adolfo Gonsales. Follow [...] In a pictorial format; I described the SD and QRS intervals. This was to show [...] one hundred percent of my time in hovf-va-zkcn conversation with the patient. I answered all the questions and explained the diagnosis of arrhythmia. Greater that 51% of my time was spent with wojo-sm-jcou conversation with the patient. I have discussed [...] record. Adolfo Gonsales DO [facility] Note ORIGINAL EXAMINATION: BONE DENSITOMETRY 06/07/2022 3:22 pm TECHNIQUE: A bone density DEXA scan was performed of the lumbar spine and left hip on a Wyle System. COMPARISON: March 02, 2020. HISTORY: ORDERING [...] Date: 06/07/2022 4:00:36 PM Ordering Provider: LARRY MARIA DEL CARMEN [facility]08-09-2022 Note ORIGINAL EXAMINATION: BONE DENSITOMETRY 06/07/2022 [...] Date: 06/07/2022 4:00:36 PM Ordering Provider: LARRY [facility]08-04-2022 HCoV 229E RNA RENAY+non-probe Ql (Nph)Not Detected *NA* (06/02/22 10:14 AM)AH Auto Viro/Sero [id number] Miscellaneous Notes* Telephone Encounter - Nigel Peña MA - 03/03/2022 8:48 AM EDT Pt called and notified per susan pulse ox was abnormal. She desaturated 461 times wearing overnight pulse ox. She desaturated 62 times an hour. If agreeable, order oxygen at 2 L nasal cannula through [facility]. Refer patient Dr. Vo for further evaluation and treatment abnormal pulse ox. Pt agreeable order faxed to [facility] pt states ct is too far for her she needs a doctor nas or [place]. Pt lives in [place] * Telephone Encounter - Kimberley Rodriguez - [...] call * Telephone Encounter - Susan Núñez APRN.PROGRESSIVE ASSEMBLER AND FITTER - 03/01/2022 8:36 AM EDT Let the patient know, a chest pulse ox was abnormal. She desaturated 461 times wearing a chest pulse ox. She desaturated 62 times an hour. If agreeable, order oxygen at 2 L nasal cannula through [facility]. Refer patient Dr. Vo for further evaluation and treatment abnormal a chest pulse ox. documented in this encounterOhio[facility]04-26-2022 NoteHNO ID: [id number] Author: Kamar Shea MD Service: ? Author Type: Physician Type: Progress Notes Filed: 02/22/2022 8:37 AM Note Text: [facility] PCP: Larry Joyce DO, DO HPI: [...] cardiac catheterization done by Dr. Hernandez at [facility]. CURRENT MEDICATIONS: Current Outpatient Medications Medication [...] echocardiogram 12/08/2021 EF 55-60%, trivial MR, trivial SD, trivial - History of cardiac monitoring 11/16/2021 83 runs of SVT - History of stress test 12/20/2021 EF 61%, reversible defect in the anterior and inferior on distal inferolateral wall extending to the apex suggesting ischemia in this area. - Hx of cardiac catheterization 12/28/2021 EF 55% normal left cardiac catheterization done by Dr. Hernandez at [facility]. - Hypoxia - Iron deficiency - [...] kg (226 lb) Height: 157.5 cm (5' 2") Last 3 Encounter BP Readings: Date: BP: [...] and regular rhyth (more content not included)... [facility]04-26-2022 History of Present illness Narrative* Kamar Shea MD - 02/22/2022 8:10 AM EDT [facility] PCP: Larry Joyce DO, DO HPI: [...] cardiac catheterization done by Dr. Hernandez at [facility]. CURRENT MEDICATIONS: Current Outpatient Medications Medication [...] echocardiogram 12/08/2021 EF 55-60%, trivial MR, trivial SD, trivial History of cardiac monitoring 11/16/2021 83 runs of SVT History of stress test 12/20/2021 EF 61%, reversible defect in the anterior and inferior on distal inferolateral wall extending to the apex suggesting ischemia in this area. Hx of cardiac catheterization 12/28/2021 EF 55% normal left cardiac catheterization done by Dr. Hernandez at [facility]. Hypoxia Iron deficiency Mixed hyperlipidemia Moderate [...] kg (226 lb) Height: 157.5 cm (5' 2") Last 3 Encounter BP Readings: Date: BP: [...] longest being 11 beats, fastest 6 beat bma162 bpm. She is now taking verapamil 240 [...] arteries. Kamar Shea MD documented in this encounter[facility]-28-[facility]22 Miscellaneous Notes* Telephone Encounter - Nigel Peña MA - 01/24/2022 10:30 AM EDT Pt called and notified per susan event monitor looks okay. She had insignificant atrial ectopy. No ventricular ectopy. Pt agreeable * Telephone Encounter - Susan Núñez APRN.PROGRESSIVE ASSEMBLER AND FITTER - 01/24/2022 8:10 AM EDT Let the patient know, event monitor looks okay. She had insignificant atrial ectopy. No ventricularectopy. documented in this encounterOhio[facility]02-17-2022 NoteHNO ID: [id number] Author: Swapna Kraus MA Service: ? Author Type: Manager It Security Type: Progress Notes Filed: 12/20/2021 2:21 PM [...] Abnormal EKG. Heart rate 83 BPM [facility] NoteHNO ID: [id number] Author: Susan Núñez APRN.PROGRESSIVE ASSEMBLER AND FITTER Service: ? Author Type: Nurse Practitioner Type: Progress Notes Filed: 12/09/2021 2:30 PM Note Text: [facility] Larry Joyce DO, DO SUBJECTIVE: Mi [...] kg (224 lb) Height: 157.5 cm (5' 2") Last 3 Encounter BP Readings: Date: BP: [...] mass. Tenderness: There is no abdominal tenderness. Musc (more content not included)...[facility]01-31-2022 NoteHNO ID: [id number] Author: Adolfo Gonsales DO Service: ? Author [...] Pulse (!) 122 Ht 157.5 cm (5' 2") Wt 100.7 kg (222 lb) BMI 40.60 kg/m? PHYSICAL EXAMINATION: BP 128/88 (BP Site: Left Arm, BP Position: Sitting) Pulse (!) 122 Ht 157.5 cm (5' 2") Wt 100.7 kg (222 lb) BMI 40.60 [...] AST, ALT No result (more content not included)...[facility]12-04-2021 Hospital Discharge instructions Patient Education 10/02/2021 11:26:32 Warfarin: What You Need to Know Warfarin: What You Need to Know Warfarin is an anticoagulant. Anticoagulants help prevent the formation of blood clots. They also help stop the growth of blood clots. Warfarin is sometimes referred to as a "blood thinner." Normally, when body tissues are cut or [...] care provider will inform you of your "target" PT or INR range. If, at any [...] Medicines and Dietary Supplements Many prescription and hrpb-mbs-gigssqs medicines can interfere with warfarin. Be sure all of your health care providers know you are taking warfarin. Notify your health care provider who prescribed warfarin for you or your pharmacist before starting or stopping any new medicines, including mebu-gxm-gbvgtez vitamins, dietary supplements, and pain medicines. Your warfarin dose may need to be adjusted. Some common zzlo-eji-jvikuxv medicines that may increase the risk of [...] high in vitamin K: Greens, such as Somali chard and beet, marsha, mustard, or turnip greens (fresh or frozen, cooked). Kale (fresh or frozen, cooked). Parsley (raw). Spinach (cooked). Foods that are high in vitamin K: Asparagus (frozen, cooked). Beans, green (frozen, cooked). Broccoli. Bok addison (cooked). Wishek sprouts (fresh or frozen, cooked). Cabbage (cooked). [...] diet. Start or stop a prescription or kbdd-eko-gugpayr medicine. Become, plan to become, or think [...] have either a bright red or a "coffee-grounds" appearance. Have bleeding that will not stop [...] 10/16/2006 Document Revised: 10/21/2014 Document Reviewed: 04/11/2014 [facility] Patient Information 2015 [facility]. This information is not intended to [...] stopping any new medicines. Many prescription and zstw-jln-rhqplkm medicines can interfere with warfarin. This includes ujfl-akx-eppyqgw vitamins, dietary supplements, herbal medicines, and pain [...] you work with a diet and nutrition aides teacher (dietitian). Vitamin K makes warfarin less effective. [...] dosage. Preventing bleeding and injury Some common fubh-drd-vegeduf medicines and supplements may increase the risk [...] your diet. You start or stop any wcnh-djh-veokwka medicine, prescription medicine, or dietary supplement. You [...] 09/24/2007 Document Revised: 01/03/2018 Document Reviewed: 01/03/2018 [employer] Patient Education 2019 [employer]. 10/02/2021 11:26:30 Vitamin K Foods and Warfarin [...] before making changes. Work with a nutrition aides teacher (dietitian) to develop a meal plan that works best for you. High vitamin K foods Foods that are high in vitamin K contain more than 100 mcg (micrograms) per serving. These include: Broccoli (cooked) cup has 110 mcg. Wishek sprouts (cooked) cup has 109 mcg. Greens, beet (cooked) cup has 350 mcg. Greens, marsha (cooked) cup has 418 mcg. Greens, turnip (cooked) cup has 265 mcg. Green onions or scallions cup has 105 mcg. Kale (fresh or frozen) cup has 531 mcg. Parsley (raw) 10 sprigs has 164 mcg. Spinach (cooked) cup has 444 mcg. Somali chard (cooked) cup has 287 mcg. Moderate [...] mcg. Cauliflower (raw) cup has 11 mcg. Raymond with peel (raw) cup has 9 mcg. Grapes cup has 12 mcg. Carlin 1 medium has 9 mcg. Nuts 1 [...] Meat and poultry. Milk and dairy products. Iselin seeds. Actual amounts of vitamin K in [...] 08/13/2010 Document Revised: 09/28/2018 Document Reviewed: 01/18/2017 [employer] Patient Education 2020 [employer] 10/02/2021 11:26:27 COVID-19: How to Protect Yourself and Others - [facility] COVID-19: How to Protect Yourself and Others Know how it spreads There is currently no vaccine to prevent coronavirus disease 2019 (COVID-19). The best way to prevent illness is to avoid being exposed to this virus. The virus is thought to spread mainly from pifaua-dm-qsvqve. ?Between people who are in close contact [...] are not readily available, use a hand congressional representative that contains at least 60% alcohol. Cover [...] at higher risk of getting very sick.www.cdc.gov/cor onavirus/2019-ncov/wtui-knqaf-igtvbpliosc/mytscj-jn-zlnjpf-risk.html Cover your mouth and nose with a [...] available, clean your hands with a hand congressional representative that contains at least 60% alcohol. Clean and disinfect Clean AND disinfect frequently touched surfaces daily. This includes tables, doorknobs, light switches, countertops, handles, desks, phones, keyboards, toilets, faucets, and sinks. www.cdc.gov/coronav irus/2019-ncov/ryydroo-wdofjdu-lwdq/nocogojiyxxf-tstv-pezy.html If surfaces are dirty, clean them: Use [...] 02/11/2020 Document Revised: 05/07/2020 Document Reviewed: 05/07/2020 [employer] Patient Education 2019 [employer]. 10/02/2021 11:26:26 COVID-19 COVID-19 COVID-19 is a [...] to fight infection (immunocompromised). Live in a half-way or long-term care facility. Have a long-term [...] managed at home with rest, fluids, and tqju-plf-ynyvpex medicines. Treatment for a serious infection usually [...] are safe for you. General instructions Take tmdj-rlv-bznuoli and prescription medicines only as told by [...] water are not available, usean alcohol-based hand congressional representative. ?Avoid touching your mouth, face, eyes, or [...] water are not available, use alcohol-based hand congressional representative. Stay away from other members of your [...] have a weak immunity, live in a half-way, or have chronic disease. There is no [...] 11/21/2019 Document Revised: 03/12/2020 Document Reviewed: 11/21/2019 [employer] Patient Education 2020 [employer] 10/02/2021 11:26:26 COVID-19 Frequently Asked Questions COVID-19 [...] the coronavirus come from? In September 2019, [place] told the World Health Organization (WHO) of several cases of lung disease (human respiratory illness). These cases were linked to an open seafood and livestock market in the city of [facility]. The link to the seafood and [...] and virus naming World Health Organization (WHO): www.who.int/emergencies/diseases/mbbis-hlsrkavjcta-2932/technical-g uidance/ugpupq-hcg-drdarqrmlqm-disease-(covid-2019)-wqg-gca-uaevp-ptsy-ixgnhw-oh Who is at risk for complications from [...] relieve his or her symptoms by using bktj-wli-aiadsww medicines that treat sneezing, coughing, and runny [...] water are not available, use alcohol-based hand congressional representative. Avoid touching your face, mouth, nose, or [...] Prevention (CDC): www.cdc.gov/coronavirus/2019-ncov/travelers/index.html World Health Organization (WHO): www.who.int/emergencies/diseases/xwrbr-mkmxspzvgtz-7292/travel-advice Know the risks and take action to [...] water are not available, use alcohol-based hand congressional representative. Cough or sneeze into a tissue, sleeve, [...] in hot, soapy water or use a powder expert. Air-dry your dishes. Wash laundry in hot [...] Health Organization (WHO) Information and news updates: www.who.int/emergencies/diseases/ibrqq-jmpcvplytws-7171 Coronavirus health topic: www.who.int/health-topics/coronavirus Questions and answers on COVID-19: www.who.int/news-room/q-a-detail/n-k-tgasqcqqemtfo Global tracker: who.RSP Tooling [place] Academy [employer] (AAP) Information for families: www.healthychildren.org/Norwegian/health-issues/conditions/chest-lungs/Pages /8205-Nwonv-Rkpdeehjahq.aspx The coronavirus situation is changing rapidly. Check [...] 02/11/2020 Document Revised: 02/11/2020 Document Reviewed: 02/11/2020 [employer] Patient Education 2020 [employer]. Follow Up Care 09/30/2021 13:02:43 With:LARRY JOYCE Address: [address] [place] [address] [place] [address]- [phone] Business (1) When: Unknown Comments:please follow up within 3-5 days [facility] 12-02-2021 Evaluation + Plan noteExtracted from: Title:History and Physical Author:GERBER THOMAS APRN-PROGRESSIVE ASSEMBLER AND FITTER Date:09/30/21 1. Acute hypoxemic respirato ry failure [...] days ago, patient tested positive for COVID 09/30. Patient is not vaccinated. She was found [...] Appointments Appointment Date:10/05/2021 10:00:00 AM Scheduled Provider: Location:[facility] Appointment Type:PC Nurse Protime Appointment Date:01/18/2022 02:20:00 PM Scheduled Provider:LARRY JOYCE DO Location:[facility] Appointment Type:PC [facility] Evaluation + Plan note Future Appointments Appointment Date:09/28/2021 09:00:00 AM Scheduled Provider: Location:[facility] Appointment Type:PC Nurse Protime Appointment Date:01/18/2022 02:20:00 PM Scheduled Provider:LARRY JOYCE DO Location:[facility] Appointment Type:PC OV [facility] Evaluation + Plan note Future Appointments Appointment Date:2021 10:20:00 AM Scheduled Provider:LARRY JOYCE DO Location:[facility] Appointment Type:PC OV Appointment Date:01/18/2022 02:20:00 PM Scheduled Provider:LARRY JOYCE DO Location:[facility] Appointment Type: OV [facility] Evaluation + Plan note Future Appointments Appointment Date:01/18/2022 02:20:00 PM Scheduled Provider:LARRY JOYCE DO Location:[facility] Appointment Type: OV [facility] Evaluation + Plan note Future Appointments Appointment Date:12/09/2021 02:00:00 PM Scheduled Provider: Location:[facility] Appointment Type:PC Nurse Protime Appointment Date:12/20/2021 08:30:00 AM Scheduled Provider: Location:[facility] Appointment Type:NM Myocardial Spect Rest/Stress Liat (AH Appointment Date:01/18/2022 02:30:00 PM Scheduled Provider:LARRY JOYCE DO Location:[facility] Appointment Type:PC OV Future Scheduled Tests Radiology* NM Myocardial Spect Rest/Stress 12/20/21 [facility] Evaluation + Plan note Future Appointments Appointment Date:01/06/2022 02:00:00 PM Scheduled Provider: Location:[facility] Appointment Type:PC Nurse Protime Appointment Date:01/18/2022 02:30:00 PM Scheduled Provider:LARRY JOYCE DO Location:[facility] Appointment Type: OV [facility] Evaluation + Plan note Future Appointments Appointment Date:03/04/2022 01:30:00 PM Scheduled Provider: Location:[facility] Appointment Type:PC Nurse Protime Appointment Date:08/05/2022 02:00:00 PM Scheduled Provider:LARRY JOYCE DO Location:[facility] Appointment Type:PC OV Follow Up Future Scheduled Tests Radiology* BD Bone Density DEXA Axial Skeleton 02/04/22 [facility] Evaluation + Plan note Future Appointments Appointment Date:06/07/2022 03:00:00 PM Scheduled Provider: Location:[facility] Appointment Type:BD Bone Density DEXA Axial Skeleton Appointment Date:06/16/2022 01:15:00 PM Scheduled Provider: Location:[facility] Appointment Type:PC Nurse Appointment Date:08/05/2022 02:00:00 PM Scheduled Provider:LARRY JOYCE DO Location:[facility] Appointment Type:PC OV Follow Up Future Scheduled Tests Radiology* BD Bone Density DEXA Axial Skeleton 06/07/22 [facility] Evaluation + Plan note Future Appointments Appointment Date:06/16/2022 01:15:00 PM Scheduled Provider: Location:[facility] Appointment Type:PC Nurse Appointment Date:08/05/2022 02:00:00 PM Scheduled Provider:LARRY JOYCE DO Location:[facility] Appointment Type:PC OV Follow Up [facility] Evaluation + Plan note Future Appointments Appointment Date:11/01/2022 01:45:00 PM Scheduled Provider: Location:[facility] Appointment Type:PC Nurse Protime Appointment Date:03/09/2023 01:15:00 PM Scheduled Provider:LARRY JOYCE DO Location:[facility] Appointment Type:PC OV [facility] Evaluation + Plan note Future Appointments Appointment Date:03/14/2023 01:45:00 PM Scheduled Provider: Location:[facility] Appointment Type:PC Nurse Protime Appointment Date:08/31/2023 01:30:00 PM Scheduled Provider:LARRY JOYCE DO Location:[facility] Appointment Type:PC Wellness Medicare [facility] Evaluation + Plan note Future Appointments Appointment Date:12/05/2023 03:00:00 PM Scheduled Provider:LARRY JOYCE DO Location:[facility] Appointment Type:PC OV Pre Op Appointment Date:03/07/2024 03:00:00 PM Scheduled Provider:LARRY JOYCE DO Location:[facility] Appointment Type:[facility] Evaluation + Plan note Future Appointments Appointment Date:09/10/2024 01:30:00 PM Scheduled Provider:LARRY OJYCE DO Location:[facility] Appointment Type:PC Wellness Medicare [facility] evaluation + Plan note Future Appointments Appointment Date:03/11/2025 02:00:00 PM Scheduled Provider:LARRY JOYCE DO Location:[facility] Appointment Type:[facility] Future Scheduled Tests Laboratory* Ferritin 09/10/24 * Iron Level 09/10/24 * Thyroid Stimulating Hormone 09/10/24 * Complete Blood Count 09/10/24 * Lipid Profile 09/10/24 * Vitamin D Level 09/10/24 * Complete Metabolic Panel 09/10/24 [facility] evaluation + Plan note Future Appointments Appointment Date:03/11/2025 02:00:00 PM Scheduled Provider:LARRY JOYCE DO Location:[facility] Appointment Type:[facility] Evaluation + Plan note Future Appointments Appointment Date:09/12/2025 01:30:00 PM Scheduled Provider:LARRY JOYCE DO Location:[facility] Appointment Type:PC Wellness Medicare Future Scheduled Tests Laboratory* Thyroid Stimulating Hormone 09/11/25 * Complete Blood Count 09/11/25 * Lipid Profile 09/11/25 * Vitamin D Level 09/11/25 * Complete Metabolic Panel 09/11/25 [facility] evaluation note* Diagnosis Benign hypertension- Primary Essential hypertension, benign Mixed hyperlipidemia Sinus tachycardia Other specified cardiac dysrhythmias Atrial tachycardia (HCC) Other specified cardiac dysrhythmias Morbid obesity (HCC) Morbid obesity Hx of cardiac catheterization Other postprocedural status [facility] [place]* Diagnosis Abnormal pulse oximetry- Primary Abnormal arterial blood gases documented in this encounter [facility] [place] noteNo assessment information availableWSouthern [facility] Work Phone: evaluation note* Diagnosis Onset Date Resolution Status Obesity acute LEELA (obstructive sleep apnea) acute [facility] Work Phone: Evaluation note* Diagnosis Onset Date Resolution Status Obesity acute LEELA (obstructive sleep apnea) acute Obesity acute LEELA (obstructive sleep apnea) [facility] Work Phone: evaluation note* Diagnosis Benign hypertension- Primary Essential hypertension, benign Mixed hyperlipidemia care home (current) use of anticoagulants Long-term (current) use of anticoagulants Sinus tachycardia Other specified cardiac dysrhythmias H/O echocardiogram Other specified personal history presenting hazards to health History of stress test Other specified conditions influencing health status Hx of cardiac catheterization Other postprocedural status Non-smoker Other specified conditions influencing health status documented in this [facility] [place] [facility]* Diagnosis Atrial tachycardia- Primary Other specified cardiac dysrhythmias Benign hypertension Essential hypertension, benign Mixed hyperlipidemia care home (current) use of anticoagulants Long-term (current) use of anticoagulants Personal history of DVT (deep vein thrombosis) Personal history of venous thrombosis and embolism documented in this encounter [facility] note* Diagnosis Onset Date Resolution Status Dyspnea chronic Obesity chronic LEELA (obstructive sleep apnea) chronic S/P total right hip arthroplasty acute LEELA (obstructive sleep apnea) chronic [facility] Work Phone: Evaluation note* Diagnosis Benign hypertension- Primary Essential hypertension, benign Mixed hyperlipidemia Atrial tachycardia (HCC) Other specified cardiac dysrhythmias 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 Long-term (current) use of anticoagulants BMI 40.0-44.9, adult (HCC) Body Mass Index 40.0-44.9, adult OLIVER (dyspnea on exertion) Other dyspnea and respiratory abnormality documented in this encounter [facility] [place] [facility]* Diagnosis Onset Date Resolution Status Admit Date Obesity chronic June 1:14pm LEELA (obstructive sleep apnea) chronic July 10, 2025 1:14pm [facility] Work Phone: Hospital course Narrative No data available for this section [facility] Hospital Discharge instructions No data available for this section [facility] Progress note No data available for this section [facility] Reason for referral (narrative)* Outpatient Procedure (Routine) - Closed Specialty Diagnoses / Procedures Referred By Contac t Referred To Contact [facility] [place] Diagnoses Benign hypertension Procedures ECG COMPLETE ECG ROUTINE ECG W/LEAST 12 LDS W/I&R Adolfo Gonsales DO [address] [place] [address] [facility] [address] [place] [address] Referral ID Status Reason Start Date Expiration Date V isits Requested Visits Authorized [id number] Closed Auto-Generate d Referral 08/30/2022 08/30/2023 1 1 [facility] for referral (narrative)* Outpatient Procedure (Routine) - Pending Review Specialty Diagnoses / Procedures Referred By Contac t Referred To Contact [facility] Diagnoses Atrial tachycardia Procedures ECG COMPLETE ECG ROUTINE ECG W/LEAST 12 LDS W/I&R Susan Núñez MANAGER PLAN.PROGRESSIVE ASSEMBLER AND FITTER [address] [address] [id number] [place] [address] Referral ID Status Reason Start Date Expiration Date Visits Requested Visits Authorized [id number] Pending Review Auto-Generat ed Referral 3 10/08/2024 1 1 [facility] for referral (narrative)* Outpatient Procedure (Routine) - New Request Specialty Diagnoses / Procedures Referred By Contac t Referred To Contact [facility] [place] Diagnoses Atrial tachycardia (HCC) Procedures ECG COMPLETE ECG ROUTINE ECG W/LEAST 12 LDS W/I&R Susan Núñez, MANAGER PLAN.PROGRESSIVE ASSEMBLER AND FITTER [address] [facility] [address] [facility] [address] [place] [address] [facility] [place] [address] [place] [address] Referral ID Status Reason Start Date Expiration Date Visits Requested Visits Authorized [id number] New Request Auto-Generat ed Referral 4 10/14/2025 [facility]ative[facility]No reason for referral information availableBrimson Medical Services Work Phone: Summary Purpose Family History [...] No December 27 024 3:44pm Power of Master Baker No December 27, 2023 3:44pm Reason for Referral Specialty Diagnoses / Procedures Referred By Contac t Referred To Contact Diagnoses Abnormal pulse oximetry Procedures CONSULT TO PULM/CRITICAL CARE Susan Núñez, MANAGER PLAN.PROGRESSIVE ASSEMBLER AND FITTER [address] [place] [address] Raheel Quintero [address] [place] [address] Referral ID Status Reason Start Date Expiration Date Visits Requested Visits Authorized [id number] Ref Not Required PCP Requested Referral 03/03/2022 [...] section and content) DATE CREATED AUTHOR 01/20/[address] [facility] Ida penn Kendall DATE CREATED AUTHOR AUTHOR'S ORGANIZ ATION 09/11/2022 [facility] DATE CREATED AUTHOR AUTHOR'S ORGANIZ ATION 04/16/2024 [facility] ([place]) DATE CREATED AUTHOR AUTHOR'S ORGANIZ ATION 10/21/2024 [facility] DATE CREATED AUTHOR AUTHOR'S ORGANIZ ATION 09/11/2025 [facility] DATE CREATED AUTHOR AUTHOR'S ORGANIZ ATION 09/11/2025 [facility] Source Comments (unrecognize d section and content) In the event this informatio n is protected by the Federal Confidentiality of Alcohol and Drug Abuse Patient Records regulations: The Federal rules restrict any use of the information to criminally investigate or prosecute any alcohol or drug abuse patient.[facility] the event this information is protected by the Federal Confidentiality of Alcohol and Drug Abuse Patient Records regulations: The Federal rules restrict any use of the information to criminally investigate or prosecute any alcohol or drug abuse patient.[facility] the event this information is protected by the Federal Confidentiality of Alcohol and Drug Abuse Patient Records regulations: The Federal rules restrict any use of the information to criminally investigate or prosecute any alcohol or drug abuse patient.[facility] Hospital[facility] the event this information is protected by the Federal Confidentiality of Alcohol and Drug Abuse Patient Records regulations: The Federal rules restrict any use of the information to criminally investigate or prosecute any alcohol or drug abuse patient.[facility] the event this information is protected by the Federal Confidentiality of Alcohol and Drug Abuse Patient Records regulations: The Federal rules restrict any use of the information to criminally investigate or prosecute any alcohol or drug abuse patient.[facility] Hospital[facility] the event this information is protected by the Federal Confidentiality of Alcohol and Drug Abuse Patient Records regulations: The Federal rules restrict any use of the information to criminally investigate or prosecute any alcohol or drug abuse patient.[facility] Hospital[facility] the event this information is protected by the Federal Confidentiality of Alcohol and Drug Abuse Patient Records regulations: The Federal rules restrict any use of the information to criminally investigate or prosecute any alcohol or drug abuse patient.[facility] Hospital[facility] the event this information is protected by the Federal Confidentiality of Alcohol and Drug Abuse Patient Records regulations: The Federal rules restrict any use of the information to criminally investigate or prosecute any alcohol or drug abuse patient.[facility] Reason for Visit (unrecogniz ed section and content) Reason Comments Results Reason Comments Follow Up Reason Comments Results Reason Comments Established Patient Follow-Up 6 month fo llow up for HTN Reason Comments Follow Up Care Teams (unrecognized sec tion and content) Benefits Administrator Relationship Specialty Start Date End Date Larry Joyce, DO [address] [place] [address] PCP - General Family Practice 11/29/21 Benefits Administrator Relationship Specialty Start Date End Date Larry Joyce, DO [address] [place] [address] PCP - General Family Practice 11/29/21 Benefits Administrator Relationship Specialty Start Date End Date Larry Joyce, DO [address] [place] [address] PCP - General Family Practice 11/29/21 Benefits Administrator Relationship Specialty Start Date End Date Larry Joyce, DO [address] [place] [address] PCP - General Family Medicine 11/29/21 Benefits Administrator Relationship Specialty Start Date End Date Larry Joyce DO [address] [place] [address] PCP - General Family Medicine 11/29/21 Benefits Administrator Relationship Specialty Start Date End Date Larry Joyce DO [address] [place] [address] PCP - General Family Medicine 11/29/21 Team Status: Active Member Role Status Dates Dr. Juan Fraser MD Family Provider Active Dr. Larry Joyce , DO Primary Care Provider Activ e Team Status: Inactive Member Role Status Dates Dr. Larry Joyce , DO Primary Care Provider, Refe rring Provider Active Annia Sainz PAPER INSPECTOR, PAPER INSPECTOR-C Attending Provider Active Team Status: Active Member Role Status Dates Dr. Larry Joyce , DO Primary Care Provider Activ e Dr. Kamar Morales MD Attending Provider Active Dr. Norah Turner MD Referring Provider Active Team Status: Active Member Role Status Dates Dr. Larry Joyce , DO Primary Care Provider Activ e Dr. Norah Turner MD Admit Provider, R eferring Provider, Other Provider Active Dr. Zachary Andino , DO Attending Provider, Other Pro vider Active Team Status: Inactive Member Role Status Dates Dr. Larry Joyce DO Primary Care Provider Activ e Dr. Norah Turner MD Admit Provider, A ttending Provider, Referring Provider Active Dr. Roselia Dailey MD Other Provider Active Benefits Administrator Relationship Specialty Start Date End Date Larry Joyce DO [address] [place] [address] PCP - General Family Medicine 11/29/21 Team Status: Active Member Role/Relationship Status Dates Dr. Juan Fraser MD Family Provider Active Dr. Larry Joyce DO Primary Care Provider Activ e Team Status: Inactive Member Role/Relationship Status Dates Dr. Larry Joyce DO Primary Care Provider Activ e Start: July 10, 2025 End: July 10, 2025 Dr. Larry Joyce DO Referring Provider Active Start: July 10, 2025 End: July 10, 2025 Annia Sainz PAPER INSPECTOR, PAPER INSPECTOR-C Attending Provider Active Start: July 10, 2025 End: July 10, 2025 Goals (unrecognized section and content) Goals may be documented in a n alternate section Care Team (unrecognized sect ion and content) Care Team Personnel Name: LARRY JOYCE DO Position: P4 Physician - Primary Care Med Service: Active Provider Member Role: Primary Care Physician Address: Address: [address] [place] [address] Care Team Related Persons Name: SWAPNA PECK Care Team Personnel Name: LARRY JOYCE DO Position: P4 Physician - Primary Care Med Service: Active Provider Member Role: Primary Care Physician Address: Address: [address] [place] [address] Care Team Related Persons Name: SWAPNA PECK Care Team Personnel Name: LARRY JOYCE DO Position: P4 Physician - Primary Care Member Role: Primary Care Physician Address: Address: [address] [place] [address] Care Team Related Persons Name: SWAPNA PECK [...] BE BASED ON THE PRIMARY CLINICAL RECORDS. [facility] [employer] [facility]. provides no warranty or guarantee of the accuracy or completeness of information in this document.
== END | disposition home or self-care (01) ==
LOC: SL 20:49
PROVIDERS: Referring Provider Nurse Practitioner Acute Care; Visit Provider Nurse Practitioner Acute Care
DX: G47.33 Obstructive sleep apnea (adult) (pediatric) (principal)
CPT/HCPCS: 95811

== ENCOUNTER → 2025-10-13 | Outpatient (CLI) | payer MEDICARE, BC, SELFPAY | END | disposition home or self-care (01) | LOC: SL 14:03 | PROVIDERS: Referring Provider Nurse Practitioner Acute Care; Visit Provider Nurse Practitioner Acute Care | DX: Z00.00 Encounter for general adult medical examination without abnormal findings (principal) ==